=== PATIENT | female | born 1985 | race African-American/Black ===

== ENCOUNTER → 2017-08-01 | Outpatient (CLI) | payer MEDICARE, BC, OTHER ==
[~2017-08-01] MED LIST: CONTRAST GIVEN MC PRN; ESOM20CA PO; FEXO180T81 PO; GEMF600T PO; HALO2TAB PO; IOHEXOL 300 MG/ML 100ML VIAL. IV ONE; LOSA1TAB22 PO; NORE-81 PO; NYST100054 PO; POLY255P PO; VENL37.5 PO
--- NOTE | 2017-08-01 15:37 | KCIC ---
RS Compliance Statement: One or more of the following individualized dose reduction techniques were utilized for this examination: 1. Automated exposure control 2. Adjustment of the mA and/or kV according to patient size 3. Use of iterative reconstruction technique CT HEAD WITHOUT CONTRAST History: Cervicalgia, curettes, spina bifida. 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 Comparison: None. Procedure: Axial images are obtained of the head from the skull base through the vertex without IV contrast. Despite multiple times, unable to obtain IV access for postcontrast imaging. Findings: There is right frontal shunt catheter, tip terminates in the third ventricle. The ventricles are slitlike. Cerebellar tonsils appear to be low-lying. No mass-effect, midline shift, hemorrhage, extra-axial fluid collection, or obvious acute infarction is identified. Suprasellar cistern is patent. Quadrigeminal plate cistern is narrowed. Bone windows demonstrate no acute calvarial abnormality. Right parietal maribell hole. There are large calcifications along the anterior falx. Small mucous retention cyst or polyp left maxillary sinus. Maxillary sinuses incompletely imaged. The other visualized paranasal sinuses are clear. Mastoid air cells are well aerated. IMPRESSION: Right frontal shunt catheter terminates in the third ventricle. The ventricles are slitlike. The cerebellar tonsils are likely low-lying. Recommend comparison to prior baseline imaging. Shunt malfunction and over shunting should be excluded. Electronically signed by: Erwin Estrella MD (08/01/2017 3:34 PM) [facility]
== END | disposition home or self-care (01) ==
LOC: KCIC CT 10:52
PROVIDERS: ATTEND Internal Medicine
DX: Z46.82 Encounter for fitting and adjustment of non-vascular catheter (principal); Z98.2 Presence of cerebrospinal fluid drainage device
CPT/HCPCS: 70450

== ENCOUNTER 2018-05-28 16:00 | Inpatient (IN) | payer MEDICARE, BC, OTHER ==
[~2018-05-28] VITALS: Ht 165.1 cm; Wt 121.1 kg
[~2018-05-28 16:00] MED LIST changes: -CONTRAST GIVEN MC PRN; -IOHEXOL 300 MG/ML 100ML VIAL. IV ONE
[2018-05-28 18:33] LABS: BILIRUBIN,URINE NEGATIVE (NEG); CLARITY,URINE CLEAR; COLOR,URINE YELLOW; NITRITE,URINE POSITIVE (NEG); PROTEIN,URINE NEGATIVE (NEG-TRACE)
[2018-05-28 18:40] LABS: BACTERIA,URINE MANY /HPF (0-FEW); SQUAMOUS EPITHELIAL CELL,UR FEW /LPF
[2018-05-28 18:42] LABS: U PREG PATIENT NEGATIVE (NEG)
[2018-05-28 19:06] LABS: BASO # 0.1 x10^3/uL (0.0-0.2); BASO % 1 % (0-3); EOS # 0.2 x10^3/uL (0.0-0.7); EOS % 1 % (0-3); HEMATOCRIT 38.6 % (36.0-47.0); HEMOGLOBIN 13.1 g/dL (12.0-15.5); LYMPH # 3.2 x10^3/uL (1.0-4.8); LYMPH % 21 % (24-48); MEAN CORPUSCULAR HEMOGLOBIN 31 pg (25-35); MEAN CORPUSCULAR HGB CONC 34 g/dL (31-37); MEAN CORPUSCULAR VOLUME 91 fL (79-100); MONO # 1.1 x10^3/uL (0.0-1.1); MONO % 7 % (0-9); NEUT % 70 % (31-73); PLATELET COUNT 367 x10^3/uL (140-400); RED BLOOD COUNT 4.27 x10^6/uL (3.50-5.40); RED CELL DISTRIBUTION WIDTH 14.1 % (11.5-14.5); WHITE BLOOD COUNT 15.6 x10^3/uL (4.0-11.0)
[2018-05-28 19:14] LABS: CALCIUM 9.4 mg/dL (8.5-10.1); CREATININE 0.9 mg/dL (0.6-1.0); GFR 86.7; POTASSIUM 3.9 mmol/L (3.5-5.1)
[2018-05-28 19:20] LABS: ALBUMIN 2.8 g/dL (3.4-5.0); ALBUMIN/GLOBULIN RATIO 0.5 (1.0-1.7); TOTAL BILIRUBIN 0.2 mg/dL (0.2-1.0); TOTAL PROTEIN 8.7 g/dL (6.4-8.2)
[2018-05-28] MEDS ORDERED: IOHEXOL 300 MG/ML 100ML VIAL. IV ONE (19:30)
[2018-05-28] MEDS ORDERED: CONTRAST GIVEN. MC PRN (19:30)
--- NOTE | 2018-05-28 20:21 | RAD ---
CT SCAN OF THE ABDOMEN AND PELVIS WITH IV CONTRAST. History: Pain Comparison:None. Procedure: Contiguous axial images of the abdomen and pelvis were performed after the administration of 75 cc of Omni 300 IV contrast and oral contrast without. This study was performed to exclude possible perineal abscess CT Abdomen with contrast: Findings: Liver: Unremarkable Spleen: Unremarkable Pancreas: Unremarkable Adrenal Glands: Unremarkable Kidneys: Unremarkable There is no mass or lymphadenopathy. There is no free air. There is no free fluid. Impression: No acute findings. End Impression CT Pelvis with Contrast: Findings: The urinary bladder appears normal. The appendix is normal. There is no lymphadenopathy. There is moderate wall thickening of the urinary bladder. There is a trace of free fluid in the pelvis. There is an air-fluid collection in the midline perineum that measures 2.4 x 2.2 cm however this could be the anal canal. There is skin thickening seen over the mons pubis with underlying edema within the subcutaneous fat. Impression: 1. Skin thickening over the mons pubis and mild subcutaneous edema could be inflammatory or could be cellulitis. 2. Small air-fluid collection is likely a perineal abscess but cannot be distinguished from the anal canal and correlation with rectal examination is recommended. 3. Moderate wall thickening of the urinary bladder suggests cystitis. Recommend correlation with urinary analysis. PQRS Compliance Statement: One or more of the following individualized dose reduction techniques were utilized for this examination: 1. Automated exposure control 2. Adjustment of the mA and/or kV according to patient size 3. Use of iterative reconstruction technique Electronically signed by: Durga Farmer III, MD (05/28/2018 8:17 PM) [facility]
--- NOTE | 2018-05-28 22:14 | PHYS DOC ---
Past Medical History Past Medical History: Seizure Additional Past Medical Histor: SPINAL BIFIDA,HYDROCEPHOLIS,BLADDER AND BOWEL INCONTINENCE Past Surgical History: Appendectomy, Cholecystectomy Additional Past Surgical Histo: SHUNT REPAIR Alcohol Use: None Drug Use: None Adult General Chief Complaint Chief Complaint: MULTIPLE COMPLAINTS HPI HPI Patient is a 32 year old -[place]oven[place] female who presents to the emergency room today accompanied by her mother with reports of bumps in the vaginal and perianal area for the last 3 days. Mother also reports white vaginal discharge that began yesterday, but has since turned into a greenish yellow discharge. As of today mother reports a foul odor to the drainage. Mother denies any fever, complaints of abdominal pain, back pain, alteration in bowel or bladder control. She states that the patient has a history of hydrocephalus, spina bifida, bipolar, and suspected Tourette's. Mother denies any history of diabetes. Mother states that the patient is allergic to sulfa drugs, latex, and morphine. Patient's mother is her primary childcare worker. Review of Systems Review of Systems Constitutional: Denies fever or chills [] GI: Denies abdominal pain, nausea, vomiting, bloody stools or diarrhea [] : Denies hematuria, reports bumps in the perianal and vaginal areas for the last 3 days, yellow to green vaginal discharge that began as white discharge 2 days ago, and a foul odor to vaginal discharge today. Musculoskeletal: Denies back pain Integument: Reports rash and wound of genitalia Neurologic: Denies headache, focal weakness or sensory changes [] All other systems were reviewed and found to be within normal limits, except as documented in this note. Current Medications Current Medications Current Medications Medications (Trade) Dose Ordered Sig/Logan Start Time Stop Time Status Last Admin Dose Admin Info (CONTRAST GIVEN -- Rx MONITORING) 1 each PRN DAILY PRN 05/28/18 19:30 05/30/18 19:29 Iohexol (Omnipaque 300 Mg/ml) 75 ml 1X ONCE 05/28/18 19:30 05/28/18 19:31 DC 05/28/18 19:27 75 ML Allergies Allergies Physical Exam Physical Exam Constitutional: Well developed, well nourished, no acute distress, non-toxic appearance, obese [] HENT: Normocephalic, atraumatic, nose normal. [] Eyes: normal Lungs & Thorax: Respirations even and unlabored. Abdomen: soft, no tenderness, no masses, no pulsatile masses. [] : several scattered bumps noted to genitalia, there appears to be a perianal abscess that is draining a malodorous, purulent, yellow discharge. Skin: Warm, dry, no erythema Extremities: No tenderness, no cyanosis, no edema. [] Neurologic: Alert and oriented X 3, normal motor function, normal sensory function, no focal deficits noted. [] Psychologic: Affect normal, judgement normal, mood normal. [] Current Patient Data Vital Signs Vital Signs Date Time Temp Pulse Resp B/P (MAP) Pulse Ox O2 Delivery O2 Flow Rate FiO2 05/28/18 20:30 114 116/99 (105) 98 Room Air 05/28/18 17:56 98.5 18 98.5 Lab Values Laboratory Tests Test 05/28/18 18:15 05/28/18 18:50 Urine Collection Type U cath Urine Color Yellow Urine Clarity Clear Urine pH 6.0 Urine Specific [place] >=1.030 Urine Protein Negative mg/dL (NEG-TRACE) Urine Glucose (UA) >=1000 mg/dL (NEG) Urine Ketones (Stick) Trace mg/dL (NEG) Urine Blood Small (NEG) Urine Nitrite Positive (NEG) Urine Bilirubin Negative (NEG) Urine Urobilinogen Dipstick 1.0 mg/dL (0.2 mg/dL) Urine Leukocyte Esterase Negative (NEG) Urine RBC 6-10 /HPF (0-2) Urine WBC 1-4 /HPF (0-4) Urine Squamous Epithelial Cells Few /LPF Urine Bacteria Many /HPF (0-FEW) Urine Mucus Mod /LPF Urine Test Negative (NEG) White Blood Count 15.6 x10^3/uL (4.0-11.0) H Red Blood Count 4.27 x10^6/uL (3.50-5.40) Hemoglobin 13.1 g/dL (12.0-15.5) Hematocrit 38.6 % (36.0-47.0) Mean Corpuscular Volume 91 fL (79-100) Mean Corpuscular Hemoglobin 31 pg (25-35) Mean Corpuscular Hemoglobin Concent 34 g/dL (31-37) Red Cell Distribution Width 14.1 % (11.5-14.5) Platelet Count 367 x10^3/uL (140-400) Neutrophils (%) (Auto) 70 % (31-73) Lymphocytes (%) (Auto) 21 % (24-48) L Monocytes (%) (Auto) 7 % (0-9) Eosinophils (%) (Auto) 1 % (0-3) Basophils (%) (Auto) 1 % (0-3) Neutrophils # (Auto) 11.0 x10^3uL (1.8-7.7) H Lymphocytes # (Auto) 3.2 x10^3/uL (1.0-4.8) Monocytes # (Auto) 1.1 x10^3/uL (0.0-1.1) Eosinophils # (Auto) 0.2 x10^3/uL (0.0-0.7) Basophils # (Auto) 0.1 x10^3/uL (0.0-0.2) Sodium Level 137 mmol/L (136-145) Potassium Level 3.9 mmol/L (3.5-5.1) Chloride Level 101 mmol/L (98-107) Carbon Dioxide Level 27 mmol/L (21-32) Anion Gap 9 (6-14) Blood Urea Nitrogen 14 mg/dL (7-20) Creatinine 0.9 mg/dL (0.6-1.0) Estimated GFR (Cockcroft-Gault) 86.7 BUN/Creatinine Ratio 16 (6-20) Glucose Level 187 mg/dL (70-99) H Lactic Acid Level 1.8 mmol/L (0.4-2.0) Calcium Level 9.4 mg/dL (8.5-10.1) Total Bilirubin 0.2 mg/dL (0.2-1.0) Aspartate Amino Transferase (AST) 31 U/L (15-37) Alanine Aminotransferase (ALT) 37 U/L (14-59) Alkaline Phosphatase 60 U/L (46-116) Total Protein 8.7 g/dL (6.4-8.2) H Albumin 2.8 g/dL (3.4-5.0) L Albumin/Globulin Ratio 0.5 (1.0-1.7) L Laboratory Tests 05/28/18 18:50 Laboratory Tests 05/28/18 18:50 EKG EKG IMAGING REPORT Signed PATIENT: JANEE AYON ACCOUNT: [id number] : 1985 LOCATION: ER AGE: 32 SEX: F EXAM STATUS: REG ER ORD. PHYSICIAN: LEYLA BENITEZ APRN REASON: possible perineal abscess PROCEDURE: CT ABD PELV W/ IV CONTRST ONLY CT SCAN OF THE ABDOMEN AND PELVIS WITH IV CONTRAST. History: Pain Comparison:None. Procedure: Contiguous axial images of the abdomen and pelvis were performed after the administration of 75 cc of Omni 300 IV contrast and oral contrast without. This study was performed to exclude possible perineal abscess CT Abdomen with contrast: Findings: Liver: Unremarkable Spleen: Unremarkable Pancreas: Unremarkable Adrenal Glands: Unremarkable Kidneys: Unremarkable There is no mass or lymphadenopathy. There is no free air. There is no free fluid. Impression: No acute findings. End Impression CT Pelvis with Contrast: Findings: The urinary bladder appears normal. The appendix is normal. There is no lymphadenopathy. There is moderate wall thickening of the urinary bladder. There is a trace of free fluid in the pelvis. There is an air-fluid collection in the midline perineum that measures 2.4 x 2.2 cm however this could be the anal canal. There is skin thickening seen over the mons pubis with underlying edema within the subcutaneous fat. Impression: 1. Skin thickening over the mons pubis and mild subcutaneous edema could be inflammatory or could be cellulitis. 2. Small air-fluid collection is likely a perineal abscess but cannot be distinguished from the anal canal and correlation with rectal examination is recommended. 3. Moderate wall thickening of the urinary bladder suggests cystitis. Recommend correlation with urinary analysis. PQRS Compliance Statement: One or more of the following individualized dose reduction techniques were utilized for this examination: 1. Automated exposure control 2. Adjustment of the mA and/or kV according to patient size 3. Use of iterative reconstruction technique Electronically signed by: Christian Argueta III, MD (05/28/2018 8:17 PM) [facility] DICTATED and SIGNED BY: CHRISTIAN ARGUETA III, MD DATE: 05/28/18 2004 [] Radiology/Procedures Radiology/Procedures [] Course & Med Decision Making Course & Med Decision Making Pertinent Labs and Imaging studies reviewed. (See chart for details) Patient is a 32-year-old -[place]oven[place] female who presented to the emergency room today with concerns of odorous vaginal discharge, and sores of her genitalia for the last 3 days. VSS, lab work reveals a urinary tract infection. IV contrast CT abdomen and pelvis was conducted that revealed a likely perineal abscess and was consistent with cystitis. Patient was given one dose of IV Rocephin in the ER after blood cultures and wound cultures obtained. Dr. Manley was contacted and the decision to admit the patient to med/surg with an flow manager consult was made. [ER PHYSICIAN ATTENDING NOTE: I have personally seen and examined the patient, and agree with the history, physical exam, and plan, as documented by mid-level provider.] Dragon Disclaimer Dragon Disclaimer This electronic medical record was generated, in whole or in part, using a voice recognition dictation system. Departure Departure Impression: Primary Impression: Urinary tract infection Additional Impression: Perineal abscess Disposition: 09 ADMITTED INPATIENT Admitting Physician: Ivette Manley Condition: STABLE Referrals: JUVE MENENDEZ RN, GNP (PCP) Problem Qualifiers Primary Impression: Urinary tract infection Urinary tract infection type: site unspecified Hematuria presence: without hematuria Qualified Codes: N39.0 - Urinary tract infection, site not specified LEYLA BENITEZ APRN May 28, 2018 22:14 AIXA DE PAZ MD May 29, 2018 04:10
[2018-05-28 22:59] VITALS: BP 124/78
[2018-05-29 03:00] VITALS: BP 118/66
[2018-05-29] MEDS ORDERED: CLON2TAB9 PO (05:37)
[2018-05-29] MEDS ORDERED: VENL150C6 PO (05:37)
[2018-05-29] MEDS ORDERED: ACET5SOL PO (05:37)
[2018-05-29] MEDS ORDERED: GUAN1TAB PO (05:37)
[2018-05-29] MEDS ORDERED: RAME8TAB19 PO (05:37)
[2018-05-29] MEDS ORDERED: HALO2TAB PO (05:37)
[2018-05-29] MEDS ORDERED: DIVA500T17 PO (05:37)
[2018-05-29 07:00] VITALS: BP 114/75
[2018-05-29] MEDS ORDERED: ONDANSETRON ODT 4 MG TAB.RAPDIS. PO PRN (09:15)
[2018-05-29] MEDS ORDERED: traMADol 50 MG TABLET PO PRN (09:15)
[2018-05-29] MEDS ORDERED: fentaNYL PF VIAL 100 MCG/2 ML VIAL IV PRN (09:15)
[2018-05-29] MEDS ORDERED: ONDANSETRON PF 4 MG/2 ML VIAL. IV PRN (09:15)
[2018-05-29] MEDS ORDERED: ACETAMINOPHEN 500 MG TABLET PO PRN (09:15)
--- NOTE | 2018-05-29 10:24 | PDOC1 ---
History and Physical Date of Admission Date of Admission DATE: 05/29/18 TIME: 10:18 Identification/Chief Complaint Chief Complaint Vaginal discharge, vesicles around the area or rash or redness in the perineal area Source Source: Caregiver, Chart review, Patient History of Present Illness History of Present Illness 32-year-old female, with mental delay since childhood, there is a caregiver at bedside and the mother. They relay to me that maybe for the past few days, the mother noted some rash or vesicles in the perineal area some vaginal discharge - thick, white, foul-smelling and has gotten worse. Denies any fevers at home. Patient is a poor historian, but nods to my interaction. I did inspect the area, foul-smelling, urine discharge, white curdy discharge coming out of the vaginal area. CAT scan shows an abscess in that area hence admitted with CYLINDER DIE MACHINE OPERATOR on board. I did consult infectious disease and have discussed with him. WBC 15.6, no fevers overnight. Also UTI on UA. We have kept nothing by mouth pending CYLINDER DIE MACHINE OPERATOR to see, most likely might need some drainage of sorts. ER did swab the vaginal discharge and sent to the lab last night Past Medical History CENTRAL NERVOUS SYSTEM: Other (mental delay) Past Surgical History Past Surgical History: No pertinent history Family History Family History: No Significant Social History Smoke: No ALCOHOL: none Drugs: None Current Problem List Problem List Problems Medical Problems: (1) Perineal abscess Status: Acute (2) Urinary tract infection Status: Acute Current Medications Current Medications Current Medications Iohexol (Omnipaque 300 Mg/ml) 75 ml 1X ONCE IV Last administered on 05/28/18at 19:27; Start 05/28/18 at 19:30; Stop 05/28/18 at 19:31; Status DC Info (CONTRAST GIVEN -- Rx MONITORING) 1 each PRN DAILY PRN MC SEE COMMENTS; Start 05/28/18 at 19:30; Stop 05/30/18 at 19:29 Ceftriaxone Sodium 50 ml @ 100 mls/hr 1X ONCE IV Last administered on at 21:34; Start 05/28/18 at 20:45; Stop 05/28/18 at 21:14; Status DC Acetaminophen (Tylenol) 500 mg PRN Q6HRS PRN PO MILD PAIN / TEMP; Start at 09:15 Ondansetron HCl (Zofran) 4 mg PRN Q6HRS PRN IV NAUSEA/VOMITING; Start 05/29/18 at 09:15 Ondansetron HCl (Zofran Odt) 4 mg PRN Q6HRS PRN PO NAUSEA/VOMITING; Start 05/29 at 09:15 Fentanyl Citrate (Fentanyl 2ml Vial) 50 mcg PRN Q2HR PRN IV PAIN; Start at 09:15 Tramadol HCl (Ultram) 50 mg PRN Q6HRS PRN PO PAIN; Start 05/29/18 at 09:15; Status UNV Active Scripts Active Reported Guanfacine Hcl 1 Mg Tablet 2 Mg PO BID Rozerem (Ramelteon) 8 Mg Tablet 16 Mg PO HS Clonazepam 2 Mg Tablet 2 Mg PO TID Venlafaxine Hcl Er (Venlafaxine Hcl) 150 Mg Cap.er.24h 150 Mg PO DAILY Divalproex Sodium Er (Divalproex Sodium) 500 Mg Tab.er.24h 500 Mg PO TID Haloperidol 2 Mg Tablet 4 Mg PO PRN QID PRN Acetaminophen-Codeine Solution (Acetaminophen With Codeine) 5 Ml Solution 15 Ml PO QID Polyethylene Glycol 3350 255 Gm Powder 17 Gm PO DAILY Allergies Allergies: Coded Allergies: Sulfa (Sulfonamide Antibiotics) (Verified Allergy, Intermediate, Hives, ) patient develops red hives and itching latex (Verified Allergy, Intermediate, 05/29/18) morphine (Verified Allergy, Intermediate, 05/29/18) ROS Review of System limited ROS - has mental delay Physical Exam General: Alert, Oriented X3, Cooperative, No acute distress HEENT: Atraumatic, PERRLA, EOMI Lungs: Clear to auscultation, Normal air movement Heart: S1S2, RRR, no thrills, no rubs, no gallops, no murmurs Cardiovascular: S1, S2 Breasts: Normal, Rt breast nml w/o mass, Lt breast nml w/o mass, Nipples normal (pendulous breasts, no rash in the intertriginous or inframammary areas) , Not examined Rectal Exam: not examined PELVIC: Other (normal pelvic or genitalia appropriate for age but significant discharge coming from the vaginal vault, cordlike, foul-smelling. Also some urinary leakage on diapers) Extremities: No clubbing, No cyanosis, No edema, Normal pulses, No tenderness/ swelling Neuro: Normal gait, Normal speech, Strength at 5/5 X4 ext, Normal tone, Sensation intact, Cranial nerves 3-12 NL, Reflexes 2+ Psych/Mental Status: Mental status NL, Mood NL Vitals Vitals Vital Signs Date Time Temp Pulse Resp B/P (MAP) Pulse Ox O2 Delivery O2 Flow Rate FiO2 05/29/18 08:00 Room Air 05/29/18 07:00 98.2 95 20 114/75 (88) 99 98.2 Labs Labs Laboratory Tests Test 05/28/18 18:15 05/28/18 18:50 Urine Collection Type U cath Urine Color Yellow Urine Clarity Clear Urine pH 6.0 Urine Specific [place] >=1.030 Urine Protein Negative mg/dL (NEG-TRACE) Urine Glucose (UA) >=1000 mg/dL (NEG) Urine Ketones (Stick) Trace mg/dL (NEG) Urine Blood Small (NEG) Urine Nitrite Positive (NEG) Urine Bilirubin Negative (NEG) Urine Urobilinogen Dipstick 1.0 mg/dL (0.2 mg/dL) Urine Leukocyte Esterase Negative (NEG) Urine RBC 6-10 /HPF (0-2) Urine WBC 1-4 /HPF (0-4) Urine Squamous Epithelial Cells Few /LPF Urine Bacteria Many /HPF (0-FEW) Urine Mucus Mod /LPF Urine Test Negative (NEG) White Blood Count 15.6 x10^3/uL (4.0-11.0) Red Blood Count 4.27 x10^6/uL (3.50-5.40) Hemoglobin 13.1 g/dL (12.0-15.5) Hematocrit 38.6 % (36.0-47.0) Mean Corpuscular Volume 91 fL (79-100) Mean Corpuscular Hemoglobin 31 pg (25-35) Mean Corpuscular Hemoglobin Concent 34 g/dL (31-37) Red Cell Distribution Width 14.1 % (11.5-14.5) Platelet Count 367 x10^3/uL (140-400) Neutrophils (%) (Auto) 70 % (31-73) Lymphocytes (%) (Auto) 21 % (24-48) Monocytes (%) (Auto) 7 % (0-9) Eosinophils (%) (Auto) 1 % (0-3) Basophils (%) (Auto) 1 % (0-3) Neutrophils # (Auto) 11.0 x10^3uL (1.8-7.7) Lymphocytes # (Auto) 3.2 x10^3/uL (1.0-4.8) Monocytes # (Auto) 1.1 x10^3/uL (0.0-1.1) Eosinophils # (Auto) 0.2 x10^3/uL (0.0-0.7) Basophils # (Auto) 0.1 x10^3/uL (0.0-0.2) Sodium Level 137 mmol/L (136-145) Potassium Level 3.9 mmol/L (3.5-5.1) Chloride Level 101 mmol/L (98-107) Carbon Dioxide Level 27 mmol/L (21-32) Anion Gap 9 (6-14) Blood Urea Nitrogen 14 mg/dL (7-20) Creatinine 0.9 mg/dL (0.6-1.0) Estimated GFR (Cockcroft-Gault) 86.7 BUN/Creatinine Ratio 16 (6-20) Glucose Level 187 mg/dL (70-99) Lactic Acid Level 1.8 mmol/L (0.4-2.0) Calcium Level 9.4 mg/dL (8.5-10.1) Total Bilirubin 0.2 mg/dL (0.2-1.0) Aspartate Amino Transf (AST/SGOT) 31 U/L (15-37) Alanine Aminotransferase (ALT/SGPT) 37 U/L (14-59) Alkaline Phosphatase 60 U/L (46-116) Total Protein 8.7 g/dL (6.4-8.2) Albumin 2.8 g/dL (3.4-5.0) Albumin/Globulin Ratio 0.5 (1.0-1.7) Laboratory Tests Test 05/28/18 18:15 05/28/18 18:50 Urine Collection Type U cath Urine Color Yellow Urine Clarity Clear Urine pH 6.0 Urine Specific [place] >=1.030 Urine Protein Negative mg/dL (NEG-TRACE) Urine Glucose (UA) >=1000 mg/dL (NEG) Urine Ketones (Stick) Trace mg/dL (NEG) Urine Blood Small (NEG) Urine Nitrite Positive (NEG) Urine Bilirubin Negative (NEG) Urine Urobilinogen Dipstick 1.0 mg/dL (0.2 mg/dL) Urine Leukocyte Esterase Negative (NEG) Urine RBC 6-10 /HPF (0-2) Urine WBC 1-4 /HPF (0-4) Urine Squamous Epithelial Cells Few /LPF Urine Bacteria Many /HPF (0-FEW) Urine Mucus Mod /LPF Urine Test Negative (NEG) White Blood Count 15.6 x10^3/uL (4.0-11.0) Red Blood Count 4.27 x10^6/uL (3.50-5.40) Hemoglobin 13.1 g/dL (12.0-15.5) Hematocrit 38.6 % (36.0-47.0) Mean Corpuscular Volume 91 fL (79-100) Mean Corpuscular Hemoglobin 31 pg (25-35) Mean Corpuscular Hemoglobin Concent 34 g/dL (31-37) Red Cell Distribution Width 14.1 % (11.5-14.5) Platelet Count 367 x10^3/uL (140-400) Neutrophils (%) (Auto) 70 % (31-73) Lymphocytes (%) (Auto) 21 % (24-48) Monocytes (%) (Auto) 7 % (0-9) Eosinophils (%) (Auto) 1 % (0-3) Basophils (%) (Auto) 1 % (0-3) Neutrophils # (Auto) 11.0 x10^3uL (1.8-7.7) Lymphocytes # (Auto) 3.2 x10^3/uL (1.0-4.8) Monocytes # (Auto) 1.1 x10^3/uL (0.0-1.1) Eosinophils # (Auto) 0.2 x10^3/uL (0.0-0.7) Basophils # (Auto) 0.1 x10^3/uL (0.0-0.2) Sodium Level 137 mmol/L (136-145) Potassium Level 3.9 mmol/L (3.5-5.1) Chloride Level 101 mmol/L (98-107) Carbon Dioxide Level 27 mmol/L (21-32) Anion Gap 9 (6-14) Blood Urea Nitrogen 14 mg/dL (7-20) Creatinine 0.9 mg/dL (0.6-1.0) Estimated GFR (Cockcroft-Gault) 86.7 BUN/Creatinine Ratio 16 (6-20) Glucose Level 187 mg/dL (70-99) Lactic Acid Level 1.8 mmol/L (0.4-2.0) Calcium Level 9.4 mg/dL (8.5-10.1) Total Bilirubin 0.2 mg/dL (0.2-1.0) Aspartate Amino Transf (AST/SGOT) 31 U/L (15-37) Alanine Aminotransferase (ALT/SGPT) 37 U/L (14-59) Alkaline Phosphatase 60 U/L (46-116) Total Protein 8.7 g/dL (6.4-8.2) Albumin 2.8 g/dL (3.4-5.0) Albumin/Globulin Ratio 0.5 (1.0-1.7) VTE Prophylaxis Ordered VTE Prophylaxis Devices: Yes VTE Pharmacological Prophylaxi: Yes Assessment/Plan Assessment/Plan Perineal abscess Vaginal discharge Sepsis POA Mental delay Morbid obesity Sulfa allergy-hives UTI Plan: Admit 2 midnights Home meds have been reconciled Follow cultures, Gram stain sent from the ER CYLINDER DIE MACHINE OPERATOR consulted Add ID consult Add ESR and labs tomorrow Treatment for UTI Has been nothing by mouth just in case drainage needed today dw ID and multiple family members at bedside ABHIJEET MARSHALL MD May 29, 2018 10:24
[2018-05-29 11:00] VITALS: BP 121/76
[2018-05-29] MEDS: POLYETHYLENE GLYCOL 3350 17 GM PACKET. PO SCH (11:00)
--- NOTE | 2018-05-29 11:09 | PDOC ---
Infectious Disease Note Vital Sign Vital Signs Vital Signs Date Time Temp Pulse Resp B/P (MAP) Pulse Ox O2 Delivery O2 Flow Rate FiO2 05/29/18 08:00 Room Air 05/29/18 07:00 98.2 95 20 114/75 (88) 99 98.2 Labs Lab Laboratory Tests Test 05/28/18 18:15 05/28/18 18:50 Urine Collection Type U cath Urine Color Yellow Urine Clarity Clear Urine pH 6.0 Urine Specific [place] >=1.030 Urine Protein Negative mg/dL (NEG-TRACE) Urine Glucose (UA) >=1000 mg/dL (NEG) Urine Ketones (Stick) Trace mg/dL (NEG) Urine Blood Small (NEG) Urine Nitrite Positive (NEG) Urine Bilirubin Negative (NEG) Urine Urobilinogen Dipstick 1.0 mg/dL (0.2 mg/dL) Urine Leukocyte Esterase Negative (NEG) Urine RBC 6-10 /HPF (0-2) Urine WBC 1-4 /HPF (0-4) Urine Squamous Epithelial Cells Few /LPF Urine Bacteria Many /HPF (0-FEW) Urine Mucus Mod /LPF Urine Test Negative (NEG) White Blood Count 15.6 x10^3/uL (4.0-11.0) Red Blood Count 4.27 x10^6/uL (3.50-5.40) Hemoglobin 13.1 g/dL (12.0-15.5) Hematocrit 38.6 % (36.0-47.0) Mean Corpuscular Volume 91 fL (79-100) Mean Corpuscular Hemoglobin 31 pg (25-35) Mean Corpuscular Hemoglobin Concent 34 g/dL (31-37) Red Cell Distribution Width 14.1 % (11.5-14.5) Platelet Count 367 x10^3/uL (140-400) Neutrophils (%) (Auto) 70 % (31-73) Lymphocytes (%) (Auto) 21 % (24-48) Monocytes (%) (Auto) 7 % (0-9) Eosinophils (%) (Auto) 1 % (0-3) Basophils (%) (Auto) 1 % (0-3) Neutrophils # (Auto) 11.0 x10^3uL (1.8-7.7) Lymphocytes # (Auto) 3.2 x10^3/uL (1.0-4.8) Monocytes # (Auto) 1.1 x10^3/uL (0.0-1.1) Eosinophils # (Auto) 0.2 x10^3/uL (0.0-0.7) Basophils # (Auto) 0.1 x10^3/uL (0.0-0.2) Sodium Level 137 mmol/L (136-145) Potassium Level 3.9 mmol/L (3.5-5.1) Chloride Level 101 mmol/L (98-107) Carbon Dioxide Level 27 mmol/L (21-32) Anion Gap 9 (6-14) Blood Urea Nitrogen 14 mg/dL (7-20) Creatinine 0.9 mg/dL (0.6-1.0) Estimated GFR (Cockcroft-Gault) 86.7 BUN/Creatinine Ratio 16 (6-20) Glucose Level 187 mg/dL (70-99) Lactic Acid Level 1.8 mmol/L (0.4-2.0) Calcium Level 9.4 mg/dL (8.5-10.1) Total Bilirubin 0.2 mg/dL (0.2-1.0) Aspartate Amino Transf (AST/SGOT) 31 U/L (15-37) Alanine Aminotransferase (ALT/SGPT) 37 U/L (14-59) Alkaline Phosphatase 60 U/L (46-116) Total Protein 8.7 g/dL (6.4-8.2) Albumin 2.8 g/dL (3.4-5.0) Albumin/Globulin Ratio 0.5 (1.0-1.7) Objective Assessment Perineal abscess Vaginal discharge Leukocytosis Spina bifida Plan Plan of Care rocephine add flagyl and diflucan supportive care OPTHALMIC TECH input pending d/w mother TRIXIE LOYA MD May 29, 2018 11:09
[2018-05-29] MEDS: DIVALPROEX EXTENDED RELEASE 500 MG TAB.ER.24H. PO SCH ×3 (12:00→21:33)
[2018-05-29] MEDS: VENLAFAXINE 50 MG TABLET. PO SCH ×3 (12:00→21:33)
[2018-05-29] MEDS: clonazePAM 1 MG TABLET PO SCH ×3 (12:01→21:34)
[2018-05-29] MEDS: metroNIDAZOLE 500 MG TABLET PO SCH ×2 (12:01→21:34)
[2018-05-29] MEDS: FLUCONAZOLE 100 MG TABLET. PO SCH (12:02)
[2018-05-29] MEDS: ACETAMINOPHEN/CODEINE 120/12MG 5 ML SOLUTION. PO SCH ×3 (12:02→21:34)
[2018-05-29 12:03] LABS: PROTHROMBIN TIME PATIENT 13.1 SEC (11.7-14.0)
[2018-05-29] MEDS ORDERED: FLUCONAZOLE 100 MG TABLET. PO ONE (13:15)
--- NOTE | 2018-05-29 13:33 | PDOC2 ---
CONSULT Date of Consult Date of Consult DATE: 05/29/18 TIME: 13:04 Reason for Consult Reason for Consult: Vaginal infection History of Present Illness Reason for Visit: Pelvic exam labial minor and majora along with the posterior fourchette erythematous and inflamed no evidence of abscess SSE Cottage cheese-like vaginal discharge that is also foul smelling cervix not visualized Rectal exam normal Cultures taken , GC Chlamydia, anaerobic and aerobic and BV Buttock shows evidence of contact dermatitis with small bullae and early contact dermatitis Past Medical History CENTRAL NERVOUS SYSTEM: Other (mental delay) Past Surgical History Past Surgical History: No pertinent history Family History Family History: No Significant Social History No ALCOHOL: none Drugs: None Current Problem List Problem List Problems Medical Problems: (1) Perineal abscess Status: Acute (2) Urinary tract infection Status: Acute Current Medications Current Medications Current Medications Iohexol (Omnipaque 300 Mg/ml) 75 ml 1X ONCE IV Last administered on 05/28/18at 19:27; Start 05/28/18 at 19:30; Stop 05/28/18 at 19:31; Status DC Info (CONTRAST GIVEN -- Rx MONITORING) 1 each PRN DAILY PRN MC SEE COMMENTS; Start 05/28/18 at 19:30; Stop 05/30/18 at 19:29 Ceftriaxone Sodium 50 ml @ 100 mls/hr 1X ONCE IV Last administered on at 21:34; Start 05/28/18 at 20:45; Stop 05/28/18 at 21:14; Status DC Acetaminophen (Tylenol) 500 mg PRN Q6HRS PRN PO MILD PAIN / TEMP; Start at 09:15 Ondansetron HCl (Zofran) 4 mg PRN Q6HRS PRN IV NAUSEA/VOMITING; Start 05/29/18 at 09:15 Ondansetron HCl (Zofran Odt) 4 mg PRN Q6HRS PRN PO NAUSEA/VOMITING; Start 05/29 at 09:15 Fentanyl Citrate (Fentanyl 2ml Vial) 50 mcg PRN Q2HR PRN IV PAIN; Start at 09:15 Tramadol HCl (Ultram) 50 mg PRN Q6HRS PRN PO MILD PAIN Last administered on at 12:01; Start 05/29/18 at 09:15 Acetaminophen/ Codeine Phosphate (Tylenol/Codeine Soln) 15 ml QID PO Last administered on 05/29/18at 12:02; Start 05/29/18 at 13:00 Divalproex Sodium (Depakote Er) 500 mg TID PO Last administered on 05/29/18at 12 :00; Start 05/29/18 at 10:30 Haloperidol (Haldol) 4 mg PRN QID PRN PO ANXIETY / AGITATION; Start 05/29/18 at 10:30 Polyethylene Glycol (miraLAX PACKET) 17 gm DAILY PO ; Start 05/29/18 at 11:00 Clonazepam (KlonoPIN) 2 mg TID PO Last administered on 05/29/18at 12:01; Start 05/29/18 at 11:00 Non-Formulary Medication (Guanfacine Hcl ) 2 mg BID PO ; Start 05/29/18 at 21:00 ; Status UNV Non-Formulary Medication (Ramelteon (Rozerem)) 16 mg HS PO ; Start 05/29/18 at 21:00; Status UNV Venlafaxine HCl (Effexor) 50 mg TID PO Last administered on 05/29/18at 12:00; Start 05/29/18 at 10:30 Metronidazole (Flagyl) 500 mg Q8HRS PO Last administered on 05/29/18at 12:01; Start 05/29/18 at 12:00 Fluconazole (Diflucan) 200 mg DAILY PO Last administered on 05/29/18at 12:02; Start 05/29/18 at 12:00 Active Scripts Active Reported Guanfacine Hcl 1 Mg Tablet 2 Mg PO BID Rozerem (Ramelteon) 8 Mg Tablet 16 Mg PO HS Clonazepam 2 Mg Tablet 2 Mg PO TID Venlafaxine Hcl Er (Venlafaxine Hcl) 150 Mg Cap.er.24h 150 Mg PO DAILY Divalproex Sodium Er (Divalproex Sodium) 500 Mg Tab.er.24h 500 Mg PO TID Haloperidol 2 Mg Tablet 4 Mg PO PRN QID PRN Acetaminophen-Codeine Solution (Acetaminophen With Codeine) 5 Ml Solution 15 Ml PO QID Polyethylene Glycol 3350 255 Gm Powder 17 Gm PO DAILY Allergies Allergies: Coded Allergies: Sulfa (Sulfonamide Antibiotics) (Verified Allergy, Intermediate, Hives, ) patient develops red hives and itching latex (Verified Allergy, Intermediate, 05/29/18) morphine (Verified Adverse Reaction, Intermediate, INEFFECTIVE, 05/29/18) Vitals VITALS Vital Signs Date Time Temp Pulse Resp B/P (MAP) Pulse Ox O2 Delivery O2 Flow Rate FiO2 05/29/18 12:02 Room Air 05/29/18 07:00 98.2 95 20 114/75 (88) 99 98.2 Labs Labs Laboratory Tests Test 05/28/18 18:15 05/28/18 18:50 Urine Collection Type U cath Urine Color Yellow Urine Clarity Clear Urine pH 6.0 Urine Specific [place] >=1.030 Urine Protein Negative mg/dL (NEG-TRACE) Urine Glucose (UA) >=1000 mg/dL (NEG) Urine Ketones (Stick) Trace mg/dL (NEG) Urine Blood Small (NEG) Urine Nitrite Positive (NEG) Urine Bilirubin Negative (NEG) Urine Urobilinogen Dipstick 1.0 mg/dL (0.2 mg/dL) Urine Leukocyte Esterase Negative (NEG) Urine RBC 6-10 /HPF (0-2) Urine WBC 1-4 /HPF (0-4) Urine Squamous Epithelial Cells Few /LPF Urine Bacteria Many /HPF (0-FEW) Urine Mucus Mod /LPF Urine Test Negative (NEG) White Blood Count 15.6 x10^3/uL (4.0-11.0) Red Blood Count 4.27 x10^6/uL (3.50-5.40) Hemoglobin 13.1 g/dL (12.0-15.5) Hematocrit 38.6 % (36.0-47.0) Mean Corpuscular Volume 91 fL (79-100) Mean Corpuscular Hemoglobin 31 pg (25-35) Mean Corpuscular Hemoglobin Concent 34 g/dL (31-37) Red Cell Distribution Width 14.1 % (11.5-14.5) Platelet Count 367 x10^3/uL (140-400) Neutrophils (%) (Auto) 70 % (31-73) Lymphocytes (%) (Auto) 21 % (24-48) Monocytes (%) (Auto) 7 % (0-9) Eosinophils (%) (Auto) 1 % (0-3) Basophils (%) (Auto) 1 % (0-3) Neutrophils # (Auto) 11.0 x10^3uL (1.8-7.7) Lymphocytes # (Auto) 3.2 x10^3/uL (1.0-4.8) Monocytes # (Auto) 1.1 x10^3/uL (0.0-1.1) Eosinophils # (Auto) 0.2 x10^3/uL (0.0-0.7) Basophils # (Auto) 0.1 x10^3/uL (0.0-0.2) Sodium Level 137 mmol/L (136-145) Potassium Level 3.9 mmol/L (3.5-5.1) Chloride Level 101 mmol/L (98-107) Carbon Dioxide Level 27 mmol/L (21-32) Anion Gap 9 (6-14) Blood Urea Nitrogen 14 mg/dL (7-20) Creatinine 0.9 mg/dL (0.6-1.0) Estimated GFR (Cockcroft-Gault) 86.7 BUN/Creatinine Ratio 16 (6-20) Glucose Level 187 mg/dL (70-99) Lactic Acid Level 1.8 mmol/L (0.4-2.0) Calcium Level 9.4 mg/dL (8.5-10.1) Total Bilirubin 0.2 mg/dL (0.2-1.0) Aspartate Amino Transf (AST/SGOT) 31 U/L (15-37) Alanine Aminotransferase (ALT/SGPT) 37 U/L (14-59) Alkaline Phosphatase 60 U/L (46-116) Total Protein 8.7 g/dL (6.4-8.2) Albumin 2.8 g/dL (3.4-5.0) Albumin/Globulin Ratio 0.5 (1.0-1.7) Laboratory Tests Test 05/28/18 18:15 05/28/18 18:50 Urine Collection Type U cath Urine Color Yellow Urine Clarity Clear Urine pH 6.0 Urine Specific [place] >=1.030 Urine Protein Negative mg/dL (NEG-TRACE) Urine Glucose (UA) >=1000 mg/dL (NEG) Urine Ketones (Stick) Trace mg/dL (NEG) Urine Blood Small (NEG) Urine Nitrite Positive (NEG) Urine Bilirubin Negative (NEG) Urine Urobilinogen Dipstick 1.0 mg/dL (0.2 mg/dL) Urine Leukocyte Esterase Negative (NEG) Urine RBC 6-10 /HPF (0-2) Urine WBC 1-4 /HPF (0-4) Urine Squamous Epithelial Cells Few /LPF Urine Bacteria Many /HPF (0-FEW) Urine Mucus Mod /LPF Urine Test Negative (NEG) White Blood Count 15.6 x10^3/uL (4.0-11.0) Red Blood Count 4.27 x10^6/uL (3.50-5.40) Hemoglobin 13.1 g/dL (12.0-15.5) Hematocrit 38.6 % (36.0-47.0) Mean Corpuscular Volume 91 fL (79-100) Mean Corpuscular Hemoglobin 31 pg (25-35) Mean Corpuscular Hemoglobin Concent 34 g/dL (31-37) Red Cell Distribution Width 14.1 % (11.5-14.5) Platelet Count 367 x10^3/uL (140-400) Neutrophils (%) (Auto) 70 % (31-73) Lymphocytes (%) (Auto) 21 % (24-48) Monocytes (%) (Auto) 7 % (0-9) Eosinophils (%) (Auto) 1 % (0-3) Basophils (%) (Auto) 1 % (0-3) Neutrophils # (Auto) 11.0 x10^3uL (1.8-7.7) Lymphocytes # (Auto) 3.2 x10^3/uL (1.0-4.8) Monocytes # (Auto) 1.1 x10^3/uL (0.0-1.1) Eosinophils # (Auto) 0.2 x10^3/uL (0.0-0.7) Basophils # (Auto) 0.1 x10^3/uL (0.0-0.2) Sodium Level 137 mmol/L (136-145) Potassium Level 3.9 mmol/L (3.5-5.1) Chloride Level 101 mmol/L (98-107) Carbon Dioxide Level 27 mmol/L (21-32) Anion Gap 9 (6-14) Blood Urea Nitrogen 14 mg/dL (7-20) Creatinine 0.9 mg/dL (0.6-1.0) Estimated GFR (Cockcroft-Gault) 86.7 BUN/Creatinine Ratio 16 (6-20) Glucose Level 187 mg/dL (70-99) Lactic Acid Level 1.8 mmol/L (0.4-2.0) Calcium Level 9.4 mg/dL (8.5-10.1) Total Bilirubin 0.2 mg/dL (0.2-1.0) Aspartate Amino Transf (AST/SGOT) 31 U/L (15-37) Alanine Aminotransferase (ALT/SGPT) 37 U/L (14-59) Alkaline Phosphatase 60 U/L (46-116) Total Protein 8.7 g/dL (6.4-8.2) Albumin 2.8 g/dL (3.4-5.0) Albumin/Globulin Ratio 0.5 (1.0-1.7) Assessment/Plan Assessment/Plan Diagnosis Vulva-vaginitis Probable yeast and BV other cultures as above Buttock with contact dermatitis Recommend Flagyl per vagina the one time dose Diflucan 150mg PO qd times 3 days Would consider Fem Ph as needed to help prevent reoccurrence Patients sister states there has been no problem in the past until her diapers brand had been changed Will FU cultures JOBY JAMES MD May 29, 2018 13:33
[2018-05-29] MEDS: metroNIDAZOLE 0.75% VAGINAL 1 APP TUBE VG SCH (14:46)
[2018-05-29 15:00] VITALS: BP 128/72
--- NOTE | 2018-05-29 16:27 | CONS ---
DATE OF CONSULTATION: 05/29/2018 REQUESTING PHYSICIAN: Dr. Manley. REASON FOR CONSULTATION: Perineal abscess. HISTORY OF PRESENT ILLNESS: This is a 32-year-old female with history of spina bifida and mental retardation who was brought in by mother with she noticed about 3 days ago vaginal discharge, foul smelling discharge, and some bumps around her vaginal area. The patient is not able to provide much information. The patient's mother denied any fever, some abdominal pain she complained. The patient has not had any nausea, vomiting, diarrhea. The patient has been put on Rocephin and consult has been requested. A CAT scan showed perineal abscess and BLOWER INSULATOR exam is pending. Again, no nausea, vomiting, diarrhea, chest pain, shortness of breath, abdominal pain, or urinary symptoms. PAST MEDICAL HISTORY: Positive for spina bifida. The patient has hydrocephalus with shunt, bipolar disorder, bladder and bowel incontinence, has had appendicectomy and cholecystectomy and shunt repair done in the past. SOCIAL HISTORY: Negative for smoking, alcohol, illicit drug use. According to mother, the patient has not ever had any sex. REVIEW OF SYSTEMS: As per HPI. All other systems reviewed are negative. CURRENT MEDICATIONS: Reviewed. PHYSICAL EXAMINATION: GENERAL: Awake female, not in distress. VITAL SIGNS: Stable, afebrile. HEENT: NAD. NECK: Supple, no JVP, no lymphadenopathy. LUNGS: Clear. HEART: S1, S2 regular. ABDOMEN: Benign. PELVIC: Examination of the vaginal area with the patient's nurse and mother present, there is some small blistering present. There is a foul smelling discharge from inside. There is no apparent abscess that can be palpable or seen. NEUROLOGIC: The patient does move all the extremities. Neurologically she is to her baseline. LABORATORY DATA: White count is 15.6. BUN and creatinine is normal. Urinalysis is unremarkable for infection. test is negative. CT of the abdomen and pelvis showed there is small air-fluid collection, likely a perineal abscess. IMPRESSION: 1. Perineal abscess. 2. Vaginal discharge. 3. Leukocytosis. 4. Spina bifida. RECOMMENDATIONS: Would continue Rocephin, add Flagyl and Diflucan. Supportive care. Discussion with mother done and BLOWER INSULATOR input is pending. Thank you very much, Dr. Manley, for giving me the opportunity to participate in this patient's care. TRIXIE LOYA MD DR: RE/jessy JOB#: [id number] / [id number]
[2018-05-29 19:00] VITALS: BP 100/61
[2018-05-29] MEDS: GUANFACINE 2 MG PO SCH (21:00)
[2018-05-29] MEDS: cefTRIAXone IV Push 1 GM VIAL. IVP SCH (21:34)
[2018-05-29 23:00] VITALS: BP 124/84
[2018-05-30 03:02] VITALS: BP 128/71
[2018-05-30] MEDS: metroNIDAZOLE 500 MG TABLET PO SCH ×3 (06:17→20:54)
[2018-05-30 07:00] VITALS: BP 127/75
[2018-05-30] MEDS: POLYETHYLENE GLYCOL 3350 17 GM PACKET. PO SCH (09:00)
[2018-05-30] MEDS: GUANFACINE 2 MG PO SCH ×2 (09:00→20:52)
[2018-05-30] MEDS: VENLAFAXINE 50 MG TABLET. PO SCH ×3 (09:47→20:52)
[2018-05-30] MEDS: FLUCONAZOLE 100 MG TABLET. PO SCH (09:47)
[2018-05-30] MEDS: clonazePAM 1 MG TABLET PO SCH ×3 (09:47→20:51)
[2018-05-30] MEDS: metroNIDAZOLE 0.75% VAGINAL 1 APP TUBE VG SCH (09:48)
[2018-05-30] MEDS: ACETAMINOPHEN/CODEINE 120/12MG 5 ML SOLUTION. PO SCH ×4 (09:48→20:53)
[2018-05-30] MEDS: DIVALPROEX EXTENDED RELEASE 500 MG TAB.ER.24H. PO SCH ×3 (09:48→20:52)
--- NOTE | 2018-05-30 09:51 | PDOC ---
PROGRESS NOTES Chief Complaint Chief Complaint Assessment/Plan Perineal abscess no surgery indicated for now Vaginal discharge, curdlike Sepsis POA Mental delay Morbid obesity Sulfa allergy-hives UTI History of Present Illness History of Present Illness NO Family at bedside today She has mental delay - she voices no complaints ID on board So far no fever or no low-grade temperatures or no white count. Does have a UTI No surgical need for drainage as per VISUAL SUPERVISOR E ID recommended urology consult-discussed with Ana Sheth Patient is constantly leaking urine, she is sitting on her urine on the diapers Plan: Follow cultures IV antibiotics Urology consulted - discussed with her, poss cysto as oP - agrees with mtaamoros Insert [place] catheter today, to keep urine away from the wounds, perineal area Discussed with RN Vitals Vitals Vital Signs Date Time Temp Pulse Resp B/P (MAP) Pulse Ox O2 Delivery O2 Flow Rate FiO2 05/30/18 07:00 98.2 102 16 127/75 (92) 96 Room Air 98.2 Physical Exam General: Alert, Oriented X3, Cooperative, No acute distress Heart: Regular rate, Normal S1, Normal S2 Lungs: Clear Abdomen: Normal bowel sounds, Soft Extremities: No clubbing, No cyanosis, No edema, Normal pulses, No tenderness/ swelling Skin: Other (redness, better induration around the perineal area, no curdlike discharge in the vaginal today. But constantly leaking urine on my exam) Labs LABS Laboratory Tests Test 05/29/18 11:30 Erythrocyte Sedimentation Rate 85 (0-25) Prothrombin Time 13.1 SEC (11.7-14.0) Prothromb Time International Ratio 1.0 (0.8-1.1) Review of Systems Review of Systems She has mental delay hence limited ROS Assessment and Plan Assessmemt and Plan Problems Medical Problems: (1) Perineal abscess Status: Acute (2) Urinary tract infection Status: Acute Comment Review of Relevant I have reviewed the following items maximilian (where applicable) has been applied. Labs Laboratory Tests Test 05/28/18 18:15 05/28/18 18:50 05/29/18 11:30 Urine Collection Type U cath Urine Color Yellow Urine Clarity Clear Urine pH 6.0 Urine Specific [place] >=1.030 Urine Protein Negative mg/dL (NEG-TRACE) Urine Glucose (UA) >=1000 mg/dL (NEG) Urine Ketones (Stick) Trace mg/dL (NEG) Urine Blood Small (NEG) Urine Nitrite Positive (NEG) Urine Bilirubin Negative (NEG) Urine Urobilinogen Dipstick 1.0 mg/dL (0.2 mg/dL) Urine Leukocyte Esterase Negative (NEG) Urine RBC 6-10 /HPF (0-2) Urine WBC 1-4 /HPF (0-4) Urine Squamous Epithelial Cells Few /LPF Urine Bacteria Many /HPF (0-FEW) Urine Mucus Mod /LPF Urine Test Negative (NEG) White Blood Count 15.6 x10^3/uL (4.0-11.0) Red Blood Count 4.27 x10^6/uL (3.50-5.40) Hemoglobin 13.1 g/dL (12.0-15.5) Hematocrit 38.6 % (36.0-47.0) Mean Corpuscular Volume 91 fL (79-100) Mean Corpuscular Hemoglobin 31 pg (25-35) Mean Corpuscular Hemoglobin Concent 34 g/dL (31-37) Red Cell Distribution Width 14.1 % (11.5-14.5) Platelet Count 367 x10^3/uL (140-400) Neutrophils (%) (Auto) 70 % (31-73) Lymphocytes (%) (Auto) 21 % (24-48) Monocytes (%) (Auto) 7 % (0-9) Eosinophils (%) (Auto) 1 % (0-3) Basophils (%) (Auto) 1 % (0-3) Neutrophils # (Auto) 11.0 x10^3uL (1.8-7.7) Lymphocytes # (Auto) 3.2 x10^3/uL (1.0-4.8) Monocytes # (Auto) 1.1 x10^3/uL (0.0-1.1) Eosinophils # (Auto) 0.2 x10^3/uL (0.0-0.7) Basophils # (Auto) 0.1 x10^3/uL (0.0-0.2) Sodium Level 137 mmol/L (136-145) Potassium Level 3.9 mmol/L (3.5-5.1) Chloride Level 101 mmol/L (98-107) Carbon Dioxide Level 27 mmol/L (21-32) Anion Gap 9 (6-14) Blood Urea Nitrogen 14 mg/dL (7-20) Creatinine 0.9 mg/dL (0.6-1.0) Estimated GFR (Cockcroft-Gault) 86.7 BUN/Creatinine Ratio 16 (6-20) Glucose Level 187 mg/dL (70-99) Lactic Acid Level 1.8 mmol/L (0.4-2.0) Calcium Level 9.4 mg/dL (8.5-10.1) Total Bilirubin 0.2 mg/dL (0.2-1.0) Aspartate Amino Transf (AST/SGOT) 31 U/L (15-37) Alanine Aminotransferase (ALT/SGPT) 37 U/L (14-59) Alkaline Phosphatase 60 U/L (46-116) Total Protein 8.7 g/dL (6.4-8.2) Albumin 2.8 g/dL (3.4-5.0) Albumin/Globulin Ratio 0.5 (1.0-1.7) Erythrocyte Sedimentation Rate 85 (0-25) Prothrombin Time 13.1 SEC (11.7-14.0) Prothromb Time International Ratio 1.0 (0.8-1.1) Laboratory Tests Test 05/29/18 11:30 Erythrocyte Sedimentation Rate 85 (0-25) Prothrombin Time 13.1 SEC (11.7-14.0) Prothromb Time International Ratio 1.0 (0.8-1.1) Microbiology 05/28/18 Blood Culture - Preliminary, Resulted NO GROWTH AFTER 1 DAY 05/29/18 Wet Prep - Final, Complete 05/28/18 Anaerobic/Aerobic Culture, Resulted Pending 05/28/18 Anaerobic Culture Result 1 (MERI), Resulted Pending 05/28/18 Aerobic Culture, Resulted Pending 05/28/18 Aerobic Culture Result 1 (MERI), Resulted Pending 05/28/18 Gram Stain - Final, Resulted 05/28/18 Gram Stain Result 1 (MERI) - Final, Resulted 05/28/18 Gram Stain Result 2 (MERI) - Final, Resulted 05/28/18 Gram Stain Result 3 (MERI) - Final, Resulted Medications Current Medications Iohexol (Omnipaque 300 Mg/ml) 75 ml 1X ONCE IV Last administered on 05/28/18at 19:27; Start 05/28/18 at 19:30; Stop 05/28/18 at 19:31; Status DC Info (CONTRAST GIVEN -- Rx MONITORING) 1 each PRN DAILY PRN MC SEE COMMENTS; Start 05/28/18 at 19:30; Stop 05/30/18 at 19:29 Ceftriaxone Sodium 50 ml @ 100 mls/hr 1X ONCE IV Last administered on at 21:34; Start 05/28/18 at 20:45; Stop 05/28/18 at 21:14; Status DC Acetaminophen (Tylenol) 500 mg PRN Q6HRS PRN PO MILD PAIN / TEMP; Start at 09:15 Ondansetron HCl (Zofran) 4 mg PRN Q6HRS PRN IV NAUSEA/VOMITING; Start 05/29/18 at 09:15 Ondansetron HCl (Zofran Odt) 4 mg PRN Q6HRS PRN PO NAUSEA/VOMITING; Start 05/29 at 09:15 Fentanyl Citrate (Fentanyl 2ml Vial) 50 mcg PRN Q2HR PRN IV PAIN; Start at 09:15 Tramadol HCl (Ultram) 50 mg PRN Q6HRS PRN PO MILD PAIN Last administered on at 12:01; Start 05/29/18 at 09:15 Acetaminophen/ Codeine Phosphate (Tylenol/Codeine Soln) 15 ml QID PO Last administered on 05/29/18at 21:34; Start 05/29/18 at 13:00 Divalproex Sodium (Depakote Er) 500 mg TID PO Last administered on 05/29/18at 21 :33; Start 05/29/18 at 10:30 Haloperidol (Haldol) 4 mg PRN QID PRN PO ANXIETY / AGITATION; Start 05/29/18 at 10:30 Polyethylene Glycol (miraLAX PACKET) 17 gm DAILY PO ; Start 05/29/18 at 11:00 Clonazepam (KlonoPIN) 2 mg TID PO Last administered on 05/29/18at 21:34; Start 05/29/18 at 11:00 Non-Formulary Medication (Guanfacine Hcl ) 2 mg BID PO ; Start 05/29/18 at 21:00 ; Status UNV Non-Formulary Medication (Ramelteon (Rozerem)) 16 mg HS PO ; Start 05/29/18 at 21:00; Status UNV Venlafaxine HCl (Effexor) 50 mg TID PO Last administered on 05/29/18at 21:33; Start 05/29/18 at 10:30 Metronidazole (Flagyl) 500 mg Q8HRS PO Last administered on 05/30/18at 06:17; Start 05/29/18 at 12:00 Fluconazole (Diflucan) 200 mg DAILY PO Last administered on 05/29/18at 12:02; Start 05/29/18 at 12:00 Metronidazole (Metrogel) 1 olivia DAILY VG Last administered on 05/29/18at 14:46; Start 05/29/18 at 14:30 Fluconazole (Diflucan) 200 mg 1X ONCE PO Last administered on 05/29/18at 14:45 ; Start 05/29/18 at 13:15; Stop 05/29/18 at 13:40; Status DC Ceftriaxone Sodium (Rocephin) 1 gm Q24H IVP Last administered on 05/29/18at 21: 34; Start 05/29/18 at 21:00 Active Scripts Active Reported Guanfacine Hcl 1 Mg Tablet 2 Mg PO BID Rozerem (Ramelteon) 8 Mg Tablet 16 Mg PO HS Clonazepam 2 Mg Tablet 2 Mg PO TID Venlafaxine Hcl Er (Venlafaxine Hcl) 150 Mg Cap.er.24h 150 Mg PO DAILY Divalproex Sodium Er (Divalproex Sodium) 500 Mg Tab.er.24h 500 Mg PO TID Haloperidol 2 Mg Tablet 4 Mg PO PRN QID PRN Acetaminophen-Codeine Solution (Acetaminophen With Codeine) 5 Ml Solution 15 Ml PO QID Polyethylene Glycol 3350 255 Gm Powder 17 Gm PO DAILY Vitals/I & O Vital Sign - Last 24 Hours 05/29/18 05/29/18 05/29/18 05/29/18 11:00 12:01 12:02 15:00 Temp 95.1 95.1 Pulse 99 94 Resp 20 20 B/P (MAP) 121/76 (91) 128/72 (90) Pulse Ox 99 100 O2 Delivery Room Air Room Air Room Air 05/29/18 05/29/18 05/29/18 05/29/18 17:22 19:00 20:00 21:34 Temp 98.5 98.5 Pulse 121 Resp 20 B/P (MAP) 100/61 (74) Pulse Ox 99 99 O2 Delivery Room Air Room Air Room Air Room Air 05/29/18 05/29/18 05/30/18 05/30/18 22:34 23:00 03:02 03:14 Temp 99.1 101.3 99.5 99.1 101.3 99.5 Pulse 118 134 116 Resp 20 20 B/P (MAP) 124/84 (97) 128/71 (90) Pulse Ox 96 98 O2 Delivery Room Air Room Air Room Air 05/30/18 07:00 Temp 98.2 98.2 Pulse 102 Resp 16 B/P (MAP) 127/75 (92) Pulse Ox 96 O2 Delivery Room Air Intake and Output 05/29/18 05/29/18 05/30/18 15:00 23:00 07:00 Intake Total 380 ml Balance 380 ml ABHIJEET MARSHALL MD May 30, 2018 09:51
[2018-05-30 11:00] VITALS: BP 138/79
[2018-05-30 11:26] LABS: BASO # 0.1 x10^3/uL (0.0-0.2); BASO % 1 % (0-3); EOS # 0.1 x10^3/uL (0.0-0.7); EOS % 1 % (0-3); HEMATOCRIT 38.4 % (36.0-47.0); LYMPH # 2.5 x10^3/uL (1.0-4.8); LYMPH % 23 % (24-48); MEAN CORPUSCULAR HEMOGLOBIN 31 pg (25-35); MEAN CORPUSCULAR HGB CONC 34 g/dL (31-37); MEAN CORPUSCULAR VOLUME 91 fL (79-100); MONO # 0.8 x10^3/uL (0.0-1.1); MONO % 7 % (0-9); NEUT # 7.5 x10^3uL (1.8-7.7); NEUT % 69 % (31-73); PLATELET COUNT 372 x10^3/uL (140-400); RED BLOOD COUNT 4.21 x10^6/uL (3.50-5.40); RED CELL DISTRIBUTION WIDTH 14.3 % (11.5-14.5); WHITE BLOOD COUNT 10.9 x10^3/uL (4.0-11.0)
--- NOTE | 2018-05-30 11:57 | PDOC2 ---
NITESH ROBBINS Cristina COUGHLIN 05/30/18 1157: UROLOGY CONSULT Date of Consult Date of Consult DATE: 05/30/18 TIME: 11:54 Reason for Consult Reason for Consult: Perineal wounds/drainage Referring Physician Referring Physician: Martínez Identification/Chief Complaint Chief Complaint Perineal wounds/drainage Source Source: Caregiver, Chart review History of Present Illness Reason for Visit: Patient is a 32 year old non verbal black female with mental delay since childhood. She who was admitted for family complaints of rash or vesicles in the perineal area some vaginal discharge - thick, white, foul-smelling and has gotten worse. There have not been any fevers at home. The family was not available for questioning, the patient sometimes nods "yes" and "no" to questions; she is otherwise a poor historian. .I did discuss the case with Dr. Soliz who says that the perineal area is actually improved quite a bit since yesterday. Yesterday she had white thick smelling discharge noted, but that has slowed down a little bit. IPC team recommends a matamoros catheter for urinary diversion to allow for skin healing. Past Medical History CENTRAL NERVOUS SYSTEM: Other (mental delay) Past Surgical History Past Surgical History: No pertinent history Family History Family History: No Significant Social History No ALCOHOL: none Drugs: None Lives: with Family (Family are her caregivers) Current Medications Current Medications Current Medications Acetaminophen/ Codeine Phosphate (Tylenol/Codeine Soln) 15 ml QID PO Last administered on 05/30/18at 09:48; Start 05/29/18 at 13:00 Ceftriaxone Sodium (Rocephin) 1 gm Q24H IVP Last administered on 05/29/18at 21: 34; Start 05/29/18 at 21:00 Fluconazole (Diflucan) 200 mg 1X ONCE PO Last administered on 05/29/18at 14:45 ; Start 05/29/18 at 13:15; Stop 05/29/18 at 13:40; Status DC Fluconazole (Diflucan) 200 mg DAILY PO Last administered on 05/30/18at 09:47; Start 05/29/18 at 12:00 Metronidazole (Flagyl) 500 mg Q8HRS PO Last administered on 05/30/18at 09:48; Start 05/29/18 at 12:00 Metronidazole (Metrogel) 1 olivia DAILY VG Last administered on 05/30/18at 09:48; Start 05/29/18 at 14:30 Non-Formulary Medication (Guanfacine Hcl ) 2 mg BID PO ; Start 05/29/18 at 21:00 ; Status UNV Non-Formulary Medication (Ramelteon (Rozerem)) 16 mg HS PO ; Start 05/29/18 at 21:00; Status UNV Allergies Allergies: Coded Allergies: Sulfa (Sulfonamide Antibiotics) (Verified Allergy, Intermediate, Hives, ) patient develops red hives and itching latex (Verified Allergy, Intermediate, 05/29/18) morphine (Verified Adverse Reaction, Intermediate, INEFFECTIVE, 05/29/18) ROS Review Of Systems: UNABLE TO OBTAIN DUE TO PATIENT NONVERBAL, NO FAMILY AT BEDSIDE DURING EXAM Physical Exam Physical Exam: General: Cooperative, non verbal. Occasionally shakes head "yes" and "no" Eyes: conjunctiva anicteric, eyes full range of motion Neck: Trachea midline, no masses Respiratory: unlabored breathing, not using accessory muscles Abdomen: nontender, nondistended, no hepatosplenomegaly, no masses Pelvic: pt constantly draining urine, foul odor from perineal area, despite depends being reasonably clean/freshly changed. Pt has several excoriated areas on her mons pubis less than 1 cm by 0.5 cm. Scant brownish drainage noted on depends, difficult to ascertain the source of the drainage. Skin: excoriated perineum. IPC physician does report some improvement since yesterday Vitals VITALS Vital Signs Date Time Temp Pulse Resp B/P (MAP) Pulse Ox O2 Delivery O2 Flow Rate FiO2 05/30/18 11:46 Room Air 05/30/18 07:00 98.2 102 16 127/75 (92) 96 98.2 Labs Labs Laboratory Tests Test 05/28/18 18:15 05/28/18 18:50 05/29/18 11:30 05/30/18 10:15 Urine Collection Type U cath Urine Color Yellow Urine Clarity Clear Urine pH 6.0 Urine Specific [place] >=1.030 Urine Protein Negative mg/dL (NEG-TRACE) Urine Glucose (UA) >=1000 mg/dL (NEG) Urine Ketones (Stick) Trace mg/dL (NEG) Urine Blood Small (NEG) Urine Nitrite Positive (NEG) Urine Bilirubin Negative (NEG) Urine Urobilinogen Dipstick 1.0 mg/dL (0.2 mg/dL) Urine Leukocyte Esterase Negative (NEG) Urine RBC 6-10 /HPF (0-2) Urine WBC 1-4 /HPF (0-4) Urine Squamous Epithelial Cells Few /LPF Urine Bacteria Many /HPF (0-FEW) Urine Mucus Mod /LPF Urine Test Negative (NEG) White Blood Count 15.6 x10^3/uL (4.0-11.0) 10.9 x10^3/uL (4.0-11.0) Red Blood Count 4.27 x10^6/uL (3.50-5.40) 4.21 x10^6/uL (3.50-5.40) Hemoglobin 13.1 g/dL (12.0-15.5) 13.0 g/dL (12.0-15.5) Hematocrit 38.6 % (36.0-47.0) 38.4 % (36.0-47.0) Mean Corpuscular Volume 91 fL (79-100) 91 fL (79-100) Mean Corpuscular Hemoglobin 31 pg (25-35) 31 pg (25-35) Mean Corpuscular Hemoglobin Concent 34 g/dL (31-37) 34 g/dL (31-37) Red Cell Distribution Width 14.1 % (11.5-14.5) 14.3 % (11.5-14.5) Platelet Count 367 x10^3/uL (140-400) 372 x10^3/uL (140-400) Neutrophils (%) (Auto) 70 % (31-73) 69 % (31-73) Lymphocytes (%) (Auto) 21 % (24-48) 23 % (24-48) Monocytes (%) (Auto) 7 % (0-9) 7 % (0-9) Eosinophils (%) (Auto) 1 % (0-3) 1 % (0-3) Basophils (%) (Auto) 1 % (0-3) 1 % (0-3) Neutrophils # (Auto) 11.0 x10^3uL (1.8-7.7) 7.5 x10^3uL (1.8-7.7) Lymphocytes # (Auto) 3.2 x10^3/uL (1.0-4.8) 2.5 x10^3/uL (1.0-4.8) Monocytes # (Auto) 1.1 x10^3/uL (0.0-1.1) 0.8 x10^3/uL (0.0-1.1) Eosinophils # (Auto) 0.2 x10^3/uL (0.0-0.7) 0.1 x10^3/uL (0.0-0.7) Basophils # (Auto) 0.1 x10^3/uL (0.0-0.2) 0.1 x10^3/uL (0.0-0.2) Sodium Level 137 mmol/L (136-145) Potassium Level 3.9 mmol/L (3.5-5.1) Chloride Level 101 mmol/L (98-107) Carbon Dioxide Level 27 mmol/L (21-32) Anion Gap 9 (6-14) Blood Urea Nitrogen 14 mg/dL (7-20) Creatinine 0.9 mg/dL (0.6-1.0) Estimated GFR (Cockcroft-Gault) 86.7 BUN/Creatinine Ratio 16 (6-20) Glucose Level 187 mg/dL (70-99) Lactic Acid Level 1.8 mmol/L (0.4-2.0) Calcium Level 9.4 mg/dL (8.5-10.1) Total Bilirubin 0.2 mg/dL (0.2-1.0) Aspartate Amino Transf (AST/SGOT) 31 U/L (15-37) Alanine Aminotransferase (ALT/SGPT) 37 U/L (14-59) Alkaline Phosphatase 60 U/L (46-116) Total Protein 8.7 g/dL (6.4-8.2) Albumin 2.8 g/dL (3.4-5.0) Albumin/Globulin Ratio 0.5 (1.0-1.7) Erythrocyte Sedimentation Rate 85 (0-25) Prothrombin Time 13.1 SEC (11.7-14.0) Prothromb Time International Ratio 1.0 (0.8-1.1) Laboratory Tests Test 05/30/18 10:15 White Blood Count 10.9 x10^3/uL (4.0-11.0) Red Blood Count 4.21 x10^6/uL (3.50-5.40) Hemoglobin 13.0 g/dL (12.0-15.5) Hematocrit 38.4 % (36.0-47.0) Mean Corpuscular Volume 91 fL (79-100) Mean Corpuscular Hemoglobin 31 pg (25-35) Mean Corpuscular Hemoglobin Concent 34 g/dL (31-37) Red Cell Distribution Width 14.3 % (11.5-14.5) Platelet Count 372 x10^3/uL (140-400) Neutrophils (%) (Auto) 69 % (31-73) Lymphocytes (%) (Auto) 23 % (24-48) Monocytes (%) (Auto) 7 % (0-9) Eosinophils (%) (Auto) 1 % (0-3) Basophils (%) (Auto) 1 % (0-3) Neutrophils # (Auto) 7.5 x10^3uL (1.8-7.7) Lymphocytes # (Auto) 2.5 x10^3/uL (1.0-4.8) Monocytes # (Auto) 0.8 x10^3/uL (0.0-1.1) Eosinophils # (Auto) 0.1 x10^3/uL (0.0-0.7) Basophils # (Auto) 0.1 x10^3/uL (0.0-0.2) Images Images Findings: The urinary bladder appears normal. The appendix is normal. There is no lymphadenopathy. There is moderate wall thickening of the urinary bladder. There is a trace of free fluid in the pelvis. There is an air-fluid collection in the midline perineum that measures 2.4 x 2.2 cm however this could be the anal canal. There is skin thickening seen over the mons pubis with underlying edema within the subcutaneous fat. Impression: 1. Skin thickening over the mons pubis and mild subcutaneous edema could be inflammatory or could be cellulitis. 2. Small air-fluid collection is likely a perineal abscess but cannot be distinguished from the anal canal and correlation with rectal examination is recommended. 3. Moderate wall thickening of the urinary bladder suggests cystitis. Recommend correlation with urinary analysis. Assessment/Plan Assessment/Plan Appears to have UTI, recommend treatment per primary care team. Matamoros catheter may be useful to divert urine/allow for skin healing if constantly leaking. Recommend general surgery consult for abscess found on CT scan. Discussed case with Dr. Wang, supervising. Will sign off, but please call with questions or change in patient condition. HARI WANG MD 05/31/18 1321: UROLOGY CONSULT Assessment/Plan Assessment/Plan Patient seen and examined. Agree with asessment and plan. NITESH ROBBINS APRN May 30, 2018 11:57 HARI WANG MD May 31, 2018 13:21
--- NOTE | 2018-05-30 11:57 | PDOC ---
Infectious Disease Note Subjective Subjective pt is feeling ok ROS ROS no n/v/d/sob Vital Sign Vital Signs Vital Signs Date Time Temp Pulse Resp B/P (MAP) Pulse Ox O2 Delivery O2 Flow Rate FiO2 05/30/18 11:46 Room Air 05/30/18 07:00 98.2 102 16 127/75 (92) 96 98.2 Physical Exam PHYSICAL EXAM GENERAL: Awake female, not in distress. VITAL SIGNS: Stable, afebrile. HEENT: NAD. NECK: Supple, no JVP, no lymphadenopathy. LUNGS: Clear. HEART: S1, S2 regular. ABDOMEN: Benign. PELVIC: Examination of the vaginal area with the patient's nurse and mother present, there is some small blistering present. There is a foul smelling discharge from inside. There is no apparent abscess that can be palpable or seen. NEUROLOGIC: The patient does move all the extremities. Neurologically she is to her baseline. Labs Lab Laboratory Tests Test 05/30/18 10:15 White Blood Count 10.9 x10^3/uL (4.0-11.0) Red Blood Count 4.21 x10^6/uL (3.50-5.40) Hemoglobin 13.0 g/dL (12.0-15.5) Hematocrit 38.4 % (36.0-47.0) Mean Corpuscular Volume 91 fL (79-100) Mean Corpuscular Hemoglobin 31 pg (25-35) Mean Corpuscular Hemoglobin Concent 34 g/dL (31-37) Red Cell Distribution Width 14.3 % (11.5-14.5) Platelet Count 372 x10^3/uL (140-400) Neutrophils (%) (Auto) 69 % (31-73) Lymphocytes (%) (Auto) 23 % (24-48) Monocytes (%) (Auto) 7 % (0-9) Eosinophils (%) (Auto) 1 % (0-3) Basophils (%) (Auto) 1 % (0-3) Neutrophils # (Auto) 7.5 x10^3uL (1.8-7.7) Lymphocytes # (Auto) 2.5 x10^3/uL (1.0-4.8) Monocytes # (Auto) 0.8 x10^3/uL (0.0-1.1) Eosinophils # (Auto) 0.1 x10^3/uL (0.0-0.7) Basophils # (Auto) 0.1 x10^3/uL (0.0-0.2) Micro Microbiology 05/28/18 Blood Culture - Preliminary, Resulted NO GROWTH AFTER 1 DAY 05/29/18 Wet Prep - Final, Complete 05/28/18 Anaerobic/Aerobic Culture, Resulted Pending 05/28/18 Anaerobic Culture Result 1 (MERI), Resulted Pending 05/28/18 Aerobic Culture, Resulted Pending 05/28/18 Aerobic Culture Result 1 (MERI), Resulted Pending 05/28/18 Gram Stain - Final, Resulted 05/28/18 Gram Stain Result 1 (MERI) - Final, Resulted 05/28/18 Gram Stain Result 2 (MERI) - Final, Resulted 05/28/18 Gram Stain Result 3 (MERI) - Final, Resulted Objective Assessment Perineal abscess Vaginal discharge Leukocytosis Spina bifida Plan Plan of Care rocephine flagyl and diflucan supportive care TRIXIE LOYA MD May 30, 2018 11:57
[2018-05-30 14:31] LABS: GC PROBE Negative (Negative)
[2018-05-30 15:00] VITALS: BP 116/74
[2018-05-30 19:00] VITALS: BP 131/85
[2018-05-30] MEDS: cefTRIAXone IV Push 1 GM VIAL. IVP SCH (20:54)
[2018-05-30 23:00] VITALS: BP 128/71
[2018-05-31 02:53] VITALS: BP 147/84
[2018-05-31 05:22] LABS: BASO % 0 % (0-3); EOS # 0.3 x10^3/uL (0.0-0.7); EOS % 3 % (0-3); HEMATOCRIT 36.5 % (36.0-47.0); HEMOGLOBIN 12.4 g/dL (12.0-15.5); LYMPH # 2.5 x10^3/uL (1.0-4.8); LYMPH % 20 % (24-48); MEAN CORPUSCULAR HEMOGLOBIN 31 pg (25-35); MEAN CORPUSCULAR HGB CONC 34 g/dL (31-37); MEAN CORPUSCULAR VOLUME 90 fL (79-100); MONO # 0.9 x10^3/uL (0.0-1.1); MONO % 7 % (0-9); NEUT # 8.5 x10^3uL (1.8-7.7); NEUT % 70 % (31-73); PLATELET COUNT 378 x10^3/uL (140-400); RED BLOOD COUNT 4.07 x10^6/uL (3.50-5.40); WHITE BLOOD COUNT 12.2 x10^3/uL (4.0-11.0)
[2018-05-31] MEDS: metroNIDAZOLE 500 MG TABLET PO SCH ×2 (06:06→13:13)
[2018-05-31 07:00] VITALS: BP 142/74
[2018-05-31] MEDS: POLYETHYLENE GLYCOL 3350 17 GM PACKET. PO SCH (09:08)
[2018-05-31] MEDS: clonazePAM 1 MG TABLET PO SCH ×3 (09:09→20:24)
[2018-05-31] MEDS: FLUCONAZOLE 100 MG TABLET. PO SCH (09:09)
[2018-05-31] MEDS: VENLAFAXINE 50 MG TABLET. PO SCH ×3 (09:09→20:24)
[2018-05-31] MEDS: DIVALPROEX EXTENDED RELEASE 500 MG TAB.ER.24H. PO SCH ×3 (09:09→20:24)
[2018-05-31] MEDS: metroNIDAZOLE 0.75% VAGINAL 1 APP TUBE VG SCH (09:10)
[2018-05-31] MEDS: GUANFACINE 2 MG PO SCH ×2 (09:10→20:28)
[2018-05-31] MEDS: ACETAMINOPHEN/CODEINE 120/12MG 5 ML SOLUTION. PO SCH ×4 (09:10→20:23)
--- NOTE | 2018-05-31 11:52 | PDOC ---
PROGRESS NOTES Chief Complaint Chief Complaint Assessment/Plan 1.Perineal abscess 2.Vaginal discharge, 3.Sepsis POA 4.Mental delay 5.Morbid obesity 6.Sulfa allergy-hives 7.UTI 8.hyperglycemia possible DM 9.lactic acidosis 10.spina bifida History of Present Illness History of Present Illness sepsis alert today and high lactic acid, cultures done, hydration, BS high likely diabetic started SS mother does not think she is improving, report soft stool and no impaction but report a nodule in rectum agree with surgery consult Patient is constantly leaking urine, she is sitting on her urine on the diapers , urology following continue Bass catheter today, to keep urine away from the wounds, perineal area Vitals Vitals Vital Signs Date Time Temp Pulse Resp B/P (MAP) Pulse Ox O2 Delivery O2 Flow Rate FiO2 05/31/18 10:28 Room Air 05/31/18 07:00 99.3 96 18 142/74 (96) 100 99.3 Physical Exam Physical Exam GENERAL: Awake female, not in distress. VITAL SIGNS: Stable, afebrile. HEENT: NAD. NECK: Supple, no JVP, no lymphadenopathy. LUNGS: Clear. HEART: S1, S2 regular. ABDOMEN: Benign. PELVIC: Examination of the vaginal area with the patient's nurse and mother present, there is some small blistering present. There is a foul smelling discharge from inside. There is no apparent abscess that can be palpable or seen. NEUROLOGIC: The patient does move all the extremities. Neurologically she is to her baseline. General: Alert, Oriented X3, Cooperative, No acute distress Heart: Regular rate, Normal S1, Normal S2 Lungs: Clear Abdomen: Normal bowel sounds, Soft Extremities: No clubbing, No cyanosis, No edema, Normal pulses, No tenderness/ swelling Skin: Other (redness, better induration around the perineal area, no curdlike discharge in the vaginal today. But constantly leaking urine on my exam) Labs LABS Laboratory Tests Test 05/30/18 20:39 05/31/18 04:45 05/31/18 10:45 Glucose (Fingerstick) 287 mg/dL (70-99) White Blood Count 12.2 x10^3/uL (4.0-11.0) Red Blood Count 4.07 x10^6/uL (3.50-5.40) Hemoglobin 12.4 g/dL (12.0-15.5) Hematocrit 36.5 % (36.0-47.0) Mean Corpuscular Volume 90 fL (79-100) Mean Corpuscular Hemoglobin 31 pg (25-35) Mean Corpuscular Hemoglobin Concent 34 g/dL (31-37) Red Cell Distribution Width 14.0 % (11.5-14.5) Platelet Count 378 x10^3/uL (140-400) Neutrophils (%) (Auto) 70 % (31-73) Lymphocytes (%) (Auto) 20 % (24-48) Monocytes (%) (Auto) 7 % (0-9) Eosinophils (%) (Auto) 3 % (0-3) Basophils (%) (Auto) 0 % (0-3) Neutrophils # (Auto) 8.5 x10^3uL (1.8-7.7) Lymphocytes # (Auto) 2.5 x10^3/uL (1.0-4.8) Monocytes # (Auto) 0.9 x10^3/uL (0.0-1.1) Eosinophils # (Auto) 0.3 x10^3/uL (0.0-0.7) Basophils # (Auto) 0.0 x10^3/uL (0.0-0.2) Lactic Acid Level 3.9 mmol/L (0.4-2.0) Assessment and Plan Assessmemt and Plan Problems Medical Problems: (1) Perineal abscess Status: Acute (2) Urinary tract infection Status: Acute Comment Review of Relevant I have reviewed the following items maximilian (where applicable) has been applied. Labs Laboratory Tests Test 05/29/18 13:10 05/30/18 10:15 05/30/18 20:39 05/31/18 04:45 Chlamydia DNA Probe Negative (Negative) Neisseria gonorrhoeae DNA Probe Negative (Negative) White Blood Count 10.9 x10^3/uL (4.0-11.0) 12.2 x10^3/uL (4.0-11.0) Red Blood Count 4.21 x10^6/uL (3.50-5.40) 4.07 x10^6/uL (3.50-5.40) Hemoglobin 13.0 g/dL (12.0-15.5) 12.4 g/dL (12.0-15.5) Hematocrit 38.4 % (36.0-47.0) 36.5 % (36.0-47.0) Mean Corpuscular Volume 91 fL (79-100) 90 fL (79-100) Mean Corpuscular Hemoglobin 31 pg (25-35) 31 pg (25-35) Mean Corpuscular Hemoglobin Concent 34 g/dL (31-37) 34 g/dL (31-37) Red Cell Distribution Width 14.3 % (11.5-14.5) 14.0 % (11.5-14.5) Platelet Count 372 x10^3/uL (140-400) 378 x10^3/uL (140-400) Neutrophils (%) (Auto) 69 % (31-73) 70 % (31-73) Lymphocytes (%) (Auto) 23 % (24-48) 20 % (24-48) Monocytes (%) (Auto) 7 % (0-9) 7 % (0-9) Eosinophils (%) (Auto) 1 % (0-3) 3 % (0-3) Basophils (%) (Auto) 1 % (0-3) 0 % (0-3) Neutrophils # (Auto) 7.5 x10^3uL (1.8-7.7) 8.5 x10^3uL (1.8-7.7) Lymphocytes # (Auto) 2.5 x10^3/uL (1.0-4.8) 2.5 x10^3/uL (1.0-4.8) Monocytes # (Auto) 0.8 x10^3/uL (0.0-1.1) 0.9 x10^3/uL (0.0-1.1) Eosinophils # (Auto) 0.1 x10^3/uL (0.0-0.7) 0.3 x10^3/uL (0.0-0.7) Basophils # (Auto) 0.1 x10^3/uL (0.0-0.2) 0.0 x10^3/uL (0.0-0.2) Glucose (Fingerstick) 287 mg/dL (70-99) Test 05/31/18 10:45 Lactic Acid Level 3.9 mmol/L (0.4-2.0) Laboratory Tests Test 05/30/18 20:39 05/31/18 04:45 05/31/18 10:45 Glucose (Fingerstick) 287 mg/dL (70-99) White Blood Count 12.2 x10^3/uL (4.0-11.0) Red Blood Count 4.07 x10^6/uL (3.50-5.40) Hemoglobin 12.4 g/dL (12.0-15.5) Hematocrit 36.5 % (36.0-47.0) Mean Corpuscular Volume 90 fL (79-100) Mean Corpuscular Hemoglobin 31 pg (25-35) Mean Corpuscular Hemoglobin Concent 34 g/dL (31-37) Red Cell Distribution Width 14.0 % (11.5-14.5) Platelet Count 378 x10^3/uL (140-400) Neutrophils (%) (Auto) 70 % (31-73) Lymphocytes (%) (Auto) 20 % (24-48) Monocytes (%) (Auto) 7 % (0-9) Eosinophils (%) (Auto) 3 % (0-3) Basophils (%) (Auto) 0 % (0-3) Neutrophils # (Auto) 8.5 x10^3uL (1.8-7.7) Lymphocytes # (Auto) 2.5 x10^3/uL (1.0-4.8) Monocytes # (Auto) 0.9 x10^3/uL (0.0-1.1) Eosinophils # (Auto) 0.3 x10^3/uL (0.0-0.7) Basophils # (Auto) 0.0 x10^3/uL (0.0-0.2) Lactic Acid Level 3.9 mmol/L (0.4-2.0) Microbiology 05/28/18 Blood Culture - Preliminary, Resulted NO GROWTH AFTER 2 DAYS 05/29/18 Aerobic Culture, Resulted Pending 05/29/18 Aerobic Culture Result 1 (MERI), Resulted Pending 05/29/18 Gram Stain - Final, Resulted 05/29/18 Gram Stain Result 1 (MERI) - Final, Resulted 05/29/18 Gram Stain Result 2 (MERI) - Final, Resulted 05/29/18 Gram Stain Result 3 (MERI) - Final, Resulted 05/28/18 Anaerobic/Aerobic Culture, Resulted Pending 05/28/18 Anaerobic Culture Result 1 (MERI), Resulted Pending 05/28/18 Aerobic Culture, Resulted Pending 05/28/18 Aerobic Culture Result 1 (MERI), Resulted Pending 05/28/18 Gram Stain - Final, Resulted 05/28/18 Gram Stain Result 1 (MERI) - Final, Resulted 05/28/18 Gram Stain Result 2 (MERI) - Final, Resulted 05/28/18 Gram Stain Result 3 (MERI) - Final, Resulted 05/28/18 Urine Culture - Preliminary, Resulted 05/28/18 Urine Culture Result 1 (MERI) - Preliminary, Resulted Medications Current Medications Iohexol (Omnipaque 300 Mg/ml) 75 ml 1X ONCE IV Last administered on 05/28/18at 19:27; Start 05/28/18 at 19:30; Stop 05/28/18 at 19:31; Status DC Info (CONTRAST GIVEN -- Rx MONITORING) 1 each PRN DAILY PRN MC SEE COMMENTS; Start 05/28/18 at 19:30; Stop 05/30/18 at 19:29; Status DC Ceftriaxone Sodium 50 ml @ 100 mls/hr 1X ONCE IV Last administered on at 21:34; Start 05/28/18 at 20:45; Stop 05/28/18 at 21:14; Status DC Acetaminophen (Tylenol) 500 mg PRN Q6HRS PRN PO MILD PAIN / TEMP Last administered on 05/31/18at 11:21; Start 05/29/18 at 09:15 Ondansetron HCl (Zofran) 4 mg PRN Q6HRS PRN IV NAUSEA/VOMITING; Start 05/29/18 at 09:15 Ondansetron HCl (Zofran Odt) 4 mg PRN Q6HRS PRN PO NAUSEA/VOMITING; Start 05/29 at 09:15 Fentanyl Citrate (Fentanyl 2ml Vial) 50 mcg PRN Q2HR PRN IV PAIN; Start at 09:15 Tramadol HCl (Ultram) 50 mg PRN Q6HRS PRN PO MILD PAIN 2ND CHOICE Last administered on 05/29/18at 12:01; Start 05/29/18 at 09:15 Acetaminophen/ Codeine Phosphate (Tylenol/Codeine Soln) 15 ml QID PO Last administered on 05/31/18 09:10; Start 05/29/18 at 13:00 Divalproex Sodium (Depakote Er) 500 mg TID PO Last administered on 05/31/18 09 :09; Start 05/29/18 at 10:30 Haloperidol (Haldol) 4 mg PRN QID PRN PO ANXIETY / AGITATION; Start 05/29/18 at 10:30 Polyethylene Glycol (miraLAX PACKET) 17 gm DAILY PO Last administered on 09:08; Start 05/29/18 at 11:00 Clonazepam (KlonoPIN) 2 mg TID PO Last administered on 05/31/18 09:09; Start 05/29/18 at 11:00 Non-Formulary Medication (Guanfacine Hcl ) 2 mg BID PO Last administered on 09:10; Start 05/29/18 at 21:00 Non-Formulary Medication (Ramelteon (Rozerem)) 16 mg HS PO Last administered on 05/30/18at 20:52; Start 05/29/18 at 21:00 Venlafaxine HCl (Effexor) 50 mg TID PO Last administered on 05/31/18 09:09; Start 05/29/18 at 10:30 Metronidazole (Flagyl) 500 mg Q8HRS PO Last administered on 05/31/18at 06:06; Start 05/29/18 at 12:00 Fluconazole (Diflucan) 200 mg DAILY PO Last administered on 05/31/18at 09:09; Start 05/29/18 at 12:00 Metronidazole (Metrogel) 1 olivia DAILY VG Last administered on 05/31/18at 09:10; Start 05/29/18 at 14:30 Fluconazole (Diflucan) 200 mg 1X ONCE PO Last administered on 05/29/18at 14:45 ; Start 05/29/18 at 13:15; Stop 05/29/18 at 13:40; Status DC Ceftriaxone Sodium (Rocephin) 1 gm Q24H IVP Last administered on 05/30/18at 20: 54; Start 05/29/18 at 21:00 Lactobacillus Rhamnosus (Culturelle) 1 cap BID PO ; Start 05/31/18 at 21:00 Sodium Chloride 1,000 ml @ 1,000 mls/hr 1X ONCE IV Last administered on at 11:41; Start 05/31/18 at 12:00; Stop 05/31/18 at 12:59 Active Scripts Active Reported Guanfacine Hcl 1 Mg Tablet 2 Mg PO BID Rozerem (Ramelteon) 8 Mg Tablet 16 Mg PO HS Clonazepam 2 Mg Tablet 2 Mg PO TID Venlafaxine Hcl Er (Venlafaxine Hcl) 150 Mg Cap.er.24h 150 Mg PO DAILY Divalproex Sodium Er (Divalproex Sodium) 500 Mg Tab.er.24h 500 Mg PO TID Haloperidol 2 Mg Tablet 4 Mg PO PRN QID PRN Acetaminophen-Codeine Solution (Acetaminophen With Codeine) 5 Ml Solution 15 Ml PO QID Polyethylene Glycol 3350 255 Gm Powder 17 Gm PO DAILY Vitals/I & O Vital Sign - Last 24 Hours 05/30/18 05/30/18 05/30/18 05/30/18 13:36 15:00 16:41 19:00 Temp 97.9 99.1 97.9 99.1 Pulse 104 114 Resp 16 18 B/P (MAP) 116/74 (88) 131/85 (100) Pulse Ox 97 96 O2 Delivery Room Air Room Air Room Air Room Air 05/30/18 05/30/18 05/30/18 05/31/18 20:00 20:53 23:00 02:53 Temp 100.0 99.0 100.0 99.0 Pulse 111 102 Resp 18 18 B/P (MAP) 128/71 (90) 147/84 (105) Pulse Ox 96 97 98 O2 Delivery Room Air Room Air Room Air Room Air 05/31/18 05/31/18 05/31/18 05/31/18 07:00 08:30 09:10 10:28 Temp 99.3 99.3 Pulse 96 Resp 18 B/P (MAP) 142/74 (96) Pulse Ox 100 O2 Delivery Room Air Room Air Room Air Room Air Intake and Output 05/30/18 05/30/18 05/31/18 15:00 23:00 07:00 Intake Total 360 ml 670 ml Balance 360 ml 670 ml NATY GANDARA MD May 31, 2018 11:52
[2018-05-31 12:00] VITALS: BP 143/95
[2018-05-31] MEDS ORDERED: IV NORMAL SALINE 1000ML BAG 1,000 ML IV ONE (12:00)
--- NOTE | 2018-05-31 13:27 | PDOC ---
PROGRESS NOTE SUBJECTIVE: ROS: ROS: RESPIRATORY: Shortness of breath denies. Cough denies. UROLOGY: Denies blood in urine. Denies difficulty urinating HPI: History obtained from mother. [place] placed yesterday but patient pulled it out. Bladder has been managed in past with intermittent catheter, plus diapers - patient is incontinent at times due to mental delay. Problems: Problems Medical Problems: (1) Urinary tract infection Status: Acute OBJECTIVE: Vital Signs: Vital Signs Date Time Temp Pulse Resp B/P (MAP) Pulse Ox O2 Delivery O2 Flow Rate FiO2 05/31/18 13:13 Room Air 05/31/18 12:00 97.3 107 20 143/95 (111) 98 Room Air 97.3 05/31/18 10:28 Room Air 05/31/18 09:10 Room Air 05/31/18 08:30 Room Air 05/31/18 07:00 99.3 96 18 142/74 (96) 100 Room Air 99.3 05/31/18 02:53 99.0 102 18 147/84 (105) 98 Room Air 99.0 05/30/18 23:00 100.0 111 18 128/71 (90) 97 Room Air 100.0 05/30/18 20:53 96 Room Air 05/30/18 20:00 Room Air 05/30/18 19:00 99.1 114 18 131/85 (100) 96 Room Air 99.1 05/30/18 16:41 Room Air 05/30/18 15:00 97.9 104 16 116/74 (88) 97 Room Air 97.9 05/30/18 13:36 Room Air I & O Intake and Output 05/31/18 07:00 Intake Total 1030 ml Balance 1030 ml Intake Oral 1030 ml # Voids 11 PHYSICAL EXAM: Physical Exam: General: Pleasant, no acute distress Respiratory: unlabored breathing Cardiovascular: Regular rate and rhythm Abdomen: nontender, nondistended, no hepatosplenomegaly, no masses Psych: normal mood, affect. Alert and oriented x 0. : leaking clear urine into diaper. Mild perineal erythema, no swelling or crepitus. LABS: Laboratory Tests Test 05/28/18 18:15 05/28/18 18:50 05/29/18 11:30 05/29/18 13:10 Urine Collection Type U cath Urine Color Yellow Urine Clarity Clear Urine pH 6.0 Urine Specific [place] >=1.030 Urine Protein Negative mg/dL (NEG-TRACE) Urine Glucose (UA) >=1000 mg/dL (NEG) Urine Ketones (Stick) Trace mg/dL (NEG) Urine Blood Small (NEG) Urine Nitrite Positive (NEG) Urine Bilirubin Negative (NEG) Urine Urobilinogen Dipstick 1.0 mg/dL (0.2 mg/dL) Urine Leukocyte Esterase Negative (NEG) Urine RBC 6-10 /HPF (0-2) Urine WBC 1-4 /HPF (0-4) Urine Squamous Epithelial Cells Few /LPF Urine Bacteria Many /HPF (0-FEW) Urine Mucus Mod /LPF Urine Test Negative (NEG) White Blood Count 15.6 x10^3/uL (4.0-11.0) Red Blood Count 4.27 x10^6/uL (3.50-5.40) Hemoglobin 13.1 g/dL (12.0-15.5) Hematocrit 38.6 % (36.0-47.0) Mean Corpuscular Volume 91 fL (79-100) Mean Corpuscular Hemoglobin 31 pg (25-35) Mean Corpuscular Hemoglobin Concent 34 g/dL (31-37) Red Cell Distribution Width 14.1 % (11.5-14.5) Platelet Count 367 x10^3/uL (140-400) Neutrophils (%) (Auto) 70 % (31-73) Lymphocytes (%) (Auto) 21 % (24-48) Monocytes (%) (Auto) 7 % (0-9) Eosinophils (%) (Auto) 1 % (0-3) Basophils (%) (Auto) 1 % (0-3) Neutrophils # (Auto) 11.0 x10^3uL (1.8-7.7) Lymphocytes # (Auto) 3.2 x10^3/uL (1.0-4.8) Monocytes # (Auto) 1.1 x10^3/uL (0.0-1.1) Eosinophils # (Auto) 0.2 x10^3/uL (0.0-0.7) Basophils # (Auto) 0.1 x10^3/uL (0.0-0.2) Sodium Level 137 mmol/L (136-145) Potassium Level 3.9 mmol/L (3.5-5.1) Chloride Level 101 mmol/L (98-107) Carbon Dioxide Level 27 mmol/L (21-32) Anion Gap 9 (6-14) Blood Urea Nitrogen 14 mg/dL (7-20) Creatinine 0.9 mg/dL (0.6-1.0) Estimated GFR (Cockcroft-Gault) 86.7 BUN/Creatinine Ratio 16 (6-20) Glucose Level 187 mg/dL (70-99) Lactic Acid Level 1.8 mmol/L (0.4-2.0) Calcium Level 9.4 mg/dL (8.5-10.1) Total Bilirubin 0.2 mg/dL (0.2-1.0) Aspartate Amino Transf (AST/SGOT) 31 U/L (15-37) Alanine Aminotransferase (ALT/SGPT) 37 U/L (14-59) Alkaline Phosphatase 60 U/L (46-116) Total Protein 8.7 g/dL (6.4-8.2) Albumin 2.8 g/dL (3.4-5.0) Albumin/Globulin Ratio 0.5 (1.0-1.7) Erythrocyte Sedimentation Rate 85 (0-25) Prothrombin Time 13.1 SEC (11.7-14.0) Prothromb Time International Ratio 1.0 (0.8-1.1) Chlamydia DNA Probe Negative (Negative) Neisseria gonorrhoeae DNA Probe Negative (Negative) Test 05/30/18 10:15 05/30/18 20:39 05/31/18 04:45 05/31/18 10:45 White Blood Count 10.9 x10^3/uL (4.0-11.0) 12.2 x10^3/uL (4.0-11.0) Red Blood Count 4.21 x10^6/uL (3.50-5.40) 4.07 x10^6/uL (3.50-5.40) Hemoglobin 13.0 g/dL (12.0-15.5) 12.4 g/dL (12.0-15.5) Hematocrit 38.4 % (36.0-47.0) 36.5 % (36.0-47.0) Mean Corpuscular Volume 91 fL (79-100) 90 fL (79-100) Mean Corpuscular Hemoglobin 31 pg (25-35) 31 pg (25-35) Mean Corpuscular Hemoglobin Concent 34 g/dL (31-37) 34 g/dL (31-37) Red Cell Distribution Width 14.3 % (11.5-14.5) 14.0 % (11.5-14.5) Platelet Count 372 x10^3/uL (140-400) 378 x10^3/uL (140-400) Neutrophils (%) (Auto) 69 % (31-73) 70 % (31-73) Lymphocytes (%) (Auto) 23 % (24-48) 20 % (24-48) Monocytes (%) (Auto) 7 % (0-9) 7 % (0-9) Eosinophils (%) (Auto) 1 % (0-3) 3 % (0-3) Basophils (%) (Auto) 1 % (0-3) 0 % (0-3) Neutrophils # (Auto) 7.5 x10^3uL (1.8-7.7) 8.5 x10^3uL (1.8-7.7) Lymphocytes # (Auto) 2.5 x10^3/uL (1.0-4.8) 2.5 x10^3/uL (1.0-4.8) Monocytes # (Auto) 0.8 x10^3/uL (0.0-1.1) 0.9 x10^3/uL (0.0-1.1) Eosinophils # (Auto) 0.1 x10^3/uL (0.0-0.7) 0.3 x10^3/uL (0.0-0.7) Basophils # (Auto) 0.1 x10^3/uL (0.0-0.2) 0.0 x10^3/uL (0.0-0.2) Glucose (Fingerstick) 287 mg/dL (70-99) Lactic Acid Level 3.9 mmol/L (0.4-2.0) Microbiology 05/28/18 Blood Culture - Preliminary, Resulted NO GROWTH AFTER 2 DAYS 05/29/18 Aerobic Culture, Resulted Pending 05/29/18 Aerobic Culture Result 1 (MERI), Resulted Pending 05/29/18 Gram Stain - Final, Resulted 05/29/18 Gram Stain Result 1 (MERI) - Final, Resulted 05/29/18 Gram Stain Result 2 (MERI) - Final, Resulted 05/29/18 Gram Stain Result 3 (MERI) - Final, Resulted 05/28/18 Anaerobic/Aerobic Culture, Resulted Pending 05/28/18 Anaerobic Culture Result 1 (MERI), Resulted Pending 05/28/18 Aerobic Culture, Resulted Pending 05/28/18 Aerobic Culture Result 1 (MERI), Resulted Pending 05/28/18 Gram Stain - Final, Resulted 05/28/18 Gram Stain Result 1 (MERI) - Final, Resulted 05/28/18 Gram Stain Result 2 (MERI) - Final, Resulted 05/28/18 Gram Stain Result 3 (MERI) - Final, Resulted 05/28/18 Urine Culture - Preliminary, Resulted 05/28/18 Urine Culture Result 1 (MERI) - Preliminary, Resulted MEDICATIONS: Current Medications Medications (Trade) Dose Ordered Sig/[facility] Start Time Stop Time Status Last Admin Dose Admin Acetaminophen (Tylenol) 500 mg PRN Q6HRS PRN 05/29/18 09:15 05/31/18 11:21 500 MG Acetaminophen/ Codeine Phosphate (Tylenol/Codeine Soln) 15 ml QID 05/29/18 13:00 05/31/18 13:13 15 ML Ceftriaxone Sodium (Rocephin) 1 gm Q24H 05/29/18 21:00 05/30/18 20:54 1 GM Clonazepam (KlonoPIN) 2 mg TID 05/29/18 11:00 05/31/18 13:14 2 MG Divalproex Sodium (Depakote Er) 500 mg TID 05/29/18 10:30 05/31/18 13:13 500 MG Fentanyl Citrate (Fentanyl 2ml Vial) 50 mcg PRN Q2HR PRN 05/29/18 09:15 Fluconazole (Diflucan) 200 mg 1X ONCE 05/29/18 13:15 05/29/18 13:40 DC 05/29/18 14:45 200 MG Haloperidol (Haldol) 4 mg PRN QID PRN 05/29/18 10:30 Info (CONTRAST GIVEN -- Rx MONITORING) 1 each PRN DAILY PRN 05/28/18 19:30 05/30/18 19:29 DC Iohexol (Omnipaque 300 Mg/ml) 75 ml 1X ONCE 05/28/18 19:30 05/28/18 19:31 DC 05/28/18 19:27 75 ML Lactobacillus Rhamnosus (Culturelle) 1 cap BID 05/31/18 21:00 Metronidazole (Flagyl) 500 mg Q8HRS 05/29/18 12:00 05/31/18 13:13 500 MG Metronidazole (Metrogel) 1 justin DAILY 05/29/18 14:30 05/31/18 09:10 1 JUSTIN Non-Formulary Medication (Guanfacine Hcl ) 2 mg BID 05/29/18 21:00 05/31/18 09:10 2 MG Non-Formulary Medication (Ramelteon (Rozerem)) 16 mg HS 05/29/18 21:00 05/30/18 20:52 16 MG Ondansetron HCl (Zofran Odt) 4 mg PRN Q6HRS PRN 05/29/18 09:15 Ondansetron HCl (Zofran) 4 mg PRN Q6HRS PRN 05/29/18 09:15 Polyethylene Glycol (miraLAX PACKET) 17 gm DAILY 05/29/18 11:00 05/31/18 09:08 17 GM Sodium Chloride 1,000 ml @ 1,000 mls/hr 1X ONCE 05/31/18 12:00 05/31/18 12:59 DC 05/31/18 11:41 1,000 MLS/HR Tramadol HCl (Ultram) 50 mg PRN Q6HRS PRN 05/29/18 09:15 05/29/18 12:01 50 MG Venlafaxine HCl (Effexor) 50 mg TID 05/29/18 10:30 05/31/18 13:13 50 MG ASSESSMENT & PLAN I think her urinary issues are mostly a functional issue - difficult to manage in patient with mental delay. She is unwilling to tolerate an indwelling [place]os. Do not recommend SP tube due to patient compliance, concern for pulling it out. Could try a bladder relaxant but due not recommend anticholinergic due to risk of worsening baseline severe mental delay and constipation. Could try myrbetriq 50 mg daily as outpatient to see if it helps with leakage - not on formulary. Problem List: Problems Medical Problems: (1) Perineal abscess Status: Acute (2) Urinary tract infection Status: Acute HARI WANG MD May 31, 2018 13:27
[2018-05-31 15:00] VITALS: BP 153/86
--- NOTE | 2018-05-31 16:30 | PDOC ---
Infectious Disease Note Subjective Subjective Less fever Says feels ok Vital Sign Vital Signs Vital Signs Date Time Temp Pulse Resp B/P (MAP) Pulse Ox O2 Delivery O2 Flow Rate FiO2 05/31/18 15:02 Room Air 05/31/18 15:00 99.3 107 20 153/86 (108) 98 99.3 Physical Exam PHYSICAL EXAM GENERAL: Sitting upright in bed, tired appearance LUNGS: Clear. HEART: S1, S2 regular. ABDOMEN: Obese, soft, NT PELVIC - exam deferred at this time SKIN: without rash NEUROLOGIC: Awake, coop No IV access Labs Lab Laboratory Tests Test 05/30/18 20:39 05/31/18 04:45 05/31/18 10:45 Glucose (Fingerstick) 287 mg/dL (70-99) White Blood Count 12.2 x10^3/uL (4.0-11.0) Red Blood Count 4.07 x10^6/uL (3.50-5.40) Hemoglobin 12.4 g/dL (12.0-15.5) Hematocrit 36.5 % (36.0-47.0) Mean Corpuscular Volume 90 fL (79-100) Mean Corpuscular Hemoglobin 31 pg (25-35) Mean Corpuscular Hemoglobin Concent 34 g/dL (31-37) Red Cell Distribution Width 14.0 % (11.5-14.5) Platelet Count 378 x10^3/uL (140-400) Neutrophils (%) (Auto) 70 % (31-73) Lymphocytes (%) (Auto) 20 % (24-48) Monocytes (%) (Auto) 7 % (0-9) Eosinophils (%) (Auto) 3 % (0-3) Basophils (%) (Auto) 0 % (0-3) Neutrophils # (Auto) 8.5 x10^3uL (1.8-7.7) Lymphocytes # (Auto) 2.5 x10^3/uL (1.0-4.8) Monocytes # (Auto) 0.9 x10^3/uL (0.0-1.1) Eosinophils # (Auto) 0.3 x10^3/uL (0.0-0.7) Basophils # (Auto) 0.0 x10^3/uL (0.0-0.2) Lactic Acid Level 3.9 mmol/L (0.4-2.0) CT abd/pelvis 1. Skin thickening over the mons pubis and mild subcutaneous edema could be inflammatory or could be cellulitis. 2. Small air-fluid collection is likely a perineal abscess but cannot be distinguished from the anal canal and correlation with rectal examination is recommended. 3. Moderate wall thickening of the urinary bladder suggests cystitis. Recommend correlation with urinary analysis. Micro BLOOD CULTURE Preliminary NO GROWTH AFTER 2 DAYS URINE CULTURE RES 1 Preliminary Gram negative rods Greater than 100,000 colony forming units per mL Perineum ANAEROBIC-AEROBIC CULTURE PENDING ANAEROBIC RES 1 PENDING AEROBIC CULT PENDING AEROBIC RES 1 PENDING GRAM STAIN Final Final report GRAM STAIN RES 1 Final Comment No white blood cells seen. GRAM STAIN RES 2 Final Comment Many gram negative rods. GRAM STAIN RES 3 Final Comment Many gram positive cocci. Vaginal AEROBIC CULTURE PENDING AEROBIC RES 1 PENDING GRAM STAIN Final Final report GRAM STAIN RESULT 1 Final Comment Few gram negative rods. GRAM STAIN RESULT 2 Final Comment Few gram positive cocci Objective Assessment Perineal abscess Vaginal discharge - GPC, GNR Leukocytosis - better Spina bifida. Lactic acidosis Plan Plan of Care Rocephin, Flagyl and Diflucan Awaiting IV access f/u cultures/am labs consult gen surg Supportive care D/w mother D/w RN Patient seen and examined. Chart reviewed in detail. Case discussed with EXPLOSIVE ORDNANCE DISPOSAL SPECIALIST. Agree with above plan. DIANN GAONA APRN May 31, 2018 16:30 CATHERINE KAY MD May 31, 2018 19:47
[2018-05-31] MEDS ORDERED: DEXTROSE 50% 25 GM / 50ML DISP.SYRIN. IV PRN (18:30)
[2018-05-31 19:50] VITALS: BP 130/77
[2018-05-31] MEDS: LACTOBACILLUS RHAMNOSUS GG 1 CAPSULE. PO SCH (20:23)
[2018-05-31] MEDS ORDERED: cefTRIAXone IM 1 GM VIAL IM ONE (21:00)
[2018-05-31 23:14] VITALS: BP 131/90
[2018-06-01 03:39] VITALS: BP 125/70
[2018-06-01] MEDS: PIPERACILLIN/TAZOBACTAM 3.375 GM in IV NORMAL SALINE 50ML 50 ML IV SCH ×6 (06:00→23:52)
[2018-06-01 07:00] VITALS: BP 99/62
[2018-06-01] MEDS: INSULIN LISPRO 300 UNITS/3 ML INSULN.PEN. SQ SCH ×3 (08:00→16:49)
[2018-06-01] MEDS: ACETAMINOPHEN/CODEINE 120/12MG 5 ML SOLUTION. PO SCH ×4 (09:00→20:41)
[2018-06-01] MEDS: clonazePAM 1 MG TABLET PO SCH ×3 (09:38→20:41)
[2018-06-01] MEDS: FLUCONAZOLE 100 MG TABLET. PO SCH (09:38)
[2018-06-01] MEDS: VENLAFAXINE 50 MG TABLET. PO SCH ×3 (09:38→20:41)
[2018-06-01] MEDS: LACTOBACILLUS RHAMNOSUS GG 1 CAPSULE. PO SCH ×2 (09:38→20:41)
[2018-06-01] MEDS: metroNIDAZOLE 0.75% VAGINAL 1 APP TUBE VG SCH (09:38)
[2018-06-01] MEDS: GUANFACINE 2 MG PO SCH ×2 (09:39→20:39)
[2018-06-01] MEDS: DIVALPROEX EXTENDED RELEASE 500 MG TAB.ER.24H. PO SCH ×3 (09:39→20:41)
[2018-06-01] MEDS: POLYETHYLENE GLYCOL 3350 17 GM PACKET. PO SCH (09:39)
[2018-06-01 10:36] LABS: HEMATOCRIT 35.4 % (36.0-47.0); HEMOGLOBIN 11.7 g/dL (12.0-15.5); RED BLOOD COUNT 3.91 x10^6/uL (3.50-5.40); RED CELL DISTRIBUTION WIDTH 14.2 % (11.5-14.5); WHITE BLOOD COUNT 10.3 x10^3/uL (4.0-11.0)
[2018-06-01 10:55] LABS: ALBUMIN 2.4 g/dL (3.4-5.0); ALBUMIN/GLOBULIN RATIO 0.5 (1.0-1.7); CREATININE 0.8 mg/dL (0.6-1.0); GFR 99.4; POTASSIUM 4.1 mmol/L (3.5-5.1); TOTAL BILIRUBIN 0.2 mg/dL (0.2-1.0); TOTAL PROTEIN 7.6 g/dL (6.4-8.2)
[2018-06-01 11:00] VITALS: BP 101/64
--- NOTE | 2018-06-01 11:07 | PDOC ---
Infectious Disease Note Subjective Subjective IV out again, waiting for central line placement Dad says she didn't get much sleep last night, resting now No fever last 24 hours RN reports ongoing vaginal discharge and area excoriation Vital Sign Vital Signs Vital Signs Date Time Temp Pulse Resp B/P (MAP) Pulse Ox O2 Delivery O2 Flow Rate FiO2 06/01/18 08:00 Room Air 06/01/18 07:00 97.8 98 20 99/62 (74) 98 97.8 Physical Exam PHYSICAL EXAM GENERAL: Sitting up right, calm, coop LUNGS: Clear. HEART: S1, S2 regular. ABDOMEN: Obese, soft, NT SKIN: without rash NEUROLOGIC: Alert, coop No IV access Labs Lab Laboratory Tests Test 05/31/18 18:00 06/01/18 07:58 06/01/18 10:20 Lactic Acid Level 3.1 mmol/L (0.4-2.0) 3.5 mmol/L (0.4-2.0) Glucose (Fingerstick) 111 mg/dL (70-99) White Blood Count 10.3 x10^3/uL (4.0-11.0) Red Blood Count 3.91 x10^6/uL (3.50-5.40) Hemoglobin 11.7 g/dL (12.0-15.5) Hematocrit 35.4 % (36.0-47.0) Mean Corpuscular Volume 90 fL (79-100) Mean Corpuscular Hemoglobin 30 pg (25-35) Mean Corpuscular Hemoglobin Concent 33 g/dL (31-37) Red Cell Distribution Width 14.2 % (11.5-14.5) Platelet Count 360 x10^3/uL (140-400) Sodium Level 138 mmol/L (136-145) Potassium Level 4.1 mmol/L (3.5-5.1) Chloride Level 101 mmol/L (98-107) Carbon Dioxide Level 27 mmol/L (21-32) Anion Gap 10 (6-14) Blood Urea Nitrogen 11 mg/dL (7-20) Creatinine 0.8 mg/dL (0.6-1.0) Estimated GFR (Cockcroft-Gault) 99.4 BUN/Creatinine Ratio 14 (6-20) Glucose Level 219 mg/dL (70-99) Calcium Level 9.0 mg/dL (8.5-10.1) Total Bilirubin 0.2 mg/dL (0.2-1.0) Aspartate Amino Transf (AST/SGOT) 41 U/L (15-37) Alanine Aminotransferase (ALT/SGPT) 39 U/L (14-59) Alkaline Phosphatase 58 U/L (46-116) C-Reactive Protein, Quantitative 66.4 mg/L (0-3.3) Total Protein 7.6 g/dL (6.4-8.2) Albumin 2.4 g/dL (3.4-5.0) Albumin/Globulin Ratio 0.5 (1.0-1.7) Micro BLOOD CULTURE Preliminary NO GROWTH AFTER 3 DAYS URINE CULTURE RES 1 Final Escherichia coli Greater than 100,000 colony forming units per mL Antibiotic RSLT#1 Amoxicillin/Clavulanic Acid S =4 Ampicillin S =8 Cefepime S<=0.12 Ceftriaxone S<=0.25 Cefuroxime S =4 Ciprofloxacin S<=0.25 Ertapenem S<=0.12 Gentamicin S<=1 Imipenem S<=0.25 Levofloxacin S<=0.12 Meropenem S<=0.25 Nitrofurantoin S<=16 Piperacillin/Tazobactam S<=4 Tetracycline S<=1 Tobramycin S<=1 Trimethoprim/Sulfa S<=20 Perineum ANAEROBIC-AEROBIC CULTURE PENDING ANAEROBIC RES 1 PENDING AEROBIC CULT Preliminary Preliminary report AEROBIC RES 1 Preliminary Gram negative rods 4+ AEROBIC RES 2 Preliminary Mixed skin kimberlee Vaginal AEROBIC CULTURE Preliminary Preliminary report AEROBIC RES 1 Preliminary Comment Routine genital kimberlee. Objective Assessment Perineal abscess -Perineum cx GNR Vaginal discharge - normal kimberlee Leukocytosis - better Spina bifida. Lactic acidosis Plan Plan of Care CRP 66.4 Continue Zosyn and po fluconazole -Previously on Rocephin and Flagyl Awaiting [place] to place line f/u cultures/am labs consult gen surg Supportive care D/w dad D/w RN Patient seen and examined. Chart reviewed in detail. Case discussed with PAID SEARCH SPECIALIST. Agree with above plan. DIANN GAONA APRN Jun 01, 2018 11:07 CATHERINE KAY MD Jun 01, 2018 21:26
[2018-06-01 15:00] VITALS: BP 126/79
--- NOTE | 2018-06-01 15:00 | PDOC ---
PROGRESS NOTES Chief Complaint Chief Complaint Assessment/Plan 1.Perineal abscess 2.Vaginal discharge, 3.Sepsis POA 4.Mental delay 5.Morbid obesity 6.Sulfa allergy-hives 7.UTI 8.DM II diagnosed on this admission 9.lactic acidosis 10.spina bifida History of Present Illness History of Present Illness problem with IV access yesterday, was given Rocephin IM, Picc line as well as central line ordered whichever can be done first, still with high high lactic acid, cultures done, hydration, BS high likely diabetic started SS Patient is constantly leaking urine, she is sitting on her urine on the diapers , pulled matamoros catheter yesterday continue antibiotic need aggressive hydration to help with lactic acidosis Vitals Vitals Vital Signs Date Time Temp Pulse Resp B/P (MAP) Pulse Ox O2 Delivery O2 Flow Rate FiO2 06/01/18 14:42 99 Room Air 06/01/18 11:00 97.8 94 20 101/64 (76) 97.8 Physical Exam Physical Exam GENERAL: Sitting up right, calm, coop LUNGS: Clear. HEART: S1, S2 regular. ABDOMEN: Obese, soft, NT SKIN: without rash NEUROLOGIC: Alert, coop No IV access General: Alert, Oriented X3, Cooperative, No acute distress Heart: Regular rate, Normal S1, Normal S2 Lungs: Clear Abdomen: Normal bowel sounds, Soft Extremities: No clubbing, No cyanosis, No edema, Normal pulses, No tenderness/ swelling Skin: Other (redness, better induration around the perineal area, no curdlike discharge in the vaginal today. But constantly leaking urine on my exam) Labs LABS Laboratory Tests Test 05/31/18 18:00 06/01/18 07:58 06/01/18 10:20 Lactic Acid Level 3.1 mmol/L (0.4-2.0) 3.5 mmol/L (0.4-2.0) Glucose (Fingerstick) 111 mg/dL (70-99) White Blood Count 10.3 x10^3/uL (4.0-11.0) Red Blood Count 3.91 x10^6/uL (3.50-5.40) Hemoglobin 11.7 g/dL (12.0-15.5) Hematocrit 35.4 % (36.0-47.0) Mean Corpuscular Volume 90 fL (79-100) Mean Corpuscular Hemoglobin 30 pg (25-35) Mean Corpuscular Hemoglobin Concent 33 g/dL (31-37) Red Cell Distribution Width 14.2 % (11.5-14.5) Platelet Count 360 x10^3/uL (140-400) Erythrocyte Sedimentation Rate 60 (0-25) Sodium Level 138 mmol/L (136-145) Potassium Level 4.1 mmol/L (3.5-5.1) Chloride Level 101 mmol/L (98-107) Carbon Dioxide Level 27 mmol/L (21-32) Anion Gap 10 (6-14) Blood Urea Nitrogen 11 mg/dL (7-20) Creatinine 0.8 mg/dL (0.6-1.0) Estimated GFR (Cockcroft-Gault) 99.4 BUN/Creatinine Ratio 14 (6-20) Glucose Level 219 mg/dL (70-99) Calcium Level 9.0 mg/dL (8.5-10.1) Total Bilirubin 0.2 mg/dL (0.2-1.0) Aspartate Amino Transf (AST/SGOT) 41 U/L (15-37) Alanine Aminotransferase (ALT/SGPT) 39 U/L (14-59) Alkaline Phosphatase 58 U/L (46-116) C-Reactive Protein, Quantitative 66.4 mg/L (0-3.3) Total Protein 7.6 g/dL (6.4-8.2) Albumin 2.4 g/dL (3.4-5.0) Albumin/Globulin Ratio 0.5 (1.0-1.7) Procalcitonin < 0.10 ng/mL (0.00-0.10) Assessment and Plan Assessmemt and Plan Problems Medical Problems: (1) Perineal abscess Status: Acute (2) Urinary tract infection Status: Acute Comment Review of Relevant I have reviewed the following items maximilian (where applicable) has been applied. Labs Laboratory Tests Test 05/30/18 20:39 05/31/18 04:45 05/31/18 10:45 05/31/18 18:00 Glucose (Fingerstick) 287 mg/dL (70-99) White Blood Count 12.2 x10^3/uL (4.0-11.0) Red Blood Count 4.07 x10^6/uL (3.50-5.40) Hemoglobin 12.4 g/dL (12.0-15.5) Hematocrit 36.5 % (36.0-47.0) Mean Corpuscular Volume 90 fL (79-100) Mean Corpuscular Hemoglobin 31 pg (25-35) Mean Corpuscular Hemoglobin Concent 34 g/dL (31-37) Red Cell Distribution Width 14.0 % (11.5-14.5) Platelet Count 378 x10^3/uL (140-400) Neutrophils (%) (Auto) 70 % (31-73) Lymphocytes (%) (Auto) 20 % (24-48) Monocytes (%) (Auto) 7 % (0-9) Eosinophils (%) (Auto) 3 % (0-3) Basophils (%) (Auto) 0 % (0-3) Neutrophils # (Auto) 8.5 x10^3uL (1.8-7.7) Lymphocytes # (Auto) 2.5 x10^3/uL (1.0-4.8) Monocytes # (Auto) 0.9 x10^3/uL (0.0-1.1) Eosinophils # (Auto) 0.3 x10^3/uL (0.0-0.7) Basophils # (Auto) 0.0 x10^3/uL (0.0-0.2) Lactic Acid Level 3.9 mmol/L (0.4-2.0) 3.1 mmol/L (0.4-2.0) Test 06/01/18 07:58 06/01/18 10:20 Glucose (Fingerstick) 111 mg/dL (70-99) White Blood Count 10.3 x10^3/uL (4.0-11.0) Red Blood Count 3.91 x10^6/uL (3.50-5.40) Hemoglobin 11.7 g/dL (12.0-15.5) Hematocrit 35.4 % (36.0-47.0) Mean Corpuscular Volume 90 fL (79-100) Mean Corpuscular Hemoglobin 30 pg (25-35) Mean Corpuscular Hemoglobin Concent 33 g/dL (31-37) Red Cell Distribution Width 14.2 % (11.5-14.5) Platelet Count 360 x10^3/uL (140-400) Erythrocyte Sedimentation Rate 60 (0-25) Sodium Level 138 mmol/L (136-145) Potassium Level 4.1 mmol/L (3.5-5.1) Chloride Level 101 mmol/L (98-107) Carbon Dioxide Level 27 mmol/L (21-32) Anion Gap 10 (6-14) Blood Urea Nitrogen 11 mg/dL (7-20) Creatinine 0.8 mg/dL (0.6-1.0) Estimated GFR (Cockcroft-Gault) 99.4 BUN/Creatinine Ratio 14 (6-20) Glucose Level 219 mg/dL (70-99) Lactic Acid Level 3.5 mmol/L (0.4-2.0) Calcium Level 9.0 mg/dL (8.5-10.1) Total Bilirubin 0.2 mg/dL (0.2-1.0) Aspartate Amino Transf (AST/SGOT) 41 U/L (15-37) Alanine Aminotransferase (ALT/SGPT) 39 U/L (14-59) Alkaline Phosphatase 58 U/L (46-116) C-Reactive Protein, Quantitative 66.4 mg/L (0-3.3) Total Protein 7.6 g/dL (6.4-8.2) Albumin 2.4 g/dL (3.4-5.0) Albumin/Globulin Ratio 0.5 (1.0-1.7) Procalcitonin < 0.10 ng/mL (0.00-0.10) Laboratory Tests Test 05/31/18 18:00 06/01/18 07:58 06/01/18 10:20 Lactic Acid Level 3.1 mmol/L (0.4-2.0) 3.5 mmol/L (0.4-2.0) Glucose (Fingerstick) 111 mg/dL (70-99) White Blood Count 10.3 x10^3/uL (4.0-11.0) Red Blood Count 3.91 x10^6/uL (3.50-5.40) Hemoglobin 11.7 g/dL (12.0-15.5) Hematocrit 35.4 % (36.0-47.0) Mean Corpuscular Volume 90 fL (79-100) Mean Corpuscular Hemoglobin 30 pg (25-35) Mean Corpuscular Hemoglobin Concent 33 g/dL (31-37) Red Cell Distribution Width 14.2 % (11.5-14.5) Platelet Count 360 x10^3/uL (140-400) Erythrocyte Sedimentation Rate 60 (0-25) Sodium Level 138 mmol/L (136-145) Potassium Level 4.1 mmol/L (3.5-5.1) Chloride Level 101 mmol/L (98-107) Carbon Dioxide Level 27 mmol/L (21-32) Anion Gap 10 (6-14) Blood Urea Nitrogen 11 mg/dL (7-20) Creatinine 0.8 mg/dL (0.6-1.0) Estimated GFR (Cockcroft-Gault) 99.4 BUN/Creatinine Ratio 14 (6-20) Glucose Level 219 mg/dL (70-99) Calcium Level 9.0 mg/dL (8.5-10.1) Total Bilirubin 0.2 mg/dL (0.2-1.0) Aspartate Amino Transf (AST/SGOT) 41 U/L (15-37) Alanine Aminotransferase (ALT/SGPT) 39 U/L (14-59) Alkaline Phosphatase 58 U/L (46-116) C-Reactive Protein, Quantitative 66.4 mg/L (0-3.3) Total Protein 7.6 g/dL (6.4-8.2) Albumin 2.4 g/dL (3.4-5.0) Albumin/Globulin Ratio 0.5 (1.0-1.7) Procalcitonin < 0.10 ng/mL (0.00-0.10) Microbiology 05/31/18 Blood Culture - Preliminary, Resulted NO GROWTH AFTER 1 DAY 05/29/18 Aerobic Culture - Final, Complete 05/29/18 Aerobic Culture Result 1 (MERI) - Final, Complete 05/29/18 Gram Stain - Final, Complete 05/29/18 Gram Stain Result 1 (MERI) - Final, Complete 05/29/18 Gram Stain Result 2 (MERI) - Final, Complete 05/29/18 Gram Stain Result 3 (MERI) - Final, Complete 05/28/18 Anaerobic/Aerobic Culture, Resulted Pending 05/28/18 Anaerobic Culture Result 1 (MERI), Resulted Pending 05/28/18 Aerobic Culture - Preliminary, Resulted 05/28/18 Aerobic Culture Result 1 (MERI) - Preliminary, Resulted 05/28/18 Aerobic Culture Result 2 (MERI) - Preliminary, Resulted 05/28/18 Gram Stain - Final, Resulted 05/28/18 Gram Stain Result 1 (MERI) - Final, Resulted 05/28/18 Gram Stain Result 2 (MERI) - Final, Resulted 05/28/18 Gram Stain Result 3 (MERI) - Final, Resulted 05/28/18 Urine Culture - Final, Complete 05/28/18 Urine Culture Result 1 (MERI) - Final, Complete 05/28/18 Antimicrobic Susceptibility - Final, Complete Medications Current Medications Iohexol (Omnipaque 300 Mg/ml) 75 ml 1X ONCE IV Last administered on 05/28/18at 19:27; Start 05/28/18 at 19:30; Stop 05/28/18 at 19:31; Status DC Info (CONTRAST GIVEN -- Rx MONITORING) 1 each PRN DAILY PRN MC SEE COMMENTS; Start 05/28/18 at 19:30; Stop 05/30/18 at 19:29; Status DC Ceftriaxone Sodium 50 ml @ 100 mls/hr 1X ONCE IV Last administered on at 21:34; Start 05/28/18 at 20:45; Stop 05/28/18 at 21:14; Status DC Acetaminophen (Tylenol) 500 mg PRN Q6HRS PRN PO MILD PAIN / TEMP Last administered on 05/31/18at 11:21; Start 05/29/18 at 09:15 Ondansetron HCl (Zofran) 4 mg PRN Q6HRS PRN IV NAUSEA/VOMITING; Start 05/29/18 at 09:15 Ondansetron HCl (Zofran Odt) 4 mg PRN Q6HRS PRN PO NAUSEA/VOMITING; Start 05/29 at 09:15 Fentanyl Citrate (Fentanyl 2ml Vial) 50 mcg PRN Q2HR PRN IV PAIN; Start at 09:15 Tramadol HCl (Ultram) 50 mg PRN Q6HRS PRN PO MILD PAIN 2ND CHOICE Last administered on 05/29/18at 12:01; Start 05/29/18 at 09:15 Acetaminophen/ Codeine Phosphate (Tylenol/Codeine Soln) 15 ml QID PO Last administered on 06/01/18at 13:21; Start 05/29/18 at 13:00 Divalproex Sodium (Depakote Er) 500 mg TID PO Last administered on 06/01/18 14 :42; Start 05/29/18 at 10:30 Haloperidol (Haldol) 4 mg PRN QID PRN PO ANXIETY / AGITATION; Start 05/29/18 at 10:30 Polyethylene Glycol (miraLAX PACKET) 17 gm DAILY PO Last administered on 09:39; Start 05/29/18 at 11:00 Clonazepam (KlonoPIN) 2 mg TID PO Last administered on 06/01/18 14:42; Start 05/29/18 at 11:00 Non-Formulary Medication (Guanfacine Hcl ) 2 mg BID PO Last administered on 09:39; Start 05/29/18 at 21:00 Non-Formulary Medication (Ramelteon (Rozerem)) 16 mg HS PO Last administered on 05/31/18 20:27; Start 05/29/18 at 21:00 Venlafaxine HCl (Effexor) 50 mg TID PO Last administered on 06/01/18 14:42; Start 05/29/18 at 10:30 Metronidazole (Flagyl) 500 mg Q8HRS PO Last administered on 05/31/18 13:13; Start 05/29/18 at 12:00; Stop 05/31/18 at 20:13; Status DC Fluconazole (Diflucan) 200 mg DAILY PO Last administered on 06/01/18 09:38; Start 05/29/18 at 12:00 Metronidazole (Metrogel) 1 olivia DAILY VG Last administered on 06/01/18 09:38; Start 05/29/18 at 14:30 Fluconazole (Diflucan) 200 mg 1X ONCE PO Last administered on 05/29/18 14:45 ; Start 05/29/18 at 13:15; Stop 05/29/18 at 13:40; Status DC Ceftriaxone Sodium (Rocephin) 1 gm Q24H IVP Last administered on 05/30/18 20: 54; Start 05/29/18 at 21:00; Stop 05/31/18 at 20:13; Status DC Lactobacillus Rhamnosus (Culturelle) 1 cap BID PO Last administered on at 09:38; Start 05/31/18 at 21:00 Sodium Chloride 1,000 ml @ 1,000 mls/hr 1X ONCE IV Last administered on at 11:41; Start 05/31/18 at 12:00; Stop 05/31/18 at 12:59; Status DC Insulin Human Lispro (HumaLOG) 0-5 UNITS TIDWMEALS SQ Last administered on 06/01at 12:17; Start 06/01/18 at 08:00 Dextrose (Dextrose 50%-Water Syringe) 12.5 gm PRN Q15MIN PRN IV SEE COMMENTS; Start 05/31/18 at 18:30 Ceftriaxone Sodium (Rocephin Im) 1 gm 1X ONCE IM Last administered on at 21:00; Start 05/31/18 at 21:00; Stop 05/31/18 at 21:01; Status DC Piperacillin Sod/ Tazobactam Sod 3.375 gm/Sodium Chloride 50 ml @ 100 mls/hr Q6HRS IV Last administered on 06/01/18at 13:20; Start 06/01/18 at 00:00 Active Scripts Active Reported Guanfacine Hcl 1 Mg Tablet 2 Mg PO BID Rozerem (Ramelteon) 8 Mg Tablet 16 Mg PO HS Clonazepam 2 Mg Tablet 2 Mg PO TID Venlafaxine Hcl Er (Venlafaxine Hcl) 150 Mg Cap.er.24h 150 Mg PO DAILY Divalproex Sodium Er (Divalproex Sodium) 500 Mg Tab.er.24h 500 Mg PO TID Haloperidol 2 Mg Tablet 4 Mg PO PRN QID PRN Acetaminophen-Codeine Solution (Acetaminophen With Codeine) 5 Ml Solution 15 Ml PO QID Polyethylene Glycol 3350 255 Gm Powder 17 Gm PO DAILY Vitals/I & O Vital Sign - Last 24 Hours 05/31/18 05/31/18 05/31/18 05/31/18 15:00 19:50 20:00 20:23 Temp 99.3 98.5 99.3 98.5 Pulse 107 111 Resp 20 19 B/P (MAP) 153/86 (108) 130/77 (94) Pulse Ox 98 98 98 O2 Delivery Room Air Room Air Room Air Room Air 05/31/18 06/01/18 06/01/18 06/01/18 23:14 03:39 07:00 08:00 Temp 98.4 97.9 97.8 98.4 97.9 97.8 Pulse 91 92 98 Resp 18 18 20 B/P (MAP) 131/90 (104) 125/70 (88) 99/62 (74) Pulse Ox 96 97 98 O2 Delivery Room Air Room Air Room Air Room Air 06/01/18 06/01/18 06/01/18 11:00 13:21 14:42 Temp 97.8 97.8 Pulse 94 Resp 20 B/P (MAP) 101/64 (76) Pulse Ox 99 99 99 O2 Delivery Room Air Room Air Room Air Intake and Output 05/31/18 05/31/18 06/01/18 15:01 23:01 07:01 Intake Total 250 ml 300 ml Output Total 0 ml Balance 250 ml 300 ml NATY GANDARA MD Jun 01, 2018 15:00
[2018-06-01] MEDS: HALOPERIDOL 2 MG TABLET. PO PRN (16:21)
[2018-06-01] MEDS: DOCUSATE SODIUM 100 MG CAPSULE. PO SCH (17:58)
[2018-06-01 19:00] VITALS: BP 116/83
[2018-06-01 23:00] VITALS: BP 126/94
[2018-06-01 23:14] LABS: HEMOGLOBIN A1C 6.5 % (4.8-5.6)
[2018-06-02 03:00] VITALS: BP 117/77
[2018-06-02] MEDS: PIPERACILLIN/TAZOBACTAM 3.375 GM in IV NORMAL SALINE 50ML 50 ML IV SCH ×3 (05:25→16:47)
[2018-06-02 07:00] VITALS: BP 111/59
[2018-06-02 07:22] LABS: HEMATOCRIT 39.1 % (36.0-47.0); HEMOGLOBIN 13.4 g/dL (12.0-15.5); RED BLOOD COUNT 4.35 x10^6/uL (3.50-5.40); RED CELL DISTRIBUTION WIDTH 14.4 % (11.5-14.5); WHITE BLOOD COUNT 9.9 x10^3/uL (4.0-11.0)
[2018-06-02 07:33] LABS: ALBUMIN 2.6 g/dL (3.4-5.0); ALBUMIN/GLOBULIN RATIO 0.6 (1.0-1.7); CALCIUM 9.4 mg/dL (8.5-10.1); CREATININE 0.8 mg/dL (0.6-1.0); GFR 99.4; POTASSIUM 4.9 mmol/L (3.5-5.1); TOTAL BILIRUBIN 0.2 mg/dL (0.2-1.0)
[2018-06-02] MEDS: INSULIN LISPRO 300 UNITS/3 ML INSULN.PEN. SQ SCH ×3 (08:00→16:48)
[2018-06-02] MEDS ORDERED: POLYETHYLENE GLYCOL 3350 17 GM PACKET. PO SCH (09:00)
[2018-06-02] MEDS: VENLAFAXINE 50 MG TABLET. PO SCH ×3 (09:01→20:04)
[2018-06-02] MEDS: ACETAMINOPHEN/CODEINE 120/12MG 5 ML SOLUTION. PO SCH ×4 (09:01→20:04)
[2018-06-02] MEDS: GUANFACINE 2 MG PO SCH ×2 (09:02→20:05)
[2018-06-02] MEDS: metroNIDAZOLE 0.75% VAGINAL 1 APP TUBE VG SCH (09:02)
[2018-06-02] MEDS: LACTOBACILLUS RHAMNOSUS GG 1 CAPSULE. PO SCH ×2 (09:02→20:04)
[2018-06-02] MEDS: DIVALPROEX EXTENDED RELEASE 500 MG TAB.ER.24H. PO SCH ×3 (09:02→20:04)
[2018-06-02] MEDS: DOCUSATE SODIUM 100 MG CAPSULE. PO SCH (09:02)
[2018-06-02] MEDS: FLUCONAZOLE 100 MG TABLET. PO SCH (09:02)
[2018-06-02] MEDS: POLYETHYLENE GLYCOL 3350 17 GM PACKET. PO SCH (09:02)
[2018-06-02] MEDS: clonazePAM 1 MG TABLET PO SCH ×3 (09:02→20:04)
--- NOTE | 2018-06-02 09:49 | PDOC ---
NITESH ROBBINS [employer] 06/02/18 0949: SUBJECTIVE Subjective Patient seems comfortable, still non verbal. Mother is at bedside. OBJECTIVE Objective Physical Exam: General appearance: Alert, non verbal, cooperative Head: Normocephalic, without obvious abnormality Eyes: conjunctivae/corneas clear. PERRL, EOM's intact. Fundi benign Lungs: regular respirations, non labored breathing Abdomen: soft, non-tender. No masses, no organomegaly Pelvic: external catheter suction device in place, gathering blood tinged urine. Perineal skin shows marked improvement from the other day. Vital Signs Vital Signs Date Time Temp Pulse Resp B/P (MAP) Pulse Ox O2 Delivery O2 Flow Rate FiO2 06/02/18 09:01 20 97 Room Air 06/02/18 08:00 Room Air 06/02/18 07:00 97.9 91 20 111/59 (76) 97 Room Air 97.9 06/02/18 03:00 98.5 101 18 117/77 (90) 98 Room Air 98.5 06/01/18 23:00 98.5 87 18 126/94 (105) 98 Room Air 98.5 06/01/18 21:45 98 Room Air 06/01/18 20:41 98 Room Air 06/01/18 20:00 Room Air 06/01/18 19:00 98.4 85 20 116/83 (94) 98 Room Air 98.4 06/01/18 16:21 98 Room Air 06/01/18 15:00 97.9 90 18 126/79 (95) 98 Room Air 97.9 06/01/18 13:21 99 Room Air 06/01/18 11:00 97.8 94 20 101/64 (76) 99 Room Air 97.8 I & O Intake and Output 06/02/18 07:01 Intake Total 1900 ml Output Total 400 ml Balance 1500 ml Intake Oral 1900 ml Output Urine Total 400 ml # Voids 9 PHYSICAL EXAM Physical Exam Physical Exam: General appearance: Alert, non verbal, cooperative Head: Normocephalic, without obvious abnormality Eyes: conjunctivae/corneas clear. PERRL, EOM's intact. Fundi benign Lungs: regular respirations, non labored breathing Abdomen: soft, non-tender. No masses, no organomegaly Pelvic: external catheter suction device in place, gathering blood tinged urine. Perineal skin shows marked improvement from the other day. ASSESSMENT/PLAN Assessment/Plan Her urinary issues are mostly a functional issue - difficult to manage in patient with mental delay, but could try Myrbetriq once she is an outpatient. Medication name written down for mother on the back of [facility] card. Discussed with mother that we do not recommend anticholinergic due to risk of worsening baseline severe mental delay and constipation. All questions answered. She is unwilling to tolerate an indwelling matamoros. Do not recommend SP tube due to patient compliance, concern for pulling it out. Hematuria is from patient ripping out her traditional matamoros catheter. Discussed with mother that she may continue to see red tinged urine for a the next few days. Will follow peripherally Problems: (1) Urinary tract infection COMMENT Lab Laboratory Tests Test 06/01/18 10:20 06/01/18 11:26 06/01/18 16:34 06/01/18 22:39 White Blood Count 10.3 x10^3/uL (4.0-11.0) Red Blood Count 3.91 x10^6/uL (3.50-5.40) Hemoglobin 11.7 g/dL (12.0-15.5) Hematocrit 35.4 % (36.0-47.0) Mean Corpuscular Volume 90 fL (79-100) Mean Corpuscular Hemoglobin 30 pg (25-35) Mean Corpuscular Hemoglobin Concent 33 g/dL (31-37) Red Cell Distribution Width 14.2 % (11.5-14.5) Platelet Count 360 x10^3/uL (140-400) Erythrocyte Sedimentation Rate 60 (0-25) Sodium Level 138 mmol/L (136-145) Potassium Level 4.1 mmol/L (3.5-5.1) Chloride Level 101 mmol/L (98-107) Carbon Dioxide Level 27 mmol/L (21-32) Anion Gap 10 (6-14) Blood Urea Nitrogen 11 mg/dL (7-20) Creatinine 0.8 mg/dL (0.6-1.0) Estimated GFR (Cockcroft-Gault) 99.4 BUN/Creatinine Ratio 14 (6-20) Glucose Level 219 mg/dL (70-99) Lactic Acid Level 3.5 mmol/L (0.4-2.0) Calcium Level 9.0 mg/dL (8.5-10.1) Total Bilirubin 0.2 mg/dL (0.2-1.0) Aspartate Amino Transf (AST/SGOT) 41 U/L (15-37) Alanine Aminotransferase (ALT/SGPT) 39 U/L (14-59) Alkaline Phosphatase 58 U/L (46-116) C-Reactive Protein, Quantitative 66.4 mg/L (0-3.3) Total Protein 7.6 g/dL (6.4-8.2) Albumin 2.4 g/dL (3.4-5.0) Albumin/Globulin Ratio 0.5 (1.0-1.7) Procalcitonin < 0.10 ng/mL (0.00-0.10) Glucose (Fingerstick) 203 mg/dL (70-99) 273 mg/dL (70-99) 148 mg/dL (70-99) Test 06/02/18 07:05 06/02/18 08:34 White Blood Count 9.9 x10^3/uL (4.0-11.0) Red Blood Count 4.35 x10^6/uL (3.50-5.40) Hemoglobin 13.4 g/dL (12.0-15.5) Hematocrit 39.1 % (36.0-47.0) Mean Corpuscular Volume 90 fL (79-100) Mean Corpuscular Hemoglobin 31 pg (25-35) Mean Corpuscular Hemoglobin Concent 34 g/dL (31-37) Red Cell Distribution Width 14.4 % (11.5-14.5) Platelet Count 377 x10^3/uL (140-400) Erythrocyte Sedimentation Rate 55 (0-25) Sodium Level 140 mmol/L (136-145) Potassium Level 4.9 mmol/L (3.5-5.1) Chloride Level 102 mmol/L (98-107) Carbon Dioxide Level 30 mmol/L (21-32) Anion Gap 8 (6-14) Blood Urea Nitrogen 13 mg/dL (7-20) Creatinine 0.8 mg/dL (0.6-1.0) Estimated GFR (Cockcroft-Gault) 99.4 BUN/Creatinine Ratio 16 (6-20) Glucose Level 125 mg/dL (70-99) Lactic Acid Level 2.6 mmol/L (0.4-2.0) Calcium Level 9.4 mg/dL (8.5-10.1) Total Bilirubin 0.2 mg/dL (0.2-1.0) Aspartate Amino Transf (AST/SGOT) 54 U/L (15-37) Alanine Aminotransferase (ALT/SGPT) 41 U/L (14-59) Alkaline Phosphatase 59 U/L (46-116) Total Protein 7.0 g/dL (6.4-8.2) Albumin 2.6 g/dL (3.4-5.0) Albumin/Globulin Ratio 0.6 (1.0-1.7) Glucose (Fingerstick) 168 mg/dL (70-99) HARI WANG MD 06/02/18 1822: ASSESSMENT/PLAN Assessment/Plan Agree with assessment and plan. Problem Qualifiers (1) Urinary tract infection: Urinary tract infection type: site unspecified Hematuria presence: without hematuria Qualified Codes: N39.0 - Urinary tract infection, site not specified NITESH ROBBINS APRN Jun 02, 2018 09:49 HARI WANG MD Jun 02, 2018 18:22
--- NOTE | 2018-06-02 10:17 | PDOC ---
PROGRESS NOTES Chief Complaint Chief Complaint Assessment/Plan 1.Perineal abscess Skin thickening over the mons pubis and mild subcutaneous edema could be inflammatory or could be cellulitis. 2.Vaginal discharge, 3.Sepsis POA 4.Mental delay 5.Morbid obesity 6.Sulfa allergy-hives 7.UTI 8.DM II diagnosed on this admission 9.lactic acidosis 10.spina bifida History of Present Illness History of Present Illness problem with IV access yesterday, was given Rocephin IM, Picc line as well as central line ordered whichever can be done first, still with high high lactic acid, cultures done, hydration, BS high likely diabetic started SS Patient is constantly leaking urine, she is sitting on her urine on the diapers , pulled matamoros catheter yesterday continue antibiotic need aggressive hydration to help with lactic acidosis Vitals Vitals Vital Signs Date Time Temp Pulse Resp B/P (MAP) Pulse Ox O2 Delivery O2 Flow Rate FiO2 06/02/18 09:48 20 97 Room Air 06/02/18 07:00 97.9 91 111/59 (76) 97.9 Physical Exam Physical Exam GENERAL: Sitting up right, calm, coop LUNGS: Clear. HEART: S1, S2 regular. ABDOMEN: Obese, soft, NT SKIN: without rash NEUROLOGIC: Alert, coop No IV access General: Alert, Oriented X3, Cooperative, No acute distress Heart: Regular rate, Normal S1, Normal S2 Lungs: Clear Abdomen: Normal bowel sounds, Soft Extremities: No clubbing, No cyanosis, No edema, Normal pulses, No tenderness/ swelling Skin: Other (redness, better induration around the perineal area, no curdlike discharge in the vaginal today. But constantly leaking urine on my exam) Labs LABS CT Abdomen with contrast: Findings: Liver: Unremarkable Spleen: Unremarkable Pancreas: Unremarkable Adrenal Glands: Unremarkable Kidneys: Unremarkable There is no mass or lymphadenopathy. There is no free air. There is no free fluid. Impression: No acute findings. End Impression CT Pelvis with Contrast: Findings: The urinary bladder appears normal. The appendix is normal. There is no lymphadenopathy. There is moderate wall thickening of the urinary bladder. There is a trace of free fluid in the pelvis. There is an air-fluid collection in the midline perineum that measures 2.4 x 2.2 cm however this could be the anal canal. There is skin thickening seen over the mons pubis with underlying edema within the subcutaneous fat. Impression: 1. Skin thickening over the mons pubis and mild subcutaneous edema could be inflammatory or could be cellulitis. 2. Small air-fluid collection is likely a perineal abscess but cannot be distinguished from the anal canal and correlation with rectal examination is recommended. 3. Moderate wall thickening of the urinary bladder suggests cystitis. Recommend correlation with urinary analysis. PQRS Compliance Statement: One or more of the following individualized dose reduction techniques were utilized for this examination: 1. Automated exposure control 2. Adjustment of the mA and/or kV according to patient size 3. Use of iterative reconstruction technique Laboratory Tests Test 06/01/18 10:20 06/01/18 11:26 06/01/18 16:34 06/01/18 22:39 White Blood Count 10.3 x10^3/uL (4.0-11.0) Red Blood Count 3.91 x10^6/uL (3.50-5.40) Hemoglobin 11.7 g/dL (12.0-15.5) Hematocrit 35.4 % (36.0-47.0) Mean Corpuscular Volume 90 fL (79-100) Mean Corpuscular Hemoglobin 30 pg (25-35) Mean Corpuscular Hemoglobin Concent 33 g/dL (31-37) Red Cell Distribution Width 14.2 % (11.5-14.5) Platelet Count 360 x10^3/uL (140-400) Erythrocyte Sedimentation Rate 60 (0-25) Sodium Level 138 mmol/L (136-145) Potassium Level 4.1 mmol/L (3.5-5.1) Chloride Level 101 mmol/L (98-107) Carbon Dioxide Level 27 mmol/L (21-32) Anion Gap 10 (6-14) Blood Urea Nitrogen 11 mg/dL (7-20) Creatinine 0.8 mg/dL (0.6-1.0) Estimated GFR (Cockcroft-Gault) 99.4 BUN/Creatinine Ratio 14 (6-20) Glucose Level 219 mg/dL (70-99) Lactic Acid Level 3.5 mmol/L (0.4-2.0) Calcium Level 9.0 mg/dL (8.5-10.1) Total Bilirubin 0.2 mg/dL (0.2-1.0) Aspartate Amino Transf (AST/SGOT) 41 U/L (15-37) Alanine Aminotransferase (ALT/SGPT) 39 U/L (14-59) Alkaline Phosphatase 58 U/L (46-116) C-Reactive Protein, Quantitative 66.4 mg/L (0-3.3) Total Protein 7.6 g/dL (6.4-8.2) Albumin 2.4 g/dL (3.4-5.0) Albumin/Globulin Ratio 0.5 (1.0-1.7) Procalcitonin < 0.10 ng/mL (0.00-0.10) Glucose (Fingerstick) 203 mg/dL (70-99) 273 mg/dL (70-99) 148 mg/dL (70-99) Test 06/02/18 07:05 06/02/18 08:34 White Blood Count 9.9 x10^3/uL (4.0-11.0) Red Blood Count 4.35 x10^6/uL (3.50-5.40) Hemoglobin 13.4 g/dL (12.0-15.5) Hematocrit 39.1 % (36.0-47.0) Mean Corpuscular Volume 90 fL (79-100) Mean Corpuscular Hemoglobin 31 pg (25-35) Mean Corpuscular Hemoglobin Concent 34 g/dL (31-37) Red Cell Distribution Width 14.4 % (11.5-14.5) Platelet Count 377 x10^3/uL (140-400) Erythrocyte Sedimentation Rate 55 (0-25) Sodium Level 140 mmol/L (136-145) Potassium Level 4.9 mmol/L (3.5-5.1) Chloride Level 102 mmol/L (98-107) Carbon Dioxide Level 30 mmol/L (21-32) Anion Gap 8 (6-14) Blood Urea Nitrogen 13 mg/dL (7-20) Creatinine 0.8 mg/dL (0.6-1.0) Estimated GFR (Cockcroft-Gault) 99.4 BUN/Creatinine Ratio 16 (6-20) Glucose Level 125 mg/dL (70-99) Lactic Acid Level 2.6 mmol/L (0.4-2.0) Calcium Level 9.4 mg/dL (8.5-10.1) Total Bilirubin 0.2 mg/dL (0.2-1.0) Aspartate Amino Transf (AST/SGOT) 54 U/L (15-37) Alanine Aminotransferase (ALT/SGPT) 41 U/L (14-59) Alkaline Phosphatase 59 U/L (46-116) Total Protein 7.0 g/dL (6.4-8.2) Albumin 2.6 g/dL (3.4-5.0) Albumin/Globulin Ratio 0.6 (1.0-1.7) Glucose (Fingerstick) 168 mg/dL (70-99) Assessment and Plan Assessmemt and Plan Problems Medical Problems: (1) Perineal abscess Status: Acute (2) Urinary tract infection Status: Acute Comment Review of Relevant I have reviewed the following items maximilian (where applicable) has been applied. Labs Laboratory Tests Test 05/31/18 10:45 05/31/18 18:00 05/31/18 18:30 06/01/18 07:58 Lactic Acid Level 3.9 mmol/L (0.4-2.0) 3.1 mmol/L (0.4-2.0) Hemoglobin A1c 6.5 % (4.8-5.6) Glucose (Fingerstick) 111 mg/dL (70-99) Test 06/01/18 10:20 06/01/18 11:26 06/01/18 16:34 06/01/18 22:39 White Blood Count 10.3 x10^3/uL (4.0-11.0) Red Blood Count 3.91 x10^6/uL (3.50-5.40) Hemoglobin 11.7 g/dL (12.0-15.5) Hematocrit 35.4 % (36.0-47.0) Mean Corpuscular Volume 90 fL (79-100) Mean Corpuscular Hemoglobin 30 pg (25-35) Mean Corpuscular Hemoglobin Concent 33 g/dL (31-37) Red Cell Distribution Width 14.2 % (11.5-14.5) Platelet Count 360 x10^3/uL (140-400) Erythrocyte Sedimentation Rate 60 (0-25) Sodium Level 138 mmol/L (136-145) Potassium Level 4.1 mmol/L (3.5-5.1) Chloride Level 101 mmol/L (98-107) Carbon Dioxide Level 27 mmol/L (21-32) Anion Gap 10 (6-14) Blood Urea Nitrogen 11 mg/dL (7-20) Creatinine 0.8 mg/dL (0.6-1.0) Estimated GFR (Cockcroft-Gault) 99.4 BUN/Creatinine Ratio 14 (6-20) Glucose Level 219 mg/dL (70-99) Lactic Acid Level 3.5 mmol/L (0.4-2.0) Calcium Level 9.0 mg/dL (8.5-10.1) Total Bilirubin 0.2 mg/dL (0.2-1.0) Aspartate Amino Transf (AST/SGOT) 41 U/L (15-37) Alanine Aminotransferase (ALT/SGPT) 39 U/L (14-59) Alkaline Phosphatase 58 U/L (46-116) C-Reactive Protein, Quantitative 66.4 mg/L (0-3.3) Total Protein 7.6 g/dL (6.4-8.2) Albumin 2.4 g/dL (3.4-5.0) Albumin/Globulin Ratio 0.5 (1.0-1.7) Procalcitonin < 0.10 ng/mL (0.00-0.10) Glucose (Fingerstick) 203 mg/dL (70-99) 273 mg/dL (70-99) 148 mg/dL (70-99) Test 06/02/18 07:05 06/02/18 08:34 White Blood Count 9.9 x10^3/uL (4.0-11.0) Red Blood Count 4.35 x10^6/uL (3.50-5.40) Hemoglobin 13.4 g/dL (12.0-15.5) Hematocrit 39.1 % (36.0-47.0) Mean Corpuscular Volume 90 fL (79-100) Mean Corpuscular Hemoglobin 31 pg (25-35) Mean Corpuscular Hemoglobin Concent 34 g/dL (31-37) Red Cell Distribution Width 14.4 % (11.5-14.5) Platelet Count 377 x10^3/uL (140-400) Erythrocyte Sedimentation Rate 55 (0-25) Sodium Level 140 mmol/L (136-145) Potassium Level 4.9 mmol/L (3.5-5.1) Chloride Level 102 mmol/L (98-107) Carbon Dioxide Level 30 mmol/L (21-32) Anion Gap 8 (6-14) Blood Urea Nitrogen 13 mg/dL (7-20) Creatinine 0.8 mg/dL (0.6-1.0) Estimated GFR (Cockcroft-Gault) 99.4 BUN/Creatinine Ratio 16 (6-20) Glucose Level 125 mg/dL (70-99) Lactic Acid Level 2.6 mmol/L (0.4-2.0) Calcium Level 9.4 mg/dL (8.5-10.1) Total Bilirubin 0.2 mg/dL (0.2-1.0) Aspartate Amino Transf (AST/SGOT) 54 U/L (15-37) Alanine Aminotransferase (ALT/SGPT) 41 U/L (14-59) Alkaline Phosphatase 59 U/L (46-116) Total Protein 7.0 g/dL (6.4-8.2) Albumin 2.6 g/dL (3.4-5.0) Albumin/Globulin Ratio 0.6 (1.0-1.7) Glucose (Fingerstick) 168 mg/dL (70-99) Laboratory Tests Test 06/01/18 10:20 06/01/18 11:26 06/01/18 16:34 06/01/18 22:39 White Blood Count 10.3 x10^3/uL (4.0-11.0) Red Blood Count 3.91 x10^6/uL (3.50-5.40) Hemoglobin 11.7 g/dL (12.0-15.5) Hematocrit 35.4 % (36.0-47.0) Mean Corpuscular Volume 90 fL (79-100) Mean Corpuscular Hemoglobin 30 pg (25-35) Mean Corpuscular Hemoglobin Concent 33 g/dL (31-37) Red Cell Distribution Width 14.2 % (11.5-14.5) Platelet Count 360 x10^3/uL (140-400) Erythrocyte Sedimentation Rate 60 (0-25) Sodium Level 138 mmol/L (136-145) Potassium Level 4.1 mmol/L (3.5-5.1) Chloride Level 101 mmol/L (98-107) Carbon Dioxide Level 27 mmol/L (21-32) Anion Gap 10 (6-14) Blood Urea Nitrogen 11 mg/dL (7-20) Creatinine 0.8 mg/dL (0.6-1.0) Estimated GFR (Cockcroft-Gault) 99.4 BUN/Creatinine Ratio 14 (6-20) Glucose Level 219 mg/dL (70-99) Lactic Acid Level 3.5 mmol/L (0.4-2.0) Calcium Level 9.0 mg/dL (8.5-10.1) Total Bilirubin 0.2 mg/dL (0.2-1.0) Aspartate Amino Transf (AST/SGOT) 41 U/L (15-37) Alanine Aminotransferase (ALT/SGPT) 39 U/L (14-59) Alkaline Phosphatase 58 U/L (46-116) C-Reactive Protein, Quantitative 66.4 mg/L (0-3.3) Total Protein 7.6 g/dL (6.4-8.2) Albumin 2.4 g/dL (3.4-5.0) Albumin/Globulin Ratio 0.5 (1.0-1.7) Procalcitonin < 0.10 ng/mL (0.00-0.10) Glucose (Fingerstick) 203 mg/dL (70-99) 273 mg/dL (70-99) 148 mg/dL (70-99) Test 06/02/18 07:05 06/02/18 08:34 White Blood Count 9.9 x10^3/uL (4.0-11.0) Red Blood Count 4.35 x10^6/uL (3.50-5.40) Hemoglobin 13.4 g/dL (12.0-15.5) Hematocrit 39.1 % (36.0-47.0) Mean Corpuscular Volume 90 fL (79-100) Mean Corpuscular Hemoglobin 31 pg (25-35) Mean Corpuscular Hemoglobin Concent 34 g/dL (31-37) Red Cell Distribution Width 14.4 % (11.5-14.5) Platelet Count 377 x10^3/uL (140-400) Erythrocyte Sedimentation Rate 55 (0-25) Sodium Level 140 mmol/L (136-145) Potassium Level 4.9 mmol/L (3.5-5.1) Chloride Level 102 mmol/L (98-107) Carbon Dioxide Level 30 mmol/L (21-32) Anion Gap 8 (6-14) Blood Urea Nitrogen 13 mg/dL (7-20) Creatinine 0.8 mg/dL (0.6-1.0) Estimated GFR (Cockcroft-Gault) 99.4 BUN/Creatinine Ratio 16 (6-20) Glucose Level 125 mg/dL (70-99) Lactic Acid Level 2.6 mmol/L (0.4-2.0) Calcium Level 9.4 mg/dL (8.5-10.1) Total Bilirubin 0.2 mg/dL (0.2-1.0) Aspartate Amino Transf (AST/SGOT) 54 U/L (15-37) Alanine Aminotransferase (ALT/SGPT) 41 U/L (14-59) Alkaline Phosphatase 59 U/L (46-116) Total Protein 7.0 g/dL (6.4-8.2) Albumin 2.6 g/dL (3.4-5.0) Albumin/Globulin Ratio 0.6 (1.0-1.7) Glucose (Fingerstick) 168 mg/dL (70-99) Microbiology 05/31/18 Blood Culture - Preliminary, Resulted NO GROWTH AFTER 1 DAY 05/29/18 Aerobic Culture - Final, Complete 05/29/18 Aerobic Culture Result 1 (MERI) - Final, Complete 05/29/18 Gram Stain - Final, Complete 05/29/18 Gram Stain Result 1 (MERI) - Final, Complete 05/29/18 Gram Stain Result 2 (MERI) - Final, Complete 05/29/18 Gram Stain Result 3 (MERI) - Final, Complete 05/28/18 Anaerobic/Aerobic Culture, Resulted Pending 05/28/18 Anaerobic Culture Result 1 (MERI), Resulted Pending 05/28/18 Aerobic Culture - Final, Resulted 05/28/18 Aerobic Culture Result 1 (MERI) - Final, Resulted 05/28/18 Aerobic Culture Result 2 (MERI) - Final, Resulted 05/28/18 Antimicrobic Susceptibility - Final, Resulted 05/28/18 Gram Stain - Final, Resulted 05/28/18 Gram Stain Result 1 (MERI) - Final, Resulted 05/28/18 Gram Stain Result 2 (MERI) - Final, Resulted 05/28/18 Gram Stain Result 3 (MERI) - Final, Resulted 05/28/18 Urine Culture - Final, Complete 05/28/18 Urine Culture Result 1 (MERI) - Final, Complete 05/28/18 Antimicrobic Susceptibility - Final, Complete Medications Current Medications Iohexol (Omnipaque 300 Mg/ml) 75 ml 1X ONCE IV Last administered on 05/28/18at 19:27; Start 05/28/18 at 19:30; Stop 05/28/18 at 19:31; Status DC Info (CONTRAST GIVEN -- Rx MONITORING) 1 each PRN DAILY PRN MC SEE COMMENTS; Start 05/28/18 at 19:30; Stop 05/30/18 at 19:29; Status DC Ceftriaxone Sodium 50 ml @ 100 mls/hr 1X ONCE IV Last administered on at 21:34; Start 05/28/18 at 20:45; Stop 05/28/18 at 21:14; Status DC Acetaminophen (Tylenol) 500 mg PRN Q6HRS PRN PO MILD PAIN / TEMP Last administered on 05/31/18at 11:21; Start 05/29/18 at 09:15 Ondansetron HCl (Zofran) 4 mg PRN Q6HRS PRN IV NAUSEA/VOMITING; Start 05/29/18 at 09:15 Ondansetron HCl (Zofran Odt) 4 mg PRN Q6HRS PRN PO NAUSEA/VOMITING; Start 05/29 at 09:15 Fentanyl Citrate (Fentanyl 2ml Vial) 50 mcg PRN Q2HR PRN IV PAIN; Start at 09:15 Tramadol HCl (Ultram) 50 mg PRN Q6HRS PRN PO MILD PAIN 2ND CHOICE Last administered on 05/29/18at 12:01; Start 05/29/18 at 09:15 Acetaminophen/ Codeine Phosphate (Tylenol/Codeine Soln) 15 ml QID PO Last administered on 06/02/18 09:01; Start 05/29/18 at 13:00 Divalproex Sodium (Depakote Er) 500 mg TID PO Last administered on 06/02/18 09 :02; Start 05/29/18 at 10:30 Haloperidol (Haldol) 4 mg PRN QID PRN PO ANXIETY / AGITATION Last administered on 06/01/18at 16:21; Start 05/29/18 at 10:30 Polyethylene Glycol (miraLAX PACKET) 17 gm DAILY PO Last administered on 09:02; Start 05/29/18 at 11:00 Clonazepam (KlonoPIN) 2 mg TID PO Last administered on 06/02/18 09:02; Start 05/29/18 at 11:00 Non-Formulary Medication (Guanfacine Hcl ) 2 mg BID PO Last administered on 09:02; Start 05/29/18 at 21:00 Non-Formulary Medication (Ramelteon (Rozerem)) 16 mg HS PO Last administered on 06/01/18at 20:37; Start 05/29/18 at 21:00 Venlafaxine HCl (Effexor) 50 mg TID PO Last administered on 06/02/18 09:01; Start 05/29/18 at 10:30 Metronidazole (Flagyl) 500 mg Q8HRS PO Last administered on 05/31/18 13:13; Start 05/29/18 at 12:00; Stop 05/31/18 at 20:13; Status DC Fluconazole (Diflucan) 200 mg DAILY PO Last administered on 06/02/18 09:02; Start 05/29/18 at 12:00 Metronidazole (Metrogel) 1 olivia DAILY VG Last administered on 06/02/18 09:02; Start 05/29/18 at 14:30 Fluconazole (Diflucan) 200 mg 1X ONCE PO Last administered on 05/29/18at 14:45 ; Start 05/29/18 at 13:15; Stop 05/29/18 at 13:40; Status DC Ceftriaxone Sodium (Rocephin) 1 gm Q24H IVP Last administered on 05/30/18 20: 54; Start 05/29/18 at 21:00; Stop 05/31/18 at 20:13; Status DC Lactobacillus Rhamnosus (Culturelle) 1 cap BID PO Last administered on 09:02; Start 05/31/18 at 21:00 Sodium Chloride 1,000 ml @ 1,000 mls/hr 1X ONCE IV Last administered on at 11:41; Start 05/31/18 at 12:00; Stop 05/31/18 at 12:59; Status DC Insulin Human Lispro (HumaLOG) 0-5 UNITS TIDWMEALS SQ Last administered on 8/20 /18at 08:00; Start 06/01/18 at 08:00 Dextrose (Dextrose 50%-Water Syringe) 12.5 gm PRN Q15MIN PRN IV SEE COMMENTS; Start 05/31/18 at 18:30 Ceftriaxone Sodium (Rocephin Im) 1 gm 1X ONCE IM Last administered on at 21:00; Start 05/31/18 at 21:00; Stop 05/31/18 at 21:01; Status DC Piperacillin Sod/ Tazobactam Sod 3.375 gm/Sodium Chloride 50 ml @ 100 mls/hr Q6HRS IV Last administered on 06/02/18at 05:25; Start 06/01/18 at 00:00 Metformin HCl (Glucophage) 1,000 mg BIDWMEALS PO Last administered on at 09:02; Start 06/01/18 at 18:00 Docusate Sodium (Colace) 100 mg DAILY PO Last administered on 06/02/18at 09:02; Start 06/01/18 at 18:30 Polyethylene Glycol (miraLAX PACKET) 17 gm DAILY PO ; Start 06/02/18 at 09:00; Status UNV Active Scripts Active Reported Guanfacine Hcl 1 Mg Tablet 2 Mg PO BID Rozerem (Ramelteon) 8 Mg Tablet 16 Mg PO HS Clonazepam 2 Mg Tablet 2 Mg PO TID Venlafaxine Hcl Er (Venlafaxine Hcl) 150 Mg Cap.er.24h 150 Mg PO DAILY Divalproex Sodium Er (Divalproex Sodium) 500 Mg Tab.er.24h 500 Mg PO TID Haloperidol 2 Mg Tablet 4 Mg PO PRN QID PRN Acetaminophen-Codeine Solution (Acetaminophen With Codeine) 5 Ml Solution 15 Ml PO QID Polyethylene Glycol 3350 255 Gm Powder 17 Gm PO DAILY Vitals/I & O Vital Sign - Last 24 Hours 06/01/18 06/01/18 06/01/18 06/01/18 11:00 13:21 15:00 16:21 Temp 97.8 97.9 97.8 97.9 Pulse 94 90 Resp 20 18 B/P (MAP) 101/64 (76) 126/79 (95) Pulse Ox 99 99 98 98 O2 Delivery Room Air Room Air Room Air Room Air 06/01/18 06/01/18 06/01/18 06/01/18 19:00 20:00 20:41 23:00 Temp 98.4 98.5 98.4 98.5 Pulse 85 87 Resp 18 B/P (MAP) 116/83 (94) 126/94 (105) Pulse Ox 98 98 98 O2 Delivery Room Air Room Air Room Air Room Air 06/02/18 06/02/18 06/02/18 06/02/18 03:00 07:00 08:00 09:01 Temp 98.5 97.9 98.5 97.9 Pulse 101 91 Resp 18 20 20 B/P (MAP) 117/77 (90) 111/59 (76) Pulse Ox 98 97 97 O2 Delivery Room Air Room Air Room Air Room Air 06/02/18 09:48 Resp 20 Pulse Ox 97 O2 Delivery Room Air Intake and Output 06/01/18 06/01/18 06/02/18 15:01 23:01 07:01 Intake Total 920 ml 680 ml 300 ml Output Total 400 ml Balance 920 ml 680 ml -100 ml SAKINA MADDOX MD Jun 02, 2018 10:17
[2018-06-02 11:00] VITALS: BP 117/76
--- NOTE | 2018-06-02 11:41 | PDOC ---
Infectious Disease Note Subjective Subjective feeling better ROS ROS no n/v/d/sob Vital Sign Vital Signs Vital Signs Date Time Temp Pulse Resp B/P (MAP) Pulse Ox O2 Delivery O2 Flow Rate FiO2 06/02/18 11:33 97 Room Air 06/02/18 11:00 97.7 77 20 117/76 (90) 97.7 Physical Exam PHYSICAL EXAM GENERAL: Sitting up right, calm, coop LUNGS: Clear. HEART: S1, S2 regular. ABDOMEN: Obese, soft, NT SKIN: without rash NEUROLOGIC: Alert, coop No IV access Labs Lab Laboratory Tests Test 06/01/18 16:34 06/01/18 22:39 06/02/18 07:05 06/02/18 08:34 Glucose (Fingerstick) 273 mg/dL (70-99) 148 mg/dL (70-99) 168 mg/dL (70-99) White Blood Count 9.9 x10^3/uL (4.0-11.0) Red Blood Count 4.35 x10^6/uL (3.50-5.40) Hemoglobin 13.4 g/dL (12.0-15.5) Hematocrit 39.1 % (36.0-47.0) Mean Corpuscular Volume 90 fL (79-100) Mean Corpuscular Hemoglobin 31 pg (25-35) Mean Corpuscular Hemoglobin Concent 34 g/dL (31-37) Red Cell Distribution Width 14.4 % (11.5-14.5) Platelet Count 377 x10^3/uL (140-400) Erythrocyte Sedimentation Rate 55 (0-25) Sodium Level 140 mmol/L (136-145) Potassium Level 4.9 mmol/L (3.5-5.1) Chloride Level 102 mmol/L (98-107) Carbon Dioxide Level 30 mmol/L (21-32) Anion Gap 8 (6-14) Blood Urea Nitrogen 13 mg/dL (7-20) Creatinine 0.8 mg/dL (0.6-1.0) Estimated GFR (Cockcroft-Gault) 99.4 BUN/Creatinine Ratio 16 (6-20) Glucose Level 125 mg/dL (70-99) Lactic Acid Level 2.6 mmol/L (0.4-2.0) Calcium Level 9.4 mg/dL (8.5-10.1) Total Bilirubin 0.2 mg/dL (0.2-1.0) Aspartate Amino Transf (AST/SGOT) 54 U/L (15-37) Alanine Aminotransferase (ALT/SGPT) 41 U/L (14-59) Alkaline Phosphatase 59 U/L (46-116) Total Protein 7.0 g/dL (6.4-8.2) Albumin 2.6 g/dL (3.4-5.0) Albumin/Globulin Ratio 0.6 (1.0-1.7) Test 06/02/18 11:26 Glucose (Fingerstick) 140 mg/dL (70-99) Micro culture E coli and G + cocci Objective Assessment Perineal abscess Vaginal discharge Leukocytosis Spina bifida Plan Plan of Care CRP 66.4 Continue Zosyn and po fluconazole -Previously on Rocephin and Flagyl Awaiting [place] to place line f/u cultures/am labs consult gen surg Supportive care D/w dad D/w TRIXIE COLEMAN MD Jun 02, 2018 11:41
[2018-06-02 15:00] VITALS: BP 100/64
[2018-06-02] MEDS: HALOPERIDOL 2 MG TABLET. PO PRN (16:10)
[2018-06-02] MEDS ORDERED: ALTEPLASE 2 MG VIAL INT CAT PRN (17:15)
[2018-06-02 19:00] VITALS: BP 114/72
[2018-06-02 23:00] VITALS: BP 120/76
[2018-06-03] VITALS (12 sets, daily range): BP systolic 102–121; BP diastolic 53–77
[2018-06-03] MEDS: PIPERACILLIN/TAZOBACTAM 3.375 GM in IV NORMAL SALINE 50ML 50 ML IV SCH ×4 (00:17→20:21)
[2018-06-03] MEDS: INSULIN LISPRO 300 UNITS/3 ML INSULN.PEN. SQ SCH ×3 (08:00→17:00)
[2018-06-03] MEDS: clonazePAM 1 MG TABLET PO SCH ×3 (09:00→21:01)
[2018-06-03] MEDS: metroNIDAZOLE 0.75% VAGINAL 1 APP TUBE VG SCH (09:00)
[2018-06-03] MEDS: VENLAFAXINE 50 MG TABLET. PO SCH ×3 (09:00→21:01)
[2018-06-03] MEDS: GUANFACINE 2 MG PO SCH ×2 (09:00→21:03)
[2018-06-03] MEDS: LACTOBACILLUS RHAMNOSUS GG 1 CAPSULE. PO SCH ×2 (09:00→21:01)
[2018-06-03] MEDS: ACETAMINOPHEN/CODEINE 120/12MG 5 ML SOLUTION. PO SCH ×4 (09:00→21:02)
[2018-06-03] MEDS: DIVALPROEX EXTENDED RELEASE 500 MG TAB.ER.24H. PO SCH ×3 (09:00→21:01)
--- NOTE | 2018-06-03 11:08 | PDOC ---
PROGRESS NOTES Chief Complaint Chief Complaint Assessment/Plan 1.Perineal abscess Skin thickening over the mons pubis and mild subcutaneous edema could be inflammatory or could be cellulitis. 2.Vaginal discharge, 3.Sepsis POA 4.Mental delay 5.Morbid obesity 6.Sulfa allergy-hives 7.UTI 8.DM II diagnosed on this admission 9.lactic acidosis 10.spina bifida History of Present Illness History of Present Illness problem with IV access , was given Rocephin IM, Picc line as well as central line ordered whichever can be done first, Patient is constantly leaking urine, she is sitting on her urine on the diapers , continue antibiotic need aggressive hydration to help with lactic acidosis CONT Zosyn and po fluconazole [employer] TO I/D Vitals Vitals Vital Signs Date Time Temp Pulse Resp B/P (MAP) Pulse Ox O2 Delivery O2 Flow Rate FiO2 06/03/18 10:08 Room Air 06/03/18 07:00 97.9 98 17 102/63 (76) 98 97.9 Physical Exam Physical Exam GENERAL: Sitting up right, calm, coop LUNGS: Clear. HEART: S1, S2 regular. ABDOMEN: Obese, soft, NT SKIN: without rash NEUROLOGIC: Alert, coop No IV access General: Alert, Oriented X3, Cooperative, No acute distress Heart: Regular rate, Normal S1, Normal S2, No murmurs Lungs: Clear Abdomen: Normal bowel sounds, Soft, No tenderness Extremities: No clubbing, No cyanosis, No edema, Normal pulses, No tenderness/ swelling Skin: Other (redness, better induration around the perineal area, no curdlike discharge in the vaginal today. But constantly leaking urine on my exam) Labs LABS Laboratory Tests Test 06/02/18 11:26 06/02/18 16:44 06/02/18 20:35 06/03/18 07:43 Glucose (Fingerstick) 140 mg/dL (70-99) 127 mg/dL (70-99) 219 mg/dL (70-99) 107 mg/dL (70-99) Assessment and Plan Assessmemt and Plan Problems Medical Problems: (1) Perineal abscess Status: Acute (2) Urinary tract infection Status: Acute Comment Review of Relevant I have reviewed the following items maximilian (where applicable) has been applied. Labs Laboratory Tests Test 06/01/18 11:26 06/01/18 16:34 06/01/18 22:39 06/02/18 07:05 Glucose (Fingerstick) 203 mg/dL (70-99) 273 mg/dL (70-99) 148 mg/dL (70-99) White Blood Count 9.9 x10^3/uL (4.0-11.0) Red Blood Count 4.35 x10^6/uL (3.50-5.40) Hemoglobin 13.4 g/dL (12.0-15.5) Hematocrit 39.1 % (36.0-47.0) Mean Corpuscular Volume 90 fL (79-100) Mean Corpuscular Hemoglobin 31 pg (25-35) Mean Corpuscular Hemoglobin Concent 34 g/dL (31-37) Red Cell Distribution Width 14.4 % (11.5-14.5) Platelet Count 377 x10^3/uL (140-400) Erythrocyte Sedimentation Rate 55 (0-25) Sodium Level 140 mmol/L (136-145) Potassium Level 4.9 mmol/L (3.5-5.1) Chloride Level 102 mmol/L (98-107) Carbon Dioxide Level 30 mmol/L (21-32) Anion Gap 8 (6-14) Blood Urea Nitrogen 13 mg/dL (7-20) Creatinine 0.8 mg/dL (0.6-1.0) Estimated GFR (Cockcroft-Gault) 99.4 BUN/Creatinine Ratio 16 (6-20) Glucose Level 125 mg/dL (70-99) Lactic Acid Level 2.6 mmol/L (0.4-2.0) Calcium Level 9.4 mg/dL (8.5-10.1) Total Bilirubin 0.2 mg/dL (0.2-1.0) Aspartate Amino Transf (AST/SGOT) 54 U/L (15-37) Alanine Aminotransferase (ALT/SGPT) 41 U/L (14-59) Alkaline Phosphatase 59 U/L (46-116) Total Protein 7.0 g/dL (6.4-8.2) Albumin 2.6 g/dL (3.4-5.0) Albumin/Globulin Ratio 0.6 (1.0-1.7) Test 06/02/18 08:34 06/02/18 11:26 06/02/18 16:44 06/02/18 20:35 Glucose (Fingerstick) 168 mg/dL (70-99) 140 mg/dL (70-99) 127 mg/dL (70-99) 219 mg/dL (70-99) Test 06/03/18 07:43 Glucose (Fingerstick) 107 mg/dL (70-99) Laboratory Tests Test 06/02/18 11:26 06/02/18 16:44 06/02/18 20:35 06/03/18 07:43 Glucose (Fingerstick) 140 mg/dL (70-99) 127 mg/dL (70-99) 219 mg/dL (70-99) 107 mg/dL (70-99) Microbiology 05/31/18 Blood Culture - Preliminary, Resulted NO GROWTH AFTER 3 DAYS 05/29/18 Aerobic Culture - Final, Complete 05/29/18 Aerobic Culture Result 1 (MERI) - Final, Complete 05/29/18 Gram Stain - Final, Complete 05/29/18 Gram Stain Result 1 (MERI) - Final, Complete 05/29/18 Gram Stain Result 2 (MERI) - Final, Complete 05/29/18 Gram Stain Result 3 (MERI) - Final, Complete 05/28/18 Anaerobic/Aerobic Culture - Final, Complete 05/28/18 Anaerobic Culture Result 1 (MERI) - Final, Complete 05/28/18 Aerobic Culture - Final, Complete 05/28/18 Aerobic Culture Result 1 (MERI) - Final, Complete 05/28/18 Aerobic Culture Result 2 (MERI) - Final, Complete 05/28/18 Antimicrobic Susceptibility - Final, Complete 05/28/18 Gram Stain - Final, Complete 05/28/18 Gram Stain Result 1 (MERI) - Final, Complete 05/28/18 Gram Stain Result 2 (MERI) - Final, Complete 05/28/18 Gram Stain Result 3 (MERI) - Final, Complete 05/28/18 Urine Culture - Final, Complete 05/28/18 Urine Culture Result 1 (MERI) - Final, Complete 05/28/18 Antimicrobic Susceptibility - Final, Complete Medications Current Medications Iohexol (Omnipaque 300 Mg/ml) 75 ml 1X ONCE IV Last administered on 05/28/18at 19:27; Start 05/28/18 at 19:30; Stop 05/28/18 at 19:31; Status DC Info (CONTRAST GIVEN -- Rx MONITORING) 1 each PRN DAILY PRN MC SEE COMMENTS; Start 05/28/18 at 19:30; Stop 05/30/18 at 19:29; Status DC Ceftriaxone Sodium 50 ml @ 100 mls/hr 1X ONCE IV Last administered on at 21:34; Start 05/28/18 at 20:45; Stop 05/28/18 at 21:14; Status DC Acetaminophen (Tylenol) 500 mg PRN Q6HRS PRN PO MILD PAIN / TEMP Last administered on 05/31/18at 11:21; Start 05/29/18 at 09:15 Ondansetron HCl (Zofran) 4 mg PRN Q6HRS PRN IV NAUSEA/VOMITING; Start 05/29/18 at 09:15 Ondansetron HCl (Zofran Odt) 4 mg PRN Q6HRS PRN PO NAUSEA/VOMITING; Start 05/29 at 09:15 Fentanyl Citrate (Fentanyl 2ml Vial) 50 mcg PRN Q2HR PRN IV PAIN Last administered on 06/03/18at 10:08; Start 05/29/18 at 09:15 Tramadol HCl (Ultram) 50 mg PRN Q6HRS PRN PO MODERATE-SEVERE PAIN Last administered on 05/29/18at 12:01; Start 05/29/18 at 09:15 Acetaminophen/ Codeine Phosphate (Tylenol/Codeine Soln) 15 ml QID PO Last administered on 06/02/18at 20:04; Start 05/29/18 at 13:00 Divalproex Sodium (Depakote Er) 500 mg TID PO Last administered on 06/02/18at 20 :04; Start 05/29/18 at 10:30 Haloperidol (Haldol) 4 mg PRN QID PRN PO ANXIETY / AGITATION Last administered on 06/02/18 16:10; Start 05/29/18 at 10:30 Polyethylene Glycol (miraLAX PACKET) 17 gm DAILY PO Last administered on at 09:02; Start 05/29/18 at 11:00 Clonazepam (KlonoPIN) 2 mg TID PO Last administered on 06/02/18at 20:04; Start 05/29/18 at 11:00 Non-Formulary Medication (Guanfacine Hcl ) 2 mg BID PO Last administered on 20:05; Start 05/29/18 at 21:00 Non-Formulary Medication (Ramelteon (Rozerem)) 16 mg HS PO Last administered on 06/02/18at 20:05; Start 05/29/18 at 21:00 Venlafaxine HCl (Effexor) 50 mg TID PO Last administered on 06/02/18at 20:04; Start 05/29/18 at 10:30 Metronidazole (Flagyl) 500 mg Q8HRS PO Last administered on 05/31/18at 13:13; Start 05/29/18 at 12:00; Stop 05/31/18 at 20:13; Status DC Fluconazole (Diflucan) 200 mg DAILY PO Last administered on 06/02/18at 09:02; Start 05/29/18 at 12:00 Metronidazole (Metrogel) 1 olivia DAILY VG Last administered on 06/02/18at 09:02; Start 05/29/18 at 14:30 Fluconazole (Diflucan) 200 mg 1X ONCE PO Last administered on 05/29/18at 14:45 ; Start 05/29/18 at 13:15; Stop 05/29/18 at 13:40; Status DC Ceftriaxone Sodium (Rocephin) 1 gm Q24H IVP Last administered on 05/30/18at 20: 54; Start 05/29/18 at 21:00; Stop 05/31/18 at 20:13; Status DC Lactobacillus Rhamnosus (Culturelle) 1 cap BID PO Last administered on at 20:04; Start 05/31/18 at 21:00 Sodium Chloride 1,000 ml @ 1,000 mls/hr 1X ONCE IV Last administered on at 11:41; Start 05/31/18 at 12:00; Stop 05/31/18 at 12:59; Status DC Insulin Human Lispro (HumaLOG) 0-5 UNITS TIDWMEALS SQ Last administered on 06/02at 08:00; Start 06/01/18 at 08:00 Dextrose (Dextrose 50%-Water Syringe) 12.5 gm PRN Q15MIN PRN IV SEE COMMENTS; Start 05/31/18 at 18:30 Ceftriaxone Sodium (Rocephin Im) 1 gm 1X ONCE IM Last administered on 8/18/ 18at 21:00; Start 05/31/18 at 21:00; Stop 05/31/18 at 21:01; Status DC Piperacillin Sod/ Tazobactam Sod 3.375 gm/Sodium Chloride 50 ml @ 100 mls/hr Q6HRS IV Last administered on 06/03/18at 06:00; Start 06/01/18 at 00:00 Metformin HCl (Glucophage) 1,000 mg BIDWMEALS PO Last administered on at 16:48; Start 06/01/18 at 18:00 Docusate Sodium (Colace) 100 mg DAILY PO Last administered on 06/02/18at 09:02; Start 06/01/18 at 18:30 Polyethylene Glycol (miraLAX PACKET) 17 gm DAILY PO ; Start 06/02/18 at 09:00; Status UNV Alteplase, Recombinant (Cathflo) 2 mg PRN 1X PRN INT CAT LABS; Start 06/02/18 at 17:15 Active Scripts Active Reported Guanfacine Hcl 1 Mg Tablet 2 Mg PO BID Rozerem (Ramelteon) 8 Mg Tablet 16 Mg PO HS Clonazepam 2 Mg Tablet 2 Mg PO TID Venlafaxine Hcl Er (Venlafaxine Hcl) 150 Mg Cap.er.24h 150 Mg PO DAILY Divalproex Sodium Er (Divalproex Sodium) 500 Mg Tab.er.24h 500 Mg PO TID Haloperidol 2 Mg Tablet 4 Mg PO PRN QID PRN Acetaminophen-Codeine Solution (Acetaminophen With Codeine) 5 Ml Solution 15 Ml PO QID Polyethylene Glycol 3350 255 Gm Powder 17 Gm PO DAILY Vitals/I & O Vital Sign - Last 24 Hours 06/02/18 06/02/18 06/02/18 06/02/18 11:33 15:00 16:48 17:45 Temp 97.9 97.9 Pulse 70 Resp 20 20 18 B/P (MAP) 100/64 (76) Pulse Ox 97 95 95 O2 Delivery Room Air Room Air Room Air 06/02/18 06/02/18 06/02/18 06/02/18 19:00 20:00 20:04 21:04 Temp 97.7 97.7 Pulse 90 Resp 18 B/P (MAP) 114/72 (86) Pulse Ox 97 97 97 O2 Delivery Room Air Room Air Room Air Room Air 06/02/18 06/03/18 06/03/18 06/03/18 23:00 03:14 07:00 10:08 Temp 97.7 98.3 97.9 97.7 98.3 97.9 Pulse 78 98 98 Resp 18 18 17 B/P (MAP) 120/76 (91) 103/70 (81) 102/63 (76) Pulse Ox 100 94 98 O2 Delivery Room Air Room Air Room Air Room Air Intake and Output 06/02/18 06/02/18 06/03/18 15:00 23:00 07:00 Intake Total 420 ml 360 ml 290 ml Output Total 700 ml 200 ml Balance 420 ml -340 ml 90 ml SAKINA MADDOX MD Jun 03, 2018 11:08
[2018-06-03] MEDS ORDERED: IV RINGERS,LACTATED 1000ML 1,000 ML IV SCH (11:14)
[2018-06-03] MEDS ORDERED: LIDOCAINE 1% PF 2 ML VIAL. ID PRN (11:15)
[2018-06-03] MEDS ORDERED: PROCHLORPERAZINE 10 MG/2 ML VIAL. IV PRN (11:15)
--- NOTE | 2018-06-03 12:33 | PDOC ---
Infectious Disease Note Subjective Subjective feeling better ROS ROS no n/v/d/sob Vital Sign Vital Signs Vital Signs Date Time Temp Pulse Resp B/P (MAP) Pulse Ox O2 Delivery O2 Flow Rate FiO2 06/03/18 11:00 97.7 105 19 106/73 (84) 97 Room Air 97.7 Physical Exam PHYSICAL EXAM GENERAL: Sitting up right, calm, coop LUNGS: Clear. HEART: S1, S2 regular. ABDOMEN: Obese, soft, NT SKIN: without rash NEUROLOGIC: Alert, coop No IV access Labs Lab Laboratory Tests Test 06/02/18 16:44 06/02/18 20:35 06/03/18 07:43 Glucose (Fingerstick) 127 mg/dL (70-99) 219 mg/dL (70-99) 107 mg/dL (70-99) Micro culture E coli and G + cocci Objective Assessment Perineal abscess/ infection Vaginal discharge Leukocytosis Spina bifida Plan Plan of Care Continue Zosyn and po fluconazole -Previously on Rocephin and Flagyl Awaiting [place] to place line f/u cultures/am labs consult gen surg Supportive care D/w dad D/w TRIXIE COLEMAN MD Jun 03, 2018 12:33
[2018-06-03] MEDS: HALOPERIDOL 2 MG TABLET. PO PRN ×2 (15:23→21:57)
[2018-06-03] MEDS ORDERED: LIDOCAINE 2% PF Vial for OR 5 ML VIAL. ONE (16:59)
[2018-06-03] MEDS ORDERED: DEXAMETHASONE SOD PHOS 20 MG/5 ML VIAL. ONE (16:59)
[2018-06-03] MEDS ORDERED: PROPOFOL 20 ML IV ONE ×2 (16:59→19:14)
[2018-06-03] MEDS ORDERED: ONDANSETRON PF 4 MG/2 ML VIAL. ONE (16:59)
[2018-06-03] MEDS ORDERED: SUCCINYLCHOLINE 200 MG/10 ML VIAL. ONE (17:00)
[2018-06-03] MEDS ORDERED: fentaNYL PF VIAL 100 MCG/2 ML VIAL ONE (17:00)
[2018-06-03] MEDS: DOCUSATE SODIUM 100 MG CAPSULE. PO SCH (19:21)
[2018-06-03] MEDS: FLUCONAZOLE 100 MG TABLET. PO SCH (19:22)
[2018-06-03] MEDS: POLYETHYLENE GLYCOL 3350 17 GM PACKET. PO SCH (19:22)
--- NOTE | 2018-06-03 19:35 | PDOC ---
BRIEF OPERATIVE NOTE Date: Jun 03, 2018 Pre-Op Diagnosis vaginal discharge Post-Op Diagnosis Same + ulcerative lesions Procedure Performed EAU Surgeon Dr. Petit Anesthesia Type: General Blood Loss none Specimens Obtained none Findings ulcerative lesions involving periurethra and bilateral labia; no evidence fistula or perianal abscess Complications none Operative Note see dictation CHAGO PETIT Jr, MD Jun 03, 2018 19:35
[2018-06-03] MEDS: ACYCLOVIR SODIUM 620 MG in IV DEXTROSE 5% 250 ML IV SCH (21:02)
--- NOTE | 2018-06-03 21:04 | OP ---
DATE OF SURGERY: PREOPERATIVE DIAGNOSIS: Vaginal discharge. POSTOPERATIVE DIAGNOSES: Vaginal discharge, ulcerative lesions. PROCEDURE: Exam under anesthesia. SURGEON: Chago Petit MD ANESTHESIA: GETA. ESTIMATED BLOOD LOSS: None. FINDINGS: Ulcerative lesions involving wayne-urethra and bilateral labia. No evidence of fistula or perianal abscess. SUMMARY: A 32-year-old female with long history of chronic vaginal discharge. The patient was examined under anesthesia for better evaluation. She and her family members were counseled on risks, benefits and expectations, voiced clear understanding and agreed to proceed. DESCRIPTION OF PROCEDURE: The patient was taken to surgery suite, placed in dorsal lithotomy position. She was prepped Betadine solution and draped in sterile fashion. After adequate anesthesia, a bivalve speculum was utilized to evaluate the vaginal canal. The cervix appeared normal. There was no evidence of fistula. There was no evidence of perianal abscess. Rectal exam was normal except for large amount of stool in the rectum. There were ulcerative lesions, which the pulse evacuator was utilized to try to help remove some exudate also along with moist Ray-Rebecca. The exudate was very thick in consistency and unable to be removed. The labia minora appeared to be ulcerated and fused with the labia majora. After copious irrigation we then concluded with the procedure in which the patient was taken to recovery room in stable condition. Sponge and needle count were correct x 3. CHAGO PETIT MD DR: ANGEL/jessy JOB#: [id number] / [id number]
[2018-06-04] MEDS: PIPERACILLIN/TAZOBACTAM 3.375 GM in IV NORMAL SALINE 50ML 50 ML IV SCH ×3 (00:05→12:00)
[2018-06-04 03:00] VITALS: BP 110/53
[2018-06-04] MEDS: ACYCLOVIR SODIUM 620 MG in IV DEXTROSE 5% 250 ML IV SCH (05:06)
[2018-06-04 07:00] VITALS: BP 109/73
[2018-06-04 07:29] LABS: BASO % 0 % (0-3); EOS % 0 % (0-3); HEMATOCRIT 38.3 % (36.0-47.0); HEMOGLOBIN 13.1 g/dL (12.0-15.5); LYMPH # 1.6 x10^3/uL (1.0-4.8); LYMPH % 16 % (24-48); MEAN CORPUSCULAR HEMOGLOBIN 31 pg (25-35); MEAN CORPUSCULAR HGB CONC 34 g/dL (31-37); MEAN CORPUSCULAR VOLUME 90 fL (79-100); MONO # 0.5 x10^3/uL (0.0-1.1); MONO % 5 % (0-9); NEUT % 79 % (31-73); PLATELET COUNT 464 x10^3/uL (140-400); RED BLOOD COUNT 4.27 x10^6/uL (3.50-5.40); RED CELL DISTRIBUTION WIDTH 14.1 % (11.5-14.5); WHITE BLOOD COUNT 10.1 x10^3/uL (4.0-11.0)
[2018-06-04 07:48] LABS: ALBUMIN 2.6 g/dL (3.4-5.0); ALBUMIN/GLOBULIN RATIO 0.5 (1.0-1.7); CALCIUM 9.3 mg/dL (8.5-10.1); CREATININE 0.7 mg/dL (0.6-1.0); GFR 115.9; POTASSIUM 4.4 mmol/L (3.5-5.1); TOTAL BILIRUBIN 0.2 mg/dL (0.2-1.0); TOTAL PROTEIN 8.1 g/dL (6.4-8.2)
[2018-06-04] MEDS: POLYETHYLENE GLYCOL 3350 17 GM PACKET. PO SCH (08:59)
[2018-06-04] MEDS: LACTOBACILLUS RHAMNOSUS GG 1 CAPSULE. PO SCH (08:59)
[2018-06-04] MEDS: ACETAMINOPHEN/CODEINE 120/12MG 5 ML SOLUTION. PO SCH (08:59)
[2018-06-04] MEDS: VENLAFAXINE 50 MG TABLET. PO SCH (08:59)
[2018-06-04] MEDS ORDERED: GUANFACINE 2 MG PO SCH (09:00)
[2018-06-04] MEDS: metroNIDAZOLE 0.75% VAGINAL 1 APP TUBE VG SCH (09:00)
[2018-06-04] MEDS: FLUCONAZOLE 100 MG TABLET. PO SCH (09:01)
[2018-06-04] MEDS: clonazePAM 1 MG TABLET PO SCH (09:01)
[2018-06-04] MEDS: DOCUSATE SODIUM 100 MG CAPSULE. PO SCH (09:01)
[2018-06-04] MEDS: DIVALPROEX EXTENDED RELEASE 500 MG TAB.ER.24H. PO SCH (09:01)
[2018-06-04] MEDS: INSULIN LISPRO 300 UNITS/3 ML INSULN.PEN. SQ SCH ×2 (09:10→12:20)
--- NOTE | 2018-06-04 09:12 | PDOC ---
NITESH ROBBINS [employer] 06/04/18 0912: SUBJECTIVE Subjective Pt doing well, no longer using the external catheter because it was irritating her skin. She is just using briefs currently and this is working ok. She is going to [facility] later for OB surgery per attending RN. OBJECTIVE Objective Physical Exam: General appearance: Alert and Nonverbal Head: Normocephalic, without obvious abnormality Eyes: conjunctivae/corneas clear. PERRL, EOM's intact. Fundi benign Lungs: regular respirations, non labored breathing. Abdomen: soft, obese. Pelvic: perineal area shows improvement. Vital Signs Vital Signs Date Time Temp Pulse Resp B/P (MAP) Pulse Ox O2 Delivery O2 Flow Rate FiO2 06/04/18 07:00 97.7 90 18 109/73 (85) 97 Room Air 97.7 06/04/18 03:00 97.9 96 18 110/53 (72) 97 Room Air 10.0 97.9 06/03/18 23:15 97.9 96 18 109/61 (77) 98 Room Air 97.9 06/03/18 22:15 97.9 103 18 111/75 (87) 98 Room Air 10.0 97.9 06/03/18 21:45 97.9 105 18 110/71 (84) 98 Room Air 97.9 06/03/18 21:30 Room Air 06/03/18 21:15 97.1 100 18 119/73 (88) 98 Room Air 97.1 06/03/18 21:00 97.1 100 18 119/72 (88) 98 Room Air 97.1 06/03/18 20:45 97.1 101 18 121/73 (89) 98 Room Air 10.0 97.1 06/03/18 20:30 101 18 120/74 (89) 98 Room Air 06/03/18 20:05 97.1 97 18 92/82 97 Room Air 97.1 06/03/18 19:51 100 18 130/68 100 Room Air 06/03/18 19:36 98.6 102 16 139/75 100 Simple Mask 10 98.6 06/03/18 19:36 Mask 10 06/03/18 19:00 99.0 83 18 107/53 (71) 98 Room Air 99.0 06/03/18 17:37 97.0 97 20 120/60 98 Room Air 97.0 06/03/18 15:00 97.9 68 18 115/77 (90) 97 Room Air 97.9 06/03/18 11:00 97.7 105 19 106/73 (84) 97 Room Air 97.7 06/03/18 10:08 Room Air I & O Intake and Output 06/04/18 07:00 Intake Total 290 ml Output Total 1000 ml Balance -710 ml Intake Oral 240 ml IV Total 50 ml Output Urine Total 1000 ml Estimated Blood Loss 0 ml # Voids 2 PHYSICAL EXAM Physical Exam Physical Exam: General appearance: Alert and Nonverbal Head: Normocephalic, without obvious abnormality Eyes: conjunctivae/corneas clear. PERRL, EOM's intact. Fundi benign Lungs: regular respirations, non labored breathing. Abdomen: soft, obese. Pelvic: perineal area shows improvement. ASSESSMENT/PLAN Assessment/Plan Ok to transfer to [facility] whenever other specialities are ready. Discussed with father recommendations for Myrbetriq, may help incontinence, frequency a little bit. If Myrbetriq is on formulary at [facility] they could try the medication while she is in house there. Do not recommend Ditropan or Vesicare due to cognitive issues, risk of constipation. May continue to use just depends since patient did not tolerate traditional or external matamoros Normal to see blood in urine off and on over the next few days due to urethral trauma. Will sign off at this time, but please call with questions or change in patient condition. Problems: (1) Urinary tract infection (2) Perineal abscess COMMENT Lab Laboratory Tests Test 06/03/18 11:08 06/03/18 14:30 06/03/18 16:37 06/03/18 19:48 Glucose (Fingerstick) 160 mg/dL (70-99) 80 mg/dL (70-99) 91 mg/dL (70-99) Lactic Acid Level 2.6 mmol/L (0.4-2.0) Test 06/03/18 22:11 06/04/18 07:00 06/04/18 07:26 Glucose (Fingerstick) 309 mg/dL (70-99) 163 mg/dL (70-99) White Blood Count 10.1 x10^3/uL (4.0-11.0) Red Blood Count 4.27 x10^6/uL (3.50-5.40) Hemoglobin 13.1 g/dL (12.0-15.5) Hematocrit 38.3 % (36.0-47.0) Mean Corpuscular Volume 90 fL (79-100) Mean Corpuscular Hemoglobin 31 pg (25-35) Mean Corpuscular Hemoglobin Concent 34 g/dL (31-37) Red Cell Distribution Width 14.1 % (11.5-14.5) Platelet Count 464 x10^3/uL (140-400) Neutrophils (%) (Auto) 79 % (31-73) Lymphocytes (%) (Auto) 16 % (24-48) Monocytes (%) (Auto) 5 % (0-9) Eosinophils (%) (Auto) 0 % (0-3) Basophils (%) (Auto) 0 % (0-3) Neutrophils # (Auto) 8.0 x10^3uL (1.8-7.7) Lymphocytes # (Auto) 1.6 x10^3/uL (1.0-4.8) Monocytes # (Auto) 0.5 x10^3/uL (0.0-1.1) Eosinophils # (Auto) 0.0 x10^3/uL (0.0-0.7) Basophils # (Auto) 0.0 x10^3/uL (0.0-0.2) Sodium Level 139 mmol/L (136-145) Potassium Level 4.4 mmol/L (3.5-5.1) Chloride Level 103 mmol/L (98-107) Carbon Dioxide Level 26 mmol/L (21-32) Anion Gap 10 (6-14) Blood Urea Nitrogen 17 mg/dL (7-20) Creatinine 0.7 mg/dL (0.6-1.0) Estimated GFR (Cockcroft-Gault) 115.9 BUN/Creatinine Ratio 24 (6-20) Glucose Level 181 mg/dL (70-99) Lactic Acid Level 2.4 mmol/L (0.4-2.0) Calcium Level 9.3 mg/dL (8.5-10.1) Total Bilirubin 0.2 mg/dL (0.2-1.0) Aspartate Amino Transf (AST/SGOT) 60 U/L (15-37) Alanine Aminotransferase (ALT/SGPT) 62 U/L (14-59) Alkaline Phosphatase 58 U/L (46-116) Total Protein 8.1 g/dL (6.4-8.2) Albumin 2.6 g/dL (3.4-5.0) Albumin/Globulin Ratio 0.5 (1.0-1.7) Imaging 1. Skin thickening over the mons pubis and mild subcutaneous edema could be inflammatory or could be cellulitis. 2. Small air-fluid collection is likely a perineal abscess but cannot be distinguished from the anal canal and correlation with rectal examination is recommended. 3. Moderate wall thickening of the urinary bladder suggests cystitis. Recommend correlation with urinary analysis. HARI WAGN MD 06/05/18 1432: ASSESSMENT/PLAN Assessment/Plan Agree with assessment and plan. Problem Qualifiers (1) Urinary tract infection: Urinary tract infection type: site unspecified Hematuria presence: without hematuria Qualified Codes: N39.0 - Urinary tract infection, site not specified INTESH ROBBINS APRN Jun 04, 2018 09:12 HARI WANG MD Jun 05, 2018 14:32
--- NOTE | 2018-06-04 09:47 | PDOC ---
Infectious Disease Note Subjective Subjective feeling ok ROS ROS no n/v/d/sob Vital Sign Vital Signs Vital Signs Date Time Temp Pulse Resp B/P (MAP) Pulse Ox O2 Delivery O2 Flow Rate FiO2 06/04/18 08:59 Room Air 06/04/18 07:00 97.7 90 18 109/73 (85) 97 97.7 06/04/18 03:00 10.0 Physical Exam PHYSICAL EXAM GENERAL: Sitting up right, calm, coop LUNGS: Clear. HEART: S1, S2 regular. ABDOMEN: Obese, soft, NT SKIN: without rash NEUROLOGIC: Alert, coop Labs Lab Laboratory Tests Test 06/03/18 11:08 06/03/18 14:30 06/03/18 16:37 06/03/18 19:48 Glucose (Fingerstick) 160 mg/dL (70-99) 80 mg/dL (70-99) 91 mg/dL (70-99) Lactic Acid Level 2.6 mmol/L (0.4-2.0) Test 06/03/18 22:11 06/04/18 07:00 06/04/18 07:26 Glucose (Fingerstick) 309 mg/dL (70-99) 163 mg/dL (70-99) White Blood Count 10.1 x10^3/uL (4.0-11.0) Red Blood Count 4.27 x10^6/uL (3.50-5.40) Hemoglobin 13.1 g/dL (12.0-15.5) Hematocrit 38.3 % (36.0-47.0) Mean Corpuscular Volume 90 fL (79-100) Mean Corpuscular Hemoglobin 31 pg (25-35) Mean Corpuscular Hemoglobin Concent 34 g/dL (31-37) Red Cell Distribution Width 14.1 % (11.5-14.5) Platelet Count 464 x10^3/uL (140-400) Neutrophils (%) (Auto) 79 % (31-73) Lymphocytes (%) (Auto) 16 % (24-48) Monocytes (%) (Auto) 5 % (0-9) Eosinophils (%) (Auto) 0 % (0-3) Basophils (%) (Auto) 0 % (0-3) Neutrophils # (Auto) 8.0 x10^3uL (1.8-7.7) Lymphocytes # (Auto) 1.6 x10^3/uL (1.0-4.8) Monocytes # (Auto) 0.5 x10^3/uL (0.0-1.1) Eosinophils # (Auto) 0.0 x10^3/uL (0.0-0.7) Basophils # (Auto) 0.0 x10^3/uL (0.0-0.2) Sodium Level 139 mmol/L (136-145) Potassium Level 4.4 mmol/L (3.5-5.1) Chloride Level 103 mmol/L (98-107) Carbon Dioxide Level 26 mmol/L (21-32) Anion Gap 10 (6-14) Blood Urea Nitrogen 17 mg/dL (7-20) Creatinine 0.7 mg/dL (0.6-1.0) Estimated GFR (Cockcroft-Gault) 115.9 BUN/Creatinine Ratio 24 (6-20) Glucose Level 181 mg/dL (70-99) Lactic Acid Level 2.4 mmol/L (0.4-2.0) Calcium Level 9.3 mg/dL (8.5-10.1) Total Bilirubin 0.2 mg/dL (0.2-1.0) Aspartate Amino Transf (AST/SGOT) 60 U/L (15-37) Alanine Aminotransferase (ALT/SGPT) 62 U/L (14-59) Alkaline Phosphatase 58 U/L (46-116) Total Protein 8.1 g/dL (6.4-8.2) Albumin 2.6 g/dL (3.4-5.0) Albumin/Globulin Ratio 0.5 (1.0-1.7) Micro ANAEROBIC-AEROBIC CULTURE Final Final report ANAEROBIC RES 1 Final Comment No anaerobic growth in 72 hours. AEROBIC CULT Final Final report AEROBIC RES 1 Final Escherichia coli 4+ AEROBIC RES 2 Final Mixed skin kimberlee 4+ ANTIMICROBIAL SUSCEPTIBILITY Final Comment S = Susceptible; I = Intermediate; R = Resistant P = Positive; N = Negative MICS are expressed in micrograms per mL Antibiotic RSLT#1 RSLT#2 RSLT#3 RSLT#4 Amoxicillin/Clavulanic Acid S =8 Ampicillin S =8 Cefepime S<=0.12 Ceftriaxone S<=0.25 Cefuroxime S =4 Ciprofloxacin S<=0.25 Ertapenem S<=0.12 Gentamicin S<=1 Imipenem S<=0.25 Levofloxacin S<=0.12 Meropenem S<=0.25 CONTINUED ON NEXT PAGE RUN DATE: 06/02/18 PAGE 2 RUN TIME: 2011 [facility] [address] [place] [address] Nathan Guerrero M.D., [employer] SPEC: [id number] PATIENT: JANEE AYON [id number] ( Continued) Procedure Result ANTIMICROBIAL SUSCEPTIBILITY Final (continued) Piperacillin/Tazobactam S<=4 Tetracycline S<=1 Tobramycin S<=1 Trimethoprim/Sulfa S<=20 GRAM STAIN Final Final report GRAM STAIN RES 1 Final Comment No white blood cells seen. GRAM STAIN RES 2 Final Comment Many gram negative rods. GRAM STAIN RES 3 Final Comment Many gram positive cocci. Performed at: - [facility] [address] [facility] [address], [place], [place] [id number] Security Consultant: AMANDA Oro MD, Phone: [phone] END OF REPORT Objective Assessment Perineal infection Vaginal discharge Leukocytosis Spina bifida Plan Plan of Care Continue Zosyn and po fluconazole f/u cultures/am labs Supportive care D/w dad D/w RN pt to go to [facility] for Pediatric Genetic Counselor Oncology TRIXIE LOYA MD Jun 04, 2018 09:47
--- NOTE | 2018-06-04 10:23 | PDOC ---
PROGRESS NOTES Chief Complaint Chief Complaint Assessment/Plan 1.Perineal abscess Skin thickening over the mons pubis and mild subcutaneous edema could be inflammatory or could be cellulitis. 2.Vaginal discharge, 3.Sepsis POA 4.Mental delay 5.Morbid obesity 6.Sulfa allergy-hives 7.UTI 8.DM II diagnosed on this admission 9.lactic acidosis 10.spina bifida 11. deep tissue lesion inferior to clitoris, undetermined etiology, d/w dr German by phone, will transfer to [facility] for Dr Barrett to follow, admit to Dr German d/d transfer nurse [phone], agrees to accept patient History of Present Illness History of Present Illness problem with IV access , was given Rocephin IM, Picc line as well as central line ordered whichever can be done first, Patient is constantly leaking urine, she is sitting on her urine on the diapers , continue antibiotic need aggressive hydration to help with lactic acidosis CONT Zosyn and po fluconazole BASKET PERSON TO I/D Vitals Vitals Vital Signs Date Time Temp Pulse Resp B/P (MAP) Pulse Ox O2 Delivery O2 Flow Rate FiO2 06/04/18 09:59 Room Air 06/04/18 07:00 97.7 90 18 109/73 (85) 97 97.7 06/04/18 03:00 10.0 Physical Exam Physical Exam GENERAL: calm, coop LUNGS: Clear. HEART: S1, S2 regular. ABDOMEN: Obese, soft, NT SKIN: without rash NEUROLOGIC: Alert, coop General: Alert, Oriented X3, Cooperative, No acute distress, mild distress Heart: Regular rate, Normal S1, Normal S2, No murmurs Lungs: Clear Abdomen: Normal bowel sounds, Soft, No tenderness, No hepatosplenomegaly Extremities: No clubbing, No cyanosis, No edema, Normal pulses, No tenderness/ swelling Skin: Other (redness, better induration around the perineal area, no curdlike discharge in the vaginal today. But constantly leaking urine on my exam) Labs LABS Laboratory Tests Test 06/03/18 11:08 06/03/18 14:30 06/03/18 16:37 06/03/18 19:48 Glucose (Fingerstick) 160 mg/dL (70-99) 80 mg/dL (70-99) 91 mg/dL (70-99) Lactic Acid Level 2.6 mmol/L (0.4-2.0) Test 06/03/18 22:11 06/04/18 07:00 06/04/18 07:26 Glucose (Fingerstick) 309 mg/dL (70-99) 163 mg/dL (70-99) White Blood Count 10.1 x10^3/uL (4.0-11.0) Red Blood Count 4.27 x10^6/uL (3.50-5.40) Hemoglobin 13.1 g/dL (12.0-15.5) Hematocrit 38.3 % (36.0-47.0) Mean Corpuscular Volume 90 fL (79-100) Mean Corpuscular Hemoglobin 31 pg (25-35) Mean Corpuscular Hemoglobin Concent 34 g/dL (31-37) Red Cell Distribution Width 14.1 % (11.5-14.5) Platelet Count 464 x10^3/uL (140-400) Neutrophils (%) (Auto) 79 % (31-73) Lymphocytes (%) (Auto) 16 % (24-48) Monocytes (%) (Auto) 5 % (0-9) Eosinophils (%) (Auto) 0 % (0-3) Basophils (%) (Auto) 0 % (0-3) Neutrophils # (Auto) 8.0 x10^3uL (1.8-7.7) Lymphocytes # (Auto) 1.6 x10^3/uL (1.0-4.8) Monocytes # (Auto) 0.5 x10^3/uL (0.0-1.1) Eosinophils # (Auto) 0.0 x10^3/uL (0.0-0.7) Basophils # (Auto) 0.0 x10^3/uL (0.0-0.2) Sodium Level 139 mmol/L (136-145) Potassium Level 4.4 mmol/L (3.5-5.1) Chloride Level 103 mmol/L (98-107) Carbon Dioxide Level 26 mmol/L (21-32) Anion Gap 10 (6-14) Blood Urea Nitrogen 17 mg/dL (7-20) Creatinine 0.7 mg/dL (0.6-1.0) Estimated GFR (Cockcroft-Gault) 115.9 BUN/Creatinine Ratio 24 (6-20) Glucose Level 181 mg/dL (70-99) Lactic Acid Level 2.4 mmol/L (0.4-2.0) Calcium Level 9.3 mg/dL (8.5-10.1) Total Bilirubin 0.2 mg/dL (0.2-1.0) Aspartate Amino Transf (AST/SGOT) 60 U/L (15-37) Alanine Aminotransferase (ALT/SGPT) 62 U/L (14-59) Alkaline Phosphatase 58 U/L (46-116) Total Protein 8.1 g/dL (6.4-8.2) Albumin 2.6 g/dL (3.4-5.0) Albumin/Globulin Ratio 0.5 (1.0-1.7) Assessment and Plan Assessmemt and Plan Problems Medical Problems: (1) Perineal abscess Status: Acute (2) Urinary tract infection Status: Acute Comment Review of Relevant I have reviewed the following items maximilian (where applicable) has been applied. Labs Laboratory Tests Test 06/02/18 11:26 06/02/18 16:44 06/02/18 20:35 06/03/18 07:43 Glucose (Fingerstick) 140 mg/dL (70-99) 127 mg/dL (70-99) 219 mg/dL (70-99) 107 mg/dL (70-99) Test 06/03/18 11:08 06/03/18 14:30 06/03/18 16:37 06/03/18 19:48 Glucose (Fingerstick) 160 mg/dL (70-99) 80 mg/dL (70-99) 91 mg/dL (70-99) Lactic Acid Level 2.6 mmol/L (0.4-2.0) Test 06/03/18 22:11 06/04/18 07:00 06/04/18 07:26 Glucose (Fingerstick) 309 mg/dL (70-99) 163 mg/dL (70-99) White Blood Count 10.1 x10^3/uL (4.0-11.0) Red Blood Count 4.27 x10^6/uL (3.50-5.40) Hemoglobin 13.1 g/dL (12.0-15.5) Hematocrit 38.3 % (36.0-47.0) Mean Corpuscular Volume 90 fL (79-100) Mean Corpuscular Hemoglobin 31 pg (25-35) Mean Corpuscular Hemoglobin Concent 34 g/dL (31-37) Red Cell Distribution Width 14.1 % (11.5-14.5) Platelet Count 464 x10^3/uL (140-400) Neutrophils (%) (Auto) 79 % (31-73) Lymphocytes (%) (Auto) 16 % (24-48) Monocytes (%) (Auto) 5 % (0-9) Eosinophils (%) (Auto) 0 % (0-3) Basophils (%) (Auto) 0 % (0-3) Neutrophils # (Auto) 8.0 x10^3uL (1.8-7.7) Lymphocytes # (Auto) 1.6 x10^3/uL (1.0-4.8) Monocytes # (Auto) 0.5 x10^3/uL (0.0-1.1) Eosinophils # (Auto) 0.0 x10^3/uL (0.0-0.7) Basophils # (Auto) 0.0 x10^3/uL (0.0-0.2) Sodium Level 139 mmol/L (136-145) Potassium Level 4.4 mmol/L (3.5-5.1) Chloride Level 103 mmol/L (98-107) Carbon Dioxide Level 26 mmol/L (21-32) Anion Gap 10 (6-14) Blood Urea Nitrogen 17 mg/dL (7-20) Creatinine 0.7 mg/dL (0.6-1.0) Estimated GFR (Cockcroft-Gault) 115.9 BUN/Creatinine Ratio 24 (6-20) Glucose Level 181 mg/dL (70-99) Lactic Acid Level 2.4 mmol/L (0.4-2.0) Calcium Level 9.3 mg/dL (8.5-10.1) Total Bilirubin 0.2 mg/dL (0.2-1.0) Aspartate Amino Transf (AST/SGOT) 60 U/L (15-37) Alanine Aminotransferase (ALT/SGPT) 62 U/L (14-59) Alkaline Phosphatase 58 U/L (46-116) Total Protein 8.1 g/dL (6.4-8.2) Albumin 2.6 g/dL (3.4-5.0) Albumin/Globulin Ratio 0.5 (1.0-1.7) Laboratory Tests Test 06/03/18 11:08 06/03/18 14:30 06/03/18 16:37 06/03/18 19:48 Glucose (Fingerstick) 160 mg/dL (70-99) 80 mg/dL (70-99) 91 mg/dL (70-99) Lactic Acid Level 2.6 mmol/L (0.4-2.0) Test 06/03/18 22:11 06/04/18 07:00 06/04/18 07:26 Glucose (Fingerstick) 309 mg/dL (70-99) 163 mg/dL (70-99) White Blood Count 10.1 x10^3/uL (4.0-11.0) Red Blood Count 4.27 x10^6/uL (3.50-5.40) Hemoglobin 13.1 g/dL (12.0-15.5) Hematocrit 38.3 % (36.0-47.0) Mean Corpuscular Volume 90 fL (79-100) Mean Corpuscular Hemoglobin 31 pg (25-35) Mean Corpuscular Hemoglobin Concent 34 g/dL (31-37) Red Cell Distribution Width 14.1 % (11.5-14.5) Platelet Count 464 x10^3/uL (140-400) Neutrophils (%) (Auto) 79 % (31-73) Lymphocytes (%) (Auto) 16 % (24-48) Monocytes (%) (Auto) 5 % (0-9) Eosinophils (%) (Auto) 0 % (0-3) Basophils (%) (Auto) 0 % (0-3) Neutrophils # (Auto) 8.0 x10^3uL (1.8-7.7) Lymphocytes # (Auto) 1.6 x10^3/uL (1.0-4.8) Monocytes # (Auto) 0.5 x10^3/uL (0.0-1.1) Eosinophils # (Auto) 0.0 x10^3/uL (0.0-0.7) Basophils # (Auto) 0.0 x10^3/uL (0.0-0.2) Sodium Level 139 mmol/L (136-145) Potassium Level 4.4 mmol/L (3.5-5.1) Chloride Level 103 mmol/L (98-107) Carbon Dioxide Level 26 mmol/L (21-32) Anion Gap 10 (6-14) Blood Urea Nitrogen 17 mg/dL (7-20) Creatinine 0.7 mg/dL (0.6-1.0) Estimated GFR (Cockcroft-Gault) 115.9 BUN/Creatinine Ratio 24 (6-20) Glucose Level 181 mg/dL (70-99) Lactic Acid Level 2.4 mmol/L (0.4-2.0) Calcium Level 9.3 mg/dL (8.5-10.1) Total Bilirubin 0.2 mg/dL (0.2-1.0) Aspartate Amino Transf (AST/SGOT) 60 U/L (15-37) Alanine Aminotransferase (ALT/SGPT) 62 U/L (14-59) Alkaline Phosphatase 58 U/L (46-116) Total Protein 8.1 g/dL (6.4-8.2) Albumin 2.6 g/dL (3.4-5.0) Albumin/Globulin Ratio 0.5 (1.0-1.7) Microbiology 05/31/18 Blood Culture - Preliminary, Resulted NO GROWTH AFTER 3 DAYS 05/29/18 Aerobic Culture - Final, Complete 05/29/18 Aerobic Culture Result 1 (MERI) - Final, Complete 05/29/18 Gram Stain - Final, Complete 05/29/18 Gram Stain Result 1 (MERI) - Final, Complete 05/29/18 Gram Stain Result 2 (MERI) - Final, Complete 05/29/18 Gram Stain Result 3 (MERI) - Final, Complete 05/28/18 Anaerobic/Aerobic Culture - Final, Complete 05/28/18 Anaerobic Culture Result 1 (MERI) - Final, Complete 05/28/18 Aerobic Culture - Final, Complete 05/28/18 Aerobic Culture Result 1 (MERI) - Final, Complete 05/28/18 Aerobic Culture Result 2 (MERI) - Final, Complete 05/28/18 Antimicrobic Susceptibility - Final, Complete 05/28/18 Gram Stain - Final, Complete 05/28/18 Gram Stain Result 1 (MERI) - Final, Complete 05/28/18 Gram Stain Result 2 (MERI) - Final, Complete 05/28/18 Gram Stain Result 3 (MERI) - Final, Complete 05/28/18 Urine Culture - Final, Complete 05/28/18 Urine Culture Result 1 (MERI) - Final, Complete 05/28/18 Antimicrobic Susceptibility - Final, Complete Medications Current Medications Iohexol (Omnipaque 300 Mg/ml) 75 ml 1X ONCE IV Last administered on 05/28/18at 19:27; Start 05/28/18 at 19:30; Stop 05/28/18 at 19:31; Status DC Info (CONTRAST GIVEN -- Rx MONITORING) 1 each PRN DAILY PRN MC SEE COMMENTS; Start 05/28/18 at 19:30; Stop 05/30/18 at 19:29; Status DC Ceftriaxone Sodium 50 ml @ 100 mls/hr 1X ONCE IV Last administered on at 21:34; Start 05/28/18 at 20:45; Stop 05/28/18 at 21:14; Status DC Acetaminophen (Tylenol) 500 mg PRN Q6HRS PRN PO MILD PAIN / TEMP Last administered on 05/31/18at 11:21; Start 05/29/18 at 09:15 Ondansetron HCl (Zofran) 4 mg PRN Q6HRS PRN IV NAUSEA/VOMITING; Start 05/29/18 at 09:15 Ondansetron HCl (Zofran Odt) 4 mg PRN Q6HRS PRN PO NAUSEA/VOMITING; Start 05/29 at 09:15 Fentanyl Citrate (Fentanyl 2ml Vial) 50 mcg PRN Q2HR PRN IV PAIN Last administered on 06/03/18at 10:08; Start 05/29/18 at 09:15 Tramadol HCl (Ultram) 50 mg PRN Q6HRS PRN PO MODERATE-SEVERE PAIN Last administered on 05/29/18at 12:01; Start 05/29/18 at 09:15 Acetaminophen/ Codeine Phosphate (Tylenol/Codeine Soln) 15 ml QID PO Last administered on 06/04/18at 08:59; Start 05/29/18 at 13:00 Divalproex Sodium (Depakote Er) 500 mg TID PO Last administered on 06/04/18at 09 :01; Start 05/29/18 at 10:30 Haloperidol (Haldol) 4 mg PRN QID PRN PO ANXIETY / AGITATION Last administered on 06/03/18at 21:57; Start 05/29/18 at 10:30 Polyethylene Glycol (miraLAX PACKET) 17 gm DAILY PO Last administered on 08:59; Start 05/29/18 at 11:00 Clonazepam (KlonoPIN) 2 mg TID PO Last administered on 06/04/18at 09:01; Start 05/29/18 at 11:00 Non-Formulary Medication (Guanfacine Hcl ) 2 mg BID PO Last administered on at 21:03; Start 05/29/18 at 21:00; Stop 06/04/18 at 07:07; Status DC Non-Formulary Medication (Ramelteon (Rozerem)) 16 mg HS PO Last administered on 06/03/18 21:03; Start 05/29/18 at 21:00 Venlafaxine HCl (Effexor) 50 mg TID PO Last administered on 06/04/18at 08:59; Start 05/29/18 at 10:30 Metronidazole (Flagyl) 500 mg Q8HRS PO Last administered on 05/31/18at 13:13; Start 05/29/18 at 12:00; Stop 05/31/18 at 20:13; Status DC Fluconazole (Diflucan) 200 mg DAILY PO Last administered on 06/04/18at 09:01; Start 05/29/18 at 12:00 Metronidazole (Metrogel) 1 olivia DAILY VG Last administered on 06/02/18at 09:02; Start 05/29/18 at 14:30 Fluconazole (Diflucan) 200 mg 1X ONCE PO Last administered on 05/29/18at 14:45 ; Start 05/29/18 at 13:15; Stop 05/29/18 at 13:40; Status DC Ceftriaxone Sodium (Rocephin) 1 gm Q24H IVP Last administered on 05/30/18at 20: 54; Start 05/29/18 at 21:00; Stop 05/31/18 at 20:13; Status DC Lactobacillus Rhamnosus (Culturelle) 1 cap BID PO Last administered on at 08:59; Start 05/31/18 at 21:00 Sodium Chloride 1,000 ml @ 1,000 mls/hr 1X ONCE IV Last administered on at 11:41; Start 05/31/18 at 12:00; Stop 05/31/18 at 12:59; Status DC Insulin Human Lispro (HumaLOG) 0-5 UNITS TIDWMEALS SQ Last administered on 06/04at 09:10; Start 06/01/18 at 08:00 Dextrose (Dextrose 50%-Water Syringe) 12.5 gm PRN Q15MIN PRN IV SEE COMMENTS; Start 05/31/18 at 18:30 Ceftriaxone Sodium (Rocephin Im) 1 gm 1X ONCE IM Last administered on at 21:00; Start 05/31/18 at 21:00; Stop 05/31/18 at 21:01; Status DC Piperacillin Sod/ Tazobactam Sod 3.375 gm/Sodium Chloride 50 ml @ 100 mls/hr Q6HRS IV Last administered on 06/04/18at 05:05; Start 06/01/18 at 00:00 Metformin HCl (Glucophage) 1,000 mg BIDWMEALS PO Last administered on at 09:00; Start 06/01/18 at 18:00 Docusate Sodium (Colace) 100 mg DAILY PO Last administered on 06/04/18at 09:01; Start 06/01/18 at 18:30 Polyethylene Glycol (miraLAX PACKET) 17 gm DAILY PO ; Start 06/02/18 at 09:00; Status UNV Alteplase, Recombinant (Cathflo) 2 mg PRN 1X PRN INT CAT LABS; Start 06/02/18 at 17:15 Ringer's Solution 1,000 ml @ 30 mls/hr Q24H IV Last administered on 06/03/18at 17:48; Start 06/03/18 at 11:14; Stop 06/03/18 at 23:13; Status DC Lidocaine HCl (Xylocaine-Mpf 1% 2ml Vial) 2 ml 1X PRN PRN ID IV START; Start at 11:15; Stop 06/03/18 at 23:00; Status DC Prochlorperazine Edisylate (Compazine) 5 mg PACU PRN PRN IV NAUSEA, MRX1; Start 06/03/18 at 11:15; Stop 06/03/18 at 23:00; Status DC Propofol 20 ml @ As Directed STK-MED ONCE IV ; Start 06/03/18 at 16:59; Stop at 17:00; Status DC Lidocaine HCl (Lidocaine Pf 2% Vial) 5 ml STK-MED ONCE .ROUTE ; Start 06/03/18 at 16:59; Stop 06/03/18 at 17:00; Status DC Dexamethasone Sodium Phosphate (Decadron) 20 mg STK-MED ONCE .ROUTE ; Start at 16:59; Stop 06/03/18 at 17:00; Status DC Ondansetron HCl (Zofran) 4 mg STK-MED ONCE .ROUTE ; Start 06/03/18 at 16:59; Stop 06/03/18 at 17:00; Status DC Fentanyl Citrate (Fentanyl 2ml Vial) 100 mcg STK-MED ONCE .ROUTE ; Start at 17:00; Stop 06/03/18 at 17:01; Status DC Succinylcholine Chloride (Anectine) 200 mg STK-MED ONCE .ROUTE ; Start 06/03/18 at 17:00; Stop 06/03/18 at 17:01; Status DC Propofol 20 ml @ As Directed STK-MED ONCE IV ; Start 06/03/18 at 19:14; Stop at 19:15; Status DC Acyclovir Sodium 620 mg/Dextrose 262.4 ml @ 262.4 mls/ hr Q8HRS IV Last administered on 06/04/18at 05:06; Start 06/03/18 at 22:00 Non-Formulary Medication (Guanfacine Hcl ) 2 mg BID@0900,1600 PO Last administered on 06/04/18at 09:00; Start 06/04/18 at 09:00 Active Scripts Active Reported Guanfacine Hcl 1 Mg Tablet 2 Mg PO BID Rozerem (Ramelteon) 8 Mg Tablet 16 Mg PO HS Clonazepam 2 Mg Tablet 2 Mg PO TID Venlafaxine Hcl Er (Venlafaxine Hcl) 150 Mg Cap.er.24h 150 Mg PO DAILY Divalproex Sodium Er (Divalproex Sodium) 500 Mg Tab.er.24h 500 Mg PO TID Haloperidol 2 Mg Tablet 4 Mg PO PRN QID PRN Acetaminophen-Codeine Solution (Acetaminophen With Codeine) 5 Ml Solution 15 Ml PO QID Polyethylene Glycol 3350 255 Gm Powder 17 Gm PO DAILY Vitals/I & O Vital Sign - Last 24 Hours 06/03/18 06/03/18 06/03/18 06/03/18 11:00 15:00 17:37 19:00 Temp 97.7 97.9 97.0 99.0 97.7 97.9 97.0 99.0 Pulse 105 68 97 83 Resp 19 18 20 18 B/P (MAP) 106/73 (84) 115/77 (90) 120/60 107/53 (71) Pulse Ox 97 97 98 98 O2 Delivery Room Air Room Air Room Air Room Air 06/03/18 06/03/18 06/03/18 06/03/18 19:36 19:36 19:51 20:05 Temp 98.6 97.1 98.6 97.1 Pulse 102 100 97 Resp 18 B/P (MAP) 139/75 130/68 92/82 Pulse Ox 100 100 97 O2 Delivery Mask Simple Mask Room Air Room Air O2 Flow Rate 10 10 06/03/18 06/03/18 06/03/18 06/03/18 20:30 20:45 21:00 21:15 Temp 97.1 97.1 97.1 97.1 97.1 97.1 Pulse 101 101 100 100 Resp 18 B/P (MAP) 120/74 (89) 121/73 (89) 119/72 (88) 119/73 (88) Pulse Ox 98 98 98 98 O2 Delivery Room Air Room Air Room Air Room Air O2 Flow Rate 10.0 06/03/18 06/03/18 06/03/18 06/03/18 21:30 21:45 22:15 23:15 Temp 97.9 97.9 97.9 97.9 97.9 97.9 Pulse 105 103 96 Resp 18 B/P (MAP) 110/71 (84) 111/75 (87) 109/61 (77) Pulse Ox 98 98 98 O2 Delivery Room Air Room Air Room Air Room Air O2 Flow Rate 10.0 06/04/18 06/04/18 06/04/18 06/04/18 03:00 07:00 08:59 09:59 Temp 97.9 97.7 97.9 97.7 Pulse 96 90 Resp 18 B/P (MAP) 110/53 (72) 109/73 (85) Pulse Ox 97 97 O2 Delivery Room Air Room Air Room Air Room Air O2 Flow Rate 10.0 Intake and Output 06/03/18 06/03/18 06/04/18 15:00 23:00 07:00 Intake Total 240 ml 50 ml Output Total 1000 ml Balance 240 ml -950 ml SAKINA MADDOX MD Jun 04, 2018 10:23
[2018-06-04 11:00] VITALS: BP 132/75
--- NOTE | 2018-06-04 12:02 | PDOC3 ---
Discharge Summary Date of Admission: May 28, 2018 Date of Discharge: Jun 04, 2018 Follow-Up: 1-2 days Admitting Diagnosis comment: DISCHARGE DIAGNOSIS Chief Complaint Assessment/Plan 1.Perineal abscess Skin thickening over the mons pubis and mild subcutaneous edema could be inflammatory or could be cellulitis. 2.Vaginal discharge, 3.Sepsis POA 4.Mental delay 5.Morbid obesity 6.Sulfa allergy-hives 7.UTI 8.DM II diagnosed on this admission 9.lactic acidosis 10.spina bifida 11. deep tissue lesion inferior to clitoris, undetermined etiology, d/w dr German by phone, will transfer to [facility] for Dr Barrett to follow, admit to Dr German d/d transfer nurse [phone], agrees to accept patient History of Present Illness History of Present Illness problem with IV access , was given Rocephin IM, Picc line as well as central line ordered whichever can be done first, Patient is constantly leaking urine, she is sitting on her urine on the diapers , continue antibiotic need aggressive hydration to help with lactic acidosis CONT Zosyn and po fluconazole [employer]GER [employer] TO I/D Vitals Vitals Vital Signs Date Time Temp Pulse Resp B/P (MAP) Pulse Ox O2 Delivery O2 Flow Rate FiO2 06/04/18 09:59 Room Air 06/04/18 07:00 97.7 90 18 109/73 (85) 97 97.7 06/04/18 03:00 10.0 PREOPERATIVE DIAGNOSIS: Vaginal discharge. POSTOPERATIVE DIAGNOSES: Vaginal discharge, ulcerative lesions. PROCEDURE: Exam under anesthesia. SURGEON: Luis Miguel Petit MD ANESTHESIA: GETA. ESTIMATED BLOOD LOSS: None. FINDINGS: Ulcerative lesions involving wayne-urethra and bilateral labia. No evidence of fistula or perianal abscess. SUMMARY: A 32-year-old female with long history of chronic vaginal discharge. The patient was examined under anesthesia for better evaluation. She and her family members were counseled on risks, benefits and expectations, voiced clear understanding and agreed to proceed. DESCRIPTION OF PROCEDURE: The patient was taken to surgery suite, placed in dorsal lithotomy position. She was prepped Betadine solution and draped in sterile fashion. After adequate anesthesia, a bivalve speculum was utilized to evaluate the vaginal canal. The cervix appeared normal. There was no evidence of fistula. There was no evidence of perianal abscess. Rectal exam was normal except for large amount of stool in the rectum. There were ulcerative lesions, which the pulse evacuator was utilized to try to help remove some exudate also along with moist Ray-Rebecca. The exudate was very thick in consistency and unable to be removed. The labia minora appeared to be ulcerated and fused with the labia majora. After copious irrigation we then concluded with the procedure in which the patient was taken to recovery room in stable condition. Sponge and needle count were correct x 3. FINAL DIAGNOSIS Problems Medical Problems: (1) Perineal abscess Status: Acute (2) Urinary tract infection Status: Acute Brief Hospital Course Ms. Lane is a 32 old [sex] who presented with [ ] CONDITION AT DISCHARGE: Comment (TRANSFER TO [facility]) Discharge Medications Current Medications Iohexol (Omnipaque 300 Mg/ml) 75 ml 1X ONCE IV Last administered on 05/28/18at 19:27; Start 05/28/18 at 19:30; Stop 05/28/18 at 19:31; Status DC Info (CONTRAST GIVEN -- Rx MONITORING) 1 each PRN DAILY PRN MC SEE COMMENTS; Start 05/28/18 at 19:30; Stop 05/30/18 at 19:29; Status DC Ceftriaxone Sodium 50 ml @ 100 mls/hr 1X ONCE IV Last administered on at 21:34; Start 05/28/18 at 20:45; Stop 05/28/18 at 21:14; Status DC Acetaminophen (Tylenol) 500 mg PRN Q6HRS PRN PO MILD PAIN / TEMP Last administered on 05/31/18at 11:21; Start 05/29/18 at 09:15 Ondansetron HCl (Zofran) 4 mg PRN Q6HRS PRN IV NAUSEA/VOMITING; Start 05/29/18 at 09:15 Ondansetron HCl (Zofran Odt) 4 mg PRN Q6HRS PRN PO NAUSEA/VOMITING; Start 05/29 at 09:15 Fentanyl Citrate (Fentanyl 2ml Vial) 50 mcg PRN Q2HR PRN IV PAIN Last administered on 06/03/18at 10:08; Start 05/29/18 at 09:15 Tramadol HCl (Ultram) 50 mg PRN Q6HRS PRN PO MODERATE-SEVERE PAIN Last administered on 05/29/18at 12:01; Start 05/29/18 at 09:15 Acetaminophen/ Codeine Phosphate (Tylenol/Codeine Soln) 15 ml QID PO Last administered on 06/04/18 08:59; Start 05/29/18 at 13:00 Divalproex Sodium (Depakote Er) 500 mg TID PO Last administered on 06/04/18 09 :01; Start 05/29/18 at 10:30 Haloperidol (Haldol) 4 mg PRN QID PRN PO ANXIETY / AGITATION Last administered on 06/03/18at 21:57; Start 05/29/18 at 10:30 Polyethylene Glycol (miraLAX PACKET) 17 gm DAILY PO Last administered on 08:59; Start 05/29/18 at 11:00 Clonazepam (KlonoPIN) 2 mg TID PO Last administered on 06/04/18 09:01; Start 05/29/18 at 11:00 Non-Formulary Medication (Guanfacine Hcl ) 2 mg BID PO Last administered on 21:03; Start 05/29/18 at 21:00; Stop 06/04/18 at 07:07; Status DC Non-Formulary Medication (Ramelteon (Rozerem)) 16 mg HS PO Last administered on 06/03/18 21:03; Start 05/29/18 at 21:00 Venlafaxine HCl (Effexor) 50 mg TID PO Last administered on 06/04/18 08:59; Start 05/29/18 at 10:30 Metronidazole (Flagyl) 500 mg Q8HRS PO Last administered on 05/31/18at 13:13; Start 05/29/18 at 12:00; Stop 05/31/18 at 20:13; Status DC Fluconazole (Diflucan) 200 mg DAILY PO Last administered on 06/04/18 09:01; Start 05/29/18 at 12:00 Metronidazole (Metrogel) 1 olivia DAILY VG Last administered on 06/02/18 09:02; Start 05/29/18 at 14:30 Fluconazole (Diflucan) 200 mg 1X ONCE PO Last administered on 05/29/18at 14:45 ; Start 05/29/18 at 13:15; Stop 05/29/18 at 13:40; Status DC Ceftriaxone Sodium (Rocephin) 1 gm Q24H IVP Last administered on 05/30/18at 20: 54; Start 05/29/18 at 21:00; Stop 05/31/18 at 20:13; Status DC Lactobacillus Rhamnosus (Culturelle) 1 cap BID PO Last administered on at 08:59; Start 05/31/18 at 21:00 Sodium Chloride 1,000 ml @ 1,000 mls/hr 1X ONCE IV Last administered on at 11:41; Start 05/31/18 at 12:00; Stop 05/31/18 at 12:59; Status DC Insulin Human Lispro (HumaLOG) 0-5 UNITS TIDWMEALS SQ Last administered on 06/04at 09:10; Start 06/01/18 at 08:00 Dextrose (Dextrose 50%-Water Syringe) 12.5 gm PRN Q15MIN PRN IV SEE COMMENTS; Start 05/31/18 at 18:30 Ceftriaxone Sodium (Rocephin Im) 1 gm 1X ONCE IM Last administered on at 21:00; Start 05/31/18 at 21:00; Stop 05/31/18 at 21:01; Status DC Piperacillin Sod/ Tazobactam Sod 3.375 gm/Sodium Chloride 50 ml @ 100 mls/hr Q6HRS IV Last administered on 06/04/18at 05:05; Start 06/01/18 at 00:00 Metformin HCl (Glucophage) 1,000 mg BIDWMEALS PO Last administered on at 09:00; Start 06/01/18 at 18:00 Docusate Sodium (Colace) 100 mg DAILY PO Last administered on 06/04/18at 09:01; Start 06/01/18 at 18:30 Polyethylene Glycol (miraLAX PACKET) 17 gm DAILY PO ; Start 06/02/18 at 09:00; Status UNV Alteplase, Recombinant (Cathflo) 2 mg PRN 1X PRN INT CAT LABS; Start 06/02/18 at 17:15 Ringer's Solution 1,000 ml @ 30 mls/hr Q24H IV Last administered on 06/03/18at 17:48; Start 06/03/18 at 11:14; Stop 8/21/18 at 23:13; Status DC Lidocaine HCl (Xylocaine-Mpf 1% 2ml Vial) 2 ml 1X PRN PRN ID IV START; Start at 11:15; Stop 06/03/18 at 23:00; Status DC Prochlorperazine Edisylate (Compazine) 5 mg PACU PRN PRN IV NAUSEA, MRX1; Start 06/03/18 at 11:15; Stop 06/03/18 at 23:00; Status DC Propofol 20 ml @ As Directed STK-MED ONCE IV ; Start 06/03/18 at 16:59; Stop at 17:00; Status DC Lidocaine HCl (Lidocaine Pf 2% Vial) 5 ml STK-MED ONCE .ROUTE ; Start 06/03/18 at 16:59; Stop 06/03/18 at 17:00; Status DC Dexamethasone Sodium Phosphate (Decadron) 20 mg STK-MED ONCE .ROUTE ; Start at 16:59; Stop 06/03/18 at 17:00; Status DC Ondansetron HCl (Zofran) 4 mg STK-MED ONCE .ROUTE ; Start 06/03/18 at 16:59; Stop 06/03/18 at 17:00; Status DC Fentanyl Citrate (Fentanyl 2ml Vial) 100 mcg STK-MED ONCE .ROUTE ; Start at 17:00; Stop 06/03/18 at 17:01; Status DC Succinylcholine Chloride (Anectine) 200 mg STK-MED ONCE .ROUTE ; Start 06/03/18 at 17:00; Stop 06/03/18 at 17:01; Status DC Propofol 20 ml @ As Directed STK-MED ONCE IV ; Start 06/03/18 at 19:14; Stop at 19:15; Status DC Acyclovir Sodium 620 mg/Dextrose 262.4 ml @ 262.4 mls/ hr Q8HRS IV Last administered on 06/04/18at 05:06; Start 06/03/18 at 22:00 Non-Formulary Medication (Guanfacine Hcl ) 2 mg BID@0900,1600 PO Last administered on 06/04/18at 09:00; Start 06/04/18 at 09:00 Active Scripts Active Reported Guanfacine Hcl 1 Mg Tablet 2 Mg PO BID Rozerem (Ramelteon) 8 Mg Tablet 16 Mg PO HS Clonazepam 2 Mg Tablet 2 Mg PO TID Venlafaxine Hcl Er (Venlafaxine Hcl) 150 Mg Cap.er.24h 150 Mg PO DAILY Divalproex Sodium Er (Divalproex Sodium) 500 Mg Tab.er.24h 500 Mg PO TID Haloperidol 2 Mg Tablet 4 Mg PO PRN QID PRN Acetaminophen-Codeine Solution (Acetaminophen With Codeine) 5 Ml Solution 15 Ml PO QID Polyethylene Glycol 3350 255 Gm Powder 17 Gm PO DAILY Vital Signs Vital Signs Date Time Temp Pulse Resp B/P (MAP) Pulse Ox O2 Delivery O2 Flow Rate FiO2 06/04/18 11:00 98.1 85 16 132/75 (94) 96 Room Air 98.1 06/04/18 03:00 10.0 Labs Laboratory Tests Test 06/02/18 16:44 06/02/18 20:35 06/03/18 07:43 06/03/18 11:08 Glucose (Fingerstick) 127 mg/dL (70-99) 219 mg/dL (70-99) 107 mg/dL (70-99) 160 mg/dL (70-99) Test 06/03/18 14:30 06/03/18 16:37 06/03/18 19:48 06/03/18 22:11 Lactic Acid Level 2.6 mmol/L (0.4-2.0) Glucose (Fingerstick) 80 mg/dL (70-99) 91 mg/dL (70-99) 309 mg/dL (70-99) Test 06/04/18 07:00 06/04/18 07:26 06/04/18 11:05 White Blood Count 10.1 x10^3/uL (4.0-11.0) Red Blood Count 4.27 x10^6/uL (3.50-5.40) Hemoglobin 13.1 g/dL (12.0-15.5) Hematocrit 38.3 % (36.0-47.0) Mean Corpuscular Volume 90 fL (79-100) Mean Corpuscular Hemoglobin 31 pg (25-35) Mean Corpuscular Hemoglobin Concent 34 g/dL (31-37) Red Cell Distribution Width 14.1 % (11.5-14.5) Platelet Count 464 x10^3/uL (140-400) Neutrophils (%) (Auto) 79 % (31-73) Lymphocytes (%) (Auto) 16 % (24-48) Monocytes (%) (Auto) 5 % (0-9) Eosinophils (%) (Auto) 0 % (0-3) Basophils (%) (Auto) 0 % (0-3) Neutrophils # (Auto) 8.0 x10^3uL (1.8-7.7) Lymphocytes # (Auto) 1.6 x10^3/uL (1.0-4.8) Monocytes # (Auto) 0.5 x10^3/uL (0.0-1.1) Eosinophils # (Auto) 0.0 x10^3/uL (0.0-0.7) Basophils # (Auto) 0.0 x10^3/uL (0.0-0.2) Sodium Level 139 mmol/L (136-145) Potassium Level 4.4 mmol/L (3.5-5.1) Chloride Level 103 mmol/L (98-107) Carbon Dioxide Level 26 mmol/L (21-32) Anion Gap 10 (6-14) Blood Urea Nitrogen 17 mg/dL (7-20) Creatinine 0.7 mg/dL (0.6-1.0) Estimated GFR (Cockcroft-Gault) 115.9 BUN/Creatinine Ratio 24 (6-20) Glucose Level 181 mg/dL (70-99) Lactic Acid Level 2.4 mmol/L (0.4-2.0) Calcium Level 9.3 mg/dL (8.5-10.1) Total Bilirubin 0.2 mg/dL (0.2-1.0) Aspartate Amino Transf (AST/SGOT) 60 U/L (15-37) Alanine Aminotransferase (ALT/SGPT) 62 U/L (14-59) Alkaline Phosphatase 58 U/L (46-116) Total Protein 8.1 g/dL (6.4-8.2) Albumin 2.6 g/dL (3.4-5.0) Albumin/Globulin Ratio 0.5 (1.0-1.7) Glucose (Fingerstick) 163 mg/dL (70-99) 213 mg/dL (70-99) Laboratory Tests Test 06/03/18 14:30 06/03/18 16:37 06/03/18 19:48 06/03/18 22:11 Lactic Acid Level 2.6 mmol/L (0.4-2.0) Glucose (Fingerstick) 80 mg/dL (70-99) 91 mg/dL (70-99) 309 mg/dL (70-99) Test 06/04/18 07:00 06/04/18 07:26 06/04/18 11:05 White Blood Count 10.1 x10^3/uL (4.0-11.0) Red Blood Count 4.27 x10^6/uL (3.50-5.40) Hemoglobin 13.1 g/dL (12.0-15.5) Hematocrit 38.3 % (36.0-47.0) Mean Corpuscular Volume 90 fL (79-100) Mean Corpuscular Hemoglobin 31 pg (25-35) Mean Corpuscular Hemoglobin Concent 34 g/dL (31-37) Red Cell Distribution Width 14.1 % (11.5-14.5) Platelet Count 464 x10^3/uL (140-400) Neutrophils (%) (Auto) 79 % (31-73) Lymphocytes (%) (Auto) 16 % (24-48) Monocytes (%) (Auto) 5 % (0-9) Eosinophils (%) (Auto) 0 % (0-3) Basophils (%) (Auto) 0 % (0-3) Neutrophils # (Auto) 8.0 x10^3uL (1.8-7.7) Lymphocytes # (Auto) 1.6 x10^3/uL (1.0-4.8) Monocytes # (Auto) 0.5 x10^3/uL (0.0-1.1) Eosinophils # (Auto) 0.0 x10^3/uL (0.0-0.7) Basophils # (Auto) 0.0 x10^3/uL (0.0-0.2) Sodium Level 139 mmol/L (136-145) Potassium Level 4.4 mmol/L (3.5-5.1) Chloride Level 103 mmol/L (98-107) Carbon Dioxide Level 26 mmol/L (21-32) Anion Gap 10 (6-14) Blood Urea Nitrogen 17 mg/dL (7-20) Creatinine 0.7 mg/dL (0.6-1.0) Estimated GFR (Cockcroft-Gault) 115.9 BUN/Creatinine Ratio 24 (6-20) Glucose Level 181 mg/dL (70-99) Lactic Acid Level 2.4 mmol/L (0.4-2.0) Calcium Level 9.3 mg/dL (8.5-10.1) Total Bilirubin 0.2 mg/dL (0.2-1.0) Aspartate Amino Transf (AST/SGOT) 60 U/L (15-37) Alanine Aminotransferase (ALT/SGPT) 62 U/L (14-59) Alkaline Phosphatase 58 U/L (46-116) Total Protein 8.1 g/dL (6.4-8.2) Albumin 2.6 g/dL (3.4-5.0) Albumin/Globulin Ratio 0.5 (1.0-1.7) Glucose (Fingerstick) 163 mg/dL (70-99) 213 mg/dL (70-99) Allergies Allergies Coded Allergies Type Severity Reaction Last Updated Verified Sulfa (Sulfonamide Antibiotics) Allergy Intermediate Hives 05/29/18 Yes latex Allergy Intermediate 05/29/18 Yes midazolam Allergy Intermediate 06/03/18 Yes morphine Adverse Reaction Intermediate INEFFECTIVE 05/29/18 Yes Disposition/Orders: D/C to Another Facility (TO [facility] ADMIT TO DR GERMAN) Patient Instructions D/C PLANNING 33 MIN SAKINA MADDOX MD Jun 04, 2018 12:01
== END 2018-06-04 12:35 | disposition short-term general hospital (02) | DRG 871 ==
LOC: ER 16:00 → 5 SOUTH 20:44
PROVIDERS: ADMIT Internal Medicine; ATTEND Internal Medicine
PROC: 0UJH7ZZ Inspection of Vagina and Cul-de-sac, Via Natural or Artificial Opening (ICD-10-PCS; principal; 2018-06-03 17:00)
DX: A41.9 Sepsis, unspecified organism (principal); E43 Unspecified severe protein-calorie malnutrition; L02.215 Cutaneous abscess of perineum; N39.0 Urinary tract infection, site not specified; Z68.41 Body mass index [BMI] 40.0-44.9, adult; E66.01 Morbid (severe) obesity due to excess calories; F31.9 Bipolar disorder, unspecified; L25.9 Unspecified contact dermatitis, unspecified cause; N76.0 Acute vaginitis; E11.65 Type 2 diabetes mellitus with hyperglycemia; L98.499 Non-pressure chronic ulcer of skin of other sites with unspecified severity; F79 Unspecified intellectual disabilities; B96.20 Unspecified Escherichia coli [E. coli] as the cause of diseases classified elsewhere; Q05.9 Spina bifida, unspecified; Z88.2 Allergy status to sulfonamides; Z88.6 Allergy status to analgesic agent; Z91.040 Latex allergy status; Z90.49 Acquired absence of other specified parts of digestive tract; Z79.899 Other long term (current) drug therapy; Z98.2 Presence of cerebrospinal fluid drainage device
CPT/HCPCS: 36415; 36569; 74177; 80053; 81001; 81025; 82962; 83036; 83605; 84145; 85025; 85027; 85610; 85651; 86140; 86695; 87040; 87070; 87071; 87075; 87086; 87186; 87491; 87591; 96365; J0133; J0330; J0690; J0696; J1100; J1815; J2001; J2405; J2543; J2704; J3010; J7030; J7120; Q0111; Q9967; 99285-25

== ENCOUNTER → 2019-04-23 | Outpatient (CLI) | payer MEDICARE, OTHER ==
[~2019-04-23] MED LIST changes: +ACET5SOL PO; +CLON2TAB9 PO; +DIVA500T17 PO; +GUAN1TAB PO; -POLY255P PO; +POLY255P11 PO; +RAME8TAB19 PO; +VENL150C6 PO
[2019-04-23 14:16] LABS: BASO # 0.1 x10^3/uL (0.0-0.2); BASO % 1 % (0-3); EOS # 0.2 x10^3/uL (0.0-0.7); EOS % 2 % (0-3); HEMATOCRIT 37.7 % (36.0-47.0); HEMOGLOBIN 12.3 g/dL (12.0-15.5); LYMPH # 2.1 x10^3/uL (1.0-4.8); LYMPH % 24 % (24-48); MEAN CORPUSCULAR HEMOGLOBIN 31 pg (25-35); MEAN CORPUSCULAR HGB CONC 33 g/dL (31-37); MEAN CORPUSCULAR VOLUME 95 fL (79-100); MONO # 0.5 x10^3/uL (0.0-1.1); MONO % 6 % (0-9); NEUT % 68 % (31-73); PLATELET COUNT 278 x10^3/uL (140-400); RED BLOOD COUNT 3.97 x10^6/uL (3.50-5.40); RED CELL DISTRIBUTION WIDTH 14.8 % (11.5-14.5); WHITE BLOOD COUNT 8.9 x10^3/uL (4.0-11.0)
[2019-04-23 15:01] LABS: ALBUMIN 2.8 g/dL (3.4-5.0); ALBUMIN/GLOBULIN RATIO 0.6 (1.0-1.7); ALK PHOS 62 U/L (46-116); ALT (SGPT) 26 U/L (14-59); ANION GAP 13 (6-14); AST (SGOT) 30 U/L (15-37); BLOOD UREA NITROGEN 17 mg/dL (7-20); BUN/CREATININE RATIO 19 (6-20); CALCIUM 8.8 mg/dL (8.5-10.1); CARBON DIOXIDE 23 mmol/L (21-32); CHLORIDE 104 mmol/L (98-107); CREATININE 0.9 mg/dL (0.6-1.0); FREE T4 0.73 ng/dL (0.76-1.46); GFR 86.2; GLUCOSE 328 mg/dL (70-99); SODIUM 140 mmol/L (136-145); THYROID STIM HORMONE (TSH) 0.636 uIU/mL (0.358-3.74); TOTAL PROTEIN 7.2 g/dL (6.4-8.2)
[2019-04-23 15:25] LABS: TOTAL BILIRUBIN 0.2 mg/dL (0.2-1.0); VAL ACID 47 mcg/mL (50-100)
[2019-04-24 00:07] LABS: HEMOGLOBIN A1C 10.2 % (4.8-5.6)
== END | disposition home or self-care (01) ==
LOC: LAB 12:25
DX: E11.9 Type 2 diabetes mellitus without complications (principal); I10 Essential (primary) hypertension; Q05.9 Spina bifida, unspecified; G40.909 Epilepsy, unspecified, not intractable, without status epilepticus
CPT/HCPCS: 36415; 80053; 80164; 82306; 82607; 83036; 84439; 84443; 84481; 85025

== ENCOUNTER → 2019-04-23 | Outpatient (CLI) | payer MEDICARE, OTHER ==
--- NOTE | 2019-04-23 16:26 | RAD ---
PQRS Compliance Statement: One or more of the following individualized dose reduction techniques were utilized for this examination: 1. Automated exposure control 2. Adjustment of the mA and/or kV according to patient size 3. Use of iterative reconstruction technique CT head without contrast 04/23/2019 1:00 PM INDICATION: Epilepsy, shunt COMPARISON: CT head August 01, 2017 TECHNIQUE: Multiple axial CT images of the head were obtained from skull base through the vertex without intravenous contrast. FINDINGS: Head: A right frontal approach ventriculostomy catheter is identified with the distal tip terminating to the left of midline in the region of foramen of Fernandez, similar to the prior examination. Morphology of the ventricles appears similar to the prior examination. There is no hydrocephalus. Mehta-white matter differentiation is normal. There is no acute intracranial hemorrhage. There is no mass, mass effect or midline shift. There is crowding of the medulla by the cerebellar tonsils. Visualized portions of the orbits are normal. Paranasal sinuses are well aerated. Mastoid air cells are well aerated. IMPRESSION: Bifrontal approach ventriculostomy catheter is in similar position with similar morphology of the lateral ventricles. No hydrocephalus. No acute intracranial hemorrhage. Persistent crowding of the medulla by the cerebellar tonsils. Small posterior fossa. Electronically signed by: Vanessa Bass MD (04/23/2019 4:24 PM) [id number]
--- NOTE | 2019-04-23 17:56 | RAD ---
AP chest., Supine abdomen. HISTORY: Epilepsy, shunt malfunction, G 40.309, Z 98.2 CHEST: AP view was taken of the chest. There is a ventriculoperitoneal shunt extending across the chest. Lungs are clear. Heart is normal in size. The patient's taken a poor inspiration. ABDOMEN: Supine views were taken of the abdomen. There is increased stool in the colon. There is no small bowel obstruction. There is a ventriculoperitoneal shunt tube entering the upper abdomen. The tube crosses the midline from left to right stopping to the right of L4. There is a spina bifida defect in the lower lumbar spine. IMPRESSION: 1. No acute infiltrates. 2. Increased stool in the colon. 3. Shunt tubing appears intact although not optimally visualized at the lower chest due to superimposition on the spine. Electronically signed by: Luke Cheek MD (04/23/2019 5:54 PM) [facility]
--- NOTE | 2019-04-23 18:05 | RAD ---
Skull 2 views. HISTORY: Shunt malfunction Views of the skull showing a ventricular peritoneal shunt tube which appears similar to the medical nurse film from the CT from 2008. The shunt tubing appears intact. There is a small separate fragment of a previous shunt catheter in the neck posterior to the current shunt tubing. IMPRESSION: 1. Intracranial shunt and extracranial shunt tubing appear intact without definite change. Electronically signed by: Luke Cheek MD (04/23/2019 6:02 PM) [facility]
== END | disposition home or self-care (01) ==
LOC: CT 12:11
PROVIDERS: ATTEND Psychiatry & Neurology Neurology with Special Qualifications in Child Neurology
DX: G40.309 Generalized idiopathic epilepsy and epileptic syndromes, not intractable, without status epilepticus (principal); F79 Unspecified intellectual disabilities; Z98.2 Presence of cerebrospinal fluid drainage device
CPT/HCPCS: 70250; 70450; 71045; 74018

== ENCOUNTER 2021-05-23 17:08 | Inpatient (IN) | payer MEDICARE, OTHER ==
[~2021-05-23] VITALS: Ht 165.1 cm; Wt 128.8 kg
[2021-05-23] MEDS ORDERED: IV DEXTROSE 5 %-0.45 % NACL 1,000 ML IV ONE (17:45)
[2021-05-23] MEDS ORDERED: oxyCODONE/APAP 10/325 1 TAB TABLET PEG PRN (18:00)
[2021-05-23] MEDS: VENLAFAXINE 75 MG TABLET. PEG SCH (18:30)
[2021-05-23 19:00] VITALS: BP 142/94
[2021-05-23] MEDS: IPRATRPIUM/ALBUTEROL 0.5/2.5MG 3 ML NEBU. NEB SCH (20:00)
--- NOTE | 2021-05-23 20:28 | PDOC2 ---
CONSULT Date of Consult Date of Consult DATE: 05/23/21 TIME: 20:21 Reason for Consult Reason for Consult: Dislodged G-tube Referring Physician Referring Physician: Dr. Gillespie (d/w him via phone) Identification/Chief Complaint Chief Complaint none Source Source: Chart review History of Present Illness Reason for Visit: 35 yo F covid recovery. Admitted in April to [facility]. Underwent trach and Peg. Pt recovering at [facility] and noted to have tachycardia. Pt started on tube feeds and developed abd pain. CT concerning for G-tube dislodged from stomach. Pt seen in hospital room. Difficult to obtain information from pt secondary to trach and history of CP. Appears comfortable. Past Medical History CENTRAL NERVOUS SYSTEM: Other Past Surgical History Past Surgical History: Other (F[employer] shunt, trach PEG), No pertinent history Family History Family History: No Significant Social History No ALCOHOL: none Drugs: None Lives: with Family Current Medications Current Medications Current Medications Dextrose/Sodium Chloride 1,000 ml @ 125 mls/hr 1X ONCE IV ; Start 05/23/21 at 17:45; Stop 05/23/21 at 19:37; Status DC Chlorhexidine Gluconate (Peridex) 15 ml BID SWSP ; Start 05/23/21 at 21:00 Clonidine HCl (Catapres Tts-1) 1 patch Sa TD ; Start 05/27/21 at 09:00 Daptomycin 510 mg/ Sodium Chloride 50 ml @ 100 mls/hr Q24H IV ; Start 05/24/21 at 12:00 Enoxaparin Sodium (Lovenox 40mg Syringe) 40 mg Q12HR SQ ; Start 05/23/21 at 21:00 Insulin Glargine (Lantus Syringe) 20 unit DAILY SQ ; Start 05/24/21 at 09:00 Levetiracetam 500 mg/Dextrose 105 ml @ 420 mls/hr Q12HR IV ; Start 05/23/21 at 21:00 Meropenem 1 gm/ Sodium Chloride 100 ml @ 200 mls/hr Q8HRS IV ; Start 05/23/21 at 22:00 Metoclopramide HCl (Reglan Vial) 5 mg Q6HRS IVP ; Start 05/23/21 at 18:00 Micafungin Sodium 100 mg/Dextrose 100 ml @ 100 mls/hr Q24H IV ; Start 05/24/21 at 12:00 Pantoprazole Sodium (PROTONIX VIAL for IV PUSH) 40 mg DAILYAC IVP ; Start 05/24/21 at 07:30 Acetaminophen (Tylenol Supp) 650 mg PRN Q6HRS PRN WA MILD PAIN / TEMP > 100.3'F; Start 05/23/21 at 17:45 Lorazepam (Ativan Inj) 0.5 mg PRN Q4HRS PRN IVP ANXIETY / AGITATION; Start 05/23/21 at 17:45 Ondansetron HCl (Zofran) 4 mg PRN Q4HRS PRN IVP NAUSEA/VOMITING; Start 05/23/21 at 17:45 Fentanyl Citrate (Fentanyl 2ml Vial) 50 mcg PRN Q3HRS PRN IVP PAIN; Start 05/23/21 at 18:00 Oxycodone/ Acetaminophen (Percocet 10/325) 1 tab PRN Q3HRS PRN PEG PAIN; Start 05/23/21 at 18:00 Albuterol/ Ipratropium (Duoneb) 3 ml RTQID NEB Last administered on 05/23/21at 20:00; Start 05/23/21 at 20:00 Donepezil HCl (Aricept) 10 mg QHS PEG ; Start 05/23/21 at 21:00 Quetiapine Fumarate (SEROquel) 200 mg HS PEG ; Start 05/23/21 at 21:00 Venlafaxine HCl (Effexor) 75 mg BIDAC PEG ; Start 05/23/21 at 18:30 Dextrose/Sodium Chloride 1,000 ml @ 125 mls/hr Q8H IV ; Start 05/23/21 at 19:45 Active Scripts Active Reported Guanfacine Hcl 1 Mg Tablet 2 Mg PO BID Rozerem (Ramelteon) 8 Mg Tablet 16 Mg PO HS Clonazepam 2 Mg Tablet 2 Mg PO TID Venlafaxine Hcl Er (Venlafaxine Hcl) 150 Mg Cap.er.24h 150 Mg PO DAILY Divalproex Sodium Er (Divalproex Sodium) 500 Mg Tab.er.24h 500 Mg PO TID Haloperidol 2 Mg Tablet 4 Mg PO PRN QID PRN Acetaminophen-Codeine Solution (Acetaminophen With Codeine) 5 Ml Solution 15 Ml PO QID Polyethylene Glycol 3350 255 Gm Powder 17 Gm PO DAILY Allergies Allergies: Coded Allergies: Sulfa (Sulfonamide Antibiotics) (Verified Allergy, Intermediate, Hives, 05/29/18) patient develops red hives and itching latex (Verified Allergy, Intermediate, 05/29/18) midazolam (Verified Allergy, Intermediate, 06/03/18) morphine (Verified Adverse Reaction, Intermediate, INEFFECTIVE, 05/29/18) ROS Review of System unobtainable Physical Exam General: Alert, Cooperative, No acute distress HEENT: Atraumatic Lungs: Normal air movement Abdomen: Soft, No tenderness, Other (obese, G-tube, large right costal margin scar) Skin: No rashes, No breakdown Vitals VITALS Vital Signs Date Time Temp Pulse Resp B/P (MAP) Pulse Ox O2 Delivery O2 Flow Rate FiO2 05/23/21 18:06 Tracheal Collar 8.[address] with dislodged G-tube Assessment/Plan Assessment/Plan Dislodged G-tube favor tube has been out for several days. Given stability and long time out, favor initial conservative management. On abx. F[employer] shunt is concerning and will ask for Neurosurgery input. Pt may best be served by NS whom placed F[employer] shunt. Ultimately, may need surgical replacement of G-tube and revision of F[employer]ER shunt. Thanks for consult! JADEN LEVINE MD May 23, 2021 20:28
[2021-05-23] MEDS: DONEPEZIL HCL 10 MG TABLET. PEG SCH (21:00)
[2021-05-23] MEDS: QUEtiapine 100 MG TABLET. PEG SCH (21:00)
[2021-05-23] MEDS: ENOXAPARIN 40 MG/0.4 ML SYRINGE. SQ SCH (21:21)
[2021-05-23] MEDS: METOCLOPRAMIDE HCL 10 MG/2 ML VIAL. IVP SCH (21:22)
[2021-05-23] MEDS: fentaNYL PF VIAL 100 MCG/2 ML VIAL IVP PRN (21:25)
[2021-05-23] MEDS: CHLORHEXIDINE 0.12% 15 ML MOUTHWASH. SWSP SCH (21:27)
[2021-05-23] MEDS: IV DEXTROSE 5 %-0.45 % NACL 1,000 ML IV SCH (21:30)
[2021-05-23] MEDS: levETIRAcetam 500 MG in IV DEXTROSE 5% 100ML 100 ML IV SCH (21:46)
[2021-05-23] MEDS ORDERED: MEROPENEM 1 GM in IV NORMAL SALINE 100ML 100 ML IV SCH (22:00)
[2021-05-23] MEDS: MEROPENEM 1 GM in IV NORMAL SALINE 100ML 100 ML IV SCH (22:46)
[2021-05-23 23:36] VITALS: BP 148/93
--- NOTE | 2021-05-24 01:52 | NUR ---
Notified Selina REYES in ICU of positive sepsis screen, Lactic and Blood cultures ordered per protocol.
[2021-05-24 03:00] VITALS: BP 121/57
[2021-05-24] MEDS: ACETAMINOPHEN 650 MG SUPP.RECT. PR PRN (03:19)
--- NOTE | 2021-05-24 05:50 | RAD ---
Study: XR CHEST 1V Indication: Pneumonia. Comparison: 04/23/2019 Findings: Endotracheal tube terminating approximately 2 cm above the phyllis. Left-sided PICC appears to termina te at the expected location of the brachiocephalic/SVC junction. Partially imaged ventriculoperitonea l shunt catheter. Bilateral airspace opacities with a relatively perihilar distribution. The cardiomediastinal silhouet te is difficult to closely evaluate and is accentuated in size by AP technique and low lung volumes. No pneumothorax. Impression: 1. Endotracheal tube tip approximately 2 cm above the phyllis. A left-sided PICC tip projects at the b rachiocephalic/SVC junction. 2. Limited exam due to low lung volumes. Airspace infiltrates bilaterally with a somewhat perihilar d istribution. A combination of interstitial edema, atelectasis and infectious infiltrates could all be present. Electronically signed by: SAEID KAUR MD (05/24/2021 5:48 AM) [facility]
[2021-05-24] MEDS: MEROPENEM 1 GM in IV NORMAL SALINE 100ML 100 ML IV SCH ×3 (05:59→22:58)
[2021-05-24] MEDS: METOCLOPRAMIDE HCL 10 MG/2 ML VIAL. IVP SCH ×5 (05:59→23:00)
[2021-05-24] MEDS: IV DEXTROSE 5 %-0.45 % NACL 1,000 ML IV SCH ×3 (06:16→21:03)
[2021-05-24 07:00] VITALS: BP 142/71
[2021-05-24 07:16] LABS: BASO % 0 % (0-3); EOS # 0.4 x10^3/uL (0.0-0.7); EOS % 3 % (0-3); HEMATOCRIT 31.3 % (36.0-47.0); LYMPH # 2.8 x10^3/uL (1.0-4.8); LYMPH % 20 % (24-48); MEAN CORPUSCULAR HEMOGLOBIN 27 pg (25-35); MEAN CORPUSCULAR HGB CONC 32 g/dL (31-37); MEAN CORPUSCULAR VOLUME 85 fL (79-100); MONO # 1.9 x10^3/uL (0.0-1.1); MONO % 14 % (0-9); NEUT % 64 % (31-73); PLATELET COUNT 509 x10^3/uL (140-400); RED BLOOD COUNT 3.68 x10^6/uL (3.50-5.40); RED CELL DISTRIBUTION WIDTH 18.5 % (11.5-14.5); WHITE BLOOD COUNT 14.1 x10^3/uL (4.0-11.0)
[2021-05-24 07:25] LABS: PROTHROMBIN TIME PATIENT 16.8 SEC (11.7-14.0)
[2021-05-24] MEDS: VENLAFAXINE 75 MG TABLET. PEG SCH ×2 (07:30→16:30)
[2021-05-24] MEDS: IPRATRPIUM/ALBUTEROL 0.5/2.5MG 3 ML NEBU. NEB SCH ×4 (07:43→21:18)
[2021-05-24 07:45] LABS: ALBUMIN 1.7 g/dL (3.4-5.0); ALBUMIN/GLOBULIN RATIO 0.3 (1.0-1.7); CREATININE 0.6 mg/dL (0.6-1.0); GFR 136.1; POTASSIUM 4.1 mmol/L (3.5-5.1); TOTAL BILIRUBIN 0.1 mg/dL (0.2-1.0); TOTAL PROTEIN 6.7 g/dL (6.4-8.2)
[2021-05-24] MEDS: CHLORHEXIDINE 0.12% 15 ML MOUTHWASH. SWSP SCH ×2 (09:00→21:01)
[2021-05-24] MEDS: PANTOPRAZOLE IV PUSH 40 MG VIAL. IVP SCH (09:52)
[2021-05-24] MEDS: levETIRAcetam 500 MG in IV DEXTROSE 5% 100ML 100 ML IV SCH ×2 (09:53→21:01)
[2021-05-24] MEDS: INSULIN GLARGINE SYRINGE. SQ SCH (10:00)
[2021-05-24] MEDS: ENOXAPARIN 40 MG/0.4 ML SYRINGE. SQ SCH ×2 (10:00→21:00)
--- NOTE | 2021-05-24 10:31 | CONS ---
DATE OF CONSULTATION: 05/24/2021 PULMONARY CONSULTATION ATTENDING PHYSICIAN: Dr. Gillespie. REASON FOR CONSULTATION: Respiratory failure. HISTORY OF PRESENT ILLNESS: The patient is a 35-year-old -[place] female who has past medical history of spina bifida cystica, type 2 diabetes, developmental delay, underlying morbid obesity and hydrocephalus. She has a history of EXECUTIVE ASST shunt. She had also nonischemic cardiomyopathy. She was recently diagnosed with COVID-19 viral pneumonia when she presented with acute hypoxic respiratory failure. She had a Pseudomonas pneumonia/aspiration pneumonia and sepsis. She has a stage 4 ischial wound. She grew E. coli from her urine culture as well. She was initially treated with ____ and failed and then was intubated. She subsequently had tracheostomy on 05/04 and a PEG tube placed on 05/05. She was treated with remdesivir and steroids. [facility] where she had complained of abdominal pain. She was brought into the hospital for PEG tube dislodgement. General Surgery has seen her. She is currently on trach shield 35% FiO2. She has moderate creamy secretions. Chest x-ray showed poor inspiratory effort and bilateral infiltrates. PAST MEDICAL HISTORY: Significant for spina bifida cystica, history of developmental delay, history of hydrocephalus status post EXECUTIVE ASST shunt, history of nonischemic cardiomyopathy, type 2 diabetes. SURGERIES: Cholecystectomy, EXECUTIVE ASST shunt for hydrocephalus, tracheostomy recently and PEG tube. ALLERGIES: MORPHINE, VERSED AND LATEX. MEDICATIONS: All reviewed including broad-spectrum antibiotics, cefepime, daptomycin. SYSTEM REVIEW: Unable to obtain from the patient. FAMILY HISTORY: Noncontributory. SOCIAL HISTORY: Lives with her mother and caregiver at home. PHYSICAL EXAMINATION: VITAL SIGNS: Reviewed. T-max of 100.2, pulse ox is 96% on 35% trach shield. She has some creamy white secretions through the trach. NECK: Supple. LUNGS: With few rhonchi. CARDIOVASCULAR: With a regular rate. ABDOMEN: Soft, obese. PEG tube is in place. EXTREMITIES: With trace pitting edema. LABORATORY DATA: Reviewed. White cell count 14.1, hemoglobin 10.0, platelets are 509. BUN and creatinine normal. IMPRESSION: 1. Acute on chronic hypoxic respiratory failure in a patient who has history of developmental delay, hydrocephalus status post ventriculoperitoneal shunt and spina bifida cystica. She recently developed acute respiratory failure secondary to COVID-19 viral pneumonia. 2. Status post tracheostomy. She was currently been off the ventilator in the last 24 hours and has been on trach shield. 3. Aspiration pneumonia with isolation of Pseudomonas. 4. Escherichia coli urinary tract infection. 5. Ischial wound. 6. Percutaneous endoscopic gastrostomy tube dislodgement. RECOMMENDATIONS: 1. We will continue with present trach shield and watch her respiratory status closely. 2. P.r.n. trach suction. 3. Broad-spectrum antibiotic with daptomycin, meropenem and micafungin per Infectious Disease. 4. Lovenox for DVT prophylaxis. 5. Discussed with Dr. Gillespie. We will follow along with you as needed while in the hospital. 6. Follow surgical recommendation regarding PEG tube replacement. Total critical care time 33 minutes including review of the chart, imaging studies and decision making. SORIN/ELIZABETH DR: Kierra TID: [id number]
[2021-05-24 11:00] VITALS: BP 139/83
--- NOTE | 2021-05-24 11:06 | NUR ---
SW following. Discussed with RN, pt from [facility], trach, NPO. Pt needs PEG replacement per RN. RN advised no SW needs at this time. SW will continue to follow.
--- NOTE | 2021-05-24 11:30 | CONS ---
DATE OF CONSULTATION: 05/24/2021 REFERRING PHYSICIAN: Dr. Gillespie. REASON FOR CONSULTATION: Antibiotic management. HISTORY OF PRESENT ILLNESS: A 35-year-old female well known to our service from [facility], was transferred to [facility] yesterday as she had worsening abdominal pain after started on feeding tube with abdominal pain, nausea and vomiting. The patient underwent imaging, which showed PEG tube dislodgement. General Surgery was consulted. They transferred her here for further evaluation and replacement of PEG tube. The patient has history of acute hypoxic respiratory failure secondary to COVID-19 pneumonia, spina bifida, Pseudomonas pneumonia, UTI E. coli, encephalopathy, stage 4 ischial wound which has been treated with antibiotics. The patient had acute on chronic respiratory failure, has undergone a trach placement. The patient also had Pseudomonas pneumonia, aspiration pneumonia and sepsis prior to her admission to [facility]. The patient currently is on trach shield at 35%, T-max was of ____. She continues to have moderate creamy secretions. Chest x-ray showed airspace infiltrates bilaterally with a somewhat perihilar distribution. A combination of interstitial edema, atelectasis and infectious infiltrates could be present. The patient still continues to have nausea and vomiting, awaiting Neurosurgery evaluation as she has INVESTIGATION OFFICER shunt in place. PAST MEDICAL HISTORY: Spina bifida cystica, type 2 diabetes, developmental delay, morbid obesity, hydrocephalus status post ventriculoperitoneal shunt placement, nonischemic cardiomyopathy, recent COVID-19, acute on chronic respiratory failure, status post trach, status post PEG, history of Pseudomonas pneumonia, history of E. coli UTI. PAST SURGICAL HISTORY: Cholecystectomy, INVESTIGATION OFFICER shunt for hydrocephalus, tracheostomy and gastrostomy tube placement. ALLERGIES: MORPHINE, VERSED, LATEX. CURRENT MEDICATIONS: Cefepime, daptomycin, micafungin. Other medications reviewed in medication list. SYSTEM REVIEW: Limited, but negative except for above in HPI. FAMILY HISTORY: Noncontributory. SOCIAL HISTORY: Lives with mother and caregiver at home. PHYSICAL EXAMINATION: VITAL SIGNS: Temperature 99.6, T-max 100.2, pulse 129, respiratory rate 21, blood pressure 142/71, oxygen saturation 96% on 8 liters trach collar. GENERAL: Propped up in bed, alert, nods yes and no to simple questions. HEENT: Normocephalic, atraumatic. Pupils equal, reactive. Normal conjunctivae. Oral cavity clear. NECK: Tracheostomy with few scattered rhonchi. HEART: S1, S2, tachycardia. ABDOMEN: Obese, soft. PEG tube site intact. Mild guarding on deep palpation. Left ischial wound VAC in place. EXTREMITIES: Trace edema, no cyanosis. NEUROLOGIC: Alert, awake. Answers a few questions by nodding. Follows commands. Left upper extremity PICC line without complications. LABORATORY DATA: WBC 14.1, was 10.8; hemoglobin 10.0; hematocrit 31.3; platelets 509. Sodium 136, potassium 4.1, chloride 99, bicarb 33, BUN 7, creatinine 0.6, glucose 157. Lactate 0.8, albumin 1.7. MICROBIOLOGY: None. IMAGING: Chest x-ray: Endotracheal tube 2 cm above the phyllis, left-sided PICC line. Limited exam due to low lung volumes, airspace infiltrates bilaterally with a somewhat perihilar distribution, a combination of interstitial edema, atelectasis. An infectious infiltrate could also be present. IMPRESSION: 1. Abdominal pain. 2. Dislodged gastrostomy tube. 3. Leukocytosis. 4. Nausea and vomiting, concern for possible peritonitis 5. Left ischial wound with history of osteomyelitis present on admission at [facility], was seen at [facility] 03/27. 6. Acute hypoxic respiratory failure on chronic hypoxic respiratory failure, status post tracheostomy. 7. History of Pseudomonas pansensitive and Klebsiella pneumonia, pansensitive pneumonia, 04/30. 8. Escherichia coli urinary tract infection 04/29, treated. 9. History of urinary retention. 10. COVID-19, 04/09. 11. Spina bifida. 12. Ventriculoperitoneal shunt. 13. Diabetes. 14. Morbid obesity. 15. Bipolar disorder. 16. History of seizures. RECOMMENDATIONS: 1. Continue daptomycin, meropenem and micafungin. 2. Add Zyvox for pulmonary coverage for now 3. General Surgery has evaluated the patient. 4. Neurosurgery has been consulted. Send fluid for cultures 5. Monitor labs and cultures. 6. Maintain aspiration precaution. 7. PICC line management. 8. Continue wound care and offloading. Discussed with father and mother at bedside. Discussed with Nursing staff Thank you for allowing me to participate in this patient's care. If you have any questions, do not hesitate to contact me. Discussed with nursing staff. AD/SUB DR: Maria Luisa TID: [id number] MTDD
[2021-05-24] MEDS: fentaNYL PF VIAL 100 MCG/2 ML VIAL IVP PRN ×2 (12:17→23:05)
[2021-05-24] MEDS: DAPTOmycin (GENERIC) IVPB 510 MG in IV NORMAL SALINE 50ML 50 ML IV SCH (12:22)
[2021-05-24] MEDS ORDERED: IV NORMAL SALINE 1000ML BAG 1,000 ML IV ONE (12:30)
[2021-05-24] MEDS ORDERED: ALTEPLASE 1MG SYRINGE. INT CAT ONE (13:00)
--- NOTE | 2021-05-24 13:11 | PDOC ---
SURGICAL PROGRESS NOTE DATE: 05/24/21 TIME: 13:08 Subjective Pt awake and alert Vital Signs Vital Signs Date Time Temp Pulse Resp B/P (MAP) Pulse Ox O2 Delivery O2 Flow Rate FiO2 05/24/21 12:17 98 Tracheal Collar 8.0 05/24/21 11:00 99.5 136 22 139/83 (101) 99.5 I&O Intake and Output 05/24/21 07:00 Intake Total 1305 ml Balance 1305 ml Intake Oral 0 ml IV Total 1305 ml # Voids 2 General: Alert Abdomen: Soft, Other (G-tube with white/tannish fluid drainage-favor tube feeds) Labs Laboratory Tests Test 05/24/21 01:40 05/24/21 06:50 05/24/21 11:37 Glucose (Fingerstick) 183 mg/dL (70-99) 130 mg/dL (70-99) White Blood Count 14.1 x10^3/uL (4.0-11.0) Red Blood Count 3.68 x10^6/uL (3.50-5.40) Hemoglobin 10.0 g/dL (12.0-15.5) Hematocrit 31.3 % (36.0-47.0) Mean Corpuscular Volume 85 fL (79-100) Mean Corpuscular Hemoglobin 27 pg (25-35) Mean Corpuscular Hemoglobin Concent 32 g/dL (31-37) Red Cell Distribution Width 18.5 % (11.5-14.5) Platelet Count 509 x10^3/uL (140-400) Neutrophils (%) (Auto) 64 % (31-73) Lymphocytes (%) (Auto) 20 % (24-48) Monocytes (%) (Auto) 14 % (0-9) Eosinophils (%) (Auto) 3 % (0-3) Basophils (%) (Auto) 0 % (0-3) Neutrophils # (Auto) 9.0 x10^3/uL (1.8-7.7) Lymphocytes # (Auto) 2.8 x10^3/uL (1.0-4.8) Monocytes # (Auto) 1.9 x10^3/uL (0.0-1.1) Eosinophils # (Auto) 0.4 x10^3/uL (0.0-0.7) Basophils # (Auto) 0.0 x10^3/uL (0.0-0.2) Prothrombin Time 16.8 SEC (11.7-14.0) Prothromb Time International Ratio 1.4 (0.8-1.1) Sodium Level 136 mmol/L (136-145) Potassium Level 4.1 mmol/L (3.5-5.1) Chloride Level 99 mmol/L (98-107) Carbon Dioxide Level 33 mmol/L (21-32) Anion Gap 4 (6-14) Blood Urea Nitrogen 7 mg/dL (7-20) Creatinine 0.6 mg/dL (0.6-1.0) Estimated GFR (Cockcroft-Gault) 136.1 BUN/Creatinine Ratio 12 (6-20) Glucose Level 157 mg/dL (70-99) Lactic Acid Level 0.8 mmol/L (0.4-2.0) Calcium Level 9.0 mg/dL (8.5-10.1) Total Bilirubin 0.1 mg/dL (0.2-1.0) Aspartate Amino Transf (AST/SGOT) 18 U/L (15-37) Alanine Aminotransferase (ALT/SGPT) 20 U/L (14-59) Alkaline Phosphatase 76 U/L (46-116) Total Protein 6.7 g/dL (6.4-8.2) Albumin 1.7 g/dL (3.4-5.0) Albumin/Globulin Ratio 0.3 (1.0-1.7) Laboratory Tests Test 05/24/21 01:40 05/24/21 06:50 05/24/21 11:37 Glucose (Fingerstick) 183 mg/dL (70-99) 130 mg/dL (70-99) White Blood Count 14.1 x10^3/uL (4.0-11.0) Red Blood Count 3.68 x10^6/uL (3.50-5.40) Hemoglobin 10.0 g/dL (12.0-15.5) Hematocrit 31.3 % (36.0-47.0) Mean Corpuscular Volume 85 fL (79-100) Mean Corpuscular Hemoglobin 27 pg (25-35) Mean Corpuscular Hemoglobin Concent 32 g/dL (31-37) Red Cell Distribution Width 18.5 % (11.5-14.5) Platelet Count 509 x10^3/uL (140-400) Neutrophils (%) (Auto) 64 % (31-73) Lymphocytes (%) (Auto) 20 % (24-48) Monocytes (%) (Auto) 14 % (0-9) Eosinophils (%) (Auto) 3 % (0-3) Basophils (%) (Auto) 0 % (0-3) Neutrophils # (Auto) 9.0 x10^3/uL (1.8-7.7) Lymphocytes # (Auto) 2.8 x10^3/uL (1.0-4.8) Monocytes # (Auto) 1.9 x10^3/uL (0.0-1.1) Eosinophils # (Auto) 0.4 x10^3/uL (0.0-0.7) Basophils # (Auto) 0.0 x10^3/uL (0.0-0.2) Prothrombin Time 16.8 SEC (11.7-14.0) Prothromb Time International Ratio 1.4 (0.8-1.1) Sodium Level 136 mmol/L (136-145) Potassium Level 4.1 mmol/L (3.5-5.1) Chloride Level 99 mmol/L (98-107) Carbon Dioxide Level 33 mmol/L (21-32) Anion Gap 4 (6-14) Blood Urea Nitrogen 7 mg/dL (7-20) Creatinine 0.6 mg/dL (0.6-1.0) Estimated GFR (Cockcroft-Gault) 136.1 BUN/Creatinine Ratio 12 (6-20) Glucose Level 157 mg/dL (70-99) Lactic Acid Level 0.8 mmol/L (0.4-2.0) Calcium Level 9.0 mg/dL (8.5-10.1) Total Bilirubin 0.1 mg/dL (0.2-1.0) Aspartate Amino Transf (AST/SGOT) 18 U/L (15-37) Alanine Aminotransferase (ALT/SGPT) 20 U/L (14-59) Alkaline Phosphatase 76 U/L (46-116) Total Protein 6.7 g/dL (6.4-8.2) Albumin 1.7 g/dL (3.4-5.0) Albumin/Globulin Ratio 0.3 (1.0-1.7) Problem List dislodged G-tube fluid resuscitation and IV abx. will ask neurosurgery to comment on TUBE MAN shunt plan G-tube replacement in AM R/R/B/A d/w pt's mother and family at bedside. Risks, including, but not limited to: bleeding, infection, damage to surrounding structures, risk of anesthesia, risk of hernia recurrence. Pt is at high risk for perioperative complications given covid recovery. They appear to understand, their questions are answered and they elect to proceed. Justicifation of Admission Dx: Justifications for Admission: Justification of Admission Dx: Yes Sepsis: Hemodynamic Instability JADEN LEVINE MD May 24, 2021 13:11
--- NOTE | 2021-05-24 13:15 | HP ---
ADMIT DATE: 05/23/2021 HISTORY OF PRESENT ILLNESS: The patient is a 35-year-old female patient who was transferred from [facility] as she was noted to have abdominal pain after we restarted her tube feeding and therefore, she underwent a CT scan of the abdomen, which revealed that the gastrostomy tube was not intraluminal, a large associated fluid collection and throughout the mid and upper abdomen spans about 24 cm as above, she has perihilar infiltrate on the left greater than right and moderate subxiphoid hernia containing only fat and therefore, the patient was transferred to [facility]. We did consult the digester hand who said that this is a surgical issue and therefore, we consulted the surgical team. Obviously, we discontinued her tube feeds and started her on IV fluid and continued her broad-spectrum antibiotics that included meropenem, daptomycin as well as micafungin. She was on trach shield and therefore, we continued that and we also consulted the tube builder airplane to assist with her management. The patient was admitted originally to [facility] with hypoxic respiratory failure secondary to COVID-19 pneumonia. She does have spina bifida and is taken care of at home by caregiver and her mother. She was exposed by the caregiver, diagnosed further with Pseudomonas pneumonia, fever and possible aspiration pneumonia, encephalopathy, sepsis and stage 4 ischial wound and she also grew E. coli from her urine culture. She was treated initially with BiPAP and failed and therefore, she was intubated shortly after arrival on 04/10. Has had a tracheostomy tube placed on 05/04 and the PEG tube placed on 05/05. She was treated with remdesivir and steroids together with antibiotic in the form of Zosyn and daptomycin. Once stabilized, she was transferred to [facility] to continue with mechanical ventilation, wean as tolerated, continue antibiotic treatment, nutritional support through her gastrostomy tube. Continue with wound care and offloading her wounds. She was actually doing very well and progressing with her weaning and she was actually on a trach shield last and, she did develop some abdominal pain and vomiting, so we held the tube feed on Saturday, Saturday, Saturday and the fact she continued to have sinus tachycardia; however, she did not have any abdominal pain. The tube feeding was restarted again on Saturday and yesterday morning, she developed severe abdominal pain that led to the CT scan of the abdomen and pelvis, which revealed that the gastrostomy tube was dislodged and tube feed was going to her peritoneal cavity resulting in this transfer to [facility]. PAST MEDICAL HISTORY: Significant for spina bifida cystica with hydrocephalus requiring ventriculoperitoneal shunt. She has type 2 diabetes mellitus, developmental delay, morbid obesity, nonischemic cardiomyopathy. PAST SURGICAL HISTORY: Significant for cholecystectomy, ventriculoperitoneal shunt placement for hydrocephalus and most recently a tracheostomy tube placement as well as gastrostomy tube placement. ALLERGIES: SHE IS ALLERGIC TO MORPHINE, VERSED AND LATEX. MEDICATIONS: She is currently on the following medications: She is on cefepime 2 grams IV every 8 hours, daptomycin 800 mg IV daily, chlorhexidine 15 mL twice a day. She is on clonidine TTS patch once a week, Aricept 10 mg daily, Lovenox 40 mg subcutaneously every 12 hours, fentanyl patch 25 mcg transdermal every 72 hours. She is on furosemide 20 mg daily, Artificial tears, both eyes daily. She is on Lantus insulin 50 units subcutaneously daily; micafungin 100 mg IV daily; oxcarbazepine or Trileptal 150 mg, take 3 tablets twice a day; Protonix 40 mg once a day; polyethylene glycol 17 grams twice a day; potassium chloride 20 mEq once a day; quetiapine fumarate for Seroquel 100 mg twice a day and quetiapine fumarate 200 mg daily at nighttime. She was on propofol and also hypoglycemia protocol. She is on DuoNeb every 4 hours by nebulizer. She is n.p.o. and was on Jevity 1.5 at 40 mL per hour and 30 mL water flushes every 4 hours. FAMILY HISTORY: Noncontributory. SOCIAL HISTORY: She lives with her mother and caregiver. She does not smoke, drink alcohol or use recreational drugs. REVIEW OF SYSTEMS: The patient did complain of abdominal pain. Denied any other complaints. PHYSICAL EXAMINATION: GENERAL: On arrival to [facility]. She continued to be tachycardic, slightly tachypneic, febrile. She was pale, not jaundiced or cyanosed, no lymphadenopathy, no thyromegaly, no jugular venous distention. No limb edema. VITAL SIGNS: Her heart rate was 138, potassium 142, her blood pressure was 142/94, temperature was 100.1, respiratory rate was 22 and oxygen saturation was 92% on 8 liters by trach shield. HEAD, EYES, EARS, NOSE, AND THROAT: Normocephalic, atraumatic. NECK: Supple. HEART: Showed normal first and second heart sounds, no gallop, rub or murmur. CHEST: Shows central trachea, equal bilateral chest expansion, air entry, vesicular breath sounds with bilateral basal crepitation anteriorly. I could not appreciate any rhonchi. ABDOMEN: Distended, soft with gastrostomy tube in place. There is no guarding or rigidity. No organomegaly. All hernial orifice intact. Bowel sounds are sluggish. NEUROLOGIC: She is definitely more awake, alert, interactive and responsive, opens her eyes, tracks and responds to verbal command. She is able to move her upper extremities and used to suction. Her lab work, we did order obviously a CBC. CMP, prothrombin time and INR as well as consulted the surgical team as well as the neurosurgeon as she has a ventriculoperitoneal shunt. We have consulted the infectious disease team as well as the tube builder airplane. We will continue with all her medications including the daptomycin and meropenem as well as micafungin. Continue with Protonix for GI prophylaxis and continue with pain management. Continue with SCDs for DVT prophylaxis. ASSESSMENT AND PLAN: In summary, this is a 35-year-old female patient with spina bifida cystica and hydrocephalus for which she has a ventriculoperitoneal shunt. She was admitted with acute hypoxic respiratory failure, diagnosed with COVID-19 pneumonia as well as Pseudomonas pneumonia. She was intubated and mechanically ventilated and subsequently had a tracheostomy tube placement as well as gastrostomy tube placement for her gastrostomy tube has been dislodged and she developed sepsis, for which she was transferred to [facility] for surgical evaluation. Other problems include type 2 diabetes mellitus, morbid obesity, nonischemic cardiomyopathy and hydrocephalus for which she has got the ventriculoperitoneal shunt placement. ZHANG/CORNELL/ZULEYKA DR: Elias TID: [id number]
--- NOTE | 2021-05-24 13:38 | PN ---
DATE: 05/24/2021 SUBJECTIVE: The patient is resting, slightly propped up in bed, in no apparent distress. She is awake, alert, opens eyes, tracks and responds appropriately. PHYSICAL EXAMINATION: GENERAL: When I examined her, she was somewhat pale, but no jaundice, cyanosis or thyromegaly. No jugular venous distention. No lower limb edema. VITAL SIGNS: Her heart rate was 129, blood pressure was 142/71, temperature was 99.6, respiratory rate was 21 and oxygen saturation was 96% on 8 liters of oxygen by tracheal shield. HEAD, EYES, EARS, NOSE AND THROAT: Normocephalic, atraumatic. NECK: Supple. HEART: Showed normal first and second heart sounds, no gallop or murmur. CHEST: Chest shows central trachea, equal bilateral expansion, air entry, vesicular breath sounds with crepitation bilaterally. I could not appreciate any rhonchi. ABDOMEN: Distended, soft. There is a gastrostomy tube in place. There is no guarding or rigidity. No organomegaly. All hernial orifice intact. Bowel sounds normal. NEUROLOGIC: The patient is awake, alert, opens eyes, tracks and responds to verbal stimuli. She moves upper extremities to much good extent than lower extremities that she has spina bifida cystica with hydrocephalus requiring a ventriculoperitoneal shunt. She also has some developmental delay. Her intake and output are incompletely recorded. LABORATORY DATA: This morning showed her white cell count was 14,000, hemoglobin 10, hematocrit 31, MCV 85 and platelet count of 509,000 with a manual differential showing 64% polymorphs, 20% lymphocytes and 14% monocytes. Her serum sodium was 136, potassium 4.1, chloride 99, bicarbonate 33, anion gap of 4, BUN 7, creatinine 0.6. Estimated GFR was 136 mL per minute. Her glucose 157, calcium was 9. Lactic acid was only 0.8. Total bilirubin, AST, ALT, alkaline phosphatase were normal. Total protein was 6.7, albumin was 1.7. Her chest x-ray showed the patient has endotracheal tube tip approximately 2 cm above the phyllis. Her left-sided PICC line tip projects brachiocephalic superior vena cava junction, limited exam due to low lung volumes, airspace infiltrate bilaterally with somewhat perihilar distribution. A combination of interstitial edema, atelectasis and/or infectious infiltrate could also be present. PLAN: To keep the patient n.p.o., continue to hold the tube feeding. We will continue with IV antibiotic in the form of meropenem, micafungin as well as daptomycin. Continue to monitor her blood sugar and adjust insulin as needed. Continue with GI prophylaxis. Continue with DVT prophylaxis. Continue with Keppra at 500 mg IV q.12 hourly. Continue with Lovenox for DVT prophylaxis. I will give her more fluid boluses and await the surgical and neurosurgical decision as I spoke with the Infectious Disease specialist, and she does not think that the patient has any meningitis and that she is already covered and only solution is to get rid of the fluid out of her peritoneal cavity. She will probably eventually need to be on TPN before another gastrostomy tube put in, which is probably weeks from now. RAMILA DR: Elias TID: [id number]
[2021-05-24] MEDS: MICAFUNGIN 100 MG in IV DEXTROSE 5% 100ML 100 ML IV SCH (14:05)
[2021-05-24 15:00] VITALS: BP 114/77
--- NOTE | 2021-05-24 18:29 | NUR ---
Wound/Ostomy Care Wound Type/Assessment: Patient seen per wound care consult. See wound assessment. 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 ID consulted and is familiar with this patient. Patient does assist with turns well. Patient scheduled for surgery tomorrow for revision of PERSONN[employer]ER shunt and replacement of G-tube. Wound cleansed, assessed, and measured, there is a depth of 7.5cm. Patient does have some maceration/IAD to coccyx/buttocks area due to incontinence. Patient having multiple loose stools at this time. A&D applied. Treatment Recommendations/Plan: Recommendations to pack with 1/2 inch Iodoform gauze packing and cover with ABD pad and tape. Change daily. Wound is draining creamy drainage, wound appears clean but hard to see the base of the wound as the opening is small. A&D ointment ordered for coccyx/buttocks. Patient may need rectal tube if loose stools continue. Education provided: Patient educated on POC, PU treatment and management. Offloading surface/device: Patient to turn every 2 hours, patient does assist with turning and most movements in bed. Patient repositioned to left side using wedge. Patient has bilateral heel medix. Recommended Referrals/Tests: RN notified regarding depth of this wound, patient needs imaging if ID and Root agreeable. Dr. Cortes should also be aware of this wound prior to surgery. Discharge Recommendations for dressings: Dressing change instructions left in room. No other wounds noted. Bed lowered and call light in reach. Wound care will follow patient.
[2021-05-24 19:00] VITALS: BP 135/82
--- NOTE | 2021-05-24 20:16 | NUR ---
Left routine message with [facility] requested by wound care to consult Dr. Ng for coccyx wound near ischial tuberoscity tunneling as far as approximately 7cm in depth.
[2021-05-24] MEDS: DONEPEZIL HCL 10 MG TABLET. PEG SCH (21:00)
[2021-05-24] MEDS: QUEtiapine 100 MG TABLET. PEG SCH (21:00)
[2021-05-24 23:00] VITALS: BP 128/59
[2021-05-25] VITALS (12 sets, daily range): BP systolic 115–131; BP diastolic 65–98
[2021-05-25] MEDS: ONDANSETRON PF 4 MG/2 ML VIAL. IVP PRN (01:47)
[2021-05-25] MEDS: fentaNYL PF VIAL 100 MCG/2 ML VIAL IVP PRN ×5 (02:31→15:50)
[2021-05-25] MEDS: IV DEXTROSE 5 %-0.45 % NACL 1,000 ML IV SCH (04:01)
[2021-05-25] MEDS: ACETAMINOPHEN 650 MG SUPP.RECT. PR PRN (04:01)
[2021-05-25] MEDS: MEROPENEM 1 GM in IV NORMAL SALINE 100ML 100 ML IV SCH ×3 (05:46→23:23)
[2021-05-25] MEDS: METOCLOPRAMIDE HCL 10 MG/2 ML VIAL. IVP SCH ×3 (05:46→17:54)
[2021-05-25] MEDS ORDERED: HYDROmorphone 2 MG/ML VIAL IVP PRN (06:00)
[2021-05-25] MEDS ORDERED: fentaNYL PF VIAL 100 MCG/2 ML VIAL IVP PRN ×2 (06:00)
[2021-05-25] MEDS ORDERED: IV RINGERS,LACTATED 1000ML 1,000 ML IV SCH (06:00)
[2021-05-25] MEDS ORDERED: PROCHLORPERAZINE 10 MG/2 ML VIAL. IVP PRN (06:00)
[2021-05-25 06:26] LABS: ALBUMIN 1.7 g/dL (3.4-5.0); ALBUMIN/GLOBULIN RATIO 0.3 (1.0-1.7); CALCIUM 8.8 mg/dL (8.5-10.1); CREATININE 0.6 mg/dL (0.6-1.0); GFR 136.1; POTASSIUM 3.5 mmol/L (3.5-5.1); TOTAL BILIRUBIN 0.2 mg/dL (0.2-1.0); TOTAL PROTEIN 6.8 g/dL (6.4-8.2)
[2021-05-25 06:30] LABS: HEMATOCRIT 30.8 % (36.0-47.0); HEMOGLOBIN 9.8 g/dL (12.0-15.5); RED BLOOD COUNT 3.64 x10^6/uL (3.50-5.40); RED CELL DISTRIBUTION WIDTH 18.8 % (11.5-14.5); WHITE BLOOD COUNT 15.2 x10^3/uL (4.0-11.0)
[2021-05-25] MEDS: VENLAFAXINE 75 MG TABLET. PEG SCH ×2 (07:30→14:51)
[2021-05-25] MEDS: IPRATRPIUM/ALBUTEROL 0.5/2.5MG 3 ML NEBU. NEB SCH ×2 (07:31→11:55)
--- NOTE | 2021-05-25 07:51 | PDOC ---
Infectious Disease Note Subjective: Subjective Pt febrile has abdo pain awaiting surgery later today Vital Signs: Vital Signs Vital Signs Date Time Temp Pulse Resp B/P (MAP) Pulse Ox O2 Delivery O2 Flow Rate FiO2 05/25/21 07:34 93 Tracheal Collar 8.0 05/25/21 03:01 20 05/25/21 03:00 101.0 129 123/77 (92) 101.0 Physical Exam: PHYSICAL EXAM GENERAL: Propped up in bed, alert, nods yes and no to simple questions. HEENT: Normocephalic, atraumatic. Pupils equal, reactive. Normal conjunctivae. Oral cavity clear. NECK: Tracheostomy with few scattered rhonchi. HEART: S1, S2, tachycardia. ABDOMEN: Obese, soft. PEG tube site intact. Mild guarding on deep palpation. Left ischial wound VAC in place. EXTREMITIES: Trace edema, no cyanosis. NEUROLOGIC: Alert, awake. Answers a few questions by nodding. Follows commands. Left upper extremity PICC line without complications. Medications: Inpatient Meds: Medications reviewed. Labs: Lab Laboratory Tests Test 05/24/21 11:37 05/24/21 17:19 05/24/21 21:19 05/25/21 05:45 Glucose (Fingerstick) 130 mg/dL (70-99) 158 mg/dL (70-99) 159 mg/dL (70-99) White Blood Count 15.2 x10^3/uL (4.0-11.0) Red Blood Count 3.64 x10^6/uL (3.50-5.40) Hemoglobin 9.8 g/dL (12.0-15.5) Hematocrit 30.8 % (36.0-47.0) Mean Corpuscular Volume 85 fL (79-100) Mean Corpuscular Hemoglobin 27 pg (25-35) Mean Corpuscular Hemoglobin Concent 32 g/dL (31-37) Red Cell Distribution Width 18.8 % (11.5-14.5) Platelet Count 540 x10^3/uL (140-400) Sodium Level 141 mmol/L (136-145) Potassium Level 3.5 mmol/L (3.5-5.1) Chloride Level 103 mmol/L (98-107) Carbon Dioxide Level 32 mmol/L (21-32) Anion Gap 6 (6-14) Blood Urea Nitrogen 4 mg/dL (7-20) Creatinine 0.6 mg/dL (0.6-1.0) Estimated GFR (Cockcroft-Gault) 136.1 BUN/Creatinine Ratio 7 (6-20) Glucose Level 164 mg/dL (70-99) Calcium Level 8.8 mg/dL (8.5-10.1) Total Bilirubin 0.2 mg/dL (0.2-1.0) Aspartate Amino Transf (AST/SGOT) 25 U/L (15-37) Alanine Aminotransferase (ALT/SGPT) 24 U/L (14-59) Alkaline Phosphatase 112 U/L (46-116) Total Protein 6.8 g/dL (6.4-8.2) Albumin 1.7 g/dL (3.4-5.0) Albumin/Globulin Ratio 0.3 (1.0-1.7) Objective: Assessment: 1. Abdominal pain. 2. Dislodged gastrostomy tube. 3. Leukocytosis. 4. Nausea and vomiting, concern for possible peritonitis 5. Left ischial wound with history of osteomyelitis present on admission at [facility], was seen at [facility] 03/27. 6. Acute hypoxic respiratory failure on chronic hypoxic respiratory failure, status post tracheostomy. 7. History of Pseudomonas pansensitive and Klebsiella pneumonia, pansensitive pneumonia, 04/30. 8. Escherichia coli urinary tract infection 04/29, treated. 9. History of urinary retention. 10. COVID-19, 04/09. 11. Spina bifida. 12. Ventriculoperitoneal shunt. 13. Diabetes. 14. Morbid obesity. 15. Bipolar disorder. 16. History of seizures. Plan: Plan of Care 1. Continue daptomycin, meropenem and micafungin. 2. cont Zyvox 3. Awaiting surgery later today 4. Monitor labs and cultures. 5. Maintain aspiration precaution. 6. PICC line management. 7 Continue wound care and offloading. Discussed with Nursing staff MARIELENA LOYA MD May 25, 2021 07:50
[2021-05-25] MEDS: PANTOPRAZOLE IV PUSH 40 MG VIAL. IVP SCH (07:58)
[2021-05-25] MEDS: levETIRAcetam 500 MG in IV DEXTROSE 5% 100ML 100 ML IV SCH ×2 (07:58→23:20)
--- NOTE | 2021-05-25 08:43 | PDOC ---
PULMONARY PROGRESS NOTES DATE: 05/25/21 TIME: 08:39 Subjective Patient is resting comfortably on trach shield at 35%, nonverbal Fever overnight Night concerns from nursing Vitals Vital Signs Date Time Temp Pulse Resp B/P (MAP) Pulse Ox O2 Delivery O2 Flow Rate FiO2 05/25/21 07:34 93 Tracheal Collar 8.0 05/25/21 03:01 20 05/25/21 03:00 101.0 129 123/77 (92) 101.0 Comments Unable to report review of systems secondary to current clinical state General: Alert HEENT: Other (trach ) Lungs: Clear Cardiovascular: S1, S2 Abdomen: Soft, Other (peg) Neuro Exam: Alert Extremities: No Edema Skin: Warm Labs Laboratory Tests Test 05/24/21 01:40 05/24/21 06:50 05/24/21 11:37 05/24/21 17:19 Glucose (Fingerstick) 183 mg/dL (70-99) 130 mg/dL (70-99) 158 mg/dL (70-99) White Blood Count 14.1 x10^3/uL (4.0-11.0) Red Blood Count 3.68 x10^6/uL (3.50-5.40) Hemoglobin 10.0 g/dL (12.0-15.5) Hematocrit 31.3 % (36.0-47.0) Mean Corpuscular Volume 85 fL (79-100) Mean Corpuscular Hemoglobin 27 pg (25-35) Mean Corpuscular Hemoglobin Concent 32 g/dL (31-37) Red Cell Distribution Width 18.5 % (11.5-14.5) Platelet Count 509 x10^3/uL (140-400) Neutrophils (%) (Auto) 64 % (31-73) Lymphocytes (%) (Auto) 20 % (24-48) Monocytes (%) (Auto) 14 % (0-9) Eosinophils (%) (Auto) 3 % (0-3) Basophils (%) (Auto) 0 % (0-3) Neutrophils # (Auto) 9.0 x10^3/uL (1.8-7.7) Lymphocytes # (Auto) 2.8 x10^3/uL (1.0-4.8) Monocytes # (Auto) 1.9 x10^3/uL (0.0-1.1) Eosinophils # (Auto) 0.4 x10^3/uL (0.0-0.7) Basophils # (Auto) 0.0 x10^3/uL (0.0-0.2) Prothrombin Time 16.8 SEC (11.7-14.0) Prothromb Time International Ratio 1.4 (0.8-1.1) Sodium Level 136 mmol/L (136-145) Potassium Level 4.1 mmol/L (3.5-5.1) Chloride Level 99 mmol/L (98-107) Carbon Dioxide Level 33 mmol/L (21-32) Anion Gap 4 (6-14) Blood Urea Nitrogen 7 mg/dL (7-20) Creatinine 0.6 mg/dL (0.6-1.0) Estimated GFR (Cockcroft-Gault) 136.1 BUN/Creatinine Ratio 12 (6-20) Glucose Level 157 mg/dL (70-99) Lactic Acid Level 0.8 mmol/L (0.4-2.0) Calcium Level 9.0 mg/dL (8.5-10.1) Total Bilirubin 0.1 mg/dL (0.2-1.0) Aspartate Amino Transf (AST/SGOT) 18 U/L (15-37) Alanine Aminotransferase (ALT/SGPT) 20 U/L (14-59) Alkaline Phosphatase 76 U/L (46-116) Total Protein 6.7 g/dL (6.4-8.2) Albumin 1.7 g/dL (3.4-5.0) Albumin/Globulin Ratio 0.3 (1.0-1.7) Test 05/24/21 21:19 05/25/21 05:45 05/25/21 07:59 Glucose (Fingerstick) 159 mg/dL (70-99) 137 mg/dL (70-99) White Blood Count 15.2 x10^3/uL (4.0-11.0) Red Blood Count 3.64 x10^6/uL (3.50-5.40) Hemoglobin 9.8 g/dL (12.0-15.5) Hematocrit 30.8 % (36.0-47.0) Mean Corpuscular Volume 85 fL (79-100) Mean Corpuscular Hemoglobin 27 pg (25-35) Mean Corpuscular Hemoglobin Concent 32 g/dL (31-37) Red Cell Distribution Width 18.8 % (11.5-14.5) Platelet Count 540 x10^3/uL (140-400) Sodium Level 141 mmol/L (136-145) Potassium Level 3.5 mmol/L (3.5-5.1) Chloride Level 103 mmol/L (98-107) Carbon Dioxide Level 32 mmol/L (21-32) Anion Gap 6 (6-14) Blood Urea Nitrogen 4 mg/dL (7-20) Creatinine 0.6 mg/dL (0.6-1.0) Estimated GFR (Cockcroft-Gault) 136.1 BUN/Creatinine Ratio 7 (6-20) Glucose Level 164 mg/dL (70-99) Calcium Level 8.8 mg/dL (8.5-10.1) Total Bilirubin 0.2 mg/dL (0.2-1.0) Aspartate Amino Transf (AST/SGOT) 25 U/L (15-37) Alanine Aminotransferase (ALT/SGPT) 24 U/L (14-59) Alkaline Phosphatase 112 U/L (46-116) Total Protein 6.8 g/dL (6.4-8.2) Albumin 1.7 g/dL (3.4-5.0) Albumin/Globulin Ratio 0.3 (1.0-1.7) Laboratory Tests Test 05/24/21 11:37 05/24/21 17:19 05/24/21 21:19 05/25/21 05:45 Glucose (Fingerstick) 130 mg/dL (70-99) 158 mg/dL (70-99) 159 mg/dL (70-99) White Blood Count 15.2 x10^3/uL (4.0-11.0) Red Blood Count 3.64 x10^6/uL (3.50-5.40) Hemoglobin 9.8 g/dL (12.0-15.5) Hematocrit 30.8 % (36.0-47.0) Mean Corpuscular Volume 85 fL (79-100) Mean Corpuscular Hemoglobin 27 pg (25-35) Mean Corpuscular Hemoglobin Concent 32 g/dL (31-37) Red Cell Distribution Width 18.8 % (11.5-14.5) Platelet Count 540 x10^3/uL (140-400) Sodium Level 141 mmol/L (136-145) Potassium Level 3.5 mmol/L (3.5-5.1) Chloride Level 103 mmol/L (98-107) Carbon Dioxide Level 32 mmol/L (21-32) Anion Gap 6 (6-14) Blood Urea Nitrogen 4 mg/dL (7-20) Creatinine 0.6 mg/dL (0.6-1.0) Estimated GFR (Cockcroft-Gault) 136.1 BUN/Creatinine Ratio 7 (6-20) Glucose Level 164 mg/dL (70-99) Calcium Level 8.8 mg/dL (8.5-10.1) Total Bilirubin 0.2 mg/dL (0.2-1.0) Aspartate Amino Transf (AST/SGOT) 25 U/L (15-37) Alanine Aminotransferase (ALT/SGPT) 24 U/L (14-59) Alkaline Phosphatase 112 U/L (46-116) Total Protein 6.8 g/dL (6.4-8.2) Albumin 1.7 g/dL (3.4-5.0) Albumin/Globulin Ratio 0.3 (1.0-1.7) Test 05/25/21 07:59 Glucose (Fingerstick) 137 mg/dL (70-99) Medications Active Scripts Medications Dose Route/Sig Max Daily Dose Days Date Category Guanfacine Hcl 1 Mg Tablet 2 Mg PO BID 05/29/18 Reported Rozerem (Ramelteon) 8 Mg Tablet 16 Mg PO HS 05/29/18 Reported Clonazepam 2 Mg Tablet 2 Mg PO TID 05/29/18 Reported Venlafaxine Hcl Er (Venlafaxine Hcl) 150 Mg Cap.er.24h 150 Mg PO DAILY 05/29/18 Reported Divalproex Sodium Er (Divalproex Sodium) 500 Mg Tab.er.24h 500 Mg PO TID 05/29/18 Reported Haloperidol 2 Mg Tablet 4 Mg PO PRN QID PRN 05/29/18 Reported Acetaminophen-Codeine Solution (Acetaminophen With Codeine) 5 Ml Solution 15 Ml PO QID 05/29/18 Reported Polyethylene Glycol 3350 255 Gm Powder 17 Gm PO DAILY 08/01/17 Reported Impression . IMPRESSION: 1. Acute on chronic hypoxic respiratory failure in a patient who has history of developmental delay, hydrocephalus status post ventriculoperitoneal shunt and spina bifida cystica. She recently developed acute respiratory failure secondary to COVID-19 viral pneumonia. 2. Status post tracheostomy. She was currently been off the ventilator in the last 24 hours and has been on trach shield. 3. Aspiration pneumonia with isolation of Pseudomonas. 4. Escherichia coli urinary tract infection. 5. Ischial wound. 6. Percutaneous endoscopic gastrostomy tube dislodgement. Plan . Updated 05/25/21 Continue supplemental oxygen with trach shield at 35% Aggressive pulmonary hygiene, including suctioning Follow infectious disease recommendations in regards to antibiotics any fever, currently on meropenem, Zyvox, micafungin and daptomycin, no growth in cultures x1 day Head of bed 30 degrees Follow surgical recommendations, plan for PEG tube replacement today Wound care as ordered DVT/GI prophylaxis Discussed with RN and RT 05/24/21 RECOMMENDATIONS: 1. We will continue with present trach shield and watch her respiratory status closely. 2. P.r.n. trach suction. 3. Broad-spectrum antibiotic with daptomycin, meropenem and micafungin per Infectious Disease. 4. Lovenox for DVT prophylaxis. 5. Discussed with Dr. Gillespie. We will follow along with you as needed while in the hospital. 6. Follow surgical recommendation regarding PEG tube replacement. EFRAIN MCDOWELL APRN May 25, 2021 08:43
[2021-05-25] MEDS: ENOXAPARIN 40 MG/0.4 ML SYRINGE. SQ SCH ×2 (09:00→21:00)
[2021-05-25] MEDS: CHLORHEXIDINE 0.12% 15 ML MOUTHWASH. SWSP SCH ×2 (09:00→21:00)
--- NOTE | 2021-05-25 10:10 | NUR ---
Urine sample taken from matamoros catheter and sent for stat Urine test. Patient switched from trach shield to oxygen for transport to surgery. PEG tube unhooked from suction. Parents at bedside followed patient down to surgery.
--- NOTE | 2021-05-25 10:34 | PN ---
DATE: 05/25/2021 SUBJECTIVE: The patient is resting slightly up in bed, no apparent distress, awake, alert, opens eyes, tracks and responds appropriately. She continues to be on trach shield, maintaining her oxygen saturation at 93% on 8 liters of oxygen by trach shield. She did spike a temperature this morning up to 101 and apparently, she is scheduled for surgery today. PHYSICAL EXAMINATION: GENERAL: When I saw her, she was somewhat pale, but no jaundice, cyanosis or thyromegaly. No jugular venous distention. No limb edema. VITAL SIGNS: Her heart rate was 129, blood pressure is 125/65, temperature was 98.3, respiratory rate was 18 and oxygen saturation was 93% on 8 liters oxygen by trach shield. HEAD, EYES, EARS, NOSE, AND THROAT: Normocephalic, atraumatic. NECK: Supple. HEART: Showed normal first and second heart sounds, no gallop or murmur. CHEST: Clear to auscultation, no crepitation or rhonchi. ABDOMEN: Distended with mild diffuse tenderness. No guarding or rigidity. No organomegaly. All hernial orifice intact. Bowel sounds normal. NEUROLOGIC: She is definitely more awake, alert, opens eyes, tracks and responding appropriately. She moves upper extremities to much extent than the lower extremities. Her intake over the last 24 hours was 1300. LABORATORY DATA: As of this morning, her white cell count was up to 15,200, hemoglobin 10, hematocrit 30, MCV 85 and platelet count 540. Serum sodium was 141, potassium 3.5, chloride 109, bicarbonate 32, anion gap of 6, BUN 4, creatinine 0.6. Estimated GFR was 136 mL per minute. Her glucose 164, calcium was 8.8. Total bilirubin, AST, ALT, alkaline phosphatase were normal. Total protein 6.8, albumin was 1.7. ASSESSMENT: 1. Acute on chronic hypoxic respiratory failure. 2. Dislodged gastrostomy tube with a resultant peritonitis. 3. Aspiration pneumonia, with isolation of Pseudomonas. 4. Urinary tract infection, with Escherichia coli. 5. Ischial wound. PLAN: To continue with n.p.o. status. Continue with IV fluid. Continue with IV antibiotic. She is scheduled for a surgical treatment this morning. CORTNEY DR: Elias TID: [id number]
[2021-05-25] MEDS ORDERED: BUPIVACAINE-EPI 0.5%-1:200000 MPF 30 ML VIAL. ONE (10:45)
[2021-05-25] MEDS ORDERED: PROPOFOL 10 MG/ML (20ML) VIAL. IV ONE (11:00)
[2021-05-25] MEDS ORDERED: ONDANSETRON PF 4 MG/2 ML VIAL. ONE (11:00)
[2021-05-25] MEDS ORDERED: DEXAMETHASONE SOD PHOS 4 MG/ML VIAL ONE (11:00)
[2021-05-25] MEDS ORDERED: LIDOCAINE 2% PF 5 ML VIAL. ONE (11:00)
[2021-05-25] MEDS ORDERED: MIDAZOLAM HCL/PF 2 MG/2 ML VIAL. ONE (11:01)
[2021-05-25] MEDS ORDERED: fentaNYL PF VIAL 100 MCG/2 ML VIAL ONE ×3 (11:01→15:03)
[2021-05-25 11:02] LABS: U PREG PATIENT NEGATIVE (NEG)
[2021-05-25] MEDS: DAPTOmycin (GENERIC) IVPB 510 MG in IV NORMAL SALINE 50ML 50 ML IV SCH (11:09)
--- NOTE | 2021-05-25 11:19 | PDOC ---
SURGICAL PROGRESS NOTE DATE: 05/25/21 TIME: 11:17 Subjective Pre-Op Note 35 yo F covid recovery with gastrostomy tube dislodgement seen in preop, some abd pain, but stable tachycardia somewhat improved. TO OR for xlap, hernia repair, replacement of G-tube R/R/B/A d/w pt and pt's supportive parents. Risks, including, but not limited to: bleeding, infection, damage to surrounding structures, risk of anesthesia. Pt is at increased risk of complications given obesity and pneumonia They appear to understand, their questions are answered and they elect to proceed. D/w neurosurgery-recommended no touching shunt. Vital Signs Vital Signs Date Time Temp Pulse Resp B/P (MAP) Pulse Ox O2 Delivery O2 Flow Rate FiO2 05/25/21 10:27 98.3 120 15 123/95 99 Tracheal Collar 10 98.3 I&O Intake and Output 05/25/21 07:00 Intake Total 1605 ml Output Total 2150 ml Balance -545 ml Intake Oral 0 ml IV Total 1605 ml Output Urine Total 1000 ml Gastric Drainage Total 1100 ml Emesis 50 ml Labs Laboratory Tests Test 05/24/21 01:40 05/24/21 06:50 05/24/21 11:37 05/24/21 17:19 Glucose (Fingerstick) 183 mg/dL (70-99) 130 mg/dL (70-99) 158 mg/dL (70-99) White Blood Count 14.1 x10^3/uL (4.0-11.0) Red Blood Count 3.68 x10^6/uL (3.50-5.40) Hemoglobin 10.0 g/dL (12.0-15.5) Hematocrit 31.3 % (36.0-47.0) Mean Corpuscular Volume 85 fL (79-100) Mean Corpuscular Hemoglobin 27 pg (25-35) Mean Corpuscular Hemoglobin Concent 32 g/dL (31-37) Red Cell Distribution Width 18.5 % (11.5-14.5) Platelet Count 509 x10^3/uL (140-400) Neutrophils (%) (Auto) 64 % (31-73) Lymphocytes (%) (Auto) 20 % (24-48) Monocytes (%) (Auto) 14 % (0-9) Eosinophils (%) (Auto) 3 % (0-3) Basophils (%) (Auto) 0 % (0-3) Neutrophils # (Auto) 9.0 x10^3/uL (1.8-7.7) Lymphocytes # (Auto) 2.8 x10^3/uL (1.0-4.8) Monocytes # (Auto) 1.9 x10^3/uL (0.0-1.1) Eosinophils # (Auto) 0.4 x10^3/uL (0.0-0.7) Basophils # (Auto) 0.0 x10^3/uL (0.0-0.2) Prothrombin Time 16.8 SEC (11.7-14.0) Prothromb Time International Ratio 1.4 (0.8-1.1) Sodium Level 136 mmol/L (136-145) Potassium Level 4.1 mmol/L (3.5-5.1) Chloride Level 99 mmol/L (98-107) Carbon Dioxide Level 33 mmol/L (21-32) Anion Gap 4 (6-14) Blood Urea Nitrogen 7 mg/dL (7-20) Creatinine 0.6 mg/dL (0.6-1.0) Estimated GFR (Cockcroft-Gault) 136.1 BUN/Creatinine Ratio 12 (6-20) Glucose Level 157 mg/dL (70-99) Lactic Acid Level 0.8 mmol/L (0.4-2.0) Calcium Level 9.0 mg/dL (8.5-10.1) Total Bilirubin 0.1 mg/dL (0.2-1.0) Aspartate Amino Transf (AST/SGOT) 18 U/L (15-37) Alanine Aminotransferase (ALT/SGPT) 20 U/L (14-59) Alkaline Phosphatase 76 U/L (46-116) Total Protein 6.7 g/dL (6.4-8.2) Albumin 1.7 g/dL (3.4-5.0) Albumin/Globulin Ratio 0.3 (1.0-1.7) Test 05/24/21 21:19 05/25/21 05:45 05/25/21 07:59 05/25/21 10:06 Glucose (Fingerstick) 159 mg/dL (70-99) 137 mg/dL (70-99) White Blood Count 15.2 x10^3/uL (4.0-11.0) Red Blood Count 3.64 x10^6/uL (3.50-5.40) Hemoglobin 9.8 g/dL (12.0-15.5) Hematocrit 30.8 % (36.0-47.0) Mean Corpuscular Volume 85 fL (79-100) Mean Corpuscular Hemoglobin 27 pg (25-35) Mean Corpuscular Hemoglobin Concent 32 g/dL (31-37) Red Cell Distribution Width 18.8 % (11.5-14.5) Platelet Count 540 x10^3/uL (140-400) Sodium Level 141 mmol/L (136-145) Potassium Level 3.5 mmol/L (3.5-5.1) Chloride Level 103 mmol/L (98-107) Carbon Dioxide Level 32 mmol/L (21-32) Anion Gap 6 (6-14) Blood Urea Nitrogen 4 mg/dL (7-20) Creatinine 0.6 mg/dL (0.6-1.0) Estimated GFR (Cockcroft-Gault) 136.1 BUN/Creatinine Ratio 7 (6-20) Glucose Level 164 mg/dL (70-99) Calcium Level 8.8 mg/dL (8.5-10.1) Total Bilirubin 0.2 mg/dL (0.2-1.0) Aspartate Amino Transf (AST/SGOT) 25 U/L (15-37) Alanine Aminotransferase (ALT/SGPT) 24 U/L (14-59) Alkaline Phosphatase 112 U/L (46-116) Total Protein 6.8 g/dL (6.4-8.2) Albumin 1.7 g/dL (3.4-5.0) Albumin/Globulin Ratio 0.3 (1.0-1.7) Urine Test Negative (NEG) Test 05/25/21 10:18 Glucose (Fingerstick) 159 mg/dL (70-99) Laboratory Tests Test 05/24/21 11:37 05/24/21 17:19 05/24/21 21:19 05/25/21 05:45 Glucose (Fingerstick) 130 mg/dL (70-99) 158 mg/dL (70-99) 159 mg/dL (70-99) White Blood Count 15.2 x10^3/uL (4.0-11.0) Red Blood Count 3.64 x10^6/uL (3.50-5.40) Hemoglobin 9.8 g/dL (12.0-15.5) Hematocrit 30.8 % (36.0-47.0) Mean Corpuscular Volume 85 fL (79-100) Mean Corpuscular Hemoglobin 27 pg (25-35) Mean Corpuscular Hemoglobin Concent 32 g/dL (31-37) Red Cell Distribution Width 18.8 % (11.5-14.5) Platelet Count 540 x10^3/uL (140-400) Sodium Level 141 mmol/L (136-145) Potassium Level 3.5 mmol/L (3.5-5.1) Chloride Level 103 mmol/L (98-107) Carbon Dioxide Level 32 mmol/L (21-32) Anion Gap 6 (6-14) Blood Urea Nitrogen 4 mg/dL (7-20) Creatinine 0.6 mg/dL (0.6-1.0) Estimated GFR (Cockcroft-Gault) 136.1 BUN/Creatinine Ratio 7 (6-20) Glucose Level 164 mg/dL (70-99) Calcium Level 8.8 mg/dL (8.5-10.1) Total Bilirubin 0.2 mg/dL (0.2-1.0) Aspartate Amino Transf (AST/SGOT) 25 U/L (15-37) Alanine Aminotransferase (ALT/SGPT) 24 U/L (14-59) Alkaline Phosphatase 112 U/L (46-116) Total Protein 6.8 g/dL (6.4-8.2) Albumin 1.7 g/dL (3.4-5.0) Albumin/Globulin Ratio 0.3 (1.0-1.7) Test 05/25/21 07:59 05/25/21 10:06 05/25/21 10:18 Glucose (Fingerstick) 137 mg/dL (70-99) 159 mg/dL (70-99) Urine Test Negative (NEG) Justicifation of Admission Dx: Justifications for Admission: Justification of Admission Dx: Yes Sepsis: Hemodynamic Instability JADEN LEVINE MD May 25, 2021 11:19
[2021-05-25] MEDS ORDERED: ROCURONIUM 50 MG/5 ML VIAL. ONE ×2 (11:26→11:49)
[2021-05-25] MEDS ORDERED: PHENYLEPHRINE in 0.9% NACL PF 1 MG/10 ML SYRINGE. IV ONE (11:36)
[2021-05-25] MEDS ORDERED: SUGAMMADEX SODIUM 200 MG/2 ML VIAL. IVP ONE (11:45)
--- NOTE | 2021-05-25 12:53 | NUR ---
SW following. Discussed with RN, pt having G tube replacement and hernia repair this morning. Plan is to return to [facility] on discharge. SW to fax updates this afternoon or tomorrow morning. SW will continue to follow.
[2021-05-25] MEDS ORDERED: MORPHINE SULFATE 2 MG/ML INJ. IV PRN (13:00)
[2021-05-25] MEDS ORDERED: ENOXAPARIN 40 MG/0.4 ML SYRINGE. SQ SCH (13:00)
[2021-05-25] MEDS ORDERED: NALOXONE 0.4 MG/ML VIAL. IV PRN (13:00)
[2021-05-25] MEDS ORDERED: 0.9 % SODIUM CHLORIDE 10 ML DISP.SYRIN. IV PRN (13:00)
[2021-05-25] MEDS ORDERED: IV NORMAL SALINE 1000ML BAG 1,000 ML IV SCH (13:00)
[2021-05-25] MEDS ORDERED: HYDROmorphone 2 MG/ML VIAL ONE (13:02)
--- NOTE | 2021-05-25 13:05 | PDOC4 ---
OPERATIVE NOTE Date: Date: May 25, 2021 Pre-Op Diagnosis: Dislodged Gastrostomy tube Post-Op Diagnosis: same Procedure Performed: Replacement of gastrostomy tube Surgeon: Tuan Levine Anesthesia Type: GETA Blood Loss: 300 Specimans Obtained: omentum Findings: obliteration of surgical planes, morbid obesity, previous gastrotomy appears sealed, no obvious abscess, palpable hernia (but not addressed secondary to extensive inflammation, not containing bowel and poor tissue quality), inability to review other structures, secondary to obliteration of planes. Peritoneal portion of [employer] shunt noted, without obvious defect and maintained during procedure and uninjured. Complications: none Operative Note: After obtaining informed consent, patient was taken to OR, induced under GETA and prepped in the usual fashion. Upper midline incision was made with cautery. Large abdominal wall. Fascia divided in midline. Obliteration of surgical planes. Transverse colon partially seen and appears normal and uninjured. Previous gastrostomy tube appeared to be in omentum outside stomach and removed and sent to pathology. Stomach identified by palpation of NGT. Air blown via NGT not visualized, c/w healed previous gastrotomy. New gastrotomy created with cautery and 24 F gastrostomy tube introduced under direct vision. 3 0 vicryl pursestring placed and 3 0 vicryl used to tack to anterior abdominal wall. Balloon inflated. Copious irrigation. No evidence of bleeding or other pathology noted. Fascia repaired with 0 looped PDS. Skin repaired with 3 0 vicryl and 4 0 monocryl. [place] left in wound and secured with 3 0 nylon. Dressing placed. Patient tolerated procedure well and sent to PACU in stable condition. All counts correct. Wound class is dirty, 4. JADEN LEVINE MD May 25, 2021 13:05
--- NOTE | 2021-05-25 14:15 | RAD ---
EXAM: ABDOMEN ONE VIEW. HISTORY: G-tube replacement. COMPARISON: 05/23/2021. FINDINGS: A frontal view of the abdomen is obtained. A gastrostomy catheter projects over the upper a bdomen. A surgical drain is noted in the right abdomen. A ventriculoperitoneal shunt catheter is note d. No clear retained surgical object is identified. There are no distended small bowel loops. There is gas distally. IMPRESSION: 1. No clear retained surgical object. Refer to recent CT for more information. Electronically signed by: Joe Ibanez MD (05/25/2021 2:13 PM) [id number]
[2021-05-25] MEDS: MICAFUNGIN 100 MG in IV DEXTROSE 5% 100ML 100 ML IV SCH (14:29)
--- NOTE | 2021-05-25 17:30 | NUR ---
Patient admit from PACU, alert on ventilator. Surgical dressings CDI. G tube to LIS, vital signs WNl on 40% fio2. Updated patients bladimir Rizzo.
[2021-05-25] MEDS: IV RINGERS,LACTATED 1000ML 1,000 ML IV SCH ×2 (17:55→23:00)
[2021-05-25] MEDS: QUEtiapine 100 MG TABLET. PEG SCH (21:00)
[2021-05-25] MEDS: DONEPEZIL HCL 10 MG TABLET. PEG SCH (21:00)
[2021-05-26] VITALS (15 sets, daily range): BP systolic 115–140; BP diastolic 73–96
[2021-05-26] MEDS: MEROPENEM 1 GM in IV NORMAL SALINE 100ML 100 ML IV SCH ×3 (06:23→23:03)
[2021-05-26] MEDS: METOCLOPRAMIDE HCL 10 MG/2 ML VIAL. IVP SCH ×5 (06:23→23:06)
[2021-05-26] MEDS: VENLAFAXINE 75 MG TABLET. PEG SCH ×2 (07:30→16:22)
[2021-05-26 08:07] LABS: BASE EXCESS ABG 5 mmol/L (-3-3); HCO3 ABG 27 mmol/L (21-28); PCO2 ABG 32 mmHg (35-46); PO2 ABG 109 mmHg (85-108); SAT O2 ABG 98 % (92-99)
--- NOTE | 2021-05-26 08:44 | PDOC ---
SURGICAL PROGRESS NOTE DATE: 05/26/21 TIME: 08:42 Subjective Patient awake. Nods to answer questions Vital Signs Vital Signs Date Time Temp Pulse Resp B/P (MAP) Pulse Ox O2 Delivery O2 Flow Rate FiO2 05/26/21 07:23 100 Ventilator 05/25/21 18:30 116 20 115/98 (104) 05/25/21 17:30 100.2 100.2 05/25/21 10:27 10 I&O Intake and Output 05/26/21 07:00 Intake Total 150 ml Output Total 1550 ml Balance -1400 ml IV Total 150 ml Output Urine Total 1250 ml Estimated Blood Loss 300 ml PATIENT HAS A BERNABE: Yes General: Alert, Cooperative, mild distress Abdomen: Soft, Other (Wounds clean dry and intact mild incisional tenderness) Extremities: No edema Labs Laboratory Tests Test 05/24/21 11:37 05/24/21 17:19 05/24/21 21:19 05/25/21 05:45 Glucose (Fingerstick) 130 mg/dL (70-99) 158 mg/dL (70-99) 159 mg/dL (70-99) White Blood Count 15.2 x10^3/uL (4.0-11.0) Red Blood Count 3.64 x10^6/uL (3.50-5.40) Hemoglobin 9.8 g/dL (12.0-15.5) Hematocrit 30.8 % (36.0-47.0) Mean Corpuscular Volume 85 fL (79-100) Mean Corpuscular Hemoglobin 27 pg (25-35) Mean Corpuscular Hemoglobin Concent 32 g/dL (31-37) Red Cell Distribution Width 18.8 % (11.5-14.5) Platelet Count 540 x10^3/uL (140-400) Sodium Level 141 mmol/L (136-145) Potassium Level 3.5 mmol/L (3.5-5.1) Chloride Level 103 mmol/L (98-107) Carbon Dioxide Level 32 mmol/L (21-32) Anion Gap 6 (6-14) Blood Urea Nitrogen 4 mg/dL (7-20) Creatinine 0.6 mg/dL (0.6-1.0) Estimated GFR (Cockcroft-Gault) 136.1 BUN/Creatinine Ratio 7 (6-20) Glucose Level 164 mg/dL (70-99) Calcium Level 8.8 mg/dL (8.5-10.1) Total Bilirubin 0.2 mg/dL (0.2-1.0) Aspartate Amino Transf (AST/SGOT) 25 U/L (15-37) Alanine Aminotransferase (ALT/SGPT) 24 U/L (14-59) Alkaline Phosphatase 112 U/L (46-116) Total Protein 6.8 g/dL (6.4-8.2) Albumin 1.7 g/dL (3.4-5.0) Albumin/Globulin Ratio 0.3 (1.0-1.7) Test 05/25/21 07:59 05/25/21 10:06 05/25/21 10:18 05/25/21 14:01 Glucose (Fingerstick) 137 mg/dL (70-99) 159 mg/dL (70-99) 138 mg/dL (70-99) Urine Test Negative (NEG) Laboratory Tests Test 05/25/21 10:06 05/25/21 10:18 05/25/21 14:01 Urine Test Negative (NEG) Glucose (Fingerstick) 159 mg/dL (70-99) 138 mg/dL (70-99) Assessment/Plan Status post gastrostomy tube placement ventral hernia repair. Good urine output awaiting return of bowel function Justicifation of Admission Dx: Justifications for Admission: Justification of Admission Dx: Yes Sepsis: Hemodynamic Instability SAKINA CEVALLOS MD May 26, 2021 08:44
[2021-05-26] MEDS: ENOXAPARIN 40 MG/0.4 ML SYRINGE. SQ SCH ×2 (09:00→23:02)
[2021-05-26] MEDS: PANTOPRAZOLE IV PUSH 40 MG VIAL. IVP SCH (09:21)
[2021-05-26] MEDS: levETIRAcetam 500 MG in IV DEXTROSE 5% 100ML 100 ML IV SCH ×2 (09:23→21:50)
[2021-05-26] MEDS: fentaNYL PF VIAL 100 MCG/2 ML VIAL IVP PRN ×2 (09:25→16:12)
[2021-05-26] MEDS: IV DEXTROSE 5 %-0.45 % NACL 1,000 ML IV SCH ×4 (09:27→19:45)
--- NOTE | 2021-05-26 09:28 | PDOC ---
Infectious Disease Note Subjective: Subjective Patient underwent surgery yesterday Transferred to ICU last p.m. has abdo pain Temperature 100.2 Vital Signs: Vital Signs Vital Signs Date Time Temp Pulse Resp B/P (MAP) Pulse Ox O2 Delivery O2 Flow Rate FiO2 05/26/21 07:23 100 Ventilator 05/25/21 18:30 116 20 115/98 (104) 05/25/21 17:30 100.2 100.2 05/25/21 10:27 10 Physical Exam: PHYSICAL EXAM GENERAL: alert, nods yes and no to simple questions. Appears comfortable HEENT: Normocephalic, atraumatic. Pupils equal, reactive. Normal conjunctivae. Oral cavity clear. NECK: Tracheostomy with few scattered rhonchi. HEART: S1, S2, tachycardia. ABDOMEN: Obese, soft. Large intraoperative dressing in place, not taken down Left ischial wound packed per rn,not examined today EXTREMITIES: Trace edema, no cyanosis. NEUROLOGIC: Alert, awake. Answers a few questions by nodding. Follows commands. Left upper extremity PICC line without complications. Medications: Inpatient Meds: Medications reviewed. Labs: Lab Laboratory Tests Test 05/25/21 10:06 05/25/21 10:18 05/25/21 14:01 Urine Test Negative (NEG) Glucose (Fingerstick) 159 mg/dL (70-99) 138 mg/dL (70-99) Objective: Assessment: 1. Abdominal pain. 2. Dislodged gastrostomy tube. 3. Leukocytosis. 4. Nausea and vomiting, concern for possible peritonitis 5. Left ischial wound with history of osteomyelitis present on admission at [facility], was seen at [facility] 03/27. 6. Acute hypoxic respiratory failure on chronic hypoxic respiratory failure, status post tracheostomy. 7. History of Pseudomonas pansensitive and Klebsiella pneumonia, pansensitive pneumonia, 04/30. 8. Escherichia coli urinary tract infection 04/29, treated. 9. History of urinary retention. 10. COVID-19, 04/09. 11. Spina bifida. 12. Ventriculoperitoneal shunt. 13. Diabetes. 14. Morbid obesity. 15. Bipolar disorder. 16. History of seizures. Plan: Plan of Care 1. Continue daptomycin, meropenem and micafungin. 2. DC Zyvox 3. Surgical wound care as directed 4. Monitor labs and cultures. 5. Maintain aspiration precaution. 6. PICC line management. 7 Continue left ischial wound care and offloading. Discussed with Nursing staff MARIELENA LOYA MD May 26, 2021 09:28
[2021-05-26] MEDS: CHLORHEXIDINE 0.12% 15 ML MOUTHWASH. SWSP SCH ×2 (09:39→23:02)
[2021-05-26] MEDS: INSULIN GLARGINE SYRINGE. SQ SCH ×3 (09:39→09:41)
--- NOTE | 2021-05-26 10:03 | PDOC ---
PULMONARY PROGRESS NOTES DATE: 05/26/21 TIME: 10:01 Subjective Patient was placed on assist control mode after coming back from surgery. No obvious respiratory distress. She is nonverbal. Vitals Vital Signs Date Time Temp Pulse Resp B/P (MAP) Pulse Ox O2 Delivery O2 Flow Rate FiO2 05/26/21 09:25 16 95 Tracheal Collar 05/26/21 06:00 118 119/77 (91) 05/26/21 04:00 99.3 99.3 05/25/21 10:27 10 Comments Unable to report review of systems secondary to current clinical state General: Alert HEENT: Other (trach ) Lungs: Clear Cardiovascular: S1, S2 Abdomen: Soft, Other (peg) Neuro Exam: Alert Extremities: No Edema Skin: Warm Labs Laboratory Tests Test 05/24/21 11:37 05/24/21 17:19 05/24/21 21:19 05/25/21 05:45 Glucose (Fingerstick) 130 mg/dL (70-99) 158 mg/dL (70-99) 159 mg/dL (70-99) White Blood Count 15.2 x10^3/uL (4.0-11.0) Red Blood Count 3.64 x10^6/uL (3.50-5.40) Hemoglobin 9.8 g/dL (12.0-15.5) Hematocrit 30.8 % (36.0-47.0) Mean Corpuscular Volume 85 fL (79-100) Mean Corpuscular Hemoglobin 27 pg (25-35) Mean Corpuscular Hemoglobin Concent 32 g/dL (31-37) Red Cell Distribution Width 18.8 % (11.5-14.5) Platelet Count 540 x10^3/uL (140-400) Sodium Level 141 mmol/L (136-145) Potassium Level 3.5 mmol/L (3.5-5.1) Chloride Level 103 mmol/L (98-107) Carbon Dioxide Level 32 mmol/L (21-32) Anion Gap 6 (6-14) Blood Urea Nitrogen 4 mg/dL (7-20) Creatinine 0.6 mg/dL (0.6-1.0) Estimated GFR (Cockcroft-Gault) 136.1 BUN/Creatinine Ratio 7 (6-20) Glucose Level 164 mg/dL (70-99) Calcium Level 8.8 mg/dL (8.5-10.1) Total Bilirubin 0.2 mg/dL (0.2-1.0) Aspartate Amino Transf (AST/SGOT) 25 U/L (15-37) Alanine Aminotransferase (ALT/SGPT) 24 U/L (14-59) Alkaline Phosphatase 112 U/L (46-116) Total Protein 6.8 g/dL (6.4-8.2) Albumin 1.7 g/dL (3.4-5.0) Albumin/Globulin Ratio 0.3 (1.0-1.7) Test 05/25/21 07:59 05/25/21 10:06 05/25/21 10:18 05/25/21 14:01 Glucose (Fingerstick) 137 mg/dL (70-99) 159 mg/dL (70-99) 138 mg/dL (70-99) Urine Test Negative (NEG) Test 05/26/21 09:35 Glucose (Fingerstick) 159 mg/dL (70-99) Laboratory Tests Test 05/25/21 10:06 05/25/21 10:18 05/25/21 14:01 05/26/21 09:35 Urine Test Negative (NEG) Glucose (Fingerstick) 159 mg/dL (70-99) 138 mg/dL (70-99) 159 mg/dL (70-99) Medications Active Scripts Medications Dose Route/Sig Max Daily Dose Days Date Category Guanfacine Hcl 1 Mg Tablet 2 Mg PO BID 05/29/18 Reported Rozerem (Ramelteon) 8 Mg Tablet 16 Mg PO HS 05/29/18 Reported Clonazepam 2 Mg Tablet 2 Mg PO TID 05/29/18 Reported Venlafaxine Hcl Er (Venlafaxine Hcl) 150 Mg Cap.er.24h 150 Mg PO DAILY 05/29/18 Reported Divalproex Sodium Er (Divalproex Sodium) 500 Mg Tab.er.24h 500 Mg PO TID 05/29/18 Reported Haloperidol 2 Mg Tablet 4 Mg PO PRN QID PRN 05/29/18 Reported Acetaminophen-Codeine Solution (Acetaminophen With Codeine) 5 Ml Solution 15 Ml PO QID 05/29/18 Reported Polyethylene Glycol 3350 255 Gm Powder 17 Gm PO DAILY 08/01/17 Reported Impression . IMPRESSION: 1. Acute on chronic hypoxic respiratory failure in a patient who has history of developmental delay, hydrocephalus status post ventriculoperitoneal shunt and spina bifida cystica. She recently developed acute respiratory failure secondary to COVID-19 viral pneumonia. 2. Status post tracheostomy. She was currently been off the ventilator in the last 24 hours and has been on trach shield. 3. Aspiration pneumonia with isolation of Pseudomonas. 4. Escherichia coli urinary tract infection. 5. Ischial wound. 6. Percutaneous endoscopic gastrostomy tube dislodgement. 7. Operative note;obliteration of surgical planes, morbid obesity, previous gastrotomy appears sealed, no obvious abscess, palpable hernia (but not addressed secondary to extensive inflammation, not containing bowel and poor tissue quality), inability to review other structures, secondary to obliteration of planes. Peritoneal portion of HISTORICAL RECORDS ADMINISTRATOR shunt noted, without obvious defect and maintained during procedure and uninjured. Plan . Updated 05/26/21 Patient was placed on assist control mode after recovering from surgery. We will place her back on trach shield. Aggressive pulmonary hygiene, including suctioning Follow infectious disease recommendations in regards to antibiotics any fever, currently on meropenem, Zyvox, micafungin and daptomycin, no growth in cultures x1 day Head of bed 30 degrees Follow surgical recommendations, Wound care as ordered DVT/GI prophylaxis Discussed with RN and RT Updated 05/25/21 Continue supplemental oxygen with trach shield at 35% Aggressive pulmonary hygiene, including suctioning Follow infectious disease recommendations in regards to antibiotics any fever, currently on meropenem, Zyvox, micafungin and daptomycin, no growth in cultures x1 day Head of bed 30 degrees Follow surgical recommendations, plan for PEG tube replacement today Wound care as ordered DVT/GI prophylaxis Discussed with RN and RT 05/24/21 RECOMMENDATIONS: 1. We will continue with present trach shield and watch her respiratory status closely. 2. P.r.n. trach suction. 3. Broad-spectrum antibiotic with daptomycin, meropenem and micafungin per Infectious Disease. 4. Lovenox for DVT prophylaxis. 5. Discussed with Dr. Gillespie. We will follow along with you as needed while in the hospital. 6. Follow surgical recommendation regarding PEG tube replacement. QUINTON OSWALD MD May 26, 2021 10:03
[2021-05-26 11:00] LABS: FIO2 ABG 40%
--- NOTE | 2021-05-26 11:44 | NUR ---
SS following for discharge planning. SS reviewed pt chart and discussed with pt RN. Pt is from [facility], ; fax [phone]. Pt had surgery on 05/25/2021. Pt now on trach collar. Pt on IV Micafungin, IV Daptomycin, and IV Meropenem. SS phoned and faxed clinical updates to [facility]. Pt transferring to room 536. Betsy CHAVEZ, to follow.
[2021-05-26] MEDS: IPRATRPIUM/ALBUTEROL 0.5/2.5MG 3 ML NEBU. NEB SCH ×3 (12:11→20:24)
[2021-05-26] MEDS: DAPTOmycin (GENERIC) IVPB 510 MG in IV NORMAL SALINE 50ML 50 ML IV SCH (12:35)
[2021-05-26] MEDS: MICAFUNGIN 100 MG in IV DEXTROSE 5% 100ML 100 ML IV SCH (12:36)
[2021-05-26 13:09] LABS: BASO # 0.1 x10^3/uL (0.0-0.2); BASO % 0 % (0-3); EOS % 0 % (0-3); HEMATOCRIT 29.2 % (36.0-47.0); HEMOGLOBIN 9.4 g/dL (12.0-15.5); LYMPH # 2.2 x10^3/uL (1.0-4.8); LYMPH % 15 % (24-48); MEAN CORPUSCULAR HEMOGLOBIN 27 pg (25-35); MEAN CORPUSCULAR HGB CONC 32 g/dL (31-37); MEAN CORPUSCULAR VOLUME 84 fL (79-100); MONO # 1.2 x10^3/uL (0.0-1.1); MONO % 8 % (0-9); NEUT # 11.7 x10^3/uL (1.8-7.7); NEUT % 77 % (31-73); PLATELET COUNT 542 x10^3/uL (140-400); RED BLOOD COUNT 3.47 x10^6/uL (3.50-5.40); RED CELL DISTRIBUTION WIDTH 18.8 % (11.5-14.5); WHITE BLOOD COUNT 15.2 x10^3/uL (4.0-11.0)
[2021-05-26 13:24] LABS: MAGNESIUM 1.6 mg/dL (1.8-2.4); PHOSPHORUS 4.5 mg/dL (2.6-4.7)
[2021-05-26 13:27] LABS: ALBUMIN 1.5 g/dL (3.4-5.0); ALBUMIN/GLOBULIN RATIO 0.3 (1.0-1.7); CALCIUM 8.4 mg/dL (8.5-10.1); CREATININE 0.6 mg/dL (0.6-1.0); GFR 136.1; POTASSIUM 3.2 mmol/L (3.5-5.1); TOTAL BILIRUBIN 0.2 mg/dL (0.2-1.0); TOTAL PROTEIN 6.5 g/dL (6.4-8.2)
--- NOTE | 2021-05-26 13:27 | PN ---
DATE: 05/26/2021 SUBJECTIVE: The patient is resting, slightly propped up in bed, in no apparent distress. She is on mechanical ventilation, maintaining her oxygen saturation at 100% on FiO2 of 40%. She is awake, alert. On questioning her, she did point pain in her abdominal wall. She underwent surgical removal of her old gastrostomy tube with a new gastrostomy tube replaced, with copious irrigation of the peritoneal cavity. PHYSICAL EXAMINATION: GENERAL: When I examined her this morning, she was pale, no jaundice, cyanosis or thyromegaly. No jugular venous distention. No lower limb edema. VITAL SIGNS: Her heart rate was 119, blood pressure was 115/98, her temperature was 100.2, respiratory rate was 20 and her oxygen saturation was 100%. HEAD, EYES, EARS, NOSE AND THROAT: Normocephalic, atraumatic. NECK: Supple with tracheostomy tube in place. HEART: Showed normal first and second heart sounds. No gallop or murmur. CHEST: Shows central trachea, equal bilateral chest expansion, air entry, vesicular breath sounds. No crepitation or rhonchi. ABDOMEN: Distended, soft, nontender. NEUROLOGIC: She is awake, alert, opens eyes, tracks and responds appropriately. All her cranial nerves are grossly intact. She moves upper extremities without difficulty. She has paraplegia due to spina bifida. She has an indwelling Bass catheter. LABORATORY DATA: Still pending at the time of this dictation. ASSESSMENT: 1. Traumatic dislodgement of the gastrostomy tube, status post gastrostomy tube placement and ventral hernia repair. 2. Acute hypoxic respiratory failure for which she is now on mechanical ventilation, maintaining her oxygen saturation 100% on FiO2 of 40%. 3. Aspiration pneumonia with isolation of Pseudomonas. 4. Urinary tract infection with Escherichia coli. 5. Ischial wound. 6. 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 PLAN: To continue mechanical ventilation, wean as tolerated. Continue with TPN for nutritional support. Continue with Keppra for her seizure disorder. Continue with Lovenox for DVT prophylaxis. Continue with pain management. Continue with IV linezolid, daptomycin as well as micafungin and meropenem. Continue to monitor blood sugar and adjust insulin as needed. ZHANG/CON DR: Elias TID: [id number]
[2021-05-26] MEDS: TPN PER PHARMACY MC PRN (14:37)
--- NOTE | 2021-05-26 14:37 | NUR ---
Pharmacy TPN Dosing Note S: MINOR,JANEE De La Cruz is a 35 year old F Currently receiving Central Continuous TPN started 05/26/21 B:Pertinent PMH: g-tube displacement Height: 5 feet, 5 inches Weight: 125 kg Current diet: NPO LABS: Sodium: 136 Potassium: 3.2 Chloride: 101 Calcium: 8.4 Corrected Calcium: 10.40 Magnesium: 1.6 CO2: 29 SCr: 0.6 Glucose: 187, 190 Albumin: 1.5 AST: 18 ALT: 55 TPN FORMULA: TPN TYPE: Central Continuous AMINO ACIDS: 60 gm DEXTROSE: 195 gm LIPIDS: 20 gm SODIUM CHLORIDE: 90 mEq POTASSIUM CHLORIDE: 50 mEq POTASSIUM PHOSPHATE: 13.6 mmol MAGNESIUM: 10 mEq CALCIUM: 10 mEq MULTIPLE VITAMIN: 5 ml TRACE ELEMENTS: 1 ml TPN PLAN: -Start TPN for nutrition due to lack of bowel sounds. Start standard TPN formula. -BMP, mag, phos, TG. R: Begin TPN @ 63 mL/hr and above formula. Will monitor electrolytes, glucose, and tolerance to TPN. VANESSA ROBERSON [facility], 05/26/21 [id number]
--- NOTE | 2021-05-26 14:53 | NUR ---
Patient transfer to room 536. Telephone report given to Lacho Woodson. Plan of Care reviewed. Patient transported by this nurse with all of belongings with patient at time of transfer.
[2021-05-26] MEDS ORDERED: MAGNESIUM SULFATE 2GM 50 ML IV ONE (15:00)
[2021-05-26] MEDS: POTASSIUM CHLORIDE 20MEQ 100 ML IV SCH ×2 (15:50→17:18)
--- NOTE | 2021-05-26 17:11 | PATHOLOGY ---
[facility] Accession Number: [id number] . 01 Material submitted: . body - G TUBE . 01 Clinical history: . G TUBE DISPLACEMENT G TUBE REPLACEMENT . 02 Diagnosis: Gross diagnosis only: - G-tube. (SHA:[facility]; 05/26/2021) S 05/26/2021 1636 Local . 02 Electronically signed: . Po Hoover MD, Pathologist NPI- [id number] . 01 Gross description: . The specimen is received fresh, labeled "Eileen Minor, G-tube". Received is a segment of clear to opaque tubing measuring 54.3 cm in length by 0.7 cm in diameter with an attached valve measuring 9.5 cm in length and ranges in diameter from 0.8-1.5 cm. There is also a plastic white clamp identified measuring 3.9 x 2.2 x 1.8 cm. A gross photograph is taken. Sections are not submitted. ([facility]; 05/26/2021) QAC/QA 05/26/2021 1028 Local . 02 Pathologist provided ICD-10: Z46.59 . 02 CPT . 866656 Specimen Comment: A courtesy copy of this report has been sent to [phone] Specimen Comment: [phone], Specimen Comment: Report sent to , DR MENENDEZ / DR CERVANTES Specimen Comment: A duplicate report has been generated due to demographic updates. Performed at: 01 [facility] [address], [place] [id number] MD Po Hoover MD Phone: [phone] Performed at: 02 [facility] [address], [place] [id number] MD Nathan Guerrero MD Phone: [phone]
[2021-05-26] MEDS: QUEtiapine 100 MG TABLET. PEG SCH (21:00)
[2021-05-26] MEDS: DONEPEZIL HCL 10 MG TABLET. PEG SCH (21:00)
[2021-05-26] MEDS ORDERED: TOTAL PARENTERAL NUTRITION 1,429.9614 ML, AMINO ACID 15% 60 GM, DEXTROSE 70 % IN WATER ... IV SCH (22:00)
[2021-05-27] VITALS (7 sets, daily range): BP systolic 139–158; BP diastolic 68–99
[2021-05-27] MEDS: IV DEXTROSE 5 %-0.45 % NACL 1,000 ML IV SCH (03:45)
[2021-05-27] MEDS: IPRATRPIUM/ALBUTEROL 0.5/2.5MG 3 ML NEBU. NEB SCH ×4 (06:19→19:38)
[2021-05-27] MEDS: MEROPENEM 1 GM in IV NORMAL SALINE 100ML 100 ML IV SCH ×3 (06:29→23:13)
[2021-05-27] MEDS: METOCLOPRAMIDE HCL 10 MG/2 ML VIAL. IVP SCH ×3 (06:29→17:59)
[2021-05-27] MEDS: VENLAFAXINE 75 MG TABLET. PEG SCH ×2 (07:30→16:30)
[2021-05-27] MEDS ORDERED: cloNIDine TTS-1 1 PATCH PATCH.TDWK TD SCH (09:00)
--- NOTE | 2021-05-27 09:10 | PDOC ---
PULMONARY PROGRESS NOTES DATE: 05/27/21 TIME: 09:09 Subjective Patient remains on trach shield. Patient does not verbalize Vitals Vital Signs Date Time Temp Pulse Resp B/P (MAP) Pulse Ox O2 Delivery O2 Flow Rate FiO2 05/27/21 06:17 100 Tracheal Collar 8.0 05/27/21 04:00 98.9 144 24 139/89 (106) 98.9 Comments Unable to report review of systems secondary to current clinical state HEENT: Other (trach ) Lungs: Clear Cardiovascular: S1, S2 Abdomen: Soft Extremities: No Edema Skin: Warm Labs Laboratory Tests Test 05/25/21 10:06 05/25/21 10:18 05/25/21 14:01 05/26/21 07:35 Urine Test Negative (NEG) Glucose (Fingerstick) 159 mg/dL (70-99) 138 mg/dL (70-99) O2 Saturation 98 % (92-99) Arterial Blood pH 7.54 (7.35-7.45) Arterial Blood pCO2 at Patient Temp 32 mmHg (35-46) Arterial Blood pO2 at Patient Temp 109 mmHg (85-108) Arterial Blood HCO3 27 mmol/L (21-28) Arterial Blood Base Excess 5 mmol/L (-3-3) FiO2 40% Test 05/26/21 09:35 05/26/21 13:00 05/26/21 13:51 05/26/21 17:25 Glucose (Fingerstick) 159 mg/dL (70-99) 190 mg/dL (70-99) 164 mg/dL (70-99) White Blood Count 15.2 x10^3/uL (4.0-11.0) Red Blood Count 3.47 x10^6/uL (3.50-5.40) Hemoglobin 9.4 g/dL (12.0-15.5) Hematocrit 29.2 % (36.0-47.0) Mean Corpuscular Volume 84 fL (79-100) Mean Corpuscular Hemoglobin 27 pg (25-35) Mean Corpuscular Hemoglobin Concent 32 g/dL (31-37) Red Cell Distribution Width 18.8 % (11.5-14.5) Platelet Count 542 x10^3/uL (140-400) Neutrophils (%) (Auto) 77 % (31-73) Lymphocytes (%) (Auto) 15 % (24-48) Monocytes (%) (Auto) 8 % (0-9) Eosinophils (%) (Auto) 0 % (0-3) Basophils (%) (Auto) 0 % (0-3) Neutrophils # (Auto) 11.7 x10^3/uL (1.8-7.7) Lymphocytes # (Auto) 2.2 x10^3/uL (1.0-4.8) Monocytes # (Auto) 1.2 x10^3/uL (0.0-1.1) Eosinophils # (Auto) 0.0 x10^3/uL (0.0-0.7) Basophils # (Auto) 0.1 x10^3/uL (0.0-0.2) Sodium Level 136 mmol/L (136-145) Potassium Level 3.2 mmol/L (3.5-5.1) Chloride Level 101 mmol/L (98-107) Carbon Dioxide Level 29 mmol/L (21-32) Anion Gap 6 (6-14) Blood Urea Nitrogen 6 mg/dL (7-20) Creatinine 0.6 mg/dL (0.6-1.0) Estimated GFR (Cockcroft-Gault) 136.1 BUN/Creatinine Ratio 10 (6-20) Glucose Level 187 mg/dL (70-99) Calcium Level 8.4 mg/dL (8.5-10.1) Phosphorus Level 4.5 mg/dL (2.6-4.7) Magnesium Level 1.6 mg/dL (1.8-2.4) Total Bilirubin 0.2 mg/dL (0.2-1.0) Aspartate Amino Transf (AST/SGOT) 18 U/L (15-37) Alanine Aminotransferase (ALT/SGPT) 15 U/L (14-59) Alkaline Phosphatase 77 U/L (46-116) Creatine Kinase 289 U/L (26-192) Total Protein 6.5 g/dL (6.4-8.2) Albumin 1.5 g/dL (3.4-5.0) Albumin/Globulin Ratio 0.3 (1.0-1.7) Test 05/26/21 20:17 05/27/21 07:27 Glucose (Fingerstick) 121 mg/dL (70-99) 163 mg/dL (70-99) Laboratory Tests Test 05/26/21 09:35 05/26/21 13:00 05/26/21 13:51 05/26/21 17:25 Glucose (Fingerstick) 159 mg/dL (70-99) 190 mg/dL (70-99) 164 mg/dL (70-99) White Blood Count 15.2 x10^3/uL (4.0-11.0) Red Blood Count 3.47 x10^6/uL (3.50-5.40) Hemoglobin 9.4 g/dL (12.0-15.5) Hematocrit 29.2 % (36.0-47.0) Mean Corpuscular Volume 84 fL (79-100) Mean Corpuscular Hemoglobin 27 pg (25-35) Mean Corpuscular Hemoglobin Concent 32 g/dL (31-37) Red Cell Distribution Width 18.8 % (11.5-14.5) Platelet Count 542 x10^3/uL (140-400) Neutrophils (%) (Auto) 77 % (31-73) Lymphocytes (%) (Auto) 15 % (24-48) Monocytes (%) (Auto) 8 % (0-9) Eosinophils (%) (Auto) 0 % (0-3) Basophils (%) (Auto) 0 % (0-3) Neutrophils # (Auto) 11.7 x10^3/uL (1.8-7.7) Lymphocytes # (Auto) 2.2 x10^3/uL (1.0-4.8) Monocytes # (Auto) 1.2 x10^3/uL (0.0-1.1) Eosinophils # (Auto) 0.0 x10^3/uL (0.0-0.7) Basophils # (Auto) 0.1 x10^3/uL (0.0-0.2) Sodium Level 136 mmol/L (136-145) Potassium Level 3.2 mmol/L (3.5-5.1) Chloride Level 101 mmol/L (98-107) Carbon Dioxide Level 29 mmol/L (21-32) Anion Gap 6 (6-14) Blood Urea Nitrogen 6 mg/dL (7-20) Creatinine 0.6 mg/dL (0.6-1.0) Estimated GFR (Cockcroft-Gault) 136.1 BUN/Creatinine Ratio 10 (6-20) Glucose Level 187 mg/dL (70-99) Calcium Level 8.4 mg/dL (8.5-10.1) Phosphorus Level 4.5 mg/dL (2.6-4.7) Magnesium Level 1.6 mg/dL (1.8-2.4) Total Bilirubin 0.2 mg/dL (0.2-1.0) Aspartate Amino Transf (AST/SGOT) 18 U/L (15-37) Alanine Aminotransferase (ALT/SGPT) 15 U/L (14-59) Alkaline Phosphatase 77 U/L (46-116) Creatine Kinase 289 U/L (26-192) Total Protein 6.5 g/dL (6.4-8.2) Albumin 1.5 g/dL (3.4-5.0) Albumin/Globulin Ratio 0.3 (1.0-1.7) Test 05/26/21 20:17 05/27/21 07:27 Glucose (Fingerstick) 121 mg/dL (70-99) 163 mg/dL (70-99) Medications Active Scripts Medications Dose Route/Sig Max Daily Dose Days Date Category Guanfacine Hcl 1 Mg Tablet 2 Mg PO BID 05/29/18 Reported Rozerem (Ramelteon) 8 Mg Tablet 16 Mg PO HS 05/29/18 Reported Clonazepam 2 Mg Tablet 2 Mg PO TID 05/29/18 Reported Venlafaxine Hcl Er (Venlafaxine Hcl) 150 Mg Cap.er.24h 150 Mg PO DAILY 05/29/18 Reported Divalproex Sodium Er (Divalproex Sodium) 500 Mg Tab.er.24h 500 Mg PO TID 05/29/18 Reported Haloperidol 2 Mg Tablet 4 Mg PO PRN QID PRN 05/29/18 Reported Acetaminophen-Codeine Solution (Acetaminophen With Codeine) 5 Ml Solution 15 Ml PO QID 05/29/18 Reported Polyethylene Glycol 3350 255 Gm Powder 17 Gm PO DAILY 08/01/17 Reported Impression . IMPRESSION: 1. Acute on chronic hypoxic respiratory failure in a patient who has history of developmental delay, hydrocephalus status post ventriculoperitoneal shunt and spina bifida cystica. She recently developed acute respiratory failure secondary to COVID-19 viral pneumonia. 2. Status post tracheostomy. She was currently been off the ventilator in the last 24 hours and has been on trach shield. 3. Aspiration pneumonia with isolation of Pseudomonas. 4. Escherichia coli urinary tract infection. 5. Ischial wound. 6. Percutaneous endoscopic gastrostomy tube dislodgement. 7. Operative note;obliteration of surgical planes, morbid obesity, previous gastrotomy appears sealed, no obvious abscess, palpable hernia (but not addr essed secondary to extensive inflammation, not containing bowel and poor tissue quality), inability to review other structures, secondary to obliteration of planes. Peritoneal portion of WET FINISHER shunt noted, without obvious defect and maintained during procedure and uninjured. Plan . Updated 05/27/21 Continue present trach she is on a 24-hour basis. With as needed suction Aggressive pulmonary hygiene, including suctioning Follow infectious disease recommendations in regards to antibiotics any fever, currently on meropenem, Zyvox, micafungin and daptomycin, no growth in cultures x1 day Head of bed 30 degrees Follow surgical recommendations, Wound care as ordered DVT/GI prophylaxis Discussed with RN Okay with discharge to [facility]. Pulmonary status stable we will see her as needed Updated 05/26/21 Patient was placed on assist control mode after recovering from surgery. We will place her back on trach shield. Aggressive pulmonary hygiene, including suctioning Follow infectious disease recommendations in regards to antibiotics any fever, currently on meropenem, Zyvox, micafungin and daptomycin, no growth in cultures x1 day Head of bed 30 degrees Follow surgical recommendations, Wound care as ordered DVT/GI prophylaxis Discussed with RN and RT Updated 05/25/21 Continue supplemental oxygen with trach shield at 35% Aggressive pulmonary hygiene, including suctioning Follow infectious disease recommendations in regards to antibiotics any fever, currently on meropenem, Zyvox, micafungin and daptomycin, no growth in cultures x1 day Head of bed 30 degrees Follow surgical recommendations, plan for PEG tube replacement today Wound care as ordered DVT/GI prophylaxis Discussed with RN and RT 05/24/21 RECOMMENDATIONS: 1. We will continue with present trach shield and watch her respiratory status closely. 2. P.r.n. trach suction. 3. Broad-spectrum antibiotic with daptomycin, meropenem and micafungin per Infectious Disease. 4. Lovenox for DVT prophylaxis. 5. Discussed with Dr. Gillespie. We will follow along with you as needed while in the hospital. 6. Follow surgical recommendation regarding PEG tube replacement. QUINTON OSWALD MD May 27, 2021 09:10
[2021-05-27] MEDS: levETIRAcetam 500 MG in IV DEXTROSE 5% 100ML 100 ML IV SCH ×2 (09:16→21:25)
[2021-05-27] MEDS: PANTOPRAZOLE IV PUSH 40 MG VIAL. IVP SCH (09:16)
[2021-05-27] MEDS: ENOXAPARIN 40 MG/0.4 ML SYRINGE. SQ SCH ×2 (09:16→21:25)
[2021-05-27] MEDS: CHLORHEXIDINE 0.12% 15 ML MOUTHWASH. SWSP SCH ×2 (09:17→21:25)
--- NOTE | 2021-05-27 09:18 | PDOC ---
SURGICAL PROGRESS NOTE DATE: 05/27/21 TIME: 09:17 Subjective Patient is nonverbal appears to be comfortable Vital Signs Vital Signs Date Time Temp Pulse Resp B/P (MAP) Pulse Ox O2 Delivery O2 Flow Rate FiO2 05/27/21 06:17 100 Tracheal Collar 8.0 05/27/21 04:00 98.9 144 24 139/89 (106) 98.9 I&O Intake and Output 05/27/21 07:00 Intake Total 405 ml Output Total 1205 ml Balance -800 ml Intake Oral 0 ml IV Total 405 ml Output Urine Total 1005 ml Drainage Total 200 ml PATIENT HAS A BERNABE: Yes General: Alert, mild distress Abdomen: Normal bowel sounds, Soft, Other (Wounds clean dry and intact) Labs Laboratory Tests Test 05/25/21 10:06 05/25/21 10:18 05/25/21 14:01 05/26/21 07:35 Urine Test Negative (NEG) Glucose (Fingerstick) 159 mg/dL (70-99) 138 mg/dL (70-99) O2 Saturation 98 % (92-99) Arterial Blood pH 7.54 (7.35-7.45) Arterial Blood pCO2 at Patient Temp 32 mmHg (35-46) Arterial Blood pO2 at Patient Temp 109 mmHg (85-108) Arterial Blood HCO3 27 mmol/L (21-28) Arterial Blood Base Excess 5 mmol/L (-3-3) FiO2 40% Test 05/26/21 09:35 05/26/21 13:00 05/26/21 13:51 05/26/21 17:25 Glucose (Fingerstick) 159 mg/dL (70-99) 190 mg/dL (70-99) 164 mg/dL (70-99) White Blood Count 15.2 x10^3/uL (4.0-11.0) Red Blood Count 3.47 x10^6/uL (3.50-5.40) Hemoglobin 9.4 g/dL (12.0-15.5) Hematocrit 29.2 % (36.0-47.0) Mean Corpuscular Volume 84 fL (79-100) Mean Corpuscular Hemoglobin 27 pg (25-35) Mean Corpuscular Hemoglobin Concent 32 g/dL (31-37) Red Cell Distribution Width 18.8 % (11.5-14.5) Platelet Count 542 x10^3/uL (140-400) Neutrophils (%) (Auto) 77 % (31-73) Lymphocytes (%) (Auto) 15 % (24-48) Monocytes (%) (Auto) 8 % (0-9) Eosinophils (%) (Auto) 0 % (0-3) Basophils (%) (Auto) 0 % (0-3) Neutrophils # (Auto) 11.7 x10^3/uL (1.8-7.7) Lymphocytes # (Auto) 2.2 x10^3/uL (1.0-4.8) Monocytes # (Auto) 1.2 x10^3/uL (0.0-1.1) Eosinophils # (Auto) 0.0 x10^3/uL (0.0-0.7) Basophils # (Auto) 0.1 x10^3/uL (0.0-0.2) Sodium Level 136 mmol/L (136-145) Potassium Level 3.2 mmol/L (3.5-5.1) Chloride Level 101 mmol/L (98-107) Carbon Dioxide Level 29 mmol/L (21-32) Anion Gap 6 (6-14) Blood Urea Nitrogen 6 mg/dL (7-20) Creatinine 0.6 mg/dL (0.6-1.0) Estimated GFR (Cockcroft-Gault) 136.1 BUN/Creatinine Ratio 10 (6-20) Glucose Level 187 mg/dL (70-99) Calcium Level 8.4 mg/dL (8.5-10.1) Phosphorus Level 4.5 mg/dL (2.6-4.7) Magnesium Level 1.6 mg/dL (1.8-2.4) Total Bilirubin 0.2 mg/dL (0.2-1.0) Aspartate Amino Transf (AST/SGOT) 18 U/L (15-37) Alanine Aminotransferase (ALT/SGPT) 15 U/L (14-59) Alkaline Phosphatase 77 U/L (46-116) Creatine Kinase 289 U/L (26-192) Total Protein 6.5 g/dL (6.4-8.2) Albumin 1.5 g/dL (3.4-5.0) Albumin/Globulin Ratio 0.3 (1.0-1.7) Test 05/26/21 20:17 05/27/21 07:27 Glucose (Fingerstick) 121 mg/dL (70-99) 163 mg/dL (70-99) Laboratory Tests Test 05/26/21 09:35 05/26/21 13:00 05/26/21 13:51 05/26/21 17:25 Glucose (Fingerstick) 159 mg/dL (70-99) 190 mg/dL (70-99) 164 mg/dL (70-99) White Blood Count 15.2 x10^3/uL (4.0-11.0) Red Blood Count 3.47 x10^6/uL (3.50-5.40) Hemoglobin 9.4 g/dL (12.0-15.5) Hematocrit 29.2 % (36.0-47.0) Mean Corpuscular Volume 84 fL (79-100) Mean Corpuscular Hemoglobin 27 pg (25-35) Mean Corpuscular Hemoglobin Concent 32 g/dL (31-37) Red Cell Distribution Width 18.8 % (11.5-14.5) Platelet Count 542 x10^3/uL (140-400) Neutrophils (%) (Auto) 77 % (31-73) Lymphocytes (%) (Auto) 15 % (24-48) Monocytes (%) (Auto) 8 % (0-9) Eosinophils (%) (Auto) 0 % (0-3) Basophils (%) (Auto) 0 % (0-3) Neutrophils # (Auto) 11.7 x10^3/uL (1.8-7.7) Lymphocytes # (Auto) 2.2 x10^3/uL (1.0-4.8) Monocytes # (Auto) 1.2 x10^3/uL (0.0-1.1) Eosinophils # (Auto) 0.0 x10^3/uL (0.0-0.7) Basophils # (Auto) 0.1 x10^3/uL (0.0-0.2) Sodium Level 136 mmol/L (136-145) Potassium Level 3.2 mmol/L (3.5-5.1) Chloride Level 101 mmol/L (98-107) Carbon Dioxide Level 29 mmol/L (21-32) Anion Gap 6 (6-14) Blood Urea Nitrogen 6 mg/dL (7-20) Creatinine 0.6 mg/dL (0.6-1.0) Estimated GFR (Cockcroft-Gault) 136.1 BUN/Creatinine Ratio 10 (6-20) Glucose Level 187 mg/dL (70-99) Calcium Level 8.4 mg/dL (8.5-10.1) Phosphorus Level 4.5 mg/dL (2.6-4.7) Magnesium Level 1.6 mg/dL (1.8-2.4) Total Bilirubin 0.2 mg/dL (0.2-1.0) Aspartate Amino Transf (AST/SGOT) 18 U/L (15-37) Alanine Aminotransferase (ALT/SGPT) 15 U/L (14-59) Alkaline Phosphatase 77 U/L (46-116) Creatine Kinase 289 U/L (26-192) Total Protein 6.5 g/dL (6.4-8.2) Albumin 1.5 g/dL (3.4-5.0) Albumin/Globulin Ratio 0.3 (1.0-1.7) Test 05/26/21 20:17 05/27/21 07:27 Glucose (Fingerstick) 121 mg/dL (70-99) 163 mg/dL (70-99) Assessment/Plan Status post replacement of gastrostomy tube awaiting return of bowel function Continue supportive care Justicifation of Admission Dx: Justifications for Admission: Justification of Admission Dx: Yes Sepsis: Hemodynamic Instability SAKINA CEVALLOS MD May 27, 2021 09:18
[2021-05-27] MEDS: INSULIN GLARGINE SYRINGE. SQ SCH (09:30)
--- NOTE | 2021-05-27 09:50 | PN ---
DATE: 05/27/2021 SUBJECTIVE: The patient is resting, slightly propped up, sleeping comfortably, in no apparent distress. She is on tracheal shield, maintaining her oxygen saturation 100% on 8 liters of oxygen via nasal cannula, tracheal shield. Nursing staff did not voice any concern and stated that apparently she had an eventful night. PHYSICAL EXAMINATION: GENERAL: When I examined her, she was pale, not jaundiced, cyanosis or thyromegaly. No jugular venous distention. No lower limb edema. VITAL SIGNS: Her heart rate continued to be high up to 144 beats per minute, blood pressure is 139/89, temperature was 98.9, respiratory rate 24, and oxygen saturation was 100% by trach shield. HEAD, EYES, EARS, NOSE, AND THROAT: Normocephalic, atraumatic. She has a tracheostomy tube in place. HEART: Showed normal first and second heart sounds, no gallop or murmur. CHEST: Clear to auscultation. No crepitation or rhonchi. ABDOMEN: Distended, soft, nontender. Gastrostomy tube to dependent drainage. NEUROLOGIC: She is sleepy, but arousable. Cranial nerves are intact. She moves upper extremities without difficulty. She has paraplegia due to spina bifida cystica. Her intake over the last 24 hours was 950, output was 2200. LABORATORY DATA: Her lab work is still pending at the time of this dictation. ASSESSMENT: 1. Traumatic dislodgement of the gastrostomy tube, status post gastrostomy tube placement, ventral hernia repair. 2. Acute hypoxic respiratory failure for which she is now on trach. She is maintaining her oxygen saturation 100% on FiO2 of 40% by trach shield. 3. Aspiration pneumonia with isolation of Pseudomonas. 4. Urinary tract infection with Escherichia coli. 5. Ischial wound. 6. Paraplegia due to spina bifida cystica, hydrocephalus, requiring ventriculoperitoneal shunt. PLAN: To continue with oxygen supplementation. She is now on trach shield, maintaining her oxygen saturation at 100%. Continue with TPN for nutritional support. Continue with Keppra for seizure disorder. Continue with Lovenox for DVT prophylaxis. Continue with IV antibiotic in the form of micafungin, daptomycin as well as meropenem. SULLY DR: Elias TID: [id number]
--- NOTE | 2021-05-27 10:54 | PDOC ---
Infectious Disease Note Subjective: Subjective Patient resting quietly remains afebrile for last 24 hrs No acute concerns per discussion with RN Vital Signs: Vital Signs Vital Signs Date Time Temp Pulse Resp B/P (MAP) Pulse Ox O2 Delivery O2 Flow Rate FiO2 05/27/21 10:51 100 Tracheal Collar 8.0 05/27/21 08:00 99.3 119 20 147/87 (107) 99.3 Physical Exam: PHYSICAL EXAM GENERAL: alert, nods yes and no to simple questions. Appears comfortable HEENT: Normocephalic, atraumatic. Pupils equal, reactive. Normal conjunctivae. Oral cavity clear. NECK: Tracheostomy with few scattered rhonchi. HEART: S1, S2, tachycardia. ABDOMEN: Obese, soft. Large intraoperative dressing in place, not taken down Left ischial wound packed per rn,not examined today EXTREMITIES: Trace edema, no cyanosis. NEUROLOGIC: Alert, awake. Answers a few questions by nodding. Follows commands. Left upper extremity PICC line without complications. Medications: Inpatient Meds: Medications reviewed. Labs: Lab Laboratory Tests Test 05/26/21 13:00 05/26/21 13:51 05/26/21 17:25 05/26/21 20:17 White Blood Count 15.2 x10^3/uL (4.0-11.0) Red Blood Count 3.47 x10^6/uL (3.50-5.40) Hemoglobin 9.4 g/dL (12.0-15.5) Hematocrit 29.2 % (36.0-47.0) Mean Corpuscular Volume 84 fL (79-100) Mean Corpuscular Hemoglobin 27 pg (25-35) Mean Corpuscular Hemoglobin Concent 32 g/dL (31-37) Red Cell Distribution Width 18.8 % (11.5-14.5) Platelet Count 542 x10^3/uL (140-400) Neutrophils (%) (Auto) 77 % (31-73) Lymphocytes (%) (Auto) 15 % (24-48) Monocytes (%) (Auto) 8 % (0-9) Eosinophils (%) (Auto) 0 % (0-3) Basophils (%) (Auto) 0 % (0-3) Neutrophils # (Auto) 11.7 x10^3/uL (1.8-7.7) Lymphocytes # (Auto) 2.2 x10^3/uL (1.0-4.8) Monocytes # (Auto) 1.2 x10^3/uL (0.0-1.1) Eosinophils # (Auto) 0.0 x10^3/uL (0.0-0.7) Basophils # (Auto) 0.1 x10^3/uL (0.0-0.2) Sodium Level 136 mmol/L (136-145) Potassium Level 3.2 mmol/L (3.5-5.1) Chloride Level 101 mmol/L (98-107) Carbon Dioxide Level 29 mmol/L (21-32) Anion Gap 6 (6-14) Blood Urea Nitrogen 6 mg/dL (7-20) Creatinine 0.6 mg/dL (0.6-1.0) Estimated GFR (Cockcroft-Gault) 136.1 BUN/Creatinine Ratio 10 (6-20) Glucose Level 187 mg/dL (70-99) Calcium Level 8.4 mg/dL (8.5-10.1) Phosphorus Level 4.5 mg/dL (2.6-4.7) Magnesium Level 1.6 mg/dL (1.8-2.4) Total Bilirubin 0.2 mg/dL (0.2-1.0) Aspartate Amino Transf (AST/SGOT) 18 U/L (15-37) Alanine Aminotransferase (ALT/SGPT) 15 U/L (14-59) Alkaline Phosphatase 77 U/L (46-116) Creatine Kinase 289 U/L (26-192) Total Protein 6.5 g/dL (6.4-8.2) Albumin 1.5 g/dL (3.4-5.0) Albumin/Globulin Ratio 0.3 (1.0-1.7) Glucose (Fingerstick) 190 mg/dL (70-99) 164 mg/dL (70-99) 121 mg/dL (70-99) Test 05/27/21 07:27 Glucose (Fingerstick) 163 mg/dL (70-99) Objective: Assessment: 1. Abdominal pain. 2. Dislodged gastrostomy tube. 3. Leukocytosis. 4. Nausea and vomiting, concern for possible peritonitis 5. Left ischial wound with history of osteomyelitis present on admission at [facility], was seen at [facility] 03/27. 6. Acute hypoxic respiratory failure on chronic hypoxic respiratory failure, status post tracheostomy. 7. History of Pseudomonas pansensitive and Klebsiella pneumonia, pansensitive pneumonia, 04/30. 8. Escherichia coli urinary tract infection 04/29, treated. 9. History of urinary retention. 10. COVID-19, 04/09. 11. Spina bifida. 12. Ventriculoperitoneal shunt. 13. Diabetes. 14. Morbid obesity. 15. Bipolar disorder. 16. History of seizures. Plan: Plan of Care 1. Continue daptomycin, meropenem and micafungin. 2. off Zyvox 3. Surgical wound care as directed 4. Monitor labs and cultures. 5. Maintain aspiration precaution. 6. PICC line management. 7 Continue left ischial wound care and offloading. Discussed with Nursing staff MARIELENA LOYA MD May 27, 2021 10:54
[2021-05-27 11:48] LABS: BASO # 0.1 x10^3/uL (0.0-0.2); BASO % 0 % (0-3); EOS # 0.3 x10^3/uL (0.0-0.7); EOS % 2 % (0-3); HEMATOCRIT 27.1 % (36.0-47.0); HEMOGLOBIN 8.4 g/dL (12.0-15.5); LYMPH # 2.4 x10^3/uL (1.0-4.8); LYMPH % 18 % (24-48); MEAN CORPUSCULAR HEMOGLOBIN 26 pg (25-35); MEAN CORPUSCULAR HGB CONC 31 g/dL (31-37); MEAN CORPUSCULAR VOLUME 84 fL (79-100); MONO # 1.1 x10^3/uL (0.0-1.1); MONO % 9 % (0-9); NEUT # 9.5 x10^3/uL (1.8-7.7); NEUT % 71 % (31-73); PLATELET COUNT 582 x10^3/uL (140-400); RED BLOOD COUNT 3.23 x10^6/uL (3.50-5.40); RED CELL DISTRIBUTION WIDTH 18.8 % (11.5-14.5); WHITE BLOOD COUNT 13.4 x10^3/uL (4.0-11.0)
[2021-05-27 11:49] LABS: ALBUMIN 1.4 g/dL (3.4-5.0); ALBUMIN/GLOBULIN RATIO 0.3 (1.0-1.7); CALCIUM 8.2 mg/dL (8.5-10.1); CREATININE 0.5 mg/dL (0.6-1.0); TOTAL BILIRUBIN 0.1 mg/dL (0.2-1.0); TOTAL PROTEIN 6.1 g/dL (6.4-8.2)
[2021-05-27 11:50] LABS: MAGNESIUM 1.8 mg/dL (1.8-2.4); PHOSPHORUS 4.5 mg/dL (2.6-4.7)
[2021-05-27] MEDS: MICAFUNGIN 100 MG in IV DEXTROSE 5% 100ML 100 ML IV SCH (12:00)
[2021-05-27] MEDS: TPN PER PHARMACY MC PRN (12:38)
--- NOTE | 2021-05-27 12:42 | NUR ---
Pharmacy TPN Dosing Note S: MINOR,JANEE De La Cruz is a 35 year old F Currently receiving Central Continuous TPN started 05/26/21 B:Pertinent PMH: g-tube displacement Height: 5 feet, 5 inches Weight: 125 kg Current diet: NPO LABS: Sodium: 139 Potassium: 4 Chloride: 103 Calcium: 8.2 Corrected Calcium: 10.28 Magnesium: 1.8 CO2: 29 SCr: 0.5 Glucose: 121-187 Albumin: 1.4 AST: 17 ALT: 16 TPN FORMULA: TPN TYPE: Central Continuous AMINO ACIDS: 60 gm DEXTROSE: 195 gm LIPIDS: 20 gm SODIUM CHLORIDE: 90 mEq POTASSIUM CHLORIDE: 50 mEq POTASSIUM PHOSPHATE: 13.6 mmol MAGNESIUM: 5 mEq MULTIPLE VITAMIN: 5 ml TRACE ELEMENTS: 1 ml(s) TPN PLAN: Corrected calcium elevated. Calcium reduced to 5meq/bag R: Change TPN per plan and ordered formula Will monitor electrolytes, glucose, and tolerance to TPN. Janie Triplett [facility], 05/27/21 [id number]
[2021-05-27] MEDS: DAPTOmycin (GENERIC) IVPB 510 MG in IV NORMAL SALINE 50ML 50 ML IV SCH (13:51)
[2021-05-27] MEDS: QUEtiapine 100 MG TABLET. PEG SCH (21:00)
[2021-05-27] MEDS: DONEPEZIL HCL 10 MG TABLET. PEG SCH (21:00)
[2021-05-27] MEDS: ONDANSETRON PF 4 MG/2 ML VIAL. IVP PRN (21:57)
[2021-05-27] MEDS ORDERED: DEXTROSE 70% IV SCH (22:00)
[2021-05-27] MEDS ORDERED: AMINO ACID IV SCH (22:00)
[2021-05-27] MEDS ORDERED: TOTAL PARENTERAL NUTRITION IV SCH (22:00)
[2021-05-27] MEDS ORDERED: [UNRECOGNIZED DRUG - OTHER] IV SCH (22:00)
[2021-05-28] MEDS: METOCLOPRAMIDE HCL 10 MG/2 ML VIAL. IVP SCH ×4 (00:22→18:19)
[2021-05-28] MEDS: ACETAMINOPHEN 650 MG SUPP.RECT. PR PRN (00:43)
[2021-05-28 04:00] VITALS: BP 139/101
[2021-05-28] MEDS: MEROPENEM 1 GM in IV NORMAL SALINE 100ML 100 ML IV SCH ×3 (05:51→22:14)
[2021-05-28] MEDS: ONDANSETRON PF 4 MG/2 ML VIAL. IVP PRN (06:03)
[2021-05-28 06:50] VITALS: BP 129/74
[2021-05-28] MEDS: IPRATRPIUM/ALBUTEROL 0.5/2.5MG 3 ML NEBU. NEB SCH ×4 (07:13→18:14)
[2021-05-28] MEDS: VENLAFAXINE 75 MG TABLET. PEG SCH ×2 (07:30→16:30)
--- NOTE | 2021-05-28 09:14 | PDOC ---
SURGICAL PROGRESS NOTE DATE: 05/28/21 TIME: 09:13 Subjective Patient nonverbal resting comfortably Vital Signs Vital Signs Date Time Temp Pulse Resp B/P (MAP) Pulse Ox O2 Delivery O2 Flow Rate FiO2 05/28/21 07:14 96 Tracheal Collar 8.0 05/28/21 06:50 98.8 116 20 129/74 (92) 98.8 I&O Intake and Output 05/28/21 07:00 Intake Total 0 ml Output Total 1700 ml Balance -1700 ml Intake Oral 0 ml Output Urine Total 1700 ml PATIENT HAS A BERNABE: Yes General: Alert, Cooperative Abdomen: Normal bowel sounds, Soft, Other (Mild incisional tenderness wounds clean dry and intact) Labs Laboratory Tests Test 05/26/21 09:35 05/26/21 13:00 05/26/21 13:51 05/26/21 17:25 Glucose (Fingerstick) 159 mg/dL (70-99) 190 mg/dL (70-99) 164 mg/dL (70-99) White Blood Count 15.2 x10^3/uL (4.0-11.0) Red Blood Count 3.47 x10^6/uL (3.50-5.40) Hemoglobin 9.4 g/dL (12.0-15.5) Hematocrit 29.2 % (36.0-47.0) Mean Corpuscular Volume 84 fL (79-100) Mean Corpuscular Hemoglobin 27 pg (25-35) Mean Corpuscular Hemoglobin Concent 32 g/dL (31-37) Red Cell Distribution Width 18.8 % (11.5-14.5) Platelet Count 542 x10^3/uL (140-400) Neutrophils (%) (Auto) 77 % (31-73) Lymphocytes (%) (Auto) 15 % (24-48) Monocytes (%) (Auto) 8 % (0-9) Eosinophils (%) (Auto) 0 % (0-3) Basophils (%) (Auto) 0 % (0-3) Neutrophils # (Auto) 11.7 x10^3/uL (1.8-7.7) Lymphocytes # (Auto) 2.2 x10^3/uL (1.0-4.8) Monocytes # (Auto) 1.2 x10^3/uL (0.0-1.1) Eosinophils # (Auto) 0.0 x10^3/uL (0.0-0.7) Basophils # (Auto) 0.1 x10^3/uL (0.0-0.2) Sodium Level 136 mmol/L (136-145) Potassium Level 3.2 mmol/L (3.5-5.1) Chloride Level 101 mmol/L (98-107) Carbon Dioxide Level 29 mmol/L (21-32) Anion Gap 6 (6-14) Blood Urea Nitrogen 6 mg/dL (7-20) Creatinine 0.6 mg/dL (0.6-1.0) Estimated GFR (Cockcroft-Gault) 136.1 BUN/Creatinine Ratio 10 (6-20) Glucose Level 187 mg/dL (70-99) Calcium Level 8.4 mg/dL (8.5-10.1) Phosphorus Level 4.5 mg/dL (2.6-4.7) Magnesium Level 1.6 mg/dL (1.8-2.4) Total Bilirubin 0.2 mg/dL (0.2-1.0) Aspartate Amino Transf (AST/SGOT) 18 U/L (15-37) Alanine Aminotransferase (ALT/SGPT) 15 U/L (14-59) Alkaline Phosphatase 77 U/L (46-116) Creatine Kinase 289 U/L (26-192) Total Protein 6.5 g/dL (6.4-8.2) Albumin 1.5 g/dL (3.4-5.0) Albumin/Globulin Ratio 0.3 (1.0-1.7) Test 05/26/21 20:17 05/27/21 07:27 05/27/21 11:15 05/27/21 11:42 Glucose (Fingerstick) 121 mg/dL (70-99) 163 mg/dL (70-99) 156 mg/dL (70-99) White Blood Count 13.4 x10^3/uL (4.0-11.0) Red Blood Count 3.23 x10^6/uL (3.50-5.40) Hemoglobin 8.4 g/dL (12.0-15.5) Hematocrit 27.1 % (36.0-47.0) Mean Corpuscular Volume 84 fL (79-100) Mean Corpuscular Hemoglobin 26 pg (25-35) Mean Corpuscular Hemoglobin Concent 31 g/dL (31-37) Red Cell Distribution Width 18.8 % (11.5-14.5) Platelet Count 582 x10^3/uL (140-400) Neutrophils (%) (Auto) 71 % (31-73) Lymphocytes (%) (Auto) 18 % (24-48) Monocytes (%) (Auto) 9 % (0-9) Eosinophils (%) (Auto) 2 % (0-3) Basophils (%) (Auto) 0 % (0-3) Neutrophils # (Auto) 9.5 x10^3/uL (1.8-7.7) Lymphocytes # (Auto) 2.4 x10^3/uL (1.0-4.8) Monocytes # (Auto) 1.1 x10^3/uL (0.0-1.1) Eosinophils # (Auto) 0.3 x10^3/uL (0.0-0.7) Basophils # (Auto) 0.1 x10^3/uL (0.0-0.2) Sodium Level 139 mmol/L (136-145) Potassium Level 4.0 mmol/L (3.5-5.1) Chloride Level 103 mmol/L (98-107) Carbon Dioxide Level 29 mmol/L (21-32) Anion Gap 7 (6-14) Blood Urea Nitrogen 5 mg/dL (7-20) Creatinine 0.5 mg/dL (0.6-1.0) Estimated GFR (Cockcroft-Gault) 168.0 BUN/Creatinine Ratio 10 (6-20) Glucose Level 187 mg/dL (70-99) Calcium Level 8.2 mg/dL (8.5-10.1) Phosphorus Level 4.5 mg/dL (2.6-4.7) Magnesium Level 1.8 mg/dL (1.8-2.4) Total Bilirubin 0.1 mg/dL (0.2-1.0) Aspartate Amino Transf (AST/SGOT) 17 U/L (15-37) Alanine Aminotransferase (ALT/SGPT) 16 U/L (14-59) Alkaline Phosphatase 67 U/L (46-116) Total Protein 6.1 g/dL (6.4-8.2) Albumin 1.4 g/dL (3.4-5.0) Albumin/Globulin Ratio 0.3 (1.0-1.7) Triglycerides Level 146 mg/dL (0-150) Test 05/27/21 16:39 05/27/21 23:33 05/28/21 07:38 Glucose (Fingerstick) 159 mg/dL (70-99) 183 mg/dL (70-99) 151 mg/dL (70-99) Laboratory Tests Test 05/27/21 11:15 05/27/21 11:42 05/27/21 16:39 05/27/21 23:33 White Blood Count 13.4 x10^3/uL (4.0-11.0) Red Blood Count 3.23 x10^6/uL (3.50-5.40) Hemoglobin 8.4 g/dL (12.0-15.5) Hematocrit 27.1 % (36.0-47.0) Mean Corpuscular Volume 84 fL (79-100) Mean Corpuscular Hemoglobin 26 pg (25-35) Mean Corpuscular Hemoglobin Concent 31 g/dL (31-37) Red Cell Distribution Width 18.8 % (11.5-14.5) Platelet Count 582 x10^3/uL (140-400) Neutrophils (%) (Auto) 71 % (31-73) Lymphocytes (%) (Auto) 18 % (24-48) Monocytes (%) (Auto) 9 % (0-9) Eosinophils (%) (Auto) 2 % (0-3) Basophils (%) (Auto) 0 % (0-3) Neutrophils # (Auto) 9.5 x10^3/uL (1.8-7.7) Lymphocytes # (Auto) 2.4 x10^3/uL (1.0-4.8) Monocytes # (Auto) 1.1 x10^3/uL (0.0-1.1) Eosinophils # (Auto) 0.3 x10^3/uL (0.0-0.7) Basophils # (Auto) 0.1 x10^3/uL (0.0-0.2) Sodium Level 139 mmol/L (136-145) Potassium Level 4.0 mmol/L (3.5-5.1) Chloride Level 103 mmol/L (98-107) Carbon Dioxide Level 29 mmol/L (21-32) Anion Gap 7 (6-14) Blood Urea Nitrogen 5 mg/dL (7-20) Creatinine 0.5 mg/dL (0.6-1.0) Estimated GFR (Cockcroft-Gault) 168.0 BUN/Creatinine Ratio 10 (6-20) Glucose Level 187 mg/dL (70-99) Calcium Level 8.2 mg/dL (8.5-10.1) Phosphorus Level 4.5 mg/dL (2.6-4.7) Magnesium Level 1.8 mg/dL (1.8-2.4) Total Bilirubin 0.1 mg/dL (0.2-1.0) Aspartate Amino Transf (AST/SGOT) 17 U/L (15-37) Alanine Aminotransferase (ALT/SGPT) 16 U/L (14-59) Alkaline Phosphatase 67 U/L (46-116) Total Protein 6.1 g/dL (6.4-8.2) Albumin 1.4 g/dL (3.4-5.0) Albumin/Globulin Ratio 0.3 (1.0-1.7) Triglycerides Level 146 mg/dL (0-150) Glucose (Fingerstick) 156 mg/dL (70-99) 159 mg/dL (70-99) 183 mg/dL (70-99) Test 05/28/21 07:38 Glucose (Fingerstick) 151 mg/dL (70-99) Assessment/Plan Status post ex lap for gastrostomy tube placement awaiting return of bowel function continue supportive care Justicifation of Admission Dx: Justifications for Admission: Justification of Admission Dx: Yes Sepsis: Hemodynamic Instability SAKINA CEVALLOS MD May 28, 2021 09:14
[2021-05-28] MEDS: levETIRAcetam 500 MG in IV DEXTROSE 5% 100ML 100 ML IV SCH ×2 (09:45→21:27)
[2021-05-28] MEDS: PANTOPRAZOLE IV PUSH 40 MG VIAL. IVP SCH (09:46)
[2021-05-28] MEDS: ENOXAPARIN 40 MG/0.4 ML SYRINGE. SQ SCH ×2 (09:46→21:27)
[2021-05-28] MEDS: CHLORHEXIDINE 0.12% 15 ML MOUTHWASH. SWSP SCH ×2 (09:48→21:27)
[2021-05-28] MEDS ORDERED: FUROSEMIDE 40 MG/4 ML VIAL. IVP ONE (10:15)
[2021-05-28] MEDS: INSULIN GLARGINE SYRINGE. SQ SCH (10:33)
--- NOTE | 2021-05-28 10:35 | RAD ---
INDICATION: Reason: worsening SOB / Spl. Instructions: / History: COMPARISON: May 23, 2021 FINDINGS: Frontal view of chest obtained. Enlarged cardiac silhouette is again seen. Endotracheal tube midthoracic trachea. Diffuse opacities throughout the bilateral lungs which appears similar to prior. PICC line is partially seen coursing towards the superior vena cava region with the tip not well seen IMPRESSION: * Repeat demonstration of severe pulmonic opacities bilaterally which could be from edema or infiltr ate. * Repeat demonstration of severe enlargement of cardiac silhouette. Electronically signed by: Titi Shaver MD (05/28/2021 10:32 AM) [id number]
[2021-05-28 12:09] VITALS: BP 133/70
--- NOTE | 2021-05-28 12:22 | PDOC ---
Infectious Disease Note Subjective: Subjective Patient alert,awake, indicates has some pain at operative site but under control with pain medications Fever pattern improved Vital Signs: Vital Signs Vital Signs Date Time Temp Pulse Resp B/P (MAP) Pulse Ox O2 Delivery O2 Flow Rate FiO2 05/28/21 12:09 98.2 123 24 133/70 (91) 97 Tracheal Collar 10.0 98.2 Physical Exam: PHYSICAL EXAM GENERAL: alert, nods yes and no to simple questions. Appears comfortable HEENT: Normocephalic, atraumatic. Pupils equal, reactive. Normal conjunctivae. Oral cavity clear. NECK: Tracheostomy with few scattered rhonchi. HEART: S1, S2, tachycardia. ABDOMEN: Obese, soft. Large intraoperative dressing in place, not taken down Left ischial wound packed per rn,not examined today EXTREMITIES: Trace edema, no cyanosis. NEUROLOGIC: Alert, awake. Answers a few questions by nodding. Follows commands. Left upper extremity PICC line without complications. Medications: Inpatient Meds: Medications reviewed. Labs: Lab Laboratory Tests Test 05/27/21 16:39 05/27/21 23:33 05/28/21 07:38 05/28/21 11:23 Glucose (Fingerstick) 159 mg/dL (70-99) 183 mg/dL (70-99) 151 mg/dL (70-99) 184 mg/dL (70-99) Objective: Assessment: 1. Abdominal pain. 2. Dislodged gastrostomy tube. 3. Leukocytosis. 4. Nausea and vomiting, concern for possible peritonitis 5. Left ischial wound with history of osteomyelitis present on admission at [facility], was seen at [facility] 03/27. 6. Acute hypoxic respiratory failure on chronic hypoxic respiratory failure, status post tracheostomy. 7. History of Pseudomonas pansensitive and Klebsiella pneumonia, pansensitive pneumonia, 04/30. 8. Escherichia coli urinary tract infection 04/29, treated. 9. History of urinary retention. 10. COVID-19, 04/09. 11. Spina bifida. 12. Ventriculoperitoneal shunt. 13. Diabetes. 14. Morbid obesity. 15. Bipolar disorder. 16. History of seizures. Plan: Plan of Care 1. Continue daptomycin, meropenem and micafungin. 2. off Zyvox 3. Surgical wound care as directed 4. Monitor labs and cultures. 5. Maintain aspiration precaution. 6. PICC line management. 7 Continue left ischial wound care and offloading. MARIELENA LOYA MD May 28, 2021 12:22
[2021-05-28] MEDS: DAPTOmycin (GENERIC) IVPB 510 MG in IV NORMAL SALINE 50ML 50 ML IV SCH (12:56)
[2021-05-28] MEDS: MICAFUNGIN 100 MG in IV DEXTROSE 5% 100ML 100 ML IV SCH (12:57)
[2021-05-28] MEDS: TPN PER PHARMACY MC PRN (13:31)
--- NOTE | 2021-05-28 13:31 | NUR ---
Pharmacy TPN Dosing Note S: MINORJANEE is a 35 year old F Currently receiving Central Continuous TPN started 05/26/21 B:Pertinent PMH: g-tube displacement Height: 5 feet, 5 inches Weight: 132.9 kg Current diet: NPO LABS: Sodium: 139 Potassium: 4 Chloride: 103 Calcium: 8.2 Corrected Calcium: 10.28 Magnesium: 1.8 CO2: 29 SCr: 0.5 Glucose: 121-187 Albumin: 1.4 AST: 17 ALT: 16 TPN FORMULA: TPN TYPE: Central Continuous AMINO ACIDS: 60 gm DEXTROSE: 195 gm LIPIDS: 20 gm SODIUM CHLORIDE: 90 mEq POTASSIUM CHLORIDE: 50 mEq POTASSIUM PHOSPHATE: 13.6 mmol MAGNESIUM: 5 mEq MULTIPLE VITAMIN: 5 ml TRACE ELEMENTS: 1 ml(s) TPN PLAN: Continue same R: Continue TPN Will monitor electrolytes, glucose, and tolerance to TPN. Janie Triplett RPH, 05/28/21 [id number]
[2021-05-28 15:55] LABS: CALCIUM 8.5 mg/dL (8.5-10.1); CREATININE 0.5 mg/dL (0.6-1.0); MAGNESIUM 1.9 mg/dL (1.8-2.4); POTASSIUM 4.3 mmol/L (3.5-5.1)
--- NOTE | 2021-05-28 16:01 | PN ---
DATE: 05/28/2021 SUBJECTIVE: The patient is extremely distressed, tachypneic, tachycardic. The nurse has been suctioning her multiple times and continued to be extremely distressed. OBJECTIVE: VITAL SIGNS: Her heart rate continued to be high at 116, blood pressure was 129/74, temperature 98.8, respiratory rate 20, oxygen saturation was 96% on 8 liters of oxygen by trach shield. HEAD, EYES, EARS, NOSE, AND THROAT: Normocephalic, atraumatic. NECK: Supple with tracheostomy tube in place. HEART: Showed sinus tachycardia. CHEST: Central trachea with equal bilateral chest expansion, air entry, vesicular breath sounds with bilateral basal crepitation. I could not appreciate any rhonchi. ABDOMEN: Distended, soft, nontender with a gastrostomy tube in place. NEUROLOGIC: The patient is awake, alert, responding appropriately. All cranial nerves intact. She moves all extremities without difficulty. She has paraplegia due to spina bifida cystica with hydrocephalus requiring ventriculoperitoneal shunt. Her intake was 405, output was 1235. LABORATORY DATA: As of yesterday showed a serum sodium 139, potassium 4, chloride 103, bicarbonate 29, anion gap of 7, BUN 5, creatinine 0.5. Estimated GFR was 168 mL per minute. Her glucose was 187, calcium was 8.2. Total bilirubin, AST, ALT, alkaline phosphatase were normal. Total protein 6.1, albumin was 1.4. Her white cell count was 13,400, hemoglobin 8.4, hematocrit 27.1. Estimated GFR was 84 mL per minute. Her glucose was 582. Her prothrombin time and INR were slightly elevated. ASSESSMENT: 1. Traumatic dislodgement of the gastrostomy tube, status post gastrostomy tube replacement and ventral hernia repair. 2. Acute hypoxic respiratory failure for which she is now on trach shield. She is maintaining her oxygen saturation 100% on FiO2 of 40%. 3. Aspiration pneumonia with isolation of Pseudomonas. 4. Urinary tract infection with growth of Escherichia coli. 5. Ischial wound. 6. 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 PLAN: To continue with oxygen supplementation. Continue on trach shield. Continue with TPN for nutritional support. Continue with Keppra for seizure disorder. Continue with Lovenox for DVT prophylaxis. Continue with IV antibiotic in the form of daptomycin and meropenem as well as antifungal medication. I have ordered a chest x-ray and ____ that she is in heart failure, we will treat her with Lasix. TREV/NAIF DR: Elias TID: [id number]
[2021-05-28 16:20] VITALS: BP 147/79
[2021-05-28 19:00] VITALS: BP 149/105
[2021-05-28] MEDS: DONEPEZIL HCL 10 MG TABLET. PEG SCH (21:00)
[2021-05-28] MEDS: QUEtiapine 100 MG TABLET. PEG SCH (21:00)
[2021-05-28] MEDS ORDERED: DEXTROSE 70% IV SCH (22:00)
[2021-05-28] MEDS ORDERED: [UNRECOGNIZED DRUG - OTHER] IV SCH (22:00)
[2021-05-28] MEDS ORDERED: AMINO ACID IV SCH (22:00)
[2021-05-28] MEDS ORDERED: TOTAL PARENTERAL NUTRITION IV SCH (22:00)
[2021-05-28 23:00] VITALS: BP 120/85
[2021-05-29] MEDS: METOCLOPRAMIDE HCL 10 MG/2 ML VIAL. IVP SCH ×4 (00:04→17:58)
[2021-05-29] MEDS: ONDANSETRON PF 4 MG/2 ML VIAL. IVP PRN (02:03)
[2021-05-29 02:49] VITALS: BP 125/70
[2021-05-29] MEDS: MEROPENEM 1 GM in IV NORMAL SALINE 100ML 100 ML IV SCH ×3 (05:31→20:56)
[2021-05-29] MEDS: IPRATRPIUM/ALBUTEROL 0.5/2.5MG 3 ML NEBU. NEB SCH ×4 (06:53→18:13)
[2021-05-29 07:00] VITALS: BP 146/101
[2021-05-29] MEDS: VENLAFAXINE 75 MG TABLET. PEG SCH ×2 (07:30→16:30)
--- NOTE | 2021-05-29 09:01 | PDOC ---
Infectious Disease Note Subjective: Subjective Patient resting comfortably Afebrile for last 24 hours Continues to have cough with clear sputum Discussed with nursing staff Vital Signs: Vital Signs Vital Signs Date Time Temp Pulse Resp B/P (MAP) Pulse Ox O2 Delivery O2 Flow Rate FiO2 05/29/21 06:54 96 Tracheal Collar 15.0 05/29/21 02:49 99.2 118 22 125/70 (88) 99.2 Physical Exam: PHYSICAL EXAM GENERAL: alert, nods yes and no to simple questions. Appears comfortable HEENT: Normocephalic, atraumatic. Pupils equal, reactive. Normal conjunctivae. Oral cavity clear. NECK: Tracheostomy with few scattered rhonchi. HEART: S1, S2, tachycardia. ABDOMEN: Obese, soft. Large intraoperative dressing in place, not taken down Left ischial wound packed per rn,not examined today EXTREMITIES: Trace edema, no cyanosis. NEUROLOGIC: Alert, awake. Answers a few questions by nodding. Follows commands. Left upper extremity PICC line without complications. Medications: Inpatient Meds: Medications reviewed. Labs: Lab Laboratory Tests Test 05/28/21 11:23 05/28/21 15:25 05/28/21 18:29 05/28/21 23:58 Glucose (Fingerstick) 184 mg/dL (70-99) 117 mg/dL (70-99) 134 mg/dL (70-99) Sodium Level 137 mmol/L (136-145) Potassium Level 4.3 mmol/L (3.5-5.1) Chloride Level 100 mmol/L (98-107) Carbon Dioxide Level 30 mmol/L (21-32) Anion Gap 7 (6-14) Blood Urea Nitrogen 7 mg/dL (7-20) Creatinine 0.5 mg/dL (0.6-1.0) Estimated GFR (Cockcroft-Gault) 168.0 Glucose Level 145 mg/dL (70-99) Calcium Level 8.5 mg/dL (8.5-10.1) Phosphorus Level 4.0 mg/dL (2.6-4.7) Magnesium Level 1.9 mg/dL (1.8-2.4) Test 05/29/21 05:43 Glucose (Fingerstick) 160 mg/dL (70-99) Objective: Assessment: 1. Abdominal pain. 2. Dislodged gastrostomy tube. 3. Leukocytosis. 4. Nausea and vomiting, concern for possible peritonitis 5. Left ischial wound with history of osteomyelitis present on admission at [facility], was seen at [facility] 03/27. 6. Acute hypoxic respiratory failure on chronic hypoxic respiratory failure, status post tracheostomy. 7. History of Pseudomonas pansensitive and Klebsiella pneumonia, pansensitive pneumonia, 04/30. 8. Escherichia coli urinary tract infection 04/29, treated. 9. History of urinary retention. 10. COVID-19, 04/09. 11. Spina bifida. 12. Ventriculoperitoneal shunt. 13. Diabetes. 14. Morbid obesity. 15. Bipolar disorder. 16. History of seizures. Plan: Plan of Care 1. Continue daptomycin, meropenem and micafungin. 2. off Zyvox 3. Surgical wound care as directed 4. Monitor labs and cultures. 5. Maintain aspiration precaution. 6. PICC line management. 7 Continue left ischial wound care and offloading. Cardiology consulted Discussed with nursing staff MARIELENA LOYA MD May 29, 2021 09:01
[2021-05-29] MEDS: PANTOPRAZOLE IV PUSH 40 MG VIAL. IVP SCH (09:10)
[2021-05-29] MEDS: CHLORHEXIDINE 0.12% 15 ML MOUTHWASH. SWSP SCH ×2 (09:11→21:00)
[2021-05-29] MEDS: ENOXAPARIN 40 MG/0.4 ML SYRINGE. SQ SCH ×2 (09:11→20:57)
[2021-05-29] MEDS: levETIRAcetam 500 MG in IV DEXTROSE 5% 100ML 100 ML IV SCH ×2 (09:11→20:55)
[2021-05-29] MEDS: INSULIN GLARGINE SYRINGE. SQ SCH (09:17)
[2021-05-29 11:00] VITALS: BP 141/96
--- NOTE | 2021-05-29 11:08 | PDOC ---
SURGICAL PROGRESS NOTE DATE: 05/29/21 TIME: 11:06 Subjective stool yesterday nods doing ok Vital Signs Vital Signs Date Time Temp Pulse Resp B/P (MAP) Pulse Ox O2 Delivery O2 Flow Rate FiO2 05/29/21 07:00 98.0 120 22 146/101 (116) 100 Tracheal Collar 10.0 98.0 I&O Intake and Output 05/29/21 07:00 Intake Total 2017 ml Output Total 3850 ml Balance -1833 ml Intake Oral 0 ml IV Total 2016 ml Output Urine Total 2850 ml Drainage Total 1000 ml # Bowel Movements 1 General: Cooperative Abdomen: Soft, Other (g tube in place) Labs Laboratory Tests Test 05/27/21 11:15 05/27/21 11:42 05/27/21 16:39 05/27/21 23:33 White Blood Count 13.4 x10^3/uL (4.0-11.0) Red Blood Count 3.23 x10^6/uL (3.50-5.40) Hemoglobin 8.4 g/dL (12.0-15.5) Hematocrit 27.1 % (36.0-47.0) Mean Corpuscular Volume 84 fL (79-100) Mean Corpuscular Hemoglobin 26 pg (25-35) Mean Corpuscular Hemoglobin Concent 31 g/dL (31-37) Red Cell Distribution Width 18.8 % (11.5-14.5) Platelet Count 582 x10^3/uL (140-400) Neutrophils (%) (Auto) 71 % (31-73) Lymphocytes (%) (Auto) 18 % (24-48) Monocytes (%) (Auto) 9 % (0-9) Eosinophils (%) (Auto) 2 % (0-3) Basophils (%) (Auto) 0 % (0-3) Neutrophils # (Auto) 9.5 x10^3/uL (1.8-7.7) Lymphocytes # (Auto) 2.4 x10^3/uL (1.0-4.8) Monocytes # (Auto) 1.1 x10^3/uL (0.0-1.1) Eosinophils # (Auto) 0.3 x10^3/uL (0.0-0.7) Basophils # (Auto) 0.1 x10^3/uL (0.0-0.2) Sodium Level 139 mmol/L (136-145) Potassium Level 4.0 mmol/L (3.5-5.1) Chloride Level 103 mmol/L (98-107) Carbon Dioxide Level 29 mmol/L (21-32) Anion Gap 7 (6-14) Blood Urea Nitrogen 5 mg/dL (7-20) Creatinine 0.5 mg/dL (0.6-1.0) Estimated GFR (Cockcroft-Gault) 168.0 BUN/Creatinine Ratio 10 (6-20) Glucose Level 187 mg/dL (70-99) Calcium Level 8.2 mg/dL (8.5-10.1) Phosphorus Level 4.5 mg/dL (2.6-4.7) Magnesium Level 1.8 mg/dL (1.8-2.4) Total Bilirubin 0.1 mg/dL (0.2-1.0) Aspartate Amino Transf (AST/SGOT) 17 U/L (15-37) Alanine Aminotransferase (ALT/SGPT) 16 U/L (14-59) Alkaline Phosphatase 67 U/L (46-116) Total Protein 6.1 g/dL (6.4-8.2) Albumin 1.4 g/dL (3.4-5.0) Albumin/Globulin Ratio 0.3 (1.0-1.7) Triglycerides Level 146 mg/dL (0-150) Glucose (Fingerstick) 156 mg/dL (70-99) 159 mg/dL (70-99) 183 mg/dL (70-99) Test 05/28/21 07:38 05/28/21 11:23 05/28/21 15:25 05/28/21 18:29 Glucose (Fingerstick) 151 mg/dL (70-99) 184 mg/dL (70-99) 117 mg/dL (70-99) Sodium Level 137 mmol/L (136-145) Potassium Level 4.3 mmol/L (3.5-5.1) Chloride Level 100 mmol/L (98-107) Carbon Dioxide Level 30 mmol/L (21-32) Anion Gap 7 (6-14) Blood Urea Nitrogen 7 mg/dL (7-20) Creatinine 0.5 mg/dL (0.6-1.0) Estimated GFR (Cockcroft-Gault) 168.0 Glucose Level 145 mg/dL (70-99) Calcium Level 8.5 mg/dL (8.5-10.1) Phosphorus Level 4.0 mg/dL (2.6-4.7) Magnesium Level 1.9 mg/dL (1.8-2.4) Test 05/28/21 23:58 05/29/21 05:43 Glucose (Fingerstick) 134 mg/dL (70-99) 160 mg/dL (70-99) Laboratory Tests Test 05/28/21 11:23 05/28/21 15:25 05/28/21 18:29 05/28/21 23:58 Glucose (Fingerstick) 184 mg/dL (70-99) 117 mg/dL (70-99) 134 mg/dL (70-99) Sodium Level 137 mmol/L (136-145) Potassium Level 4.3 mmol/L (3.5-5.1) Chloride Level 100 mmol/L (98-107) Carbon Dioxide Level 30 mmol/L (21-32) Anion Gap 7 (6-14) Blood Urea Nitrogen 7 mg/dL (7-20) Creatinine 0.5 mg/dL (0.6-1.0) Estimated GFR (Cockcroft-Gault) 168.0 Glucose Level 145 mg/dL (70-99) Calcium Level 8.5 mg/dL (8.5-10.1) Phosphorus Level 4.0 mg/dL (2.6-4.7) Magnesium Level 1.9 mg/dL (1.8-2.4) Test 05/29/21 05:43 Glucose (Fingerstick) 160 mg/dL (70-99) Assessment/Plan clamp g tube Justicifation of Admission Dx: Justifications for Admission: Justification of Admission Dx: Yes Sepsis: Hemodynamic Instability [facility] [employer] May 29, 2021 11:08
[2021-05-29] MEDS: MICAFUNGIN 100 MG in IV DEXTROSE 5% 100ML 100 ML IV SCH (12:00)
[2021-05-29] MEDS: TPN PER PHARMACY MC PRN (13:07)
--- NOTE | 2021-05-29 13:17 | NUR ---
Pharmacy TPN Dosing Note S: MINOR,JANEE De La Cruz is a 35 year old F Currently receiving Central Continuous TPN started 05/26/21 B:Pertinent PMH: g-tube displacement Height: 5 feet, 5 inches Weight: 131.7 kg Current diet: NPO LABS: Sodium: 139 Potassium: 4 Chloride: 103 Calcium: 8.2 Corrected Calcium: 10.28 Magnesium: 1.8 CO2: 29 SCr: 0.5 Glucose: 121-187 Albumin: 1.4 AST: 17 ALT: 16 TPN FORMULA: TPN TYPE: Central Continuous AMINO ACIDS: 60 gm DEXTROSE: 195 gm LIPIDS: 20 gm SODIUM CHLORIDE: 90 mEq SODIUM ACETATE: mEq SODIUM PHOSPHATE: mmol POTASSIUM CHLORIDE: 50 mEq POTASSIUM ACETATE: mEq POTASSIUM PHOSPHATE: 13.6 mmol MAGNESIUM: 5 mEq CALCIUM: - mEq INSULIN: units MULTIPLE VITAMIN: 5 ml TRACE ELEMENTS: 1 ml(s) TPN PLAN: Continue same ( no new labs ) R: Continue TPN as ordered Will monitor electrolytes, glucose, and tolerance to TPN. KALINA ESCOBAR, [facility], 05/29/21 [id number]
[2021-05-29] MEDS: FUROSEMIDE 40 MG/4 ML VIAL. IVP SCH (13:26)
[2021-05-29] MEDS: DAPTOmycin (GENERIC) IVPB 510 MG in IV NORMAL SALINE 50ML 50 ML IV SCH (13:26)
--- NOTE | 2021-05-29 13:32 | PN ---
DATE: 05/29/2021 SUBJECTIVE: The patient is resting slightly propped up in bed and definitely much improved today. She is awake, alert, seems to be very comfortable. Nursing staff stated that she has responded very well yesterday to IV Lasix. PHYSICAL EXAMINATION: GENERAL: When I examined her, she was pale, but no jaundice, cyanosis or thyromegaly. No jugular venous distention. No limb edema. VITAL SIGNS: Her heart rate was 120, blood pressure was 146/101, temperature was 98, respiratory rate 22, and oxygen saturation was 100% on 10 liters by trach shield. HEAD, EYES, EARS, NOSE, AND THROAT: Showed normocephalic, atraumatic. NECK: Supple with tracheostomy tube in place. HEART: Showed normal first and second heart sounds. No gallop or murmur. CHEST: Shows central trachea. Equal bilateral chest expansion, air entry, vesicular breath sounds. With bilateral basal crepitation, very few scattered rhonchi. ABDOMEN: Distended, soft with a gastrostomy tube in place. There is no tenderness. No guarding or rigidity. No organomegaly. All hernial orifice intact. Bowel sounds normal. NEUROLOGICAL: She is definitely awake, alert, responding appropriately. All her cranial nerves intact. She moves upper extremities without difficulty. 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 Her intake was incompletely recorded, output was 1700. LABORATORY DATA: Her chemistry as of yesterday showed a serum sodium 137, potassium 4.3, chloride 100, bicarbonate 30, anion gap of 7, BUN 7, creatinine 0.5. Estimated GFR was 168 mL per minute. Her glucose was 145, calcium was 8.5. Phosphorus was 4 and magnesium was 1.9. Today, her labs are still pending at the time of this dictation. ASSESSMENT: 1. Traumatic dislodgement of the gastrostomy tube status post gastrostomy tube replacement and ventral hernia repair. 2. Acute hypoxic respiratory failure, for which she is now on trach shield. She is maintaining her oxygen saturation at 100% on FiO2 of 40%. 3. Aspiration pneumonia with isolation of Pseudomonas. 4. Urinary tract infection with growth of Escherichia coli. 5. Ischial wound. 6. 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 7. Probably acute on chronic systolic congestive heart failure. PLAN: 1. To continue with oxygen supplementation. 2. Continue trach shield. 3. Continue with TPN for nutritional support. 4. Continue with Keppra for seizure disorder. 5. Continue with Lovenox for DVT prophylaxis. 6. Continue with IV antibiotics in the form of daptomycin and meropenem as well as antifungal medication. 7. Her chest x-ray showed severe pulmonary opacities bilaterally, which could be from pneumonia or infiltrate as well as severe enlargement of the cardiac silhouette. My plan is to continue with IV Lasix for today. LINDA DR: Elias TID: [id number]
[2021-05-29 15:00] VITALS: BP 153/96
--- NOTE | 2021-05-29 17:08 | CARD ---
MR#: [id number] Date of Study: 05/29/2021 Ordering Physician: CHAGO PYLE, Referring Physician: CHAGO PYLE, Tech: Shavon Colin [facility] APPROVED REPORT EXAM: Two-dimensional and M-mode echocardiogram with Doppler and color Doppler. Other Information Quality : Technically LimitedHR: 108bpm Rhythm : Tachycardia INDICATION Palpitations Dyspnea RISK FACTORS Hypertension Obesity Aortic Valve AoV Peak Nikhil.127.4cm/Saud Peak GR.6.5mmHg LVOT Peak Nikhil.79.1cm/s Tricuspid Valve TR P. [id number] Peak Gr.21mmHg LEFT VENTRICLE The left ventricle is normal size. There is normal left ventricular wall thickness. The left ventricu lar systolic function is normal and the ejection fraction is within normal range. Left ventricular ej ection fraction is 55 to 60%. There is normal LV segmental wall motion. RIGHT VENTRICLE The right ventricle is normal size. There is normal right ventricular wall thickness. The right ventr icular systolic function is normal. ATRIA The left atrium size is normal. The right atrium size is normal. The interatrial septum is intact wit h no evidence for an atrial septal defect or patent foramen ovale as noted on 2-D or Doppler imaging. AORTIC VALVE The aortic valve is normal in structure and function. Doppler and Color Flow revealed no significant aortic regurgitation. There is no significant aortic valvular stenosis. MITRAL VALVE The mitral valve is normal in structure and function. There is no evidence of mitral valve prolapse. There is no mitral valve stenosis. Doppler and Color-flow revealed trace mitral regurgitation. TRICUSPID VALVE The tricuspid valve is normal in structure and function. Doppler and Color Flow revealed no tricuspid valve regurgitation noted. PULMONIC VALVE The pulmonary valve is normal in structure and function. GREAT VESSELS The aortic root is normal in size. The ascending aorta is normal in size. The IVC was not visualized. PERICARDIAL EFFUSION There is no evidence of significant pericardial effusion. Critical Notification Critical Value: No <Conclusion> The left ventricle is normal size. The left ventricular systolic function is normal and the ejection fraction is within normal range. Left ventricular ejection fraction is 55 to 60%. There is normal left ventricular wall thickness. Doppler and Color Flow revealed no significant aortic regurgitation. There is no significant aortic valvular stenosis. Doppler and Color-flow revealed trace mitral regurgitation. Doppler and Color Flow revealed no tricuspid valve regurgitation noted. Signed by : Chago Pyle MD Electronically Approved : 05/29/2021 17:07:33
[2021-05-29 19:00] VITALS: BP 133/91
--- NOTE | 2021-05-29 19:29 | PDOC2 ---
CONSULT Date of Consult Date of Consult DATE: 05/29/21 TIME: 19:23 Reason for Consult Reason for Consult: Increasing shortness of breath Referring Physician Referring Physician: Dr. Gillespie Identification/Chief Complaint Chief Complaint Shortness of breath Source Source: Chart review History of Present Illness Reason for Visit: The patient is a 35-year-old female with a history of paraplegia due to spina bifida who was admitted due to a traumatic dislodgment of her G-tube. She was seen by the GI and surgical services and treated as noted above. Patient has had progressive acute hypoxic respiratory failure which is been treated with pulmonary medications and diuresis. She carries a diagnosis of a nonischemic cardiomyopathy but an urgent echocardiogram today showed an ejection fraction of 55% with trace mitral regurgitation. She is feeling better post Lasix however. Past Medical History Cardiovascular: HTN Pulmonary: Pneumonia CENTRAL NERVOUS SYSTEM: Other (Spina bifida) GI: GERD Endocrine: Diabetes Past Surgical History Past Surgical History: Cholecystectomy, Other ([employer] shunt, trach PEG) Family History Family History: No Significant Social History No ALCOHOL: none Drugs: None Lives: with Family Current Medications Current Medications Current Medications Dextrose/Sodium Chloride 1,000 ml @ 125 mls/hr 1X ONCE IV ; Start 05/23/21 at 17:45; Stop 05/23/21 at 19:37; Status DC Chlorhexidine Gluconate (Peridex) 15 ml BID SWSP Last administered on 05/29/21at 09:11; Start 05/23/21 at 21:00 Clonidine HCl (Catapres Tts-1) 1 patch Sa TD Last administered on 05/27/21at 09:17; Start 05/27/21 at 09:00 Daptomycin 510 mg/ Sodium Chloride 50 ml @ 100 mls/hr Q24H IV Last administered on 05/29/21at 13:26; Start 05/24/21 at 12:00 Enoxaparin Sodium (Lovenox 40mg Syringe) 40 mg Q12HR SQ Last administered on 05/29/21at 09:11; Start 05/23/21 at 21:00 Insulin Glargine (Lantus Syringe) 20 unit DAILY SQ Last administered on 05/29/21at 09:17; Start 05/24/21 at 09:00 Levetiracetam 500 mg/Dextrose 105 ml @ 420 mls/hr Q12HR IV Last administered on 8/16/21at 09:11; Start 05/23/21 at 21:00 Meropenem 1 gm/ Sodium Chloride 100 ml @ 200 mls/hr Q8HRS IV ; Start 05/23/21 at 22:00; Stop 05/23/21 at 22:37; Status DC Metoclopramide HCl (Reglan Vial) 5 mg Q6HRS IVP Last administered on 05/29/21at 17:58; Start 05/23/21 at 18:00 Micafungin Sodium 100 mg/Dextrose 100 ml @ 100 mls/hr Q24H IV Last administered on 05/29/21at 12:00; Start 05/24/21 at 12:00 Pantoprazole Sodium (PROTONIX VIAL for IV PUSH) 40 mg DAILYAC IVP Last administered on 05/29/21at 09:10; Start 05/24/21 at 07:30 Acetaminophen (Tylenol Supp) 650 mg PRN Q6HRS PRN WI MILD PAIN / TEMP > 100.3'F Last administered on 05/28/21at 00:43; Start 05/23/21 at 17:45 Lorazepam (Ativan Inj) 0.5 mg PRN Q4HRS PRN IVP ANXIETY / AGITATION; Start 05/23/21 at 17:45 Ondansetron HCl (Zofran) 4 mg PRN Q4HRS PRN IVP NAUSEA/VOMITING Last administered on 05/29/21at 02:03; Start 05/23/21 at 17:45 Fentanyl Citrate (Fentanyl 2ml Vial) 50 mcg PRN Q3HRS PRN IVP PAIN Last administered on 05/26/21at 16:12; Start 05/23/21 at 18:00 Oxycodone/ Acetaminophen (Percocet 10/325) 1 tab PRN Q3HRS PRN PEG PAIN; Start 05/23/21 at 18:00 Albuterol/ Ipratropium (Duoneb) 3 ml RTQID NEB Last administered on 05/29/21at 18:13; Start 05/23/21 at 20:00 Donepezil HCl (Aricept) 10 mg QHS PEG ; Start 05/23/21 at 21:00 Quetiapine Fumarate (SEROquel) 200 mg HS PEG ; Start 05/23/21 at 21:00 Venlafaxine HCl (Effexor) 75 mg BIDAC PEG ; Start 05/23/21 at 18:30 Dextrose/Sodium Chloride 1,000 ml @ 125 mls/hr Q8H IV Last administered on 05/26/21at 19:45; Start 05/23/21 at 19:45; Stop 05/27/21 at 12:44; Status DC Meropenem 1 gm/ Sodium Chloride 100 ml @ 200 mls/hr Q8HRS IV Last administered on 05/29/21at 16:23; Start 05/23/21 at 23:00 Linezolid/Dextrose 300 ml @ 300 mls/hr Q12HR IV Last administered on 05/25/21at 23:20; Start 05/24/21 at 12:00; Stop 05/26/21 at 09:29; Status DC Alteplase, Recombinant (Cathflo For Central Catheter Clearance) 1 mg 1X ONCE INT CAT Last administered on 05/24/21at 13:00; Start 05/24/21 at 13:00; Stop 05/24/21 at 13:01; Status DC Sodium Chloride 1,000 ml @ 1,000 mls/hr 1X ONCE IV Last administered on 05/24/21at 14:05; Start 05/24/21 at 12:30; Stop 05/24/21 at 13:29; Status DC Fentanyl Citrate (Fentanyl 2ml Vial) 25 mcg PRN Q5MIN PRN IVP MILD PAIN 1-3; Start 05/25/21 at 06:00; Stop 05/25/21 at 19:00; Status DC Fentanyl Citrate (Fentanyl 2ml Vial) 50 mcg PRN Q5MIN PRN IVP MODERATE PAIN 4- 6; Start 05/25/21 at 06:00; Stop 05/25/21 at 19:00; Status DC Ringer's Solution 1,000 ml @ 30 mls/hr Q24H IV Last administered on 05/25/21at 11:00; Start 05/25/21 at 06:00; Stop 05/25/21 at 17:59; Status DC Hydromorphone HCl (Dilaudid) 0.5 mg PRN Q10MIN PRN IVP SEVERE PAIN 7-10, 2nd CHOICE; Start 05/25/21 at 06:00; Stop 05/25/21 at 19:00; Status DC Prochlorperazine Edisylate (Compazine) 5 mg PACU PRN PRN IVP NAUSEA, MRX1; Start 05/25/21 at 06:00; Stop 05/25/21 at 19:00; Status DC Bupivacaine HCl/ Epinephrine Bitart (Sensorcain-Epi 0.5%-1:[id number] Mpf) 30 ml STK-MED ONCE .ROUTE ; Start 05/25/21 at 10:45; Stop 05/25/21 at 10:46; Status DC Propofol (Diprivan) 200 mg STK-MED ONCE IV ; Start 05/25/21 at 11:00; Stop 05/25/21 at 11:00; Status DC Lidocaine HCl (Lidocaine Pf 2% Vial) 5 ml STK-MED ONCE .ROUTE ; Start 05/25/21 at 11:00; Stop 05/25/21 at 11:00; Status DC Ondansetron HCl (Zofran) 4 mg STK-MED ONCE .ROUTE ; Start 05/25/21 at 11:00; Stop 05/25/21 at 11:00; Status DC Dexamethasone Sodium Phosphate (Decadron) 4 mg STK-MED ONCE .ROUTE ; Start 05/25/21 at 11:00; Stop 05/25/21 at 11:00; Status DC Midazolam HCl (Versed) 2 mg STK-MED ONCE .ROUTE ; Start 05/25/21 at 11:01; Stop 05/25/21 at 11:01; Status DC Fentanyl Citrate (Fentanyl 2ml Vial) 100 mcg STK-MED ONCE .ROUTE ; Start 05/25/21 at 11:01; Stop 05/25/21 at 11:01; Status DC Rocuronium [place] (Zemuron) 50 mg STK-MED ONCE .ROUTE ; Start 05/25/21 at 11:26; Stop 05/25/21 at 11:27; Status DC Phenylephrine HCl (PHENYLEPHRINE in 0.9% NACL PF) 1 mg STK-MED ONCE IV ; Start 05/25/21 at 11:36; Stop 05/25/21 at 11:37; Status DC Sugammadex Sodium (Bridion) 400 mg 1X ONCE IVP Last administered on 05/25/21at 12:59; Start 05/25/21 at 11:45; Stop 05/25/21 at 11:46; Status DC Rocuronium [place] (Zemuron) 50 mg STK-MED ONCE .ROUTE ; Start 05/25/21 at 11:49; Stop 05/25/21 at 11:50; Status DC Enoxaparin Sodium (Lovenox 40mg Syringe) 40 mg Q24H SQ ; Start 05/25/21 at 13:00; Stop 05/25/21 at 16:28; Status DC Sodium Chloride (Normal Saline Flush) 3 ml QSHIFT PRN IV AFTER MEDS AND BLOOD DRAWS; Start 05/25/21 at 13:00 Ringer's Solution 1,000 ml @ 100 mls/hr Q10H IV Last administered on 05/25/21at 17:55; Start 05/25/21 at 13:00; Stop 05/26/21 at 23:01; Status DC Naloxone HCl (Narcan) 0.4 mg PRN Q2MIN PRN IV SEE INSTRUCTIONS; Start 05/25/21 at 13:00 Sodium Chloride 1,000 ml @ 25 mls/hr Q24H IV ; Start 05/25/21 at 13:00; Status Cancel Morphine Sulfate (Morphine Sulfate) 1 mg PRN Q1HR PRN IV PAIN-SEE COMMENTS; Start 05/25/21 at 13:00 Hydromorphone HCl (Dilaudid) 2 mg STK-MED ONCE .ROUTE ; Start 05/25/21 at 13:02; Stop 05/25/21 at 13:02; Status DC Fentanyl Citrate (Fentanyl 2ml Vial) 100 mcg STK-MED ONCE .ROUTE ; Start 05/25/21 at 13:54; Stop 05/25/21 at 13:54; Status DC Fentanyl Citrate (Fentanyl 2ml Vial) 100 mcg STK-MED ONCE .ROUTE ; Start 05/25/21 at 15:03; Stop 05/25/21 at 15:04; Status DC Info (Tpn Per Pharmacy) 1 each PRN DAILY PRN MC SEE COMMENTS Last administered on 05/29/21at 13:07; Start 05/26/21 at 09:30 Potassium Chloride/Water 100 ml @ 100 mls/hr Q1H IV Last administered on 05/26/21at 17:18; Start 05/26/21 at 15:00; Stop 05/26/21 at 16:59; Status DC Magnesium Sulfate 50 ml @ 25 mls/hr 1X ONCE IV Last administered on 05/26/21at 15:54; Start 05/26/21 at 15:00; Stop 05/26/21 at 16:59; Status DC Sodium Chloride 90 meq/Potassium Chloride 50 meq/ Potassium Phosphate 13.6 mmol/Magnesium Sulfate 10 meq/ Calcium Gluconate 10 meq/ Multivitamins 5 ml/Zinc/Copper/ Manganese/ Selenium 1 ml/ Total Parenteral Nutrition/Amino Acids/Dextrose/ Fat Emulsion Intravenous 1,512 ml @ 63 mls/hr TPN CONT IV Last administered on 05/26/21at 23:02; Start 05/26/21 at 22:00; Stop 05/27/21 at 21:59; Status DC Sodium Chloride 90 meq/Potassium Chloride 50 meq/ Potassium Phosphate 13.6 mmol/Magnesium Sulfate 10 meq/ Calcium Gluconate 5 meq/ Multivitamins 5 ml/Zinc/Copper/ Manganese/ Selenium 1 ml/ Total Parenteral Nutrition/Amino Acid s/Dextrose/ Fat Emulsion Intravenous 1,512 ml @ 63 mls/hr TPN CONT IV Last administered on 05/27/21at 23:12; Start 05/27/21 at 22:00; Stop 05/28/21 at 21:59; Status DC Furosemide (Lasix) 40 mg 1X ONCE IVP Last administered on 05/28/21at 10:27; Start 05/28/21 at 10:15; Stop 05/28/21 at 10:18; Status DC Sodium Chloride 90 meq/Potassium Chloride 50 meq/ Potassium Phosphate 13.6 m mol/Magnesium Sulfate 10 meq/ Calcium Gluconate 5 meq/ Multivitamins 5 ml/Zinc/Copper/ Manganese/ Selenium 1 ml/ Total Parenteral Nutrition/Amino Acids/Dextrose/ Fat Emulsion Intravenous 1,512 ml @ 63 mls/hr TPN CONT IV Last administered on 05/28/21at 22:14; Start 05/28/21 at 22:00; Stop 05/29/21 at 21:59 Furosemide (Lasix) 40 mg DAILY IVP Last administered on 05/29/21at 13:26; Start 05/29/21 at 10:00 Sodium Chloride 90 meq/Potassium Chloride 50 meq/ Potassium Phosphate 13.6 mmol/Magnesium Sulfate 10 meq/ Calcium Gluconate 5 meq/ Multivitamins 5 ml/Zinc/Copper/ Manganese/ Selenium 1 ml/ Total Parenteral Nutrition/Amino Acids/Dextrose/ Fat Emulsion Intravenous 1,512 ml @ 63 mls/hr TPN CONT IV ; Start 05/29/21 at 22:00; Stop 05/30/21 at 21:59 Active Scripts Active Reported Guanfacine Hcl 1 Mg Tablet 2 Mg PO BID Rozerem (Ramelteon) 8 Mg Tablet 16 Mg PO HS Clonazepam 2 Mg Tablet 2 Mg PO TID Venlafaxine Hcl Er (Venlafaxine Hcl) 150 Mg Cap.er.24h 150 Mg PO DAILY Divalproex Sodium Er (Divalproex Sodium) 500 Mg Tab.er.24h 500 Mg PO TID Haloperidol 2 Mg Tablet 4 Mg PO PRN QID PRN Acetaminophen-Codeine Solution (Acetaminophen With Codeine) 5 Ml Solution 15 Ml PO QID Polyethylene Glycol 3350 255 Gm Powder 17 Gm PO DAILY Allergies Allergies: Coded Allergies: Sulfa (Sulfonamide Antibiotics) (Verified Allergy, Intermediate, Hives, 05/29/18) patient develops red hives and itching latex (Verified Allergy, Intermediate, 05/29/18) metoprolol (Verified Allergy, Intermediate, 05/25/21) midazolam (Verified Allergy, Intermediate, 06/03/18) morphine (Verified Adverse Reaction, Intermediate, INEFFECTIVE, 05/29/18) Physical Exam General: mild distress Lungs: Other (Mildly decreased breath sounds) Heart: Regular rate Abdomen: Normal bowel sounds Vitals VITALS Vital Signs Date Time Temp Pulse Resp B/P (MAP) Pulse Ox O2 Delivery O2 Flow Rate FiO2 05/29/21 18:14 100 Tracheal Collar 15.0 05/29/21 15:00 97.5 109 18 153/96 (115) 97.5 Labs Labs Laboratory Tests Test 05/27/21 23:33 05/28/21 07:38 05/28/21 11:23 05/28/21 15:25 Glucose (Fingerstick) 183 mg/dL (70-99) 151 mg/dL (70-99) 184 mg/dL (70-99) Sodium Level 137 mmol/L (136-145) Potassium Level 4.3 mmol/L (3.5-5.1) Chloride Level 100 mmol/L (98-107) Carbon Dioxide Level 30 mmol/L (21-32) Anion Gap 7 (6-14) Blood Urea Nitrogen 7 mg/dL (7-20) Creatinine 0.5 mg/dL (0.6-1.0) Estimated GFR (Cockcroft-Gault) 168.0 Glucose Level 145 mg/dL (70-99) Calcium Level 8.5 mg/dL (8.5-10.1) Phosphorus Level 4.0 mg/dL (2.6-4.7) Magnesium Level 1.9 mg/dL (1.8-2.4) Test 05/28/21 18:29 05/28/21 23:58 05/29/21 05:43 05/29/21 12:59 Glucose (Fingerstick) 117 mg/dL (70-99) 134 mg/dL (70-99) 160 mg/dL (70-99) 131 mg/dL (70-99) Laboratory Tests Test 05/28/21 23:58 05/29/21 05:43 05/29/21 12:59 Glucose (Fingerstick) 134 mg/dL (70-99) 160 mg/dL (70-99) 131 mg/dL (70-99) Assessment/Plan Assessment/Plan 1. Acute hypoxic respiratory failure. Improving on present medications including IV Lasix. We will continue on present medications with close monitoring of lab. The patient has a tracheostomy. 2. Probable aspiration pneumonia. Antibiotic treatment and pulmonary luna atments ongoing. 3. Reported history of a nonischemic cardiomyopathy. Echocardiogram to however today shows an ejection fraction of 55% and trace mitral regurgitation. We will continue on present treatment. 4. Paraplegia with a history of spinal bifida. History of [employer] shunt. CHAGO STEVENS MD May 29, 2021 19:29
[2021-05-29] MEDS: DONEPEZIL HCL 10 MG TABLET. PEG SCH (20:01)
[2021-05-29] MEDS: QUEtiapine 100 MG TABLET. PEG SCH (20:01)
[2021-05-29] MEDS ORDERED: AMINO ACID IV SCH (22:00)
[2021-05-29] MEDS ORDERED: DEXTROSE 70% IV SCH (22:00)
[2021-05-29] MEDS ORDERED: [UNRECOGNIZED DRUG - OTHER] IV SCH (22:00)
[2021-05-29] MEDS ORDERED: TOTAL PARENTERAL NUTRITION IV SCH (22:00)
[2021-05-29 23:00] VITALS: BP 143/89
[2021-05-30 03:00] VITALS: BP 149/104
[2021-05-30] MEDS: METOCLOPRAMIDE HCL 10 MG/2 ML VIAL. IVP SCH ×4 (05:25→16:24)
[2021-05-30] MEDS: MEROPENEM 1 GM in IV NORMAL SALINE 100ML 100 ML IV SCH ×3 (05:25→20:58)
[2021-05-30 07:00] VITALS: BP 145/105
[2021-05-30] MEDS: VENLAFAXINE 75 MG TABLET. PEG SCH ×2 (07:30→16:30)
--- NOTE | 2021-05-30 07:45 | NUR ---
Patient pulling out lines and tubes this morning, including messing with PICC line, dressing off the PICC line and unable to draw back from it. Stat chest xray was ordered to check placement. Addendum: 05/30/21 at 1843 by PRAVEEN VILLEGAS RN Amended: Links added.
[2021-05-30] MEDS: IPRATRPIUM/ALBUTEROL 0.5/2.5MG 3 ML NEBU. NEB SCH ×3 (07:50→20:21)
--- NOTE | 2021-05-30 08:02 | NUR ---
Patient pulled out Trach (put back by RT) and vianca drain.Also pulled on G-tube. Per kimo Rodríguez to l eave out [place] and order stat abdominal xray to check G-tube placement.
[2021-05-30] MEDS ORDERED: IOHEXOL 300 MG/ML 50 ML VIAL. PO ONE (08:15)
[2021-05-30] MEDS ORDERED: CONTRAST GIVEN. MC PRN (08:30)
--- NOTE | 2021-05-30 09:20 | RAD ---
INDICATION: Reason: with contrast to g tube to check placement / Spl. Instructions: / History: COMPARISON: May 28 and May 25 IMPRESSION: 3 views of the chest and abdomen obtained. Tracheostomy tube is again seen. Enlarged cardiac silhouette. Diffuse pulmonic opacities throughout t he bilateral lungs which could be seen with severe bilateral edema or pneumonia. A component of pleur al effusion is also within differential. Tube is seen coursing down the right side of the chest and abdomen. After injection of contrast through the gastrostomy tube contrast is seen within the stomach. Electronically signed by: Titi Shaver MD (05/30/2021 9:18 AM) [id number]
--- NOTE | 2021-05-30 09:55 | PDOC ---
SURGICAL PROGRESS NOTE DATE: 05/30/21 TIME: 09:54 Subjective d/w nurse, pulled trach out, RT replaced, vianca pulled out, pulling on g tube Vital Signs Vital Signs Date Time Temp Pulse Resp B/P (MAP) Pulse Ox O2 Delivery O2 Flow Rate FiO2 05/30/21 07:56 100 Tracheal Collar 15.0 05/30/21 07:00 98.5 137 18 145/105 (118) 98.5 I&O Intake and Output 05/30/21 07:00 Intake Total 0 ml Output Total 4300 ml Balance -4300 ml Intake Oral 0 ml Output Urine Total 4300 ml General: No acute distress Abdomen: Soft, Other (incision intact, g tube in place) Labs Laboratory Tests Test 05/28/21 11:23 05/28/21 15:25 05/28/21 18:29 05/28/21 23:58 Glucose (Fingerstick) 184 mg/dL (70-99) 117 mg/dL (70-99) 134 mg/dL (70-99) Sodium Level 137 mmol/L (136-145) Potassium Level 4.3 mmol/L (3.5-5.1) Chloride Level 100 mmol/L (98-107) Carbon Dioxide Level 30 mmol/L (21-32) Anion Gap 7 (6-14) Blood Urea Nitrogen 7 mg/dL (7-20) Creatinine 0.5 mg/dL (0.6-1.0) Estimated GFR (Cockcroft-Gault) 168.0 Glucose Level 145 mg/dL (70-99) Calcium Level 8.5 mg/dL (8.5-10.1) Phosphorus Level 4.0 mg/dL (2.6-4.7) Magnesium Level 1.9 mg/dL (1.8-2.4) Test 05/29/21 05:43 05/29/21 12:59 05/29/21 21:12 Glucose (Fingerstick) 160 mg/dL (70-99) 131 mg/dL (70-99) 118 mg/dL (70-99) Laboratory Tests Test 05/29/21 12:59 05/29/21 21:12 Glucose (Fingerstick) 131 mg/dL (70-99) 118 mg/dL (70-99) Assessment/Plan xr shows g tube in stomach would rec binder, mitts, etc Justicifation of Admission Dx: Justifications for Admission: Justification of Admission Dx: Yes Sepsis: Hemodynamic Instability ARIEL RICO CODING EDUCATOR May 30, 2021 09:55
--- NOTE | 2021-05-30 10:03 | PDOC ---
PULMONARY PROGRESS NOTES DATE: 05/30/21 TIME: 10:02 Subjective Patient remains on trach shield. Patient does not verbalize She removed the trach earlier and was replaced back. Vitals Vital Signs Date Time Temp Pulse Resp B/P (MAP) Pulse Ox O2 Delivery O2 Flow Rate FiO2 05/30/21 07:56 100 Tracheal Collar 15.0 05/30/21 07:00 98.5 137 18 145/105 (118) 98.5 Comments Unable to report review of systems secondary to current clinical state HEENT: Other (trach ) Lungs: Clear Cardiovascular: S1, S2 Abdomen: Soft Extremities: No Edema Skin: Warm Labs Laboratory Tests Test 05/28/21 11:23 05/28/21 15:25 05/28/21 18:29 05/28/21 23:58 Glucose (Fingerstick) 184 mg/dL (70-99) 117 mg/dL (70-99) 134 mg/dL (70-99) Sodium Level 137 mmol/L (136-145) Potassium Level 4.3 mmol/L (3.5-5.1) Chloride Level 100 mmol/L (98-107) Carbon Dioxide Level 30 mmol/L (21-32) Anion Gap 7 (6-14) Blood Urea Nitrogen 7 mg/dL (7-20) Creatinine 0.5 mg/dL (0.6-1.0) Estimated GFR (Cockcroft-Gault) 168.0 Glucose Level 145 mg/dL (70-99) Calcium Level 8.5 mg/dL (8.5-10.1) Phosphorus Level 4.0 mg/dL (2.6-4.7) Magnesium Level 1.9 mg/dL (1.8-2.4) Test 05/29/21 05:43 05/29/21 12:59 05/29/21 21:12 Glucose (Fingerstick) 160 mg/dL (70-99) 131 mg/dL (70-99) 118 mg/dL (70-99) Laboratory Tests Test 05/29/21 12:59 05/29/21 21:12 Glucose (Fingerstick) 131 mg/dL (70-99) 118 mg/dL (70-99) Medications Active Scripts Medications Dose Route/Sig Max Daily Dose Days Date Category Guanfacine Hcl 1 Mg Tablet 2 Mg PO BID 05/29/18 Reported Rozerem (Ramelteon) 8 Mg Tablet 16 Mg PO HS 05/29/18 Reported Clonazepam 2 Mg Tablet 2 Mg PO TID 05/29/18 Reported Venlafaxine Hcl Er (Venlafaxine Hcl) 150 Mg Cap.er.24h 150 Mg PO DAILY 05/29/18 Reported Divalproex Sodium Er (Divalproex Sodium) 500 Mg Tab.er.24h 500 Mg PO TID 05/29/18 Reported Haloperidol 2 Mg Tablet 4 Mg PO PRN QID PRN 05/29/18 Reported Acetaminophen-Codeine Solution (Acetaminophen With Codeine) 5 Ml Solution 15 Ml PO QID 05/29/18 Reported Polyethylene Glycol 3350 255 Gm Powder 17 Gm PO DAILY 08/01/17 Reported Impression . IMPRESSION: 1. Acute on chronic hypoxic respiratory failure in a patient who has history of developmental delay, hydrocephalus status post ventriculoperitoneal shunt and spina bifida cystica. She recently developed acute respiratory failure secondary to COVID-19 viral pneumonia. 2. Status post tracheostomy. She was currently been off the ventilator in the last 24 hours and has been on trach shield. 3. Aspiration pneumonia with isolation of Pseudomonas. 4. Escherichia coli urinary tract infection. 5. Ischial wound. 6. Percutaneous endoscopic gastrostomy tube dislodgement. 7. Operative note;obliteration of surgical planes, morbid obesity, previous gastrotomy appears sealed, no obvious abscess, palpable hernia (but not addressed secondary to extensive inflammation, not containing bowel and poor tissue quality), inability to review other structures, secondary to obliteration of planes. Peritoneal portion of [employer] shunt noted, without obvious defect and maintained during procedure and uninjured. Plan . Updated 05/30/21 Continue present trach she is on a 24-hour basis. With as needed suction Aggressive pulmonary hygiene, including suctioning Follow infectious disease recommendations in regards to antibiotics any fever, currently on meropenem, Zyvox, micafungin and daptomycin, no growth in cultures x1 day Head of bed 30 degrees Follow surgical recommendations, Wound care as ordered DVT/GI prophylaxis Discussed with ERIC Gilbert [facility]. Pulmonary status stable we will see her as needed Updated 05/27/21 Continue present trach she is on a 24-hour basis. With as needed suction Aggressive pulmonary hygiene, including suctioning Follow infectious disease recommendations in regards to antibiotics any fever, currently on meropenem, Zyvox, micafungin and daptomycin, no growth in cultures x1 day Head of bed 30 degrees Follow surgical recommendations, Wound care as ordered DVT/GI prophylaxis Discussed with RN Vladimir with [facility]. Pulmonary status stable we will see her as needed Updated 05/26/21 Patient was placed on assist control mode after recovering from surgery. We will place her back on trach shield. Aggressive pulmonary hygiene, including suctioning Follow infectious disease recommendations in regards to antibiotics any fever, currently on meropenem, Zyvox, micafungin and daptomycin, no growth in cultures x1 day Head of bed 30 degrees Follow surgical recommendations, Wound care as ordered DVT/GI prophylaxis Discussed with RN and RT Updated 05/25/21 Continue supplemental oxygen with trach shield at 35% Aggressive pulmonary hygiene, including suctioning Follow infectious disease recommendations in regards to antibiotics any fever, currently on meropenem, Zyvox, micafungin and daptomycin, no growth in cultures x1 day Head of bed 30 degrees Follow surgical recommendations, plan for PEG tube replacement today Wound care as ordered DVT/GI prophylaxis Discussed with RN and RT 05/24/21 RECOMMENDATIONS: 1. We will continue with present trach shield and watch her respiratory status closely. 2. P.r.n. trach suction. 3. Broad-spectrum antibiotic with daptomycin, meropenem and micafungin per Infectious Disease. 4. Lovenox for DVT prophylaxis. 5. Discussed with Dr. Gillespie. We will follow along with you as needed while in the hospital. 6. Follow surgical recommendation regarding PEG tube replacement. QUINTON OSWALD MD May 30, 2021 10:03
[2021-05-30 11:00] VITALS: BP 137/99
--- NOTE | 2021-05-30 11:04 | PDOC ---
Infectious Disease Note Subjective: Subjective Patient resting comfortably Temperature 100 F Patient pulled her trach and had to be replaced, attempting to pull her PEG tube out Pulled out [place] and PICC line Discussed with nursing staff Vital Signs: Vital Signs Vital Signs Date Time Temp Pulse Resp B/P (MAP) Pulse Ox O2 Delivery O2 Flow Rate FiO2 05/30/21 07:56 100 Tracheal Collar 15.0 05/30/21 07:00 98.5 137 18 145/105 (118) 98.5 Physical Exam: PHYSICAL EXAM GENERAL: alert, nods yes and no to simple questions. Appears comfortable HEENT: Normocephalic, atraumatic. Pupils equal, reactive. Normal conjunctivae. Oral cavity clear. NECK: Tracheostomy with few scattered rhonchi. HEART: S1, S2, tachycardia. ABDOMEN: Obese, soft. Dressing intact, [place] taken out, Left ischial wound dressing present per RN, EXTREMITIES: Trace edema, no cyanosis. NEUROLOGIC: Alert, awake. Answers a few questions by nodding. Follows commands Medications: Inpatient Meds: Medications reviewed. Labs: Lab Laboratory Tests Test 05/29/21 12:59 05/29/21 21:12 Glucose (Fingerstick) 131 mg/dL (70-99) 118 mg/dL (70-99) Objective: Assessment: 1. Abdominal pain. 2. Dislodged gastrostomy tube. 3. Leukocytosis. 4. Nausea and vomiting, concern for possible peritonitis 5. Left ischial wound with history of osteomyelitis present on admission at [facility], was seen at [facility] 03/27. 6. Acute hypoxic respiratory failure on chronic hypoxic respiratory failure, status post tracheostomy. 7. History of Pseudomonas pansensitive and Klebsiella pneumonia, pansensitive pneumonia, 04/30. 8. Escherichia coli urinary tract infection 04/29, treated. 9. History of urinary retention. 10. COVID-19, 04/09. 11. Spina bifida. 12. Ventriculoperitoneal shunt. 13. Diabetes. 14. Morbid obesity. 15. Bipolar disorder. 16. History of seizures. Plan: Plan of Care 1. Continue daptomycin, meropenem and micafungin. 2. off Zyvox 3. Surgical wound care as directed 4. Monitor labs and cultures. 5. Maintain aspiration precaution. 6. PICC line management. Awaiting PICC line evaluation as she pulled it out earlier today 7 Continue left ischial wound care and offloading. Discussed with nursing staff MARIELENA LOYA MD May 30, 2021 11:04
[2021-05-30] MEDS ORDERED: LIDOCAINE WITH 8.4% SOD BICARB 3 ML DISP.SYRIN. ONE (14:45)
[2021-05-30 15:00] VITALS: BP 136/97
[2021-05-30] MEDS ORDERED: LIDOCAINE WITH 8.4% SOD BICARB 3 ML DISP.SYRIN. INJ ONE (15:15)
[2021-05-30] MEDS: PANTOPRAZOLE IV PUSH 40 MG VIAL. IVP SCH (16:08)
[2021-05-30] MEDS: levETIRAcetam 500 MG in IV DEXTROSE 5% 100ML 100 ML IV SCH ×2 (16:08→21:00)
[2021-05-30] MEDS: FUROSEMIDE 40 MG/4 ML VIAL. IVP SCH (16:09)
[2021-05-30] MEDS: ENOXAPARIN 40 MG/0.4 ML SYRINGE. SQ SCH ×2 (16:11→20:59)
[2021-05-30] MEDS: CHLORHEXIDINE 0.12% 15 ML MOUTHWASH. SWSP SCH ×2 (16:15→20:59)
[2021-05-30] MEDS: fentaNYL PF VIAL 100 MCG/2 ML VIAL IVP PRN (16:19)
--- NOTE | 2021-05-30 16:37 | PN ---
DATE: 05/30/2021 SUBJECTIVE: The patient is resting slightly propped up in bed, slightly better by the time. After she had an episode of nausea and vomiting, during which she desaturated down to 82%. Once she was suctioned, her respiratory rate has improved and oxygen saturation has improved back to 99%. She apparently pulled her tracheostomy tube this morning and it was replaced successfully. PHYSICAL EXAMINATION: GENERAL: When I examined her, she was pale, but no jaundice, cyanosis or thyromegaly. No jugular venous distention. No limb edema. VITAL SIGNS: Her heart rate was 137, blood pressure was 145/105, temperature was 98.5, respiratory rate was 18 and oxygen saturation was 99% on 15 liters via trach shield. HEAD, EYES, EARS, NOSE, AND THROAT: Normocephalic, atraumatic. NECK: Supple with tracheostomy tube in place. HEART: Showed normal first and second heart sounds, no gallop or murmur. CHEST: Showed central trachea, equal bilateral chest expansion, air entry, vesicular breath sounds. I could not appreciate any crepitation or rhonchi anteriorly. ABDOMEN: Distended, soft with a gastrostomy tube in place. NEUROLOGIC: She is awake, alert, opens eyes, tracks and responds appropriately. All her cranial nerves are grossly intact. She moves upper extremities to much good extent than lower extremities as she has paraplegia due to spina bifida cystica. Her intake was 2000, output was 3850. LABORATORY DATA: Still pending at the time of this dictation. ASSESSMENT: 1. Traumatic dislodgement of the gastrostomy tube, status post gastrostomy tube replacement and ventral hernia repair. 2. Acute hypoxic respiratory failure, for which she is now on trach shield. She is maintaining her oxygen saturation at 100% and FiO2 of 40%. 3. Aspiration pneumonia, with isolation of Pseudomonas. 4. Urinary tract infection, with growth of Escherichia coli. 5. Ischial wound. 6. Paraplegia, due to spina bifida cystica, with hydrocephalus requiring ventriculoperitoneal shunt. 7. Probably acute on chronic congestive heart failure. The patient is known to have nonischemic cardiomyopathy, that responded well to IV Lasix. PLAN: 1. To continue with oxygen supplementation. 2. Continue with tracheal shield. 3. Continue TPN for nutritional support. 4. Continue with Keppra for seizure disorder. 5. Continue with Lovenox for DVT prophylaxis. 6. Continue with IV antibiotic in the form of daptomycin and meropenem as well as micafungin. 7. Will continue with IV Lasix. We will repeat her lab work and if she remains stable tomorrow, she can be transferred to [facility]. LEA DR: Elias TID: [id number]
[2021-05-30] MEDS: INSULIN GLARGINE SYRINGE. SQ SCH (16:42)
[2021-05-30 17:11] LABS: CALCIUM 8.9 mg/dL (8.5-10.1); CREATININE 0.4 mg/dL (0.6-1.0); GFR 217.3; POTASSIUM 4.6 mmol/L (3.5-5.1)
[2021-05-30 17:15] LABS: MAGNESIUM 1.8 mg/dL (1.8-2.4); PHOSPHORUS 4.7 mg/dL (2.6-4.7)
[2021-05-30 19:00] VITALS: BP 132/99
[2021-05-30] MEDS: DAPTOmycin (GENERIC) IVPB 510 MG in IV NORMAL SALINE 50ML 50 ML IV SCH (19:00)
--- NOTE | 2021-05-30 19:06 | PDOC ---
PROGRESS NOTES Date of Service DATE: 05/30/21 TIME: 19:04 Subjective Subjective Patient seen and examined Objective Objective Vital Signs Date Time Temp Pulse Resp B/P (MAP) Pulse Ox O2 Delivery O2 Flow Rate FiO2 05/30/21 17:41 Tracheal Collar 10.0 05/30/21 15:39 98 05/30/21 11:00 99.4 111 18 137/99 (112) 99.4 Intake and Output 05/30/21 07:00 Intake Total 0 ml Output Total 4300 ml Balance -4300 ml Intake Oral 0 ml Output Urine Total 4300 ml Physical Exam Abdomen: Normal bowel sounds Heart: Regular rate General: mild distress Lungs: Other (Mildly decreased breath sounds) Assessment Assessment 1. Acute hypoxic respiratory failure. Improved on present medications including IV Lasix. We will continue on present medications with monitoring of lab. The patient has a tracheostomy. 2. Probable aspiration pneumonia. Antibiotic treatment and pulmonary treatments ongoing. 3. Reported history of a nonischemic cardiomyopathy. Echocardiogram however shows an ejection fraction of 55% and trace mitral regurgitation. We will continue on present treatment. 4. Paraplegia with a history of spinal bifida. History of PRODUCTION SUPERVISOR shunt. Comment Review of Relevant I have reviewed the following items maximilian (where applicable) has been applied. Labs Laboratory Tests Test 05/28/21 23:58 05/29/21 05:43 05/29/21 12:59 05/29/21 21:12 Glucose (Fingerstick) 134 mg/dL (70-99) 160 mg/dL (70-99) 131 mg/dL (70-99) 118 mg/dL (70-99) Test 05/30/21 12:08 05/30/21 16:36 05/30/21 16:40 Glucose (Fingerstick) 133 mg/dL (70-99) 128 mg/dL (70-99) Sodium Level 143 mmol/L (136-145) Potassium Level 4.6 mmol/L (3.5-5.1) Chloride Level 103 mmol/L (98-107) Carbon Dioxide Level 33 mmol/L (21-32) Anion Gap 7 (6-14) Blood Urea Nitrogen 9 mg/dL (7-20) Creatinine 0.4 mg/dL (0.6-1.0) Estimated GFR (Cockcroft-Gault) 217.3 Glucose Level 126 mg/dL (70-99) Calcium Level 8.9 mg/dL (8.5-10.1) Phosphorus Level 4.7 mg/dL (2.6-4.7) Magnesium Level 1.8 mg/dL (1.8-2.4) Laboratory Tests Test 05/29/21 21:12 05/30/21 12:08 05/30/21 16:36 05/30/21 16:40 Glucose (Fingerstick) 118 mg/dL (70-99) 133 mg/dL (70-99) 128 mg/dL (70-99) Sodium Level 143 mmol/L (136-145) Potassium Level 4.6 mmol/L (3.5-5.1) Chloride Level 103 mmol/L (98-107) Carbon Dioxide Level 33 mmol/L (21-32) Anion Gap 7 (6-14) Blood Urea Nitrogen 9 mg/dL (7-20) Creatinine 0.4 mg/dL (0.6-1.0) Estimated GFR (Cockcroft-Gault) 217.3 Glucose Level 126 mg/dL (70-99) Calcium Level 8.9 mg/dL (8.5-10.1) Phosphorus Level 4.7 mg/dL (2.6-4.7) Magnesium Level 1.8 mg/dL (1.8-2.4) Microbiology 05/24/21 Blood Culture - Final, Complete NO GROWTH AFTER 5 DAYS Medications Current Medications Dextrose/Sodium Chloride 1,000 ml @ 125 mls/hr 1X ONCE IV ; Start 05/23/21 at 17:45; Stop 05/23/21 at 19:37; Status DC Chlorhexidine Gluconate (Peridex) 15 ml BID SWSP Last administered on 05/30/21at 16:15; Start 05/23/21 at 21:00 Clonidine HCl (Catapres Tts-1) 1 patch Sa TD Last administered on 05/27/21at 09:17; Start 05/27/21 at 09:00 Daptomycin 510 mg/ Sodium Chloride 50 ml @ 100 mls/hr Q24H IV Last administer ed on 05/30/21at 19:00; Start 05/24/21 at 12:00 Enoxaparin Sodium (Lovenox 40mg Syringe) 40 mg Q12HR SQ Last administered on 05/30/21at 16:11; Start 05/23/21 at 21:00 Insulin Glargine (Lantus Syringe) 20 unit DAILY SQ Last administered on 05/30/21at 16:42; Start 05/24/21 at 09:00 Levetiracetam 500 mg/Dextrose 105 ml @ 420 mls/hr Q12HR IV Last administered on 05/30/21at 16:08; Start 05/23/21 at 21:00 Meropenem 1 gm/ Sodium Chloride 100 ml @ 200 mls/hr Q8HRS IV ; Start 05/23/21 at 22:00; Stop 05/23/21 at 22:37; Status DC Metoclopramide HCl (Reglan Vial) 5 mg Q6HRS IVP Last administered on 05/30/21at 16:24; Start 05/23/21 at 18:00 Micafungin Sodium 100 mg/Dextrose 100 ml @ 100 mls/hr Q24H IV Last administered on 05/29/21at 12:00; Start 05/24/21 at 12:00 Pantoprazole Sodium (PROTONIX VIAL for IV PUSH) 40 mg DAILYAC IVP Last administered on 05/30/21at 16:08; Start 05/24/21 at 07:30 Acetaminophen (Tylenol Supp) 650 mg PRN Q6HRS PRN NV MILD PAIN / TEMP > 100.3'F Last administered on 05/28/21at 00:43; Start 05/23/21 at 17:45 Lorazepam (Ativan Inj) 0.5 mg PRN Q4HRS PRN IVP ANXIETY / AGITATION Last administered on 05/30/21at 07:39; Start 05/23/21 at 17:45 Ondansetron HCl (Zofran) 4 mg PRN Q4HRS PRN IVP NAUSEA/VOMITING Last administered on 05/29/21at 02:03; Start 05/23/21 at 17:45 Fentanyl Citrate (Fentanyl 2ml Vial) 50 mcg PRN Q3HRS PRN IVP PAIN, 1ST CHOICE Last administered on 05/30/21at 16:19; Start 05/23/21 at 18:00 Oxycodone/ Acetaminophen (Percocet 10/325) 1 tab PRN Q3HRS PRN PEG PAIN; Start 05/23/21 at 18:00 Albuterol/ Ipratropium (Duoneb) 3 ml RTQID NEB Last administered on 05/30/21at 15:34; Start 05/23/21 at 20:00 Donepezil HCl (Aricept) 10 mg QHS PEG ; Start 05/23/21 at 21:00 Quetiapine Fumarate (SEROquel) 200 mg HS PEG ; Start 05/23/21 at 21:00 Venlafaxine HCl (Effexor) 75 mg BIDAC PEG ; Start 05/23/21 at 18:30 Dextrose/Sodium Chloride 1,000 ml @ 125 mls/hr Q8H IV Last administered on 05/26/21at 19:45; Start 05/23/21 at 19:45; Stop 05/27/21 at 12:44; Status DC Meropenem 1 gm/ Sodium Chloride 100 ml @ 200 mls/hr Q8HRS IV Last administered on 05/30/21at 17:30; Start 05/23/21 at 23:00 Linezolid/Dextrose 300 ml @ 300 mls/hr Q12HR IV Last administered on 05/25/21at 23:20; Start 05/24/21 at 12:00; Stop 05/26/21 at 09:29; Status DC Alteplase, Recombinant (Cathflo For Central Catheter Clearance) 1 mg 1X ONCE INT CAT Last administered on 05/24/21at 13:00; Start 05/24/21 at 13:00; Stop 09/03 at 13:01; Status DC Sodium Chloride 1,000 ml @ 1,000 mls/hr 1X ONCE IV Last administered on 05/24/21at 14:05; Start 05/24/21 at 12:30; Stop 05/24/21 at 13:29; Status DC Fentanyl Citrate (Fentanyl 2ml Vial) 25 mcg PRN Q5MIN PRN IVP MILD PAIN 1-3; Start 05/25/21 at 06:00; Stop 05/25/21 at 19:00; Status DC Fentanyl Citrate (Fentanyl 2ml Vial) 50 mcg PRN Q5MIN PRN IVP MODERATE PAIN 4- 6; Start 05/25/21 at 06:00; Stop 05/25/21 at 19:00; Status DC Ringer's Solution 1,000 ml @ 30 mls/hr Q24H IV Last administered on 05/25/21at 11:00; Start 05/25/21 at 06:00; Stop 05/25/21 at 17:59; Status DC Hydromorphone HCl (Dilaudid) 0.5 mg PRN Q10MIN PRN IVP SEVERE PAIN 7-10, 2nd CHOICE; Start 05/25/21 at 06:00; Stop 05/25/21 at 19:00; Status DC Prochlorperazine Edisylate (Compazine) 5 mg PACU PRN PRN IVP NAUSEA, MRX1; Start 05/25/21 at 06:00; Stop 05/25/21 at 19:00; Status DC Bupivacaine HCl/ Epinephrine Bitart (Sensorcain-Epi 0.5%-1:520654 Mpf) 30 ml STK-MED ONCE .ROUTE ; Start 05/25/21 at 10:45; Stop 05/25/21 at 10:46; Status DC Propofol (Diprivan) 200 mg STK-MED ONCE IV ; Start 05/25/21 at 11:00; Stop 05/25/21 at 11:00; Status DC Lidocaine HCl (Lidocaine Pf 2% Vial) 5 ml STK-MED ONCE .ROUTE ; Start 05/25/21 at 11:00; Stop 05/25/21 at 11:00; Status DC Ondansetron HCl (Zofran) 4 mg STK-MED ONCE .ROUTE ; Start 05/25/21 at 11:00; Stop 05/25/21 at 11:00; Status DC Dexamethasone Sodium Phosphate (Decadron) 4 mg STK-MED ONCE .ROUTE ; Start 05/25/21 at 11:00; Stop 05/25/21 at 11:00; Status DC Midazolam HCl (Versed) 2 mg STK-MED ONCE .ROUTE ; Start 05/25/21 at 11:01; Stop 05/25/21 at 11:01; Status DC Fentanyl Citrate (Fentanyl 2ml Vial) 100 mcg STK-MED ONCE .ROUTE ; Start 05/25/21 at 11:01; Stop 05/25/21 at 11:01; Status DC Rocuronium [place] (Zemuron) 50 mg STK-MED ONCE .ROUTE ; Start 05/25/21 at 11:26; Stop 05/25/21 at 11:27; Status DC Phenylephrine HCl (PHENYLEPHRINE in 0.9% NACL PF) 1 mg STK-MED ONCE IV ; Start 05/25/21 at 11:36; Stop 05/25/21 at 11:37; Status DC Sugammadex Sodium (Bridion) 400 mg 1X ONCE IVP Last administered on 05/25/21at 12:59; Start 05/25/21 at 11:45; Stop 05/25/21 at 11:46; Status DC Rocuronium [place] (Zemuron) 50 mg STK-MED ONCE .ROUTE ; Start 05/25/21 at 11:49; Stop 05/25/21 at 11:50; Status DC Enoxaparin Sodium (Lovenox 40mg Syringe) 40 mg Q24H SQ ; Start 05/25/21 at 13:00; Stop 05/25/21 at 16:28; Status DC Sodium Chloride (Normal Saline Flush) 3 ml QSHIFT PRN IV AFTER MEDS AND BLOOD DRAWS; Start 05/25/21 at 13:00 Ringer's Solution 1,000 ml @ 100 mls/hr Q10H IV Last administered on 05/25/21at 17:55; Start 05/25/21 at 13:00; Stop 05/26/21 at 23:01; Status DC Naloxone HCl (Narcan) 0.4 mg PRN Q2MIN PRN IV SEE INSTRUCTIONS; Start 05/25/21 at 13:00 Sodium Chloride 1,000 ml @ 25 mls/hr Q24H IV ; Start 05/25/21 at 13:00; Status Cancel Morphine Sulfate (Morphine Sulfate) 1 mg PRN Q1HR PRN IV PAIN-SEE COMMENTS; Start 05/25/21 at 13:00 Hydromorphone HCl (Dilaudid) 2 mg STK-MED ONCE .ROUTE ; Start 05/25/21 at 13:02; Stop 05/25/21 at 13:02; Status DC Fentanyl Citrate (Fentanyl 2ml Vial) 100 mcg STK-MED ONCE .ROUTE ; Start 05/25/21 at 13:54; Stop 05/25/21 at 13:54; Status DC Fentanyl Citrate (Fentanyl 2ml Vial) 100 mcg STK-MED ONCE .ROUTE ; Start 05/25/21 at 15:03; Stop 05/25/21 at 15:04; Status DC Info (Tpn Per Pharmacy) 1 each PRN DAILY PRN MC SEE COMMENTS Last administered on 05/29/21at 13:07; Start 05/26/21 at 09:30 Potassium Chloride/Water 100 ml @ 100 mls/hr Q1H IV Last administered on 05/26/21at 17:18; Start 05/26/21 at 15:00; Stop 05/26/21 at 16:59; Status DC Magnesium Sulfate 50 ml @ 25 mls/hr 1X ONCE IV Last administered on 05/26/21at 15:54; Start 05/26/21 at 15:00; Stop 05/26/21 at 16:59; Status DC Sodium Chloride 90 meq/Potassium Chloride 50 meq/ Potassium Phosphate 13.6 mmol/Magnesium Sulfate 10 meq/ Calcium Gluconate 10 meq/ Multivitamins 5 ml/Zinc/Copper/ Manganese/ Selenium 1 ml/ Total Parenteral Nutrition/Amino Acids/Dextrose/ Fat Emulsion Intravenous 1,512 ml @ 63 mls/hr TPN CONT IV Last administered on 05/26/21at 23:02; Start 05/26/21 at 22:00; Stop 05/27/21 at 21:59; Status DC Sodium Chloride 90 meq/Potassium Chloride 50 meq/ Potassium Phosphate 13.6 mmol/Magnesium Sulfate 10 meq/ Calcium Gluconate 5 meq/ Multivitamins 5 ml/Zinc/Copper/ Manganese/ Selenium 1 ml/ Total Parenteral Nutrition/Amino Acids/Dextrose/ Fat Emulsion Intravenous 1,512 ml @ 63 mls/hr TPN CONT IV Last administered on 05/27/21at 23:12; Start 05/27/21 at 22:00; Stop 05/28/21 at 21:59; Status DC Furosemide (Lasix) 40 mg 1X ONCE IVP Last administered on 05/28/21at 10:27; Start 05/28/21 at 10:15; Stop 05/28/21 at 10:18; Status DC Sodium Chloride 90 meq/Potassium Chloride 50 meq/ Potassium Phosphate 13.6 mmol/Magnesium Sulfate 10 meq/ Calcium Gluconate 5 meq/ Multivitamins 5 ml/Zinc/Copper/ Manganese/ Selenium 1 ml/ Total Parenteral Nutrition/Amino Acids/Dextrose/ Fat Emulsion Intravenous 1,512 ml @ 63 mls/hr TPN CONT IV Last administered on 05/28/21at 22:14; Start 05/28/21 at 22:00; Stop 05/29/21 at 21:59; Status DC Furosemide (Lasix) 40 mg DAILY IVP Last administered on 05/30/21at 16:09; Start 05/29/21 at 10:00 Sodium Chloride 90 meq/Potassium Chloride 50 meq/ Potassium Phosphate 13.6 mmol/Magnesium Sulfate 10 meq/ Calcium Gluconate 5 meq/ Multivitamins 5 ml/Zinc/Copper/ Manganese/ Selenium 1 ml/ Total Parenteral Nutrition/Amino Acids/Dextrose/ Fat Emulsion Intravenous 1,512 ml @ 63 mls/hr TPN CONT IV Last administered on 05/29/21at 20:56; Start 05/29/21 at 22:00; Stop 05/30/21 at 21:59 Iohexol (Omnipaque 300 Mg/ml) 50 ml 1X ONCE PO ; Start 05/30/21 at 08:15; Stop 05/30/21 at 08:17; Status DC Info (CONTRAST GIVEN -- Rx MONITORING) 1 each PRN DAILY PRN MC SEE COMMENTS; Start 05/30/21 at 08:30; Stop 06/01/21 at 08:29 Sodium Chloride 90 meq/Potassium Chloride 50 meq/ Potassium Phosphate 13.6 mmol/Magnesium Sulfate 10 meq/ Calcium Gluconate 5 meq/ Multivitamins 5 ml/Zinc/Copper/ Manganese/ Selenium 1 ml/ Total Parenteral Nutrition/Amino Acids/Dextrose/ Fat Emulsion Intravenous 1,512 ml @ 63 mls/hr TPN CONT IV ; Start 05/30/21 at 22:00; Stop 05/31/21 at 21:59 Lidocaine HCl (Buffered Lidocaine 1%) 3 ml STK-MED ONCE .ROUTE ; Start 05/30/21 at 14:45; Stop 05/30/21 at 14:46; Status DC Lidocaine HCl (Buffered Lidocaine 1%) 6 ml 1X ONCE INJ ; Start 05/30/21 at 15:15; Stop 05/30/21 at 15:16; Status DC Active Scripts Active Reported Guanfacine Hcl 1 Mg Tablet 2 Mg PO BID Rozerem (Ramelteon) 8 Mg Tablet 16 Mg PO HS Clonazepam 2 Mg Tablet 2 Mg PO TID Venlafaxine Hcl Er (Venlafaxine Hcl) 150 Mg Cap.er.24h 150 Mg PO DAILY Divalproex Sodium Er (Divalproex Sodium) 500 Mg Tab.er.24h 500 Mg PO TID Haloperidol 2 Mg Tablet 4 Mg PO PRN QID PRN Acetaminophen-Codeine Solution (Acetaminophen With Codeine) 5 Ml Solution 15 Ml PO QID Polyethylene Glycol 3350 255 Gm Powder 17 Gm PO DAILY Vitals/I & O Vital Sign - Last 24 Hours 05/29/21 05/29/21 05/30/21 05/30/21 20:20 23:00 03:00 04:43 Temp 99.3 100.1 99.3 100.1 Pulse 114 99 Resp 18 22 B/P (MAP) 143/89 (107) 149/104 (119) Pulse Ox 99 98 100 O2 Delivery Trach Collar Tracheal Collar Tracheal Collar Tracheal Collar O2 Flow Rate 15.0 10.0 10.0 15.0 05/30/21 05/30/21 05/30/21 05/30/21 07:00 07:45 07:56 11:00 Temp 98.5 99.4 98.5 99.4 Pulse 137 111 Resp 18 18 B/P (MAP) 145/105 (118) 137/99 (112) Pulse Ox 96 100 98 O2 Delivery Tracheal Collar Trach Collar Tracheal Collar Tracheal Collar O2 Flow Rate 10.0 10.0 15.0 10.0 05/30/21 05/30/21 05/30/21 05/30/21 11:30 15:39 16:19 17:41 Pulse Ox 98 98 O2 Delivery Tracheal Collar Tracheal Collar Tracheal Collar Tracheal Collar O2 Flow Rate 10.0 10.0 10.0 10.0 Intake and Output 05/29/21 05/29/21 05/30/21 15:00 23:00 07:00 Intake Total 0 ml Output Total 1100 ml 1600 ml 1600 ml Balance -1100 ml -1600 ml -1600 ml Justifications for Admission Other Justification CHAGO STEVENS MD May 30, 2021 19:06
[2021-05-30] MEDS: MICAFUNGIN 100 MG in IV DEXTROSE 5% 100ML 100 ML IV SCH (20:58)
[2021-05-30] MEDS: DONEPEZIL HCL 10 MG TABLET. PEG SCH (20:59)
[2021-05-30] MEDS: QUEtiapine 100 MG TABLET. PEG SCH (21:00)
[2021-05-30] MEDS ORDERED: DEXTROSE 70% IV SCH (22:00)
[2021-05-30] MEDS ORDERED: [UNRECOGNIZED DRUG - OTHER] IV SCH (22:00)
[2021-05-30] MEDS ORDERED: AMINO ACID IV SCH (22:00)
[2021-05-30] MEDS ORDERED: TOTAL PARENTERAL NUTRITION IV SCH (22:00)
[2021-05-30 23:00] VITALS: BP 158/72
[2021-05-31] MEDS: levETIRAcetam 500 MG in IV DEXTROSE 5% 100ML 100 ML IV SCH ×3 (00:30→22:14)
[2021-05-31 03:00] VITALS: BP 150/92
[2021-05-31] MEDS: METOCLOPRAMIDE HCL 10 MG/2 ML VIAL. IVP SCH ×4 (05:51→17:53)
[2021-05-31] MEDS: MEROPENEM 1 GM in IV NORMAL SALINE 100ML 100 ML IV SCH ×3 (05:53→22:13)
[2021-05-31 07:00] VITALS: BP 151/83
[2021-05-31] MEDS: VENLAFAXINE 75 MG TABLET. PEG SCH ×2 (07:30→16:30)
[2021-05-31] MEDS: IPRATRPIUM/ALBUTEROL 0.5/2.5MG 3 ML NEBU. NEB SCH ×3 (07:31→15:53)
[2021-05-31 08:00] LABS: HEMATOCRIT 28.7 % (36.0-47.0); RED BLOOD COUNT 3.43 x10^6/uL (3.50-5.40); RED CELL DISTRIBUTION WIDTH 18.9 % (11.5-14.5); WHITE BLOOD COUNT 12.2 x10^3/uL (4.0-11.0)
[2021-05-31 08:49] LABS: ALBUMIN 1.9 g/dL (3.4-5.0); ALBUMIN/GLOBULIN RATIO 0.3 (1.0-1.7); CALCIUM 8.8 mg/dL (8.5-10.1); CREATININE 0.5 mg/dL (0.6-1.0); POTASSIUM 4.5 mmol/L (3.5-5.1); TOTAL BILIRUBIN 0.2 mg/dL (0.2-1.0); TOTAL PROTEIN 7.4 g/dL (6.4-8.2)
--- NOTE | 2021-05-31 09:49 | SNU/HH DC ---
DISCHARGE ORDERS DISCHARGE INFORMATION: DISCHARGE DATE: May 31, 2021 FINAL DIAGNOSIS gastrostomy tube malfunction sepsis acute hypoxic respiratory failure spina bifida CONDITION ON DISCHARGE: Stable CODE STATUS: Code Status: Full LTAC: ADMIT TO LTAC: Yes POST DISCHARGE ORDERS: ACTIVITY ORDERS: Activity as tolerated WEIGHT BEARING STATUS: As tolerated DIET AFTER DISCHARGE: TREATMENT/EQUIPMENT ORDERS: Physical Therapy For: Evalulation/Treatment Occupational Therapy For: Evaluation/Treatment Speech Language Pathology For: Evaluation/Treatment DISCHARGE MEDICATIONS: Home Meds Reported Medications Ramelteon (ROZEREM) 8 Mg Tablet, 16 MG PO HS, TAB 05/29/18 Clonazepam (CLONAZEPAM) 2 Mg Tablet, 2 MG PO TID, TAB 05/29/18 Venlafaxine Hcl (VENLAFAXINE HCL ER) 150 Mg Cap.er.24h, 150 MG PO DAILY, CAP.SR 05/29/18 Divalproex Sodium (DIVALPROEX SODIUM ER) 500 Mg Tab.er.24h, 500 MG PO TID, TAB.SR 05/29/18 Haloperidol (HALOPERIDOL) 2 Mg Tablet, 4 MG PO PRN QID PRN for ANXIETY / AGITATION, TAB 05/29/18 Polyethylene Glycol 3350 (POLYETHYLENE GLYCOL 3350) 255 Gm Powder, 17 GM PO DAILY, #527 GM 08/01/17 Discontinued Reported Medications Guanfacine Hcl (GUANFACINE HCL) 1 Mg Tablet, 2 MG PO BID, TAB 05/29/18 Acetaminophen With Codeine (ACETAMINOPHEN-CODEINE SOLUTION) 5 Ml Solution, 15 ML PO QID, MISC 05/29/18 VEE CERVANTES MD May 31, 2021 09:49
--- NOTE | 2021-05-31 10:04 | PDOC ---
SURGICAL PROGRESS NOTE DATE: 05/31/21 TIME: 10:03 Subjective d/w nursing having stools would not allow them to place binder yesterday--will try again today Vital Signs Vital Signs Date Time Temp Pulse Resp B/P (MAP) Pulse Ox O2 Delivery O2 Flow Rate FiO2 05/31/21 07:31 100 Tracheal Collar 10.0 05/31/21 07:00 98.0 115 20 151/83 (105) 98.0 I&O Intake and Output 05/31/21 07:00 Intake Total 0 ml Output Total 4500 ml Balance -4500 ml Intake Oral 0 ml Output Urine Total 4500 ml General: No acute distress HEENT: Other (trach) Abdomen: Soft, Other (g tube in place) Labs Laboratory Tests Test 05/29/21 12:59 05/29/21 21:12 05/30/21 12:08 05/30/21 16:36 Glucose (Fingerstick) 131 mg/dL (70-99) 118 mg/dL (70-99) 133 mg/dL (70-99) 128 mg/dL (70-99) Test 05/30/21 16:40 05/31/21 01:24 05/31/21 06:22 05/31/21 07:30 Sodium Level 143 mmol/L (136-145) 142 mmol/L (136-145) Potassium Level 4.6 mmol/L (3.5-5.1) 4.5 mmol/L (3.5-5.1) Chloride Level 103 mmol/L (98-107) 101 mmol/L (98-107) Carbon Dioxide Level 33 mmol/L (21-32) 34 mmol/L (21-32) Anion Gap 7 (6-14) 7 (6-14) Blood Urea Nitrogen 9 mg/dL (7-20) 8 mg/dL (7-20) Creatinine 0.4 mg/dL (0.6-1.0) 0.5 mg/dL (0.6-1.0) Estimated GFR (Cockcroft-Gault) 217.3 168.0 Glucose Level 126 mg/dL (70-99) 177 mg/dL (70-99) Calcium Level 8.9 mg/dL (8.5-10.1) 8.8 mg/dL (8.5-10.1) Phosphorus Level 4.7 mg/dL (2.6-4.7) Magnesium Level 1.8 mg/dL (1.8-2.4) Glucose (Fingerstick) 171 mg/dL (70-99) 163 mg/dL (70-99) White Blood Count 12.2 x10^3/uL (4.0-11.0) Red Blood Count 3.43 x10^6/uL (3.50-5.40) Hemoglobin 9.0 g/dL (12.0-15.5) Hematocrit 28.7 % (36.0-47.0) Mean Corpuscular Volume 84 fL (79-100) Mean Corpuscular Hemoglobin 26 pg (25-35) Mean Corpuscular Hemoglobin Concent 32 g/dL (31-37) Red Cell Distribution Width 18.9 % (11.5-14.5) Platelet Count 724 x10^3/uL (140-400) BUN/Creatinine Ratio 16 (6-20) Total Bilirubin 0.2 mg/dL (0.2-1.0) Aspartate Amino Transf (AST/SGOT) 22 U/L (15-37) Alanine Aminotransferase (ALT/SGPT) 18 U/L (14-59) Alkaline Phosphatase 69 U/L (46-116) Total Protein 7.4 g/dL (6.4-8.2) Albumin 1.9 g/dL (3.4-5.0) Albumin/Globulin Ratio 0.3 (1.0-1.7) Laboratory Tests Test 05/30/21 12:08 05/30/21 16:36 05/30/21 16:40 05/31/21 01:24 Glucose (Fingerstick) 133 mg/dL (70-99) 128 mg/dL (70-99) 171 mg/dL (70-99) Sodium Level 143 mmol/L (136-145) Potassium Level 4.6 mmol/L (3.5-5.1) Chloride Level 103 mmol/L (98-107) Carbon Dioxide Level 33 mmol/L (21-32) Anion Gap 7 (6-14) Blood Urea Nitrogen 9 mg/dL (7-20) Creatinine 0.4 mg/dL (0.6-1.0) Estimated GFR (Cockcroft-Gault) 217.3 Glucose Level 126 mg/dL (70-99) Calcium Level 8.9 mg/dL (8.5-10.1) Phosphorus Level 4.7 mg/dL (2.6-4.7) Magnesium Level 1.8 mg/dL (1.8-2.4) Test 05/31/21 06:22 05/31/21 07:30 Glucose (Fingerstick) 163 mg/dL (70-99) White Blood Count 12.2 x10^3/uL (4.0-11.0) Red Blood Count 3.43 x10^6/uL (3.50-5.40) Hemoglobin 9.0 g/dL (12.0-15.5) Hematocrit 28.7 % (36.0-47.0) Mean Corpuscular Volume 84 fL (79-100) Mean Corpuscular Hemoglobin 26 pg (25-35) Mean Corpuscular Hemoglobin Concent 32 g/dL (31-37) Red Cell Distribution Width 18.9 % (11.5-14.5) Platelet Count 724 x10^3/uL (140-400) Sodium Level 142 mmol/L (136-145) Potassium Level 4.5 mmol/L (3.5-5.1) Chloride Level 101 mmol/L (98-107) Carbon Dioxide Level 34 mmol/L (21-32) Anion Gap 7 (6-14) Blood Urea Nitrogen 8 mg/dL (7-20) Creatinine 0.5 mg/dL (0.6-1.0) Estimated GFR (Cockcroft-Gault) 168.0 BUN/Creatinine Ratio 16 (6-20) Glucose Level 177 mg/dL (70-99) Calcium Level 8.8 mg/dL (8.5-10.1) Total Bilirubin 0.2 mg/dL (0.2-1.0) Aspartate Amino Transf (AST/SGOT) 22 U/L (15-37) Alanine Aminotransferase (ALT/SGPT) 18 U/L (14-59) Alkaline Phosphatase 69 U/L (46-116) Total Protein 7.4 g/dL (6.4-8.2) Albumin 1.9 g/dL (3.4-5.0) Albumin/Globulin Ratio 0.3 (1.0-1.7) Problem List ok to resume TF ok to return to [facility] would encourage binder to prevent pulling on g tube Justicifation of Admission Dx: Justifications for Admission: Justification of Admission Dx: Yes Sepsis: Hemodynamic Instability ARIEL RICO PREFORM MACHINE OPERATOR May 31, 2021 10:04
[2021-05-31] MEDS: ENOXAPARIN 40 MG/0.4 ML SYRINGE. SQ SCH ×2 (10:22→22:12)
[2021-05-31] MEDS: CHLORHEXIDINE 0.12% 15 ML MOUTHWASH. SWSP SCH ×2 (10:22→21:00)
[2021-05-31] MEDS: PANTOPRAZOLE IV PUSH 40 MG VIAL. IVP SCH (10:22)
[2021-05-31] MEDS: FUROSEMIDE 40 MG/4 ML VIAL. IVP SCH (10:22)
[2021-05-31] MEDS: INSULIN GLARGINE SYRINGE. SQ SCH (10:33)
--- NOTE | 2021-05-31 10:45 | PDOC ---
Infectious Disease Note Subjective: Subjective Patient alert awake Afebrile PICC line changed yesterday Discussed with nursing staff Vital Signs: Vital Signs Vital Signs Date Time Temp Pulse Resp B/P (MAP) Pulse Ox O2 Delivery O2 Flow Rate FiO2 05/31/21 07:31 100 Tracheal Collar 10.0 05/31/21 07:00 98.0 115 20 151/83 (105) 98.0 Physical Exam: PHYSICAL EXAM GENERAL: alert, nods yes and no to simple questions. Appears comfortable HEENT: Normocephalic, atraumatic. Pupils equal, reactive. Normal conjunctivae. Oral cavity clear. NECK: Tracheostomy with few scattered rhonchi. HEART: S1, S2, tachycardia. ABDOMEN: Obese, soft. Dressing intact, [place] taken out, Left ischial wound dressing present per RN, EXTREMITIES: Trace edema, no cyanosis. NEUROLOGIC: Alert, awake. Answers a few questions by nodding. Follows commands Medications: Inpatient Meds: Medications reviewed. Labs: Lab Laboratory Tests Test 05/30/21 12:08 05/30/21 16:36 05/30/21 16:40 05/31/21 01:24 Glucose (Fingerstick) 133 mg/dL (70-99) 128 mg/dL (70-99) 171 mg/dL (70-99) Sodium Level 143 mmol/L (136-145) Potassium Level 4.6 mmol/L (3.5-5.1) Chloride Level 103 mmol/L (98-107) Carbon Dioxide Level 33 mmol/L (21-32) Anion Gap 7 (6-14) Blood Urea Nitrogen 9 mg/dL (7-20) Creatinine 0.4 mg/dL (0.6-1.0) Estimated GFR (Cockcroft-Gault) 217.3 Glucose Level 126 mg/dL (70-99) Calcium Level 8.9 mg/dL (8.5-10.1) Phosphorus Level 4.7 mg/dL (2.6-4.7) Magnesium Level 1.8 mg/dL (1.8-2.4) Test 05/31/21 06:22 05/31/21 07:30 Glucose (Fingerstick) 163 mg/dL (70-99) White Blood Count 12.2 x10^3/uL (4.0-11.0) Red Blood Count 3.43 x10^6/uL (3.50-5.40) Hemoglobin 9.0 g/dL (12.0-15.5) Hematocrit 28.7 % (36.0-47.0) Mean Corpuscular Volume 84 fL (79-100) Mean Corpuscular Hemoglobin 26 pg (25-35) Mean Corpuscular Hemoglobin Concent 32 g/dL (31-37) Red Cell Distribution Width 18.9 % (11.5-14.5) Platelet Count 724 x10^3/uL (140-400) Sodium Level 142 mmol/L (136-145) Potassium Level 4.5 mmol/L (3.5-5.1) Chloride Level 101 mmol/L (98-107) Carbon Dioxide Level 34 mmol/L (21-32) Anion Gap 7 (6-14) Blood Urea Nitrogen 8 mg/dL (7-20) Creatinine 0.5 mg/dL (0.6-1.0) Estimated GFR (Cockcroft-Gault) 168.0 BUN/Creatinine Ratio 16 (6-20) Glucose Level 177 mg/dL (70-99) Calcium Level 8.8 mg/dL (8.5-10.1) Total Bilirubin 0.2 mg/dL (0.2-1.0) Aspartate Amino Transf (AST/SGOT) 22 U/L (15-37) Alanine Aminotransferase (ALT/SGPT) 18 U/L (14-59) Alkaline Phosphatase 69 U/L (46-116) Total Protein 7.4 g/dL (6.4-8.2) Albumin 1.9 g/dL (3.4-5.0) Albumin/Globulin Ratio 0.3 (1.0-1.7) Objective: Assessment: 1. Abdominal pain. 2. Dislodged gastrostomy tube. 3. Leukocytosis. 4. Nausea and vomiting, concern for possible peritonitis 5. Left ischial wound with history of osteomyelitis present on admission at [facility], was seen at [facility] 03/27. 6. Acute hypoxic respiratory failure on chronic hypoxic respiratory failure, status post tracheostomy. 7. History of Pseudomonas pansensitive and Klebsiella pneumonia, pansensitive pneumonia, 04/30. 8. Escherichia coli urinary tract infection 04/29, treated. 9. History of urinary retention. 10. COVID-19, 04/09. 11. Spina bifida. 12. Ventriculoperitoneal shunt. 13. Diabetes. 14. Morbid obesity. 15. Bipolar disorder. 16. History of seizures. Plan: Plan of Care 1. Continue daptomycin, meropenem and micafungin. 2. Monitor labs and cultures. 3. Surgical wound care as directed 4. Maintain aspiration precaution. 5. PICC line management. 6 Continue left ischial wound care and offloading. Awaiting transfer to LTAC today Discussed with nursing staff MARIELENA LOYA MD May 31, 2021 10:45
[2021-05-31 11:00] VITALS: BP 122/95
[2021-05-31] MEDS: fentaNYL PF VIAL 100 MCG/2 ML VIAL IVP PRN (11:23)
--- NOTE | 2021-05-31 12:05 | RAD ---
Replacement of pre-existing PICC line over a wire 05/30/2021 Discussion: Consent: The procedure was explained in its entirety to the patient or the patients designated repres entative by a member of the treatment team, including a discussion of the risks, benefits and commonl y accepted alternatives to the procedure, as well as the expected consequences of no therapy whatsoev er. Discussion of the risks included, but was not limited to, those that are most frequent and thos e that are rare but possibly severe or life-threatening, as well as the possibility of unforeseen com plications. Discussion: Fluoroscopic evaluation demonstrates pre-existing left-sided PICC line to have its tip po sitioned in the superior vena cava. The catheter has been withdrawn. The area was prepped and draped using sterile barrier technique. A guidewire was advanced to the pre-existing PICC line into the righ t atrium. A new PICC line was trimmed to length and advanced through a peel-away sheath such that it' s tip was in the cavoatrial junction with the patient supine. The catheter was secured in place and s terile dressings were applied. No immediate complications were identified. Fluoroscopy time 0.5 minutes Dose area product 2 long centimeters squared IMPRESSION: Fluoroscopically guided replacement, left upper extremity PICC line Electronically signed by: Antonie Evans MD (05/31/2021 12:02 PM) [id number]
[2021-05-31] MEDS: DAPTOmycin (GENERIC) IVPB 510 MG in IV NORMAL SALINE 50ML 50 ML IV SCH (12:26)
[2021-05-31] MEDS: MICAFUNGIN 100 MG in IV DEXTROSE 5% 100ML 100 ML IV SCH (13:03)
--- NOTE | 2021-05-31 14:55 | NUR ---
Wound/Ostomy Care Wound Type/Assessment: Patient seen per wound care follow up. See wound assessment. Patient is saturated in urine due to the suctioning on the wall not working correctly and therefore the purewick is also not working. 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. ID follows patient. Patient does assist with turns well. Wound cleansed and assessed. Patient does have some maceration/IAD to coccyx/buttocks area due to incontinence. Patient continues to have multiple loose stools. Treatment Recommendations/Plan: Recommendations to pack with 1/2 inch Iodoform gauze packing and cover with ABD pad and tape. Change daily. Wound is draining creamy drainage, wound appears clean but hard to see the base of the wound as the opening is small and continues to remain deep of over 7.0cm. Patient has A&D ointment for the coccyx/buttock, ointment applied. Education provided: Patient educated on POC, PU treatment and management. Unsure of patients baseline cognitive status. Offloading surface/device: Patient to turn every 2 hours, patient does assist with turning and most movements in bed. Patient repositioned to right side using wedge. Patient has bilateral heel medix. we placed this back on patient. Recommended Referrals/Tests: N/A Discharge Recommendations for dressings: Dressing change instructions left in room. No other wounds noted. Bed lowered and call light in reach. Wound care will follow up with patient on 06/07/21.
[2021-05-31 15:00] VITALS: BP 114/52
[2021-05-31] MEDS: TPN PER PHARMACY MC PRN (15:06)
--- NOTE | 2021-05-31 15:07 | NUR ---
Pharmacy TPN Dosing Note S: MINORJANEE is a 35 year old F Currently receiving Central Continuous TPN started 05/26/21 B:Pertinent PMH: g-tube displacement Height: 5 feet, 5 inches Weight: 128.8 kg Current diet: NPO LABS: Sodium: 142 Potassium: 4.5 Chloride: 101 Calcium: 8.8 Corrected Calcium: 10.48 Magnesium: 1.8 CO2: 34 SCr: 0.5 Glucose: 163-199 Albumin: 1.9 AST: 22 ALT: 18 TPN FORMULA: TPN TYPE: Central Continuous AMINO ACIDS: 60 gm DEXTROSE: 195 gm LIPIDS: 20 gm SODIUM CHLORIDE: 90 mEq POTASSIUM CHLORIDE: 50 mEq POTASSIUM PHOSPHATE: 13.6 mmol MAGNESIUM: 5 mEq CALCIUM: 5 mEq MULTIPLE VITAMIN: 5 ml TRACE ELEMENTS: 1 ml(s) TPN PLAN: Continue same TPN. Ok to restart TF per Surgery No labs in AM d/t stability. Discharge soon to LTACH. R: Continue same TPN formula. Will monitor electrolytes, glucose, and tolerance to TPN. PARTHA MARQUEZ [facility], 05/31/21 [id number]
--- NOTE | 2021-05-31 15:08 | PATHOLOGY ---
[facility] Accession Number: [id number] . 01 Material submitted: . OMENTUM - OMENTUM . 02 Diagnosis: Segment of adipose tissue, partial omentectomy: - Acute inflammation with extensive foreign body granulomatous reaction. (JPM:conrad; 05/30/2021) S 05/30/2021 1544 Local . 02 Comment: There is extensive acute suppurative inflammation with associated foreign body granulomatous reaction involving the omental surface. There is no evidence of malignancy. (JPM:conrad; 05/30/2021) . 02 Electronically signed: . Nathan Guerrero MD, Pathologist NPI- [id number] . 01 Gross description: . The specimen is received in formalin, labeled "Minor, Eileen, omentum in formalin" and consists of multiple fatty irregular tissues aggregating 1.5 x 9.0 x 4.4 cm admixed by areas of kulkarni brown caking that involves approximately 70% of the surface and resembles fibrinous exudate. Sectioning reveals fatty, dusky and edematous cut surfaces without discrete lesions. Motion Study Analyst sections are submitted in A1-A4. (LAC VIEUX; 05/26/2021) DKA/DKA 05/26/2021 1656 Local . 02 Pathologist provided ICD-10: R10.9 . 02 CPT . 227798 Specimen Comment: A courtesy copy of this report has been sent to [phone] Specimen Comment: Report sent to Performed at: 01 [facility] [address], [place] [id number] MD Po Hoover MD Phone: [phone] Performed at: 02 [facility] [address] [place], [place] [id number] MD Nathan Guerrero MD Phone: [phone]
--- NOTE | 2021-05-31 16:19 | DS ---
DATE OF DISCHARGE: 05/31/2021 DISCHARGE/TRANSFER SUMMARY HOSPITAL COURSE: The patient is a 35-year-old -[place] female patient who was transferred from [facility] as she has been complaining of abdominal pain after we restarted her tube feeding and had had a CT scan of the abdomen, which revealed that the gastrostomy tube was displaced with a large associated fluid collection throughout the mid and upper abdomen spanning about 24 cm. We did consult Gastroenterology, who stated that this is surgical issue and therefore she was seen by the surgical team. She was kept n.p.o., started on TPN and continued her IV antibiotic as recommended by Infectious Disease specialist. She underwent exploration and replacement of the gastrostomy tube successfully. She was postoperatively continued on TPN, IV antibiotic and initially she was on the ventilator in the ICU; however, she was discharged from the ICU to the floor, continued to be on trach shield. She did yesterday became very restless, agitated and attempted to pull her gastrostomy tube unsuccessfully. She was also tachycardic and hypoxic and chest x-ray showed that she probably was in pulmonary edema and therefore we increased her IV Lasix. She was seen by the Cardiology. An echocardiogram done showed that she has actually a normal left ventricular ejection fraction. PHYSICAL EXAMINATION: GENERAL: When I saw her today, she was resting slightly propped up in bed, in no apparent respiratory distress, pale, not jaundiced or cyanosed. No thyromegaly. No jugular venous distention. No limb edema. VITAL SIGNS: Her heart rate was 115, blood pressure was 151/83, temperature was 98, respiratory rate was 20 and oxygen saturation was 99% on 10 liters by trach shield. HEAD, EYES, EARS, NOSE AND THROAT: Normocephalic, atraumatic. NECK: Supple. HEART: Showed normal first and second heart sounds. No gallop or murmur. CHEST: Clear to auscultation. No crepitation or rhonchi. ABDOMEN: Showed that she has had a gastrostomy tube in place. There is no tenderness. No guarding or rigidity. No organomegaly. All hernial orifice intact. Bowel sounds normal. NEUROLOGIC: She is sleepy, but arousable. All cranial nerves intact. She moves upper extremities to much good extent than lower extremities. She has spina bifida cystica with paraplegia, neurogenic bladder and bowel. Her intake was incompletely recorded, output was 4300. LABORATORY DATA: As of this morning, her white cell count was 12,200, hemoglobin 9, hematocrit 29, MCV 84 and platelet 724,000. Her chemistry this morning showed a serum sodium 142, potassium 4.5, chloride 101, bicarbonate 54, anion gap of 7, BUN 8, creatinine 0.5. Estimated GFR was 168 mL per minute. Her glucose 177, calcium was 8.8. Total bilirubin, AST, ALT, alkaline phosphatase were normal. Total protein was 7.4, albumin 1.8. PLAN: The patient was discharged back to [facility] to continue with TPN. Continue with the furosemide 40 mg IV daily. Continue clonidine patch TTS. Continue with morphine sulfate IV every 4 hours, micafungin 100 mg IV once a day, daptomycin ____ mg IV daily. She is on Lantus insulin 20 units daily, Protonix 40 mg once a day, meropenem 1 gram IV every 8 hours. She is on Aricept 10 mg once a day, levetiracetam 500 mg IV twice a day ____, chlorhexidine 15 mL swish and swallow twice a day, venlafaxine 75 mg daily, albuterol and Atrovent 4 times a day. FINAL DISCHARGE DIAGNOSES: 1. Traumatic dislodgement of the gastrostomy tube, status post gastrostomy tube placement and ventral hernia repair. 2. Acute hypoxic respiratory failure for which she is now in a tracheal shield. She is maintaining her oxygen saturation at 100% on FiO2 of 40%. 3. Aspiration pneumonia with isolation of Pseudomonas. 4. Urinary tract infection with growth of Escherichia coli. 5. 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 6. The patient has acute on chronic congestive heart failure. The patient is known to have nonischemic cardiomyopathy, had responded well to IV Lasix. MAYDA DR: Elias TID: [id number]
[2021-05-31 19:00] VITALS: BP 148/100
[2021-05-31] MEDS: DONEPEZIL HCL 10 MG TABLET. PEG SCH (19:33)
[2021-05-31] MEDS: QUEtiapine 100 MG TABLET. PEG SCH (19:34)
[2021-05-31] MEDS ORDERED: TOTAL PARENTERAL NUTRITION IV SCH (22:00)
[2021-05-31] MEDS ORDERED: AMINO ACID IV SCH (22:00)
[2021-05-31] MEDS ORDERED: DEXTROSE 70% IV SCH (22:00)
[2021-05-31] MEDS ORDERED: [UNRECOGNIZED DRUG - OTHER] IV SCH (22:00)
[2021-05-31 23:00] VITALS: BP 135/93
[2021-06-01 03:00] VITALS: BP 127/93
[2021-06-01] MEDS: MEROPENEM 1 GM in IV NORMAL SALINE 100ML 100 ML IV SCH ×3 (06:26→20:45)
[2021-06-01] MEDS: METOCLOPRAMIDE HCL 10 MG/2 ML VIAL. IVP SCH ×4 (06:26→18:04)
[2021-06-01 07:00] VITALS: BP 149/103
[2021-06-01] MEDS: VENLAFAXINE 75 MG TABLET. PEG SCH ×2 (07:30→16:30)
[2021-06-01] MEDS: IPRATRPIUM/ALBUTEROL 0.5/2.5MG 3 ML NEBU. NEB SCH ×5 (07:36→20:59)
--- NOTE | 2021-06-01 08:21 | PDOC ---
Infectious Disease Note Subjective: Subjective Patient alert awake Comfortable Afebrile Discussed with nursing staff Vital Signs: Vital Signs Vital Signs Date Time Temp Pulse Resp B/P (MAP) Pulse Ox O2 Delivery O2 Flow Rate FiO2 06/01/21 07:39 97 Tracheal Collar 10.0 06/01/21 03:00 98.4 125 20 127/93 (104) 98.4 Physical Exam: PHYSICAL EXAM GENERAL: alert, nods yes and no to simple questions. Appears comfortable HEENT: Normocephalic, atraumatic. Pupils equal, reactive. Normal conjunctivae. Oral cavity clear. NECK: Tracheostomy with few scattered rhonchi. HEART: S1, S2, tachycardia. ABDOMEN: Obese, soft. Dressing intact, [place] taken out, Left ischial wound dressing present per RN, EXTREMITIES: Trace edema, no cyanosis. NEUROLOGIC: Alert, awake. Answers a few questions by nodding. Follows commands Medications: Inpatient Meds: Medications reviewed. Labs: Lab Laboratory Tests Test 05/31/21 11:33 06/01/21 06:34 06/01/21 07:51 Glucose (Fingerstick) 199 mg/dL (70-99) 153 mg/dL (70-99) 170 mg/dL (70-99) Objective: Assessment: 1. Abdominal pain. Resolved 2. Dislodged gastrostomy tube. Replaced 3. Leukocytosis. Improving 4. Nausea and vomiting, concern for possible peritonitis improved 5. Left ischial wound with history of osteomyelitis present on admission at [facility], was seen at [facility] 03/27. 6. Acute hypoxic respiratory failure on chronic hypoxic respiratory failure, status post tracheostomy. 7. History of Pseudomonas pansensitive and Klebsiella pneumonia, pansensitive pneumonia, 04/30. 8. Escherichia coli urinary tract infection 04/29, treated. 9. History of urinary retention. 10. COVID-19, 04/09. 11. Spina bifida. 12. Ventriculoperitoneal shunt. 13. Diabetes. 14. Morbid obesity. 15. Bipolar disorder. 16. History of seizures. Plan: Plan of Care 1. Continue daptomycin, meropenem and micafungin. 2. Monitor labs and cultures. 3. Surgical wound care as directed 4. Maintain aspiration precaution. 5. PICC line management. 6 Continue left ischial wound care and offloading. Awaiting transfer to LTAC today Discussed with nursing staff MARIELENA LOYA MD Jun 01, 2021 08:21
--- NOTE | 2021-06-01 10:16 | PDOC ---
SURGICAL PROGRESS NOTE DATE: 06/01/21 TIME: 10:14 Subjective d/w nursing select today tf to start today Vital Signs Vital Signs Date Time Temp Pulse Resp B/P (MAP) Pulse Ox O2 Delivery O2 Flow Rate FiO2 06/01/21 07:39 97 Tracheal Collar 10.0 06/01/21 07:00 98.7 117 20 149/103 (118) 98.7 I&O Intake and Output 06/01/21 07:00 Intake Total 0 ml Balance 0 ml Intake Oral 0 ml # Voids 2 # Bowel Movements 3 General: No acute distress HEENT: Other (trach) Abdomen: Soft, Other (g tube in place) Labs Laboratory Tests Test 05/30/21 12:08 05/30/21 16:36 05/30/21 16:40 05/31/21 01:24 Glucose (Fingerstick) 133 mg/dL (70-99) 128 mg/dL (70-99) 171 mg/dL (70-99) Sodium Level 143 mmol/L (136-145) Potassium Level 4.6 mmol/L (3.5-5.1) Chloride Level 103 mmol/L (98-107) Carbon Dioxide Level 33 mmol/L (21-32) Anion Gap 7 (6-14) Blood Urea Nitrogen 9 mg/dL (7-20) Creatinine 0.4 mg/dL (0.6-1.0) Estimated GFR (Cockcroft-Gault) 217.3 Glucose Level 126 mg/dL (70-99) Calcium Level 8.9 mg/dL (8.5-10.1) Phosphorus Level 4.7 mg/dL (2.6-4.7) Magnesium Level 1.8 mg/dL (1.8-2.4) Test 05/31/21 06:22 05/31/21 07:30 05/31/21 11:33 06/01/21 06:34 Glucose (Fingerstick) 163 mg/dL (70-99) 199 mg/dL (70-99) 153 mg/dL (70-99) White Blood Count 12.2 x10^3/uL (4.0-11.0) Red Blood Count 3.43 x10^6/uL (3.50-5.40) Hemoglobin 9.0 g/dL (12.0-15.5) Hematocrit 28.7 % (36.0-47.0) Mean Corpuscular Volume 84 fL (79-100) Mean Corpuscular Hemoglobin 26 pg (25-35) Mean Corpuscular Hemoglobin Concent 32 g/dL (31-37) Red Cell Distribution Width 18.9 % (11.5-14.5) Platelet Count 724 x10^3/uL (140-400) Sodium Level 142 mmol/L (136-145) Potassium Level 4.5 mmol/L (3.5-5.1) Chloride Level 101 mmol/L (98-107) Carbon Dioxide Level 34 mmol/L (21-32) Anion Gap 7 (6-14) Blood Urea Nitrogen 8 mg/dL (7-20) Creatinine 0.5 mg/dL (0.6-1.0) Estimated GFR (Cockcroft-Gault) 168.0 BUN/Creatinine Ratio 16 (6-20) Glucose Level 177 mg/dL (70-99) Calcium Level 8.8 mg/dL (8.5-10.1) Total Bilirubin 0.2 mg/dL (0.2-1.0) Aspartate Amino Transf (AST/SGOT) 22 U/L (15-37) Alanine Aminotransferase (ALT/SGPT) 18 U/L (14-59) Alkaline Phosphatase 69 U/L (46-116) Total Protein 7.4 g/dL (6.4-8.2) Albumin 1.9 g/dL (3.4-5.0) Albumin/Globulin Ratio 0.3 (1.0-1.7) Test 06/01/21 07:51 Glucose (Fingerstick) 170 mg/dL (70-99) Laboratory Tests Test 05/31/21 11:33 06/01/21 06:34 06/01/21 07:51 Glucose (Fingerstick) 199 mg/dL (70-99) 153 mg/dL (70-99) 170 mg/dL (70-99) Problem List ok for tf select Justicifation of Admission Dx: Justifications for Admission: Justification of Admission Dx: Yes Sepsis: Hemodynamic Instability ARIEL RICO PROGRAM SUPPORT ASSISTANT Jun 01, 2021 10:16
[2021-06-01] MEDS: FUROSEMIDE 40 MG/4 ML VIAL. IVP SCH (10:20)
[2021-06-01] MEDS: PANTOPRAZOLE IV PUSH 40 MG VIAL. IVP SCH (10:20)
[2021-06-01] MEDS: levETIRAcetam 500 MG in IV DEXTROSE 5% 100ML 100 ML IV SCH ×2 (10:21→20:46)
[2021-06-01] MEDS: ENOXAPARIN 40 MG/0.4 ML SYRINGE. SQ SCH ×2 (10:22→20:45)
[2021-06-01] MEDS: CHLORHEXIDINE 0.12% 15 ML MOUTHWASH. SWSP SCH ×2 (10:22→20:45)
[2021-06-01] MEDS: INSULIN GLARGINE SYRINGE. SQ SCH (10:28)
[2021-06-01 11:00] VITALS: BP 167/81
[2021-06-01] MEDS: DAPTOmycin (GENERIC) IVPB 510 MG in IV NORMAL SALINE 50ML 50 ML IV SCH (11:58)
[2021-06-01] MEDS: fentaNYL PF VIAL 100 MCG/2 ML VIAL IVP PRN ×2 (11:58→16:59)
[2021-06-01] MEDS: MICAFUNGIN 100 MG in IV DEXTROSE 5% 100ML 100 ML IV SCH (12:50)
[2021-06-01 15:00] VITALS: BP 114/85
[2021-06-01 19:00] VITALS: BP 128/65
[2021-06-01] MEDS: QUEtiapine 100 MG TABLET. PEG SCH (19:41)
[2021-06-01] MEDS: DONEPEZIL HCL 10 MG TABLET. PEG SCH (19:41)
[2021-06-01] MEDS: AA 4.25 %/CALCIUM/LYTES/D5W 1,000 ML IV SCH (22:00)
[2021-06-01 23:00] VITALS: BP 122/77
[2021-06-02 03:00] VITALS: BP 121/72
[2021-06-02] MEDS: METOCLOPRAMIDE HCL 10 MG/2 ML VIAL. IVP SCH ×4 (06:12→17:55)
[2021-06-02] MEDS: MEROPENEM 1 GM in IV NORMAL SALINE 100ML 100 ML IV SCH ×2 (06:13→14:49)
[2021-06-02 07:00] VITALS: BP 123/88
[2021-06-02] MEDS: VENLAFAXINE 75 MG TABLET. PEG SCH ×2 (07:30→16:28)
[2021-06-02] MEDS: IPRATRPIUM/ALBUTEROL 0.5/2.5MG 3 ML NEBU. NEB SCH ×3 (07:42→15:27)
--- NOTE | 2021-06-02 08:07 | PDOC ---
Infectious Disease Note Subjective: Subjective Patient is resting ,arousable nods no to pain Comfortable Afebrile Discussed with nursing staff Vital Signs: Vital Signs Vital Signs Date Time Temp Pulse Resp B/P (MAP) Pulse Ox O2 Delivery O2 Flow Rate FiO2 06/02/21 07:43 100 Tracheal Collar 10.0 06/02/21 07:00 98.0 110 20 123/88 (100) 98.0 Physical Exam: PHYSICAL EXAM GENERAL: Pt is resting quietly Appears comfortable HEENT: Normocephalic, atraumatic. Pupils equal, reactive. Normal conjunctivae. Oral cavity clear. NECK: Tracheostomy HEART: S1, S2, tachycardia. Chest clear anteriorly ABDOMEN: Obese, soft. Dressing intact, [place] taken out, Left ischial wound dressing present per RN, EXTREMITIES: Trace edema, no cyanosis. NEUROLOGIC: Alert, awake. Answers a few questions by nodding. Follows commands Medications: Inpatient Meds: Medications reviewed. Labs: Lab Laboratory Tests Test 06/01/21 11:37 06/01/21 16:58 06/02/21 00:12 06/02/21 06:42 Glucose (Fingerstick) 176 mg/dL (70-99) 161 mg/dL (70-99) 163 mg/dL (70-99) 63 mg/dL (70-99) Objective: Assessment: 1. Abdominal pain. Resolved 2. Dislodged gastrostomy tube. Replaced 3. Leukocytosis. Improving 4. Nausea and vomiting, concern for possible peritonitis improved 5. Left ischial wound with history of osteomyelitis present on admission at [facility], was seen at [facility] 03/27. 6. Acute hypoxic respiratory failure on chronic hypoxic respiratory failure, status post tracheostomy. 7. History of Pseudomonas pansensitive and Klebsiella pneumonia, pansensitive pneumonia, 04/30. 8. Escherichia coli urinary tract infection 04/29, treated. 9. History of urinary retention. 10. COVID-19, 04/09. 11. Spina bifida. 12. Ventriculoperitoneal shunt. 13. Diabetes. 14. Morbid obesity. 15. Bipolar disorder. 16. History of seizures. Plan: Plan of Care 1. Continue daptomycin, meropenem and micafungin. 2. Monitor labs and cultures. 3. Surgical wound care as directed 4. Maintain aspiration precaution. 5. PICC line management. 6 Continue left ischial wound care and offloading. Awaiting transfer to LTAC today Discussed with nursing staff MARIELENA LOYA MD Jun 02, 2021 08:07
--- NOTE | 2021-06-02 09:26 | PDOC ---
SURGICAL PROGRESS NOTE DATE: 06/02/21 TIME: 09:25 Subjective d/w nursing awaiting select bed Vital Signs Vital Signs Date Time Temp Pulse Resp B/P (MAP) Pulse Ox O2 Delivery O2 Flow Rate FiO2 06/02/21 07:43 100 Tracheal Collar 10.0 06/02/21 07:00 98.0 110 20 123/88 (100) 98.0 I&O Intake and Output 06/02/21 07:00 Intake Total 0 ml Balance 0 ml Intake Oral 0 ml # Voids 2 General: Cooperative Abdomen: Soft Labs Laboratory Tests Test 05/31/21 11:33 06/01/21 06:34 06/01/21 07:51 06/01/21 11:37 Glucose (Fingerstick) 199 mg/dL (70-99) 153 mg/dL (70-99) 170 mg/dL (70-99) 176 mg/dL (70-99) Test 06/01/21 16:58 06/02/21 00:12 06/02/21 06:42 Glucose (Fingerstick) 161 mg/dL (70-99) 163 mg/dL (70-99) 63 mg/dL (70-99) Laboratory Tests Test 06/01/21 11:37 06/01/21 16:58 06/02/21 00:12 06/02/21 06:42 Glucose (Fingerstick) 176 mg/dL (70-99) 161 mg/dL (70-99) 163 mg/dL (70-99) 63 mg/dL (70-99) Problem List tf will be available if needed over weekend Justicifation of Admission Dx: Justifications for Admission: Justification of Admission Dx: Yes Sepsis: Hemodynamic Instability ARIEL RICO SPEECH LANGUAGE ASSISTANT Jun 02, 2021 09:26
--- NOTE | 2021-06-02 09:54 | PN ---
DATE: 06/02/2021 SUBJECTIVE: The patient is resting, slightly propped up in bed, in no apparent respiratory distress, sleeping comfortably. She is on trach shield maintaining her oxygen saturation at 100% on FiO2 of 40%. Nursing staff did not voice any concerns, stated that she had an uneventful night. PHYSICAL EXAMINATION: GENERAL: When I examined her, she was pale, not jaundiced or cyanosed, no thyromegaly. No jugular venous distention. No limb edema. VITAL SIGNS: Her heart rate was 110, blood pressure is 123/88, temperature was 98, respiratory rate 20, and oxygen saturation was 99%. HEAD, EYES, EARS, NOSE, AND THROAT: Normocephalic, atraumatic. NECK: Supple. Tracheostomy tube in place. HEART: Showed normal first and second heart sounds, no gallop or murmur. CHEST: Clear to auscultation, no crepitation or rhonchi. ABDOMEN: Distended, soft, nontender. NEUROLOGIC: She is sleepy, but arousable. All cranial nerves intact. She moves upper extremities without difficulty. She has paraplegia secondary to spina bifida cystica. Her intake was incompletely recorded. LABORATORY DATA: She has no lab work done this morning. Her blood cultures showed no growth after 5 days. ASSESSMENT: 1. Traumatic dislodgement of the gastrostomy tube, status post gastrostomy tube placement, ventral hernia repair. 2. Acute hypoxic respiratory failure for which she is now on trach shield, maintaining her oxygen saturation 100% on FiO2 of 40%. 3. Aspiration pneumonia with isolation for Pseudomonas. 4. Urinary tract infection with growth of Escherichia coli. 5. 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 6. She has acute on chronic congestive heart failure due to nonischemic cardiomyopathy that has responded very well to the IV Lasix. PLAN: To continue with oxygen supplementation. She is on trach shield. Continue with TPN. Continue with IV Lasix. Continue with IV antibiotic in the form of daptomycin, meropenem and micafungin. Continue with Keppra for seizure disorder, Lovenox for DVT prophylaxis and Protonix for GI prophylaxis. The patient will be discharged to [facility], if and when a bed becomes available. SHAHAB DR: Elias TID: [id number]
[2021-06-02] MEDS: PANTOPRAZOLE IV PUSH 40 MG VIAL. IVP SCH (10:12)
[2021-06-02] MEDS: CHLORHEXIDINE 0.12% 15 ML MOUTHWASH. SWSP SCH (10:12)
[2021-06-02] MEDS: FUROSEMIDE 40 MG/4 ML VIAL. IVP SCH (10:14)
[2021-06-02] MEDS: levETIRAcetam 500 MG in IV DEXTROSE 5% 100ML 100 ML IV SCH (10:14)
[2021-06-02] MEDS: ENOXAPARIN 40 MG/0.4 ML SYRINGE. SQ SCH (10:15)
[2021-06-02 11:00] VITALS: BP 150/104
[2021-06-02] MEDS: DAPTOmycin (GENERIC) IVPB 510 MG in IV NORMAL SALINE 50ML 50 ML IV SCH (11:24)
[2021-06-02] MEDS: fentaNYL PF VIAL 100 MCG/2 ML VIAL IVP PRN ×2 (11:24→18:38)
[2021-06-02] MEDS: MICAFUNGIN 100 MG in IV DEXTROSE 5% 100ML 100 ML IV SCH (12:06)
[2021-06-02] MEDS: INSULIN GLARGINE SYRINGE. SQ SCH (12:10)
[2021-06-02] MEDS: AA 4.25 %/CALCIUM/LYTES/D5W 1,000 ML IV SCH (13:53)
[2021-06-02 15:47] VITALS: BP 129/86
--- NOTE | 2021-06-02 18:45 | NUR ---
Report called to network control operators supervisor at [facility] while [facility] was loading patient on stretcher for transport.
--- NOTE | 2021-06-02 19:16 | NUR ---
Discharge Note: JANEE AYON Discharge instructions and discharge home medications reviewed with Other facility and a copy given. All questions have been answered and understanding verbalized. The following instructions and handouts were given: discharge instructions, plan of care and current medications. Discontinued lines and drains: not discontinued Patient discharged to [facility] with Ambulance Personnel via Stretcher
== END 2021-06-02 18:55 | DRG 326 ==
LOC: 5 NORTH 17:08 → 1 WEST ICU 05-25 15:48 → 5 NORTH 05-26 14:37
PROVIDERS: ADMIT Internal Medicine; ATTEND Internal Medicine
PROC: 0DH60UZ Insertion of Feeding Device into Stomach, Open Approach (ICD-10-PCS; 2021-05-25)
PROC: 5A1945Z Respiratory Ventilation, 24-96 Consecutive Hours (ICD-10-PCS; 2021-05-25)
PROC: 0DP60UZ Removal of Feeding Device from Stomach, Open Approach (ICD-10-PCS; 2021-05-25)
PROC: 5A1935Z Respiratory Ventilation, Less than 24 Consecutive Hours (ICD-10-PCS; principal; 2021-05-26)
PROC: 02HV33Z Insertion of Infusion Device into Superior Vena Cava, Percutaneous Approach (ICD-10-PCS; 2021-05-30)
PROC: B5181ZA Fluoroscopy of Superior Vena Cava using Low Osmolar Contrast, Guidance (ICD-10-PCS; 2021-05-30)
DX: K94.23 Gastrostomy malfunction (principal); A41.9 Sepsis, unspecified organism; J96.21 Acute and chronic respiratory failure with hypoxia; K65.9 Peritonitis, unspecified; I50.23 Acute on chronic systolic (congestive) heart failure; J69.0 Pneumonitis due to inhalation of food and vomit; G82.20 Paraplegia, unspecified; I42.8 Other cardiomyopathies; J98.11 Atelectasis; N39.0 Urinary tract infection, site not specified; Q05.4 Unspecified spina bifida with hydrocephalus; Z68.42 Body mass index [BMI] 45.0-49.9, adult; K94.22 Gastrostomy infection; E11.9 Type 2 diabetes mellitus without complications; B96.5 Pseudomonas (aeruginosa) (mallei) (pseudomallei) as the cause of diseases classified elsewhere; G40.909 Epilepsy, unspecified, not intractable, without status epilepticus; K21.9 Gastro-esophageal reflux disease without esophagitis; E66.01 Morbid (severe) obesity due to excess calories; F31.9 Bipolar disorder, unspecified; I34.0 Nonrheumatic mitral (valve) insufficiency; I11.0 Hypertensive heart disease with heart failure; Z87.440 Personal history of urinary (tract) infections; Z98.2 Presence of cerebrospinal fluid drainage device; Z88.2 Allergy status to sulfonamides; Z88.8 Allergy status to other drugs, medicaments and biological substances; Z91.040 Latex allergy status; Z79.899 Other long term (current) drug therapy
CPT/HCPCS: 31720; 36415; 36584; 71045; 74018; 74022; 80048; 80053; 81025; 82550; 82805; 82962; 83605; 83735; 84100; 84478; 85025; 85027; 85610; 86850; 86900; 86901; 87040; 88300; 93306; 94002; 94640; 94760; A4452; A4930; A6402; C1751; C9113; J0610; J0878; J1100; J1170; J1650; J1815; J1940; J1953; J2020; J2060; J2185; J2248; J2250; J2370; J2405; J2704; J2765; J2997; J3010; J3475; J3480; J3490; J7030; J7042; J7060; J7120; G0378